=== PATIENT | male | born 1970 | race Caucasian/White ===

== ENCOUNTER 2023-02-21 12:49 | Outpatient (OUT) | payer OTHER, SELFPAY ==
--- NOTE | 2023-02-21 13:15 | PM.CN ---
Consult Note: HPI Data of Consult Patient: known to practice within the last 3 years Consult date: 02/21/23 Requesting Physician: BRET CARY NP Primary Care Provider: Debra Heart Consult Narrative Reason for consult: back pain Narrative: He is here for f/u of right low back pain . Pain is bilat low lumbar. No radicular sx. He has had 2 dx MBB bilat with 80% relief and increased fx. He would like to proceed with the RFA procedure. .No new sensorimotor or bowel or bladder issues. Medication regimen is controlling pain and assisting with ability to perform ADLs. No adverse med SE. He has muscular tightness and spasm. He used to take flexeril and felt this helped his pain. We discussed he can restart this. cc:: CC: BRET CARY NP Review of Systems ROS Status of ROS 10 or more systems reviewed and unremarkable except as noted in history and below Musculoskeletal Reports: back pain Meds Home Medications and Allergies Home Medications Medication Instructions Recorded Confirmed Type acetaminophen 650 mg 650 mg PO Q12H PRN pain 02/21/23 02/21/23 History tablet,extended release (Tylenol Arthritis Pain) amlodipine 10 mg tablet 10 mg PO DAILY 02/21/23 02/21/23 History losartan 100 mg tablet 100 mg PO DAILY 02/21/23 02/21/23 History meloxicam 7.5 mg tablet 7.5 mg PO DAILY 02/21/23 02/21/23 History Allergies Allergy/AdvReac Type Severity Reaction Status Date / Time No Known Drug Allergies Allergy Verified 02/21/23 13:20 Exam Constitutional Documenting provider has reviewed patient's vital signs: yes Common normals: no apparent distress, average body habitus, oriented x3, healthy appearing, alert and well nourished Orientation/consciousness: Yes awake, Yes oriented to person, Yes oriented to place and Yes oriented to time HENMT Common normals: normocephalic, nasal mucous membranes and turbinates normal and moist oral mucous membranes Other: facial droop and slurred speech from previous stroke Respiratory Common normals: normal respiratory effort, no retractions and no use of accessory muscles Effort & inspection: able to speak in complete sentences and symmetric chest movement Back & Pelvis Lumbar spine/lower back: normal to inspection, pain with ROM, paraspinal muscle tenderness, paraspinal muscle spasm and straight leg raise negative bilaterally Other: facet loading positive bilat Extremity Other: muscle strength 4/5 bilat with intact sensation bilat LE Assessment and Plan Assessment and Plan (1) Lumbar spondylosis: (2) Muscle spasm: Plan schedule thermal RFA bilat lumbar L3 L4 L5 under fluoroscopy flexeril rx
== END 2023-02-21 12:50 ==
PROVIDERS: PCP Nurse Practitioner Family; Visit Provider Nurse Practitioner
DX: M47.816 Spondylosis without myelopathy or radiculopathy, lumbar region (principal); M62.838 Other muscle spasm
CPT/HCPCS: G0463

== ENCOUNTER 2023-03-10 07:19 | Day surgery (SDC) | payer OTHER, MEDICAID, SELFPAY ==
[2023-03-10 07:46] VITALS: BP 157/97; PULSE 93; RESP 16; TEMP 36.8; O2SAT 98
[2023-03-10] MEDS: 0.9 % SODIUM CHLORIDE 500 ML IV (07:54)
[2023-03-10] MEDS: LIDOCAINE HCL 2% 400 MG/20 ML MDV 15 ML INJ (08:46)
[2023-03-10] MEDS: BUPIVACAINE HCL 0.25% PF 25 MG/10 ML VIAL INJ (08:46)
[2023-03-10] MEDS: TRIAMCINOLONE ACETONIDE 40 MG/ML VIAL INJ (08:47)
[2023-03-10 09:02] VITALS: BP 151/84; PULSE 87; RESP 16; TEMP 36.6; O2SAT 94
--- NOTE | 2023-03-10 09:04 | W.PM.PROCNOT ---
Date of procedure: 03/10/23 Pre-op diagnosis: lumbosacral spondylosis Post-op diagnosis: same Procedure: Bilateral L3, L4, L5 radiofrequency ablation Medications: Bupivacaine 0.25% 6cc, kenalog 80mg The patient was seen and examined in the preoperative holding area.? The site was marked.? Written informed consent was obtained and placed on the chart.? The patient was brought to the medical procedure unit and placed in the prone position.? A timeout was completed verifying correct patient, procedure, positioning, and special requirements.? The skin overlying the target points, the designated medial branch, were prepped and draped in the usual sterile fashion.? The target point was achieved with a 20-gauge 15 cm with a 10 mm curved active tip radiofrequency cannula under direct fluoroscopic visualization.? The needle was inserted at level L3 on the right side. Needle tip position was confirmed with lateral fluoroscopic position.? Motor stimulation was carried out at 2 Hz up to 5 volts with the absence of extremity activity.? This was repeated at level L4, 5 on right side.?? Sensory stimulation was carried out.? Concordant pain was realized at the above-mentioned sites.? Then radiofrequency lesioning was carried out times 90 seconds at 80 degrees times 2 lesions at each level.? The radiofrequency probe was removed prior to cannula removal.? The above-mentioned injectate was placed in 1 mL increments.? The needle was removed.? Insertion sites were covered.? The patient was taken to the postoperative recovery area and monitored for an appropriate length of time before being found suitable for discharge in the company of a responsible adult. The same procedure was then completed on the left side. Anesthesia: CELESTE Surgeon: Martin Patricio Condition: stable
[2023-03-10 09:06] VITALS: BP 144/93; PULSE 93; RESP 16
== END 2023-03-10 09:25 | disposition home or self-care (01) ==
PROVIDERS: PCP Nurse Practitioner Family; Visit Provider Anesthesiology
PROC: (CPT 1940; principal; 2023-03-10 08:20)
DX: M47.817 Spondylosis without myelopathy or radiculopathy, lumbosacral region (principal)
CPT/HCPCS: 64635; 64636; J2704

== ENCOUNTER 2023-03-27 05:36 | Emergency (ER) | payer MEDICAID, SELFPAY ==
[2023-03-27 05:40] VITALS: BP 185/120; PULSE 105; RESP 18; TEMP 36.4; O2SAT 98; BMI 28.9
--- NOTE | 2023-03-27 05:53 | PC.NURSE ---
patient states approx 1 week ago he began to develop right flank pain, states he has a history of frequent kidney stones so he began increasing daily water intake in an attempt to flush it out. states the pain did not improve and this morning it became so severe he could not get any relief. tried asprin, heating pad, position changes, all without relief. states he has 10/10 right flank pain, denies any other urinary symptoms.
--- NOTE | 2023-03-27 06:03 | ED.ABDPAIN1 ---
HPI - Abdominal Pain General Chief Complaint: Abdominal Pain Stated Complaint: FLANK PAIN, RIGHT SIDE Time Seen by Provider: 03/27/23 05:58 Source: patient Mode of arrival: walk-in Limitations: no limitations History of Present Illness HPI narrative: past history of kidney stones. Developed right flank pain last PM. Now presents due to increased pain. No fever. No UTI symptoms Related Data Home Medications Medication Instructions Recorded Confirmed acetaminophen 650 mg 650 mg PO Q12H PRN pain 02/21/23 03/27/23 tablet,extended release (Tylenol Arthritis Pain) amlodipine 10 mg tablet 10 mg PO DAILY 02/21/23 03/27/23 losartan 100 mg tablet 100 mg PO DAILY 02/21/23 03/27/23 meloxicam 7.5 mg tablet 7.5 mg PO DAILY 02/21/23 03/27/23 cyclobenzaprine 10 mg tablet 10 mg PO .at bedtime 03/27/23 03/27/23 Allergies Allergy/AdvReac Type Severity Reaction Status Date / Time No Known Drug Allergies Allergy Verified 03/27/23 05:45 Review of Systems ROS Status of ROS 10 or more systems reviewed and unremarkable except as noted in history and below [facility] Medical History (Updated 03/27/23 @ 06:53 by Felix Thomas MD) Surgical History (Updated 03/05/23 @ 14:32 by Camilla Augustine) Social History Smoking status: Never smoker Exam Constitutional Vital Signs, click to edit/add: Last Vital Signs Temp 97.6 F 03/27/23 05:40 Pulse 105 H 03/27/23 05:40 Resp 18 03/27/23 05:40 BP 185/120 H 03/27/23 05:40 Pulse Ox 98 03/27/23 05:40 O2 Del Method Room Air 03/27/23 05:40 Common normals: no apparent distress and oriented x3 HENMT Common normals: normocephalic and head/scalp atraumatic Eye Common normals: PERRL, EOMs intact bilaterally and conjunctivae normal Respiratory Common normals: normal respiratory effort, no retractions and no use of accessory muscles Cardio Common normals: regular rate, regular rhythm, S1 normal heart sound and S2 normal heart sound GI Common normals: soft to palpation and non-tender Extremity Common normals: normal to inspection, full ROM and normal capillary refill Neuro Common normals: oriented x3, moves all extremities and no focal motor deficits Psych Appearance: grossly normal Course Vital Signs Vital signs: Vital Signs Temperature 97.6 F 03/27/23 05:40 Pulse Rate 105 H 03/27/23 05:40 Respiratory Rate 18 03/27/23 05:40 Blood Pressure 185/120 H 03/27/23 05:40 Pulse Oximetry 98 03/27/23 05:40 Oxygen Delivery Method Room Air 03/27/23 05:40 Temperature 97.6 F 03/27/23 05:40 Pulse Rate 105 H 03/27/23 05:40 Respiratory Rate 18 03/27/23 05:40 Blood Pressure 185/120 H 03/27/23 05:40 Pulse Oximetry 98 03/27/23 05:40 Oxygen Delivery Method Room Air 03/27/23 05:40 MDM - Abdominal Pain MDM Narrative Medical decision making narrative: patient presents with right renal colic. CT with 5mm stone R UVJ with mild hydronephrosis. pain improved to 4/10. UA pending. BP remains elevated after pain improved. Catapres ordered. Care transferred to oncoming physician at change of shift Discharge Plan Discharge Chief Complaint: Abdominal Pain Clinical Impression: Renal colic on right side, Hypertension Patient Disposition: Still a Patient Prescriptions / Home Meds: No Action amlodipine 10 mg tablet 10 mg PO DAILY losartan 100 mg tablet 100 mg PO DAILY meloxicam 7.5 mg tablet 7.5 mg PO DAILY acetaminophen [Tylenol Arthritis Pain] 650 mg tablet extended release 650 mg PO Q12H PRN (Reason: pain) cyclobenzaprine 10 mg tablet 10 mg PO .at bedtime Referrals: Debra Heart [Nurse Practitioner] - 1 week
--- NOTE | 2023-03-27 06:06 | CT_ITS ---
The [address] [address] Patient Name: MAYRA BLACK MRN: [id number] date: 1970 Sex: M Assigned Patient Location: ER Current Patient Location: ER Accession/Order Number: [id number] Exam Date: 03/27/2023 06:18 Report Date: 03/27/2023 06:39 At the request of: THADDEUS POTTER Procedure: CT abdomen pelvis wo con EXAM: CT abdomen pelvis wo con HISTORY: Right flank pain; technologist notes state history of kidney stones. COMPARISON: None. TECHNIQUE: Routine CT abdomen/pelvis without intravenous contrast. FINDINGS: Right kidney: There is an obstructing 0.5 cm calculus at the right UVJ with mild right pelvocaliectasis and mild right hydroureter proximal to this. There are 0.2 cm, 0.2 cm and 0.6 cm nonobstructive calculi within the right renal pelvis. The right kidney appears edematous. There are moderately severe stranding densities within the right perinephric space. Left kidney: The left kidney and left ureter are unremarkable. Lower chest: Unremarkable. Liver: Unremarkable. Gallbladder/biliary tree: Unremarkable. Pancreas: Unremarkable. Spleen: Unremarkable. Adrenal glands: Unremarkable. Bowel: Nonobstructive bowel gas pattern with a moderate amount of stool within the ascending colon. The colon, appendix, stomach and small bowel are unremarkable. Inflammation: As previously described. There is no free air. Vasculature: Small atheromatous calcification within the abdominal aorta. The IVC is unremarkable. Lymphadenopathy: No pathologically enlarged lymph nodes within the abdomen/pelvis. Pelvis: The prostate gland is mild to moderately enlarged. There is fat extending into the internal ring of the left inguinal canal. Osseous: There is a very small amount of fat extending into the umbilicus. Small endplate spurs at a a few levels along the thoracolumbar spine. There is bridging osteophyte along the anterior aspect of the right sacroiliac joint. There are bone islands within the femoral head bilaterally and the right intertrochanteric region. CT/CT abdomen pelvis wo con IMPRESSION: Obstructive 0.5 cm calculus at the right UVJ with mild right pelvocaliectasis and mild right hydroureter proximal to this. Nonobstructive 0.2 cm, 0.2 cm and 0.6 cm calculi within the right renal pelvis. The prostate gland is mild to moderately enlarged. Electronically authenticated by: PARVIZ TITUS Date: 03/27/2023 06:39
[2023-03-27 06:13] LABS: Basophils Percent Auto 0.2 % (0.2-2.0); Eosinophils Percent Auto 0.2 % (0.9-7.0); Hematocrit 48.7 % (42.0-54.0); Hemoglobin 17.6 g/dL (14.0-18.0); Immature Granulocytes Abs Auto 0.05 10^3/uL (0.00-0.03); Immature Granulocytes Pct Auto 0.4 % (0.0-0.5); Lymphocytes Absolute Auto 0.8 10^3/uL (1.2-3.8); Lymphocytes Percent Auto 6.6 % (20.5-60.0); Mean Corpuscular HGB Conc 36.1 g/dL (29.9-35.2); Mean Corpuscular Volume 85.9 fL (80.0-94.0); Mean Platelet Volume 9.2 fL (9.5-13.5); Monocytes Absolute Auto 0.9 10^3/uL (0.3-0.8); Monocytes Percent Auto 7.6 % (1.7-12.0); Neutrophils Absolute Auto 9.7 10^3/uL (1.4-6.5); Platelet Count 270 10^3/uL (150-450); Red Blood Count 5.67 10^6/uL (4.70-6.10); Red Cell Distribution Width 11.6 % (11.0-15.0); White Blood Count 11.4 10^3/uL (4.0-11.0)
[2023-03-27 06:25] LABS: Alanine Aminotransferase 52 U/L (16-63); Albumin Globulin Ratio 1.4; Albumin Level 4.5 g/dL (3.4-5.0); Alkaline Phosphatase 81 U/L (46-116); Anion Gap 15.1; Aspartate Amino Transferase 21 U/L (15-37); Bilirubin Total 0.8 mg/dL (0.2-1.0); Calcium 9.6 mg/dL (8.5-10.1); Carbon Dioxide 24.8 mmol/L (21.0-32.0); Chloride 102 mmol/L (98-107); Estimated GFR (African America >60 (>=60); Estimated GFR (Non-African Ame >60 (>=60); Globulin 3.3 g/dL; Glucose 116 mg/dL (74-106); Potassium 3.9 mmol/L (3.5-5.1); Sodium 138 mmol/L (136-145); Total Protein 7.8 g/dL (6.4-8.2)
[2023-03-27] MEDS: KETOROLAC TROMETHAMINE 30 MG/ML VIAL IM (06:26)
[2023-03-27] MEDS: ORPHENADRINE 60 MG/ 2 ML VIAL IV (06:26)
[2023-03-27 06:41] VITALS: BP 172/107
[2023-03-27 07:04] VITALS: BP 159/114
[2023-03-27] MEDS: CLONIDINE HCL 0.1 MG TABLET PO (07:04)
[2023-03-27 07:08] VITALS: BP 159/114; PULSE 95; RESP 18; O2SAT 96
[2023-03-27 07:16] LABS: Bilirubin Urine NEGATIVE (NEGATIVE); Blood Urine LARGE (NEGATIVE); Clarity Urine CLEAR (CLEAR); Color Urine LT. YELLOW (YELLOW); Glucose Urine UA NEGATIVE (NEGATIVE); Ketones Urine NEGATIVE (NEGATIVE); Leukocyte Esterase Urine NEGATIVE (NEGATIVE); Nitrite Urine NEGATIVE (NEGATIVE); Protein Urine NEGATIVE (NEG/TRACE); Specific Gravity Urine 1.025 (1.005-1.025); Urobilinogen Urine 0.2 EU/dL (0.2-1.0)
[2023-03-27 07:19] LABS: Urine Microscopic Indicated YES
[2023-03-27 07:22] LABS: Bacteria Urine NONE SEEN #/HPF (NONE SEEN); Cast Seen? NONE SEEN #/LPF (NONE SEEN); Crystals Seen? None Seen #/HPF (None Seen); Mucus Urine NONE SEEN (NONE SEEN); RBC Urine 20-50 #/HPF (0-2); Squamous Epithelial Cell Urine RARE #/LPF (NONE/RARE); Urine Culture Indicated NO; WBC Urine NONE SEEN #/HPF (NONE SEEN)
[2023-03-27 07:29] VITALS: BP 144/98; PULSE 99; RESP 18; O2SAT 95
== END 2023-03-27 07:49 | disposition home or self-care (01) ==
PROVIDERS: Internal Medicine; Emergency Provider Emergency Medicine; PCP Nurse Practitioner
DX: N13.2 Hydronephrosis with renal and ureteral calculous obstruction (principal); I10 Essential (primary) hypertension; Z87.442 Personal history of urinary calculi; Z79.899 Other long term (current) drug therapy
CPT/HCPCS: 36415; 74018; 74176; 80053; 81003; 81015; 85025; 96372; 96374; 99285

== ENCOUNTER 2023-03-27 08:34 | Outpatient (OUT) | payer MEDICAID, SELFPAY ==
--- NOTE | 2023-03-27 09:03 | XR_ITS ---
The [address] [address] Patient Name: MAYRA BLACK MRN: [id number] date: 1970 Sex: M Assigned Patient Location: RAD Current Patient Location: [facility] Accession/Order Number: [id number] Exam Date: 03/27/2023 08:55 Report Date: 03/27/2023 12:10 At the request of: BRENNAN PADILLA Procedure: XR abdomen 1V EXAMINATION: XR abdomen 1V HISTORY: Kidney Stone N20.0 ; acute right flank pain COMPARISON: CT abdomen pelvis 03/27/2023 FINDINGS: KIDNEY/URETER - RIGHT: No visible renal or ureteral calcifications. KIDNEY/URETER - LEFT: No visible renal or ureteral calcifications. PELVIS: No visible ureteral stones. BOWEL: No abnormal dilation or deviation. BONES: No acute abnormality. OTHER: Negative. No abnormal gaseous collections. XR/XR abdomen 1V IMPRESSION: 1. No visible urinary tract calculi. Given the small size of the calcifications seen on the CT study performed earlier today these may not be visible, or may have passed. Electronically authenticated by: LENIN PRESCOTT Date: 03/27/2023 12:10
== END 2023-03-27 08:35 | disposition home or self-care (01) ==
LOC: RAD 08:35
PROVIDERS: PCP Nurse Practitioner; Visit Provider Urology
DX: N20.0 Calculus of kidney (principal)
CPT/HCPCS: 74018

== ENCOUNTER 2023-04-14 12:55 | Outpatient (OUT) | payer OTHER, SELFPAY ==
--- NOTE | 2023-04-14 13:35 | PM.CN ---
Consult Note: HPI Data of Consult Patient: known to practice within the last 3 years Consult date: 04/14/23 Requesting Physician: Martin Patricio MD Primary Care Provider: Zenaida Nix Consult Narrative Reason for consult: Low back pain Narrative: this is a pleasant 52-year-old gentleman who presents for assessment. He recently underwent bilateral L4-L5, L5-S1 radiofrequency ablation notes one hundred percent relief of his axial low back pain. He states that he is able to do more activities that he was previously unable to do without pain. He utilizes Mobic and Flexeril. He otherwise denies adverse medication side effects or loss of bowel or bladder control. cc:: CC: Martin Patricio MD Review of Systems ROS Status of ROS 10 or more systems reviewed and unremarkable except as noted in history and below PFSH PFS Medical History Surgical History Social History Smoking status: Never smoker Meds Home Medications and Allergies Home Medications Medication Instructions Recorded Confirmed Type acetaminophen 650 mg 650 mg PO Q12H PRN pain 02/21/23 03/27/23 History tablet,extended release (Tylenol Arthritis Pain) amlodipine 10 mg tablet 10 mg PO DAILY 02/21/23 03/27/23 History losartan 100 mg tablet 100 mg PO DAILY 02/21/23 03/27/23 History ciprofloxacin HCl 500 mg tablet 500 mg PO BID #14 tabs 03/27/23 Rx cyclobenzaprine 10 mg tablet 10 mg PO .at bedtime 03/27/23 03/27/23 History diclofenac sodium 50 mg 50 mg PO Q12H PRN pain #10 tabs 03/27/23 Rx tablet,delayed release tamsulosin 0.4 mg capsule (Flomax) 0.4 mg PO DAILY #10 caps 03/27/23 Rx Allergies Allergy/AdvReac Type Severity Reaction Status Date / Time No Known Drug Allergies Allergy Verified 03/27/23 05:45 Exam Constitutional Common normals: no apparent distress, oriented x3 and healthy appearing Respiratory Common normals: normal respiratory effort Effort & inspection: able to speak in complete sentences Back & Pelvis Common normals: thoracic and lumbar spine normal to inspection, thoraco-lumbar ROM normal and straight leg raise negative bilaterally Extremity Common normals: normal to inspection Neuro Common normals: oriented x3, CN's II-XII intact bilaterally and no focal motor deficits Psych Common normals: mental status grossly normal and cooperative Assessment and Plan Assessment and Plan (1) Lumbar spondylosis: (2) Muscle spasm: Plan this is a pleasant 52-year-old gentleman who presents for system. I advised that he had significant relief for his recent lumbar radial frequency ablation, as noted above. He continues to have some pain from kidney stones. We discussed that he could see how he does without his Flexeril and Mobic. He agreed with this plan. He'll follow-up in six months or sooner, if needed.
== END 2023-04-14 12:56 | disposition home or self-care (01) ==
LOC: PM 12:55
PROVIDERS: PCP Nurse Practitioner; Visit Provider Anesthesiology
DX: M47.816 Spondylosis without myelopathy or radiculopathy, lumbar region (principal); M62.838 Other muscle spasm
CPT/HCPCS: G0463

== ENCOUNTER 2023-04-28 08:42 | Outpatient (OUT) | payer MEDICAID, SELFPAY ==
--- NOTE | 2023-04-28 08:57 | XR_ITS ---
The [address] [address] Patient Name: MAYRA BLACK MRN: [id number] date: 1970 Sex: M Assigned Patient Location: [facility] Current Patient Location: [facility] Accession/Order Number: [id number] Exam Date: 04/28/2023 09:00 Report Date: 04/28/2023 09:31 At the request of: BRENNAN PADILLA Procedure: XR abdomen 1V EXAM: XR abdomen 1V HISTORY: Kidney stone N20.0 COMPARISON: None. TECHNIQUE: AP view of the abdomen. FINDINGS: Nonobstructive bowel gas pattern is noted. There is no suspicious calcification. The osseous structures are intact. XR/XR abdomen 1V IMPRESSION: Nonobstructive bowel gas pattern. No suspicious renal calcification. Electronically authenticated by: IDALIA CARLIN Date: 04/28/2023 09:31
== END 2023-04-28 08:43 | disposition home or self-care (01) ==
LOC: RAD 08:45
PROVIDERS: PCP Nurse Practitioner; Visit Provider Urology
DX: N13.2 Hydronephrosis with renal and ureteral calculous obstruction (principal)
CPT/HCPCS: 74018

== ENCOUNTER 2023-05-06 08:54 | Outpatient (OUT) | payer MEDICAID, SELFPAY ==
--- NOTE | 2023-05-06 09:00 | XR_ITS ---
[address] [address] Patient Name: MAYRA BLACK MRN: [facility]:[id number] date: 1970 Sex: M Assigned Patient Location: LAB Current Patient Location: LAB Accession/Order Number: [id number] Exam Date: 05/06/2023 09:50 Report Date: 05/06/2023 15:20 At the request of: BRENNAN PADILLA Procedure: XR IVP w KUB EXAMINATION: XR IVP w KUB HISTORY: Hydronephrosis With Ureteral Calculus N13.2, Kidney Stone COMPARISON: CT abdomen pelvis 03/27/2023 TECHNIQUE: After obtaining patient consent a chief of production image was obtained followed by injection of 100cc of Omnipaque 300 IV contrast. Immediate nephrographic images were obtained. Corticomedullary and urographic phase images were obtained at 5, 10, 15 and 20 minutes. 15 minute oblique images were also obtained. FINDINGS: KIDNEY/URETER - RIGHT: No visible calcifications. KIDNEY/URETER - LEFT: No visible calcifications. PELVIS: No visible ureteral calcifications. Any visible calcifications favor phleboliths. NEPHROGRAPHIC PHASE: Normal, symmetric size, contour, and orientation. Normal and symmetric time of contrast uptake. CORTICOMEDULLARY: No mass or abnormal appearing medulla, pyramids, or collecting system. UROGRAPHIC PHASE: Normal caliber, course, and number of ureters. BLADDER: Normal size and contour. BOWEL: No abnormal dilation or deviation. BONES: No acute abnormality. OTHER: Negative. No abnormal gaseous collections. XR/XR IVP w KUB IMPRESSION: 1. No appreciable urinary tract calculi. 2. Normal uptake and excretion of contrast by the kidneys. 3. Normal appearance of the ureters and urinary bladder. Electronically authenticated by: LENIN PRESCOTT Date: 05/06/2023 15:20
[2023-05-06 09:20] LABS: Estimated GFR (African America >60 (>=60); Estimated GFR (Non-African Ame >60 (>=60)
== END 2023-05-06 08:55 | disposition home or self-care (01) ==
LOC: LAB 08:54
PROVIDERS: PCP Nurse Practitioner; Visit Provider Urology
DX: N13.2 Hydronephrosis with renal and ureteral calculous obstruction (principal)
CPT/HCPCS: 36415; 74400; 82565; 84520; Q9967

== ENCOUNTER 2023-11-05 14:28 | Outpatient (RCR) | payer OTHER, SELFPAY | END 2023-12-05 13:03 | disposition home or self-care (01) | LOC: PT 14:28 | PROVIDERS: PCP Nurse Practitioner; Visit Provider Nurse Practitioner Family | DX: M47.816 Spondylosis without myelopathy or radiculopathy, lumbar region (principal); M51.26 Other intervertebral disc displacement, lumbar region | CPT/HCPCS: 97110; 97112; 97140; 97163 ==

== ENCOUNTER 2023-12-11 09:27 | Outpatient (OUT) | payer MEDICAID, SELFPAY ==
[2023-12-11 09:54] LABS: Basophils Percent Auto 0.7 % (0.2-2.0); Eosinophils Absolute Auto 0.1 10^3/uL (0.0-0.7); Eosinophils Percent Auto 2.1 % (0.9-7.0); Hematocrit 47.7 % (42.0-54.0); Hemoglobin 16.6 g/dL (14.0-18.0); Immature Granulocytes Abs Auto 0.01 10^3/uL (0.00-0.03); Immature Granulocytes Pct Auto 0.2 % (0.0-0.5); Lymphocytes Percent Auto 22.5 % (20.5-60.0); Mean Corpuscular HGB Conc 34.8 g/dL (29.9-35.2); Mean Corpuscular Hemoglobin 30.6 pg (25.9-34.0); Mean Platelet Volume 10.3 fL (9.5-13.5); Monocytes Absolute Auto 0.3 10^3/uL (0.3-0.8); Monocytes Percent Auto 7.7 % (1.7-12.0); Neutrophils Absolute Auto 2.9 10^3/uL (1.4-6.5); Neutrophils Percent Auto 66.8 % (43.0-75.0); Platelet Count 228 10^3/uL (150-450); Red Blood Count 5.42 10^6/uL (4.70-6.10); Red Cell Distribution Width 12.3 % (11.0-15.0); White Blood Count 4.3 10^3/uL (4.0-11.0)
[2023-12-11 11:42] LABS: Alanine Aminotransferase 58 U/L (16-63); Albumin Globulin Ratio 1.3; Alkaline Phosphatase 87 U/L (46-116); Anion Gap 12.4; Aspartate Amino Transferase 25 U/L (15-37); BUN Creatinine Ratio 11.6; Calcium 8.9 mg/dL (8.5-10.1); Carbon Dioxide 30.3 mmol/L (21.0-32.0); Chloride 106 mmol/L (98-107); Chol HDL Ratio 5.2; Cholesterol 220 mg/dL (<=200); Estimated GFR (African America >60 (>=60); Estimated GFR (Non-African Ame >60 (>=60); Globulin 3.1 g/dL; Glucose 111 mg/dL (74-106); HDL Cholesterol 42 mg/dL (40-60); Potassium 3.7 mmol/L (3.5-5.1); Sodium 145 mmol/L (136-145); Thyroid Stimulating Hormone 3.784 uIU/mL (0.358-3.740); Total Protein 7.1 g/dL (6.4-8.2); Triglycerides 294 mg/dL (<=150); VLDL CHOLESTEROL 58.8 mg/dL
[2023-12-11 12:20] LABS: Bilirubin Urine NEGATIVE (NEGATIVE); Blood Urine NEGATIVE (NEGATIVE); Clarity Urine CLEAR (CLEAR); Color Urine YELLOW (YELLOW); Glucose Urine UA NEGATIVE (NEGATIVE); Ketones Urine NEGATIVE (NEGATIVE); Leukocyte Esterase Urine NEGATIVE (NEGATIVE); Nitrite Urine NEGATIVE (NEGATIVE); Protein Urine NEGATIVE (NEG/TRACE); Specific Gravity Urine 1.025 (1.005-1.025); Urine Microscopic Indicated NO; Urobilinogen Urine 0.2 EU/dL (0.2-1.0)
[2023-12-11 12:32] LABS: Creatinine Urine Random 247.95 mg/dL (20.00-300.00); Microalbum Creatinine Ratio Ur 7.2 mg/g (0.0-29.9); Microalbumin Urine Random 1.8 mg/dL (<=30.0)
[2023-12-11 12:48] LABS: Prostate Specific Antigen Dx 0.69 ng/mL (<=4.00)
== END 2023-12-11 09:28 | disposition home or self-care (01) ==
LOC: LAB 09:28
PROVIDERS: PCP Nurse Practitioner; Visit Provider Nurse Practitioner
DX: F41.1 Generalized anxiety disorder (principal); I10 Essential (primary) hypertension; N40.0 Benign prostatic hyperplasia without lower urinary tract symptoms
CPT/HCPCS: 36415; 80053; 80061; 81003; 82043; 82570; 84153; 84443; 85025

== ENCOUNTER 2024-03-11 09:49 | Outpatient (OUT) | payer MEDICAID, SELFPAY ==
[2024-03-11 11:08] LABS: Anion Gap 11.9; BUN Creatinine Ratio 19.3; Calcium 8.8 mg/dL (8.5-10.1); Carbon Dioxide 29.6 mmol/L (21.0-32.0); Chloride 102 mmol/L (98-107); Estimated GFR (African America >60 (>=60); Estimated GFR (Non-African Ame >60 (>=60); Glucose 106 mg/dL (74-106); Potassium 3.5 mmol/L (3.5-5.1); Sodium 140 mmol/L (136-145)
== END 2024-03-11 09:50 | disposition home or self-care (01) ==
LOC: LAB 09:52
PROVIDERS: PCP Nurse Practitioner; Visit Provider Nurse Practitioner
DX: I10 Essential (primary) hypertension (principal)
CPT/HCPCS: 36415; 80048

== ENCOUNTER 2024-05-07 06:38 | Outpatient (OUT) | payer MEDICAID, SELFPAY ==
--- NOTE | 2024-05-07 06:41 | MR_ITS ---
The [address] [address] Patient Name: MAYRA BLACK MRN: [id number] date: 1970 Sex: M Assigned Patient Location: MRI Current Patient Location: MRI Accession/Order Number: [id number] Exam Date: 05/07/2024 06:50 Report Date: 05/07/2024 22:38 At the request of: MARY TORRES Procedure: MR head/brain wo/w con EXAM: MR head/brain wo/w con HISTORY: Sensorineural Hearing Loss, Tinnitus Right Side COMPARISON: CT brain 07/21/2019 TECHNIQUE: Multisequence MRI brain was performed with and without intravenous contrast. FINDINGS: There is no restricted diffusion to suggest acute infarct. There is no midline shift, mass effect, or abnormal extraaxial fluid collections. There is a 2.5 x 2.5 x 1.8 cm well-defined enhancing extra-axial mass with cystic components in the right cerebellopontine angle, extends through the internal auditory canal. There is mild mass effect upon the right anterior cerebellum. The cortical sulci and ventricular system are within normal limits for the age. The major intracranial flow voids are visualized. The cerebellar tonsils are normal in position. The orbits demonstrate no suspicious enhancement or any focal lesions. The paranasal sinuses show no air-fluid level. The mastoid air cells are clear. The calvarium and extracranial soft tissues are unremarkable. MR/MR head/brain wo/w con IMPRESSION: No acute intracranial abnormality . 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 Electronically authenticated by: ROB MAHARAJ Date: 05/07/2024 22:38
== END 2024-05-07 06:39 | disposition home or self-care (01) ==
LOC: MRI 06:38
PROVIDERS: PCP Nurse Practitioner; Visit Provider Otolaryngology
DX: H90.41 Sensorineural hearing loss, unilateral, right ear, with unrestricted hearing on the contralateral side (principal); H93.11 Tinnitus, right ear; D33.3 Benign neoplasm of cranial nerves
CPT/HCPCS: 70553; A9575

== ENCOUNTER 2024-11-30 13:42 | Observation (INO) | payer MEDICAID, SELFPAY ==
[2024-11-30] VITALS (25 sets, daily range): BP systolic 151–184; BP diastolic 91–112; PULSE 70–101; TEMP 36.4–36.7; O2SAT 91–97; BMI 20.3; BMI 26.6
--- NOTE | 2024-11-30 13:59 | ECG_ITS ---
The [facility] Test Date: 2024-11-30 Pat Name: MAYRA BLACK Department: Room: - Gender: Male Histopath Tech: : 1970 Requested By: [id number] Order Number: [id number] Reading MD: LEVI STEWART Measurements Intervals [place] Rate: 96 P: 51 [place]: 174 QRS: 49 QRSD: 102 T: 48 QT: 334 QTc: 387 Interpretive Statements 1100 Sinus rhythm 9110 normal ECG Compared to ECG 11/18/2022 13:53:28 Sinus tachycardia no longer present Intraventricular conduction delay no longer present T-wave abnormality no longer present Electronically Signed On 11-30-2024 14:56:25 EDT by LEVI STEWART
--- NOTE | 2024-11-30 14:01 | ED_ITS ---
HPI HPI - General Adult General Chief complaint: Neuro Symptoms/Deficit Stated complaint: POSSIBLE STROKE Time Seen by Provider: 11/30/24 13:43 Source: patient and family Mode of arrival: Wheelchair Limitations: no limitations History of Present Illness HPI narrative: Patient is a 54-year-old male brought to the emergency department by his mother for complaint of a possible stroke. History was initially provided by mother as the patient was taken immediately to the CT suite. Mother states that she last saw the patient normally yesterday morning. The patient called her this afternoon stating that he was not feeling well and felt he needed to be seen in the emergency department. She states that he has a history of dysarthria, she feels he is at his mental baseline and his speech is at his baseline at this time. She did not note any confusion or change in speech in the car ride from his home in [place] to the hospital. Upon returning from CT, the patient states that at 7:00 this morning, he developed a headache and blurry vision and shortly after felt as though his left arm was numb and weak. He states this resolved and then he noted numbness and weakness in his right arm. This has now also resolved. He had no lower extremity weakness. He does not feel his speech is changed and he has had no trouble with his words. Patient states he has had previous strokes, mother states she did not believe that he has had strokes in the past. He recently had an noncancerous cyst removed from behind his right ear at [facility] and had a CT scan at their facility last week for continued pain posterior to the right ear. He does not know the results. He does not take blood thinners. Other than a frontal headache, the patient has no focal medical complaints at this time. He is noted to be hypertensive, he states he took himself off of his blood pressure medication 1 month ago. Related Data Home Medications ?Medication ?Instructions ?Recorded ?Confirmed acetaminophen 650 mg 650 mg PO Q12H PRN pain 02/21/23 03/27/23 tablet,extended release (Tylenol Arthritis Pain) amlodipine 10 mg tablet 10 mg PO DAILY 02/21/23 03/27/23 losartan 100 mg tablet 100 mg PO DAILY 02/21/23 03/27/23 cyclobenzaprine 10 mg tablet 10 mg PO .at bedtime 07/13/23 07/13/23 Previous Rx's ?Medication ?Instructions ?Recorded ciprofloxacin HCl 500 mg tablet 500 mg PO BID #14 tabs 03/27/23 diclofenac sodium 50 mg 50 mg PO Q12H PRN pain #10 tabs 03/27/23 tablet,delayed release tamsulosin 0.4 mg capsule (Flomax) 0.4 mg PO DAILY #10 caps 03/27/23 Allergies Allergy/AdvReac Type Severity Reaction Status Date / Time No Known Drug Allergies Allergy Verified 03/27/23 05:45 Opioid HPI Opioid Management Most Recent Opioid Data: Last Pain Scale 10 03/27/23 05:52 03/27/23 Review of Systems ROS Constitutional Denies: fever or chills Eyes Reports: change in vision and blurry vision Ears, nose, mouth, and throat Denies: throat pain or nasal congestion Cardiovascular Denies: chest pain Respiratory Denies: shortness of breath or cough Gastrointestinal Denies: nausea or vomiting Musculoskeletal Denies: back pain or neck pain Integumentary/Breast Denies: rash Neurological Reports: headache, numbness in extremities and weakness in extremities Hematologic/Lymphatic Denies: easy bruising or easy bleeding PFSH PFSH Medical History Surgical History Social History Smoking status: Never smoker Exam Narrative Exam Narrative: Gen.: Awake, alert, in no distress Head: Normocephalic, atraumatic ENT: Moist mucous membranes, minimal drooping of the right corner of the mouth, dysarthric speech Respiratory: No respiratory distress, lungs clear bilaterally Cardio: Regular rate and rhythm Gastrointestinal: Abdomen is soft, nondistended and nontender to palpation Extremities: Moves extremities equally, 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 with normal dorsiflexion and plantarflexion, no pronator drift Psych: Normal mood and affect Neuro: No focal neuro deficit Skin: Warm, dry, intact Constitutional Vital Signs, click to edit/add: Last Vital Signs Temp 97.6 F 11/30/24 14:20 Pulse 78 11/30/24 15:50 Resp 15 11/30/24 15:50 BP 159/103 H 11/30/24 15:45 Pulse Ox 94 L 11/30/24 15:50 O2 Del Method Room Air 11/30/24 13:58 Course Vital Signs Vital signs: Vital Signs Pulse Rate 101 H 11/30/24 13:53 Respiratory Rate 20 11/30/24 13:53 Blood Pressure 182/112 H 11/30/24 13:53 Pulse Oximetry 97 11/30/24 13:53 Oxygen Delivery Method Room Air 11/30/24 13:53 Temperature 97.6 F 11/30/24 14:20 Pulse Rate 78 11/30/24 15:50 Respiratory Rate 15 11/30/24 15:50 Blood Pressure 159/103 H 11/30/24 15:45 Pulse Oximetry 94 L 11/30/24 15:50 Oxygen Delivery Method Room Air 11/30/24 13:58 Medical Decision Making MDM Narrative Medical decision making narrative: Patient was sent immediately to CT, noncontrast CT of the brain is unremarkable. Laboratory studies reviewed and noted, patient is noted to be hypertensive initially and treated with labetalol and Vasotec, additional labetalol given. CT angio of the head and neck were performed which are unremarkable as well. I discussed the case with Dr. Watkins for stroke interventional at [facility] who is in agreement that this is likely hypertensive urgency and not an acute CVA, patient has no focal medical complaints other than headache which is improved as his blood pressure improved. He is resting comfortably at his mental baseline at time of admission to the hospitalist at this facility. SUPERVISED APC VISIT, PHYSICIAN ATTESTATION: Based on the medical record the care appears appropriate. ? Medical Records Medical records reviewed: Yes I reviewed the patient's medical records Lab Data Lab results reviewed: Yes I reviewed the patient's lab results Labs: Lab Results 11/30/24 11/30/24 Range/Units 13:55 14:50 WBC 4.1 (4.0-11.0) 10^3/uL RBC 5.47 (4.70-6.10) 10^6/uL Hgb 17.0 (14.0-18.0) g/dL Hct 48.0 (42.0-54.0) % MCV 87.8 (80.0-94.0) fL MCH 31.1 (25.9-34.0) pg MCHC 35.4 H (29.9-35.2) g/dL RDW 11.8 (11.0-15.0) % Plt Count 230 (150-450) 10^3/uL MPV 10.3 (9.5-13.5) fL Neut % (Auto) 67.8 (43.0-75.0) % Lymph % (Auto) 23.4 (20.5-60.0) % Grand % (Auto) 6.9 (1.7-12.0) % Eos % (Auto) 1.2 (0.9-7.0) % Baso % (Auto) 0.5 (0.2-2.0) % Neut # (Auto) 2.8 (1.4-6.5) 10^3/uL Lymph # (Auto) 1.0 L (1.2-3.8) 10^3/uL Grand # (Auto) 0.3 (0.3-0.8) 10^3/uL Eos # (Auto) 0.1 (0.0-0.7) 10^3/uL Baso # (Auto) 0.0 (0.0-0.1) 10^3/uL Abs Immat Gran (auto) 0.01 (0.00-0.03) 10^3/uL Imm/Tot Granulo (auto) 0.2 (0.0-0.5) % ESR 1 (<=20) mm/hr PT 10.9 (9.0-11.6) sec INR 1.03 Sodium 143 (136-145) mmol/L Potassium 3.7 (3.5-5.1) mmol/L Chloride 106 (98-107) mmol/L Carbon Dioxide 28.5 (21.0-32.0) mmol/L Anion Gap 12.2 BUN 11.0 (7.0-18.0) mg/dL Creatinine 1.00 (0.70-1.30) mg/dL Est GFR ( Amer) >60 (>=60 mL/min/1.73m^2) Est GFR (Non-Af Amer) >60 (>=60 mL/min/1.73m^2) BUN/Creatinine Ratio 11.0 Glucose 124 H (74-106) mg/dL Lactate 1.2 (0.4-2.0) mmol/L Calcium 9.1 (8.5-10.1) mg/dL Magnesium 1.9 (1.8-2.4) mg/dL Total Bilirubin 0.7 (0.2-1.0) mg/dL AST 24 (15-37) U/L ALT 44 (16-63) U/L Alkaline Phosphatase 80 (46-116) U/L Troponin I High Sens 4.6 (4.0-76.1) pg/mL C-Reactive Protein <0.50 (<=0.50) mg/dL Total Protein 7.0 (6.4-8.2) g/dL Albumin 4.1 (3.4-5.0) g/dL Globulin 2.9 g/dL Albumin/Globulin Ratio 1.4 TSH 1.708 (0.358-3.740) uIU/mL Urine Color Lt. yellow (YELLOW) Urine Clarity Clear (CLEAR) Urine pH 6.0 (5.0-9.0) Ur Specific [place] 1.010 (1.005-1.025) Urine Protein Negative (NEG/TRACE) mg/dL Urine Glucose (UA) Negative (NEGATIVE) mg/dL Urine Ketones Negative (NEGATIVE) mg/dL Urine Occult Blood Negative (NEGATIVE) Urine Nitrite Negative (NEGATIVE) Urine Bilirubin Negative (NEGATIVE) Urine Urobilinogen 0.2 (0.2-1.0) EU/dL Ur Leukocyte Esterase Negative (NEGATIVE) Urine RBC None seen (0-2) #/HPF Urine WBC None seen (NONE SEEN) #/HPF Ur Squamous Epith Cells Rare (NONE/RARE) #/LPF Urine Crystals None seen (None Seen) #/HPF Urine Bacteria None seen (NONE SEEN) #/HPF Urine Casts None seen (NONE SEEN) #/LPF Urine Mucus None seen (NONE SEEN) Ur Culture Indicated? No Imaging Data CT scan - head: Attestation: I have reviewed the pertinent imaging results. ECG Data Attestation: I personally reviewed and interpreted this ECG as follows: (Normal sinus rhythm at a rate of 96, no acute ST elevation or ectopy. EKG reviewed by attending physician) Discharge Plan Discharge Chief Complaint: Neuro Symptoms/Deficit Patient Disposition: Admitted as Observation Time of Disposition Decision: 16:13 Prescriptions / Home Meds: No Action amlodipine 10 mg tablet 10 mg PO DAILY losartan 100 mg tablet 100 mg PO DAILY acetaminophen [Tylenol Arthritis Pain] 650 mg tablet extended release 650 mg PO Q12H PRN (Reason: pain) cyclobenzaprine 10 mg tablet 10 mg PO .at bedtime diclofenac sodium 50 mg tablet,delayed release (DR/EC) 50 mg PO Q12H PRN (Reason: pain) Qty: 10 0RF tamsulosin [Flomax] 0.4 mg capsule 0.4 mg PO DAILY Qty: 10 0RF ciprofloxacin HCl 500 mg tablet 500 mg PO BID Qty: 14 0RF Print Language: Urdu Referrals: Zenaida Nix [facility] [Primary Care Provider] - 1 week
[2024-11-30 14:12] LABS: Basophils Percent Auto 0.5 % (0.2-2.0); Eosinophils Absolute Auto 0.1 10^3/uL (0.0-0.7); Eosinophils Percent Auto 1.2 % (0.9-7.0); Immature Granulocytes Abs Auto 0.01 10^3/uL (0.00-0.03); Immature Granulocytes Pct Auto 0.2 % (0.0-0.5); Lymphocytes Percent Auto 23.4 % (20.5-60.0); Mean Corpuscular HGB Conc 35.4 g/dL (29.9-35.2); Mean Corpuscular Hemoglobin 31.1 pg (25.9-34.0); Mean Corpuscular Volume 87.8 fL (80.0-94.0); Mean Platelet Volume 10.3 fL (9.5-13.5); Monocytes Absolute Auto 0.3 10^3/uL (0.3-0.8); Monocytes Percent Auto 6.9 % (1.7-12.0); Neutrophils Absolute Auto 2.8 10^3/uL (1.4-6.5); Neutrophils Percent Auto 67.8 % (43.0-75.0); Platelet Count 230 10^3/uL (150-450); Red Blood Count 5.47 10^6/uL (4.70-6.10); Red Cell Distribution Width 11.8 % (11.0-15.0); White Blood Count 4.1 10^3/uL (4.0-11.0)
[2024-11-30] MEDS: ENALAPRILAT DIHYDRATE 1.25 MG/ML VIAL IV (14:14)
[2024-11-30] MEDS: LABETALOL HCL 20 MG/4 ML SYRINGE IVP (14:14)
[2024-11-30 14:15] LABS: INR 1.03; Prothrombin Time 10.9 sec (9.0-11.6)
[2024-11-30 14:21] LABS: Erythrocyte Sedimentation Rate 1 mm/hr (<=20)
[2024-11-30 14:22] LABS: Alanine Aminotransferase 44 U/L (16-63); Albumin Globulin Ratio 1.4; Albumin Level 4.1 g/dL (3.4-5.0); Alkaline Phosphatase 80 U/L (46-116); Anion Gap 12.2; Aspartate Amino Transferase 24 U/L (15-37); Bilirubin Total 0.7 mg/dL (0.2-1.0); Calcium 9.1 mg/dL (8.5-10.1); Carbon Dioxide 28.5 mmol/L (21.0-32.0); Chloride 106 mmol/L (98-107); Estimated GFR (African America >60 (>=60 mL/min/1.73m^2); Estimated GFR (Non-African Ame >60 (>=60 mL/min/1.73m^2); Globulin 2.9 g/dL; Glucose 124 mg/dL (74-106); Potassium 3.7 mmol/L (3.5-5.1); Sodium 143 mmol/L (136-145)
[2024-11-30 14:24] LABS: Lactate/Lactic Acid 1.2 mmol/L (0.4-2.0)
[2024-11-30 14:27] LABS: C Reactive Protein <0.50 mg/dL (<=0.50); Magnesium 1.9 mg/dL (1.8-2.4); Thyroid Stimulating Hormone 1.708 uIU/mL (0.358-3.740); Troponin I High Sensitivity 4.6 pg/mL (4.0-76.1)
[2024-11-30 15:08] LABS: Bilirubin Urine NEGATIVE (NEGATIVE); Blood Urine NEGATIVE (NEGATIVE); Clarity Urine CLEAR (CLEAR); Color Urine LT. YELLOW (YELLOW); Glucose Urine UA NEGATIVE (NEGATIVE); Ketones Urine NEGATIVE (NEGATIVE); Leukocyte Esterase Urine NEGATIVE (NEGATIVE); Nitrite Urine NEGATIVE (NEGATIVE); Protein Urine NEGATIVE (NEG/TRACE); Urobilinogen Urine 0.2 EU/dL (0.2-1.0)
[2024-11-30 15:22] LABS: Bacteria Urine NONE SEEN #/HPF (NONE SEEN); Cast Seen? NONE SEEN #/LPF (NONE SEEN); Crystals Seen? None Seen #/HPF (None Seen); Mucus Urine NONE SEEN (NONE SEEN); RBC Urine NONE SEEN #/HPF (0-2); Squamous Epithelial Cell Urine RARE #/LPF (NONE/RARE); Urine Culture Indicated NO; WBC Urine NONE SEEN #/HPF (NONE SEEN)
[2024-11-30] MEDS: LABETALOL HCL 20 MG/4 ML SYRINGE 10 MG IVP (16:09)
--- NOTE | 2024-11-30 16:53 | PC.NURSE ---
pt sx have since resolved but states this morning at 0700 he was turning on the news ahnd his vision got blurry for approx 5 mins and his L hand had numbness/tingling. moments later, that resolved and the R hand got numb/tingly. per pt's mother, the last night she saw him normal was last night. they do not llive together. sx resolved by the time pt got to ER. 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 Pt is alert and oriented. Pt within the last month took himself of his BP medications. 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 Follows up with [facility] for his neurology.
[2024-11-30 17:30] LABS: Amphetamine Screen Urine NEGATIVE (NEGATIVE); Barbiturates Screen Urine NEGATIVE (NEGATIVE); Benzodiazepines Screen Urine NEGATIVE (NEGATIVE); Buprenorphine Screen Urine NEGATIVE (NEGATIVE); Cannabinoid Screen Urine NEGATIVE (NEGATIVE); Cocaine Screen Urine NEGATIVE (NEGATIVE); Methadone Screen Urine NEGATIVE (NEGATIVE); Methamphetamines Screen Urine NEGATIVE (NEGATIVE); Opiate Screen Urine NEGATIVE (NEGATIVE); Oxycodone Screen Urine NEGATIVE (NEGATIVE); Phencyclidine Screen Urine NEGATIVE (NEGATIVE); Tricyclic Antidepressant Urine NEGATIVE (NEGATIVE)
--- OUTSIDE RECORDS SUMMARY | 2024-11-30 17:37 | XMS_ITS | CCD ---
Author Organization [facility] Care Team Providers Care Dog Handler Name Role Phone MANLEY ., DR SHAUNA Pan Attending Unavailable MANLEY ., DR SHAUNA Pan Admitting Unavailable AICHHOLZ, COMMERCIAL INTERIOR DESIGNER ZENAIDA Primary Care Unavailable SUPERIOR, DR KRYSTINA Alfaro Consulting Unavailable MANLEY ., DR SHAUNA Pan Consulting Unavailable MANLEY ., DR SHAUNA Pan Attending Unavailable MANLEY ., DR SHAUNA Pan Admitting Unavailable TAVERA ., VISHNU Consulting Unavailable AICHHOLZ, COMMERCIAL INTERIOR DESIGNER ZENAIDA Primary Care Unavailable MANLEY ., DR SHAUNA Pan Attending Unavailable MANLEY ., DR SHAUNA Pan Admitting Unavailable MANLEY ., DR SHAUNA Pan Consulting Unavailable AICHHOLZ, COMMERCIAL INTERIOR DESIGNER ZENAIDA Primary Care Unavailable MANLEY ., DR SHAUNA Pan Attending Unavailable MANLEY ., DR SHAUNA Pan Admitting Unavailable TAVERA ., VISHNU Consulting Unavailable AICHHOLZ, COMMERCIAL INTERIOR DESIGNER ZENAIDA Primary Care Unavailable MANLEY ., DR SHAUNA Pan Consulting Unavailable MANLEY ., DR SHAUNA Pan Attending Unavailable MANLEY ., DR SHAUNA Pan Admitting Unavailable AICHHOLZ, COMMERCIAL INTERIOR DESIGNER ZENAIDA Primary Care Unavailable MANLEY ., DR SHAUNA Pan Consulting Unavailable MANLEY ., DR SHAUNA Pan Attending Unavailable MANLEY ., DR SHAUNA Pan Admitting Unavailable AICHHOLZ, COMMERCIAL INTERIOR DESIGNER ZENAIDA Primary Care Unavailable MANLEY ., DR SHAUNA Pan Consulting Unavailable MANLEY ., DR SHAUNA Pan Attending Unavailable MANLEY ., DR SHAUNA Pan Admitting Unavailable AICHHOLZ, COMMERCIAL INTERIOR DESIGNER ZENAIDA Primary Care Unavailable [facility] Consulting Unavailable LAKSHMIPATHY ., NARENDRANATH Consulting Samantha vailable LAKSHMIPATHY ., NARENDRANATH Attending Samantha vailable LAKSHMIPATHY ., NARENDRANATH Admitting Samantha vailable AICHHOLZ, COMMERCIAL INTERIOR DESIGNER ZENAIDA Primary Care Unavailable AICHHOLZ, COMMERCIAL INTERIOR DESIGNER ZENAIDA Primary Care Unavailable AICHHOLZ, COMMERCIAL INTERIOR DESIGNER ZENAIDA Consulting Unavailable AICHHOLZ, COMMERCIAL INTERIOR DESIGNER ZENAIDA Attending Unavailable AICHHOLZ, COMMERCIAL INTERIOR DESIGNER ZENAIDA Admitting Unavailable HAY ., DR FERNANDEZ Consulting Unavailable HAY ., DR FERNANDEZ Attending Unavailable AICHHOLZ, COMMERCIAL INTERIOR DESIGNER ZENAIDA Primary Care Unavailable ARCELIA ., DR FERNANDEZ Admitting Unavailable MARIUSZ, DR IDALIA Leon Consulting Unavailable MARIUSZ, DR IDALIA Leon Attending Unavailable BROOK, DR CARROLL Primary Care Unavailable VEE, DR IDALIA Leon Admitting Unavailable AICHZENAIDA DE LA VEGA Primary Care Physician [phone] Sintia BOLTON, Martin Rinaldi Attending Unavailable Sintia BOLTON, Martin Rinaldi Attending Unavailable VALERIE, Agustin Carolyn Attending Unavailable PADILLA, Agustin Carolyn Attending Unavailable PADILLA, Agustin R Attending Unavailable PADILLA, Agustin R Attending Unavailable Spenser BOLTON, Mary Richardson Unavailable [phone] [facility] SUPERVISOR GLYCERIN, Zenaida Unavailable Jean Pierre Ochoa MD Primary Care Provider [facility] SUPERVISOR GLYCERIN, Zenaida Unavailable Martha Robles MD Unavailable [phone] Darnell BOLTON, Idalia Unavailable Aicholz COMMERCIAL INTERIOR DESIGNER, Zenaida Alison Primary Care Provider Lexis MONGE, Crystal Unavailable JESSEE GUILLEN Attending Unavailable BASSIM, IDALIA Referring Unavailable JESSEE GUILLEN Attending Unavailable BASSIM, IDALIA Referring Unavailable CELINA MASTERS Attending Unavailable BASSIM, IDALIA Referring Unavailable JESSEE GUILLEN Attending Unavailable BASSIM, IDALIA Referring Unavailable JESSEE GUILLEN Attending Unavailable BASSIM, IDALIA Referring Unavailable DENTON CELINA Attending Unavailable BASSIM, IDALIA Referring Unavailable JESSEE GUILLEN Attending Unavailable BASSIM, IDALIA Referring Unavailable JESSEE GUILLEN Attending Unavailable BASSIM, IDALIA Referring Unavailable DENTON CELINA Attending Unavailable BASSIM, IDALIA Referring Unavailable AICHHOLZ, ZENAIDA Attending Unavailable AICHHOLZ, ZENAIDA Attending Unavailable AICHHOLZ, ZENAIDA Attending Unavailable PERRY, MAGGIE A Attending Unavailable AICHHOLZ, ZENAIDA Referring Unavailable TIMMIS, MARY H Attending Unavailable AICHHOLZ, ZENAIDA Referring Unavailable PERRY, MAGGIE A Attending Unavailable TIMMIS, MARY H Referring Unavailable TIMMIS, MARY H Attending Unavailable TIMMIS, MARY H Attending Unavailable TIMMIS, MARY H Attending Unavailable MASTERS, CELINA Attending Unavailable TIMMIS, MARY H Referring Unavailable WILMER, JESSEE Attending Unavailable TIMMIS, MARY H Referring Unavailable MASTERS, CELINA Attending Unavailable BASSIM, IDALIA Referring Unavailable WILMER, JESSEE Attending Unavailable BASSIM, IDALIA Referring Unavailable WILMER, JESSEE Attending Unavailable BASSIM, IDALIA Referring Unavailable WILMER, JESSEE Attending Unavailable BASSIM, IDALIA Referring Unavailable WILMER, JESSEE Attending Unavailable BASSIM, IDALIA Referring Unavailable WILMER, JESSEE Attending Unavailable BASSIM, IDALIA Referring Unavailable AICHHOLZ, ZENAIDA Attending Unavailable WILMER, JESSEE Attending Unavailable BASSIM, IDALIA Referring Unavailable WILMER, JESSEE Attending Unavailable BASSIM, IDALIA Referring Unavailable MASTERS, CELINA Attending Unavailable BASSIM, IDALIA Referring Unavailable BASSIM, IDALIA Attending Unavailable BASSIM, IDALIA Referring Unavailable MELINDA ECHEVARRIA Attending Unavailable BASSIM, IDALIA Referring Unavailable BASSIM, IDALIA Attending Unavailable AICHHOLZ, ZENAIDA ALISON Primary Care Unavailable ROXANN CARMONA Attending Unavailable AICHHOLZ, ZENAIDA ALISON Primary Care Unavailable YANG, YOVANNY Attending Unavailable BASSIM, IDALIA Referring Unavailable AICHHOLZ, ZENAIDA ALISON Primary Care Unavailable BASSIM, IDALIA Attending Unavailable BASSIM, IDALIA Referring Unavailable AICHHOLZ, ZENAIDA ALISON Primary Care Unavailable BASSIM, IDALIA Referring Unavailable AICHHOLZ, ZENAIDA ALISON Primary Care Unavailable YANG, YOVANNY Referring Unavailable AICHHOLZ, ZENAIDA ALISON Primary Care Unavailable YANG, YOVANNY Admitting Unavailable YANG, YOVANNY Attending Unavailable YANG, YOVANNY Referring Unavailable AICHHOLZ, ZENAIDA ALISON Primary Care Unavailable BASSIM, IDALIA Referring Unavailable AICHHOLZ, ZENAIDA ALISON Primary Care Unavailable YANG, YOVANNY Attending Unavailable YANG, YOVANNY Referring Unavailable AICHHOLZ, ZENAIDA ALISON Primary Care Unavailable Medications Current Medications Medication Drug Class(es) Dates Sig (Normalized) Sig (Original) acetaminophen 325 mg oral tablet (20 sources) Start: 08-13-2024 take 2 tablets enteral route every four hours as needed acetaminophen (TYLENOL) 325 mg tablet 2 tablets by ORAL/FEEDING TUBE route every 4 hours as needed for pain. 08/13/2024 Active amLODIPine 10 mg oral tablet (20 sources) Dihydropyridine Calcium Channel Maryjane Start: 03-28-2023 take 1 tablet by mouth once daily amLODIPine (Norvasc) 10 MG tablet Indications: Hypertension Take 1 tablet (10 mg) by mouth Daily 90 tablet 1 12/11/2023 Active baclofen 10 mg oral tablet (1 source) gamma-Aminobutyric Acid-ergic Agonist Start: 10-08-2024 End: 10-22-2024 take 1 tablet by mouth twice daily baclofen 10 mg tablet Indications: Cervicalgia Take 1 tablet by mouth two times a day for 14 days. 28 tablet 10/08/2024 10/22/2024 Active bisoprolol fumarate 5 mg oral tablet (9 sources) beta-Adrenergic Maryjane Start: 05-15-2018 bisoprolol (ZEBETA) 5 mg tablet Take by mouth. 05/15/2018 Active cetirizine hydrochloride 10 mg oral tablet (8 sources) Histamine-1 Receptor Antagonist Start: 01-19-2024 End: 07-13-2024 take 1 tablet by mouth once daily cetirizine (ZyrTEC) 10 MG tablet Indications: Tinnitus of right ear Take 1 tablet (10 mg) by mouth Daily 30 tablet 2 01/19/2024 07/13/2024 Discontinued (Therapy completed) cyclobenzaprine hydrochloride 10 mg oral tablet (3 sources) Muscle Relaxant Start: 03-28-2023 cyclobenzaprine 10 mg Tab Refills(s) 0 Start Date: 03/28/23 Status: Ordered dexamethasone 2 mg oral tablet (17 sources) Corticosteroid Start: 08-14-2024 End: 08-17-2024 take 1 tablet by mouth twice daily at mealtime dexAMETHasone (DECADRON) 2 mg tablet Take 1 tablet by mouth two times a day with meals for 2 days, THEN 1 tablet daily with breakfast for 1 day. Patient should start on August 14, 2024. 5 tablet 08/14/2024 08/17/2024 Active Start: 08-13-2024 End: 09-22-2024 dexAMETHasone (Decadron) 2 M G tablet 08/13/2024 09/22/2024 Discontinued (Therapy completed) docusate sodium 50 mg / sennosides, senior living 8.6 mg oral tablet (2 sources) Start: 08-13-2024 End: 08-18-2024 take 1 tablet by mouth twice daily senna-docusate (SENNA-S) 8.6-50 mg per tablet Take 1 tablet by mouth two times a day for 5 days. 10 tablet 08/13/2024 08/18/2024 Active iv contrast (will be provided with radiology test) (3 sources) Start: 09-21-2024 inject 1 dose intravenously once, then inject 1 dose intravenously once iv contrast (will be provided with radiology test) Indications: Schwannoma MRI Skull Base Inject, intravenously, once for 1 dose. No IV access, insert saline lock prior to the beginning of sedation, infusion, injection of imaging exam. Discontinue saline lock post exam. If Pt. has a central line or IVAD, may access for administration according to line specific nursing protocol. Once exam is complete flush line and de-access according to line specific nursing protocol in the MR contrast administration guidelines link. 1 Each 09/21/2024 Active losartan potassium 100 mg oral tablet (20 sources) Angiotensin 2 Receptor Maryjane Start: 03-28-2023 losartan 100 mg Tab Refills(s) 0 Start Date: 03/28/23 Status: Ordered meloxicam 7.5 mg oral tablet (3 sources) Nonsteroidal Anti-inflammatory Drug Start: 03-28-2023 meloxicam 7.5 mg Tab Refills(s) 0 Start Date: 03/28/23 Status: Ordered pantoprazole 20 mg delayed release oral tablet (20 sources) Proton Pump Inhibitor Start: 08-13-2024 End: 09-22-2024 take 1 tablet by mouth once daily in the morning pantoprazole DR (PROTONIX) 20 mg tablet Take 1 tablet by mouth daily at 6 am for 3 days. 3 tablet 08/14/2024 Active tamsulosin hydrochloride 0.4 mg oral capsule (3 sources) alpha-Adrenergic Maryjane Start: 03-28-2023 take 1 capsule by mouth twice daily tamsulosin 0.4 mg Cap 0.4 mg = 1 cap(s), Oral, BID, # 30 cap(s), Refills(s) 0, Pharmacy: [id number], 174, cm, 03/28/23 8:34:00 EDT, Height/Length Dosing, 86.5, kg, 03/28/23 8:34:00 EDT, Weight Dosing Start Date: 03/28/23 Status: Ordered Completed/Discontinued Medications Medication Drug Class(es) Dates Sig (Normalized) Sig (Original) hydroCHLOROthiazide 25 mg / triamterene 37.5 mg oral capsule (20 sources) Potassium-spari ng Diuretic, Thiazide Diuretic Start: 04-28-2024 End: 09-22-2024 take 1 capsule by mouth in the morning triamterene-hydroC HLOROthiazide (Dyazide) 37.5-25 MG capsule Indications: Right-sided tinnitus Take 1 capsule by mouth in the morning. 30 capsule 1 04/28/2024 09/22/2024 Discontinued (Therapy completed) methocarbamol 500 mg oral tablet (20 sources) Muscle Relaxant Start: 08-13-2024 End: 10-08-2024 take 1 tablet by mouth three times daily as needed methocarbamol (ROBAXIN) 500 mg tablet Indications: Vestibular schwannoma (HCC) Take 1 tablet by mouth three times a day as needed. 21 tablet 08/23/2024 10/08/2024 Discontinued Start: 08-13-2024 End: 09-22-2024 take 1 tablet enteral route every eight hours as needed methocarbamol (Robaxin) 500 MG tablet 500 mg by Enteral route every 8 (eight) hours if needed 08/13/2024 09/22/2024 Discontinued (Therapy completed) mupirocin 0.02 mg/mg topical ointment (17 sources) RNA Synthetase Inhibitor Antibacterial Start: 07-27-2024 End: 09-22-2024 mupirocin (Bactroban) 2 % ointment Apply 0.5 inch with cotton swab (Q-tip) to each nostril in the morning and evening for 5 (FIVE) days prior to and including day OF surgery 07/27/2024 09/22/2024 Discontinued (Therapy completed) Start: 07-27-2024 End: 08-01-2024 mupirocin (BACTROBAN) 2 % oi ntment Indications: Pre-op examination two times a day for 5 days. Apply 0.5 inch with cotton swab (Q-tip) to each nostril in the morning and evening for 5 days prior to and including day of surgery. 22 g 07/27/2024 08/01/2024 Active oxyCODONE hydrochloride 5 mg oral tablet (17 sources) Opioid Agonist Start: 08-13-2024 End: 09-22-2024 oxyCODONE (Roxicodone) 5 MG immediate release tablet 08/13/2024 09/22/2024 Discontinued (Therapy completed) Start: 08-13-2024 End: 08-16-2024 take 1 tablet by mouth every six hours as needed for pain oxyCODONE IR (ROXICODONE) 5 mg immediate release tablet Indications: Acute post-operative pain Take 1 tablet by mouth every 6 hours as needed for pain for up to 3 days. 10 tablet 08/13/2024 08/16/2024 Active Problems Active Problems Problem Classification Problem Date Documented Date Episodic/Chronic Abdominal pain (3 sources) Right flank pain 11-11-2019 Episodic Anxiety disorders (20 sources) Generalized anxiety disorder; Translations: [Generalized anxiety disorder] Onset: 12-11-2023 12-11-2023 Chronic Conditions associated with dizziness or vertigo (18 sources) Dizziness and giddiness; Translations: [Dizziness and giddiness] 08-31-2024 Episodic Disorders of lipid metabolism (1 source) Hyperlipidemia, unspecified; Translations: [HYPERLIPIDEMIA UNSPECIFIED] Onset: 06-25-2022 Chronic Essential hypertension (20 sources) Essential (primary) hypertension; Translations: [Benign hypertension] Onset: 06-21-2022 Chronic Hyperplasia of prostate (20 sources) Large prostate ; Translations: [Benign prostatic hyperplasia without lower urinary tract symptoms] Onset: 12-11-2023 12-11-2023 Chronic Other and unspecified benign neoplasm (20 sources) Acoustic neuroma; Translations: [Benign neoplasm of cranial nerves] Onset: 05-10-2024 07-12-2024 Chronic Other and unspecified benign neoplasm (18 sources) Benign neoplasm of cranial nerve; Translations: [Benign neoplasm of cranial nerves] 08-31-2024 Chronic Other and unspecified benign neoplasm (1 source) Benign neoplasm of cranial nerves; Translations: [Vestibular schwannoma (HCC)] Onset: 08-10-2024 Chronic Other and unspecified benign neoplasm (4 sources) Schwannoma; Translations: [Benign neoplasm of peripheral nerves and autonomic nervous system, unspecified] 07-27-2024 Episodic Other and unspecified benign neoplasm (2 sources) Benign neoplasm of peripheral nerves and autonomic nervous system, unspecified; Translations: [Schwannoma] Onset: 08-03-2024 Episodic Other diseases of kidney and ureters (3 sources) Urinary tract obstruction; Translations: [Hydronephrosis with renal and ureteral calculous obstruction] Onset: 03-28-2023 Episodic Other diseases of kidney and ureters (3 sources) Hydronephrosis due to ureteral obstruction 11-11-2019 Episodic Other ear and sense organ disorders (20 sources) Sensorineural hearing loss, unilateral, right ear, with unrestricted hearing on the contralateral side; Translations: [Sensorineural hearing loss, unilateral] Onset: 03-31-2024 07-12-2024 Chronic Other ear and sense organ disorders (1 source) Sensorineural hearing loss, unilateral, left ear, with unrestricted hearing on the contralateral side; Translations: [Sensorineural hearing loss, unilateral] 07-12-2024 Chronic Other ear and sense organ disorders (1 source) Other specified hearing loss, unspecified ear; Translations: [Other specified hearing loss, unspecified ear] Onset: 07-12-2024 Chronic Other ear and sense organ disorders (1 source) Ear pressure sensation; Translations: [Other specified disorders of right ear] 10-08-2024 Episodic Other nervous system disorders (1 source) Impairment of balance; Translations: [Other abnormalities of gait and mobility] 07-12-2024 Episodic Other nervous system disorders (1 source) Unsteady when standing; Translations: [Unsteadiness on feet] 07-12-2024 Episodic Other nervous system disorders (14 sources) Abnormal gait; Translations: [Unspecified abnormalities of gait and mobility] 07-13-2024 Episodic Other nervous system disorders (18 sources) Ataxic gait; Translations: [Ataxic gait] 08-31-2024 Episodic Other nervous system disorders (1 source) Other acute postprocedural pain; Translations: [Acute post-operative pain] Onset: 08-13-2024 Episodic Other nutritional; endocrine; and metabolic disorders (16 sources) Body mass index 30+ - obesity; Translations: [Body mass index (BMI) 30.0-30.9, adult] Onset: 12-11-2023 07-27-2024 Chronic Residual codes; unclassified (1 source) Surgical wound finding; Translations: [Other specified health status] 08-23-2024 Episodic Spondylosis; intervertebral disc disorders; other back problems (20 sources) Other intervertebral disc displacement, lumbar region; Translations: [Spondylosis without myelopathy or radiculopathy, lumbar region] Onset: 06-06-2022 Chronic Spondylosis; intervertebral disc disorders; other back problems (1 source) Neck pain; Translations: [Cervicalgia] 10-08-2024 Episodic Transient cerebral ischemia (20 sources) Transient cerebral ischemia; Translations: [Transient cerebral ischemic attack, unspecified] Onset: 07-27-2024 07-27-2024 Chronic Past or Other Problems Problem Classification Problem Date Documented Da te Episodic/Chronic Calculus of urinary tract (20 sources) Kidney stone; Translations: [Calculus of kidney] Onset: 03-27-2023 Episodic Gastrointestinal hemorrhage (3 sources) Melena; Translations: [MELENA] Onset: 05-21-2022 Episodic Hemorrhoids (1 source) Residual hemorrhoidal skin tags; Translations: [RESIDUAL HEMORRHOIDAL SKIN TAGS] Onset: 05-24-2022 Episodic Malaise and fatigue (4 sources) Other fatigue; Translations: [OTHER FATIGUE] Onset: 11-18-2022 Episodic Nonspecific chest pain (1 source) Other chest pain; Translations: [OTHER CHEST PAIN] Onset: 11-19-2022 Episodic Other acquired deformities (20 sources) Spondylolysis; Translations: [Spondylolysis, lumbar region] Onset: 12-11-2023 12-11-2023 Episodic Other aftercare (1 source) Other intermodal owner operator truck driver (current) drug therapy; Translations: [[facility]IOR LIVING CURRENT DRUG THERAPY] Onset: 06-25-2022 Episodic Other circulatory disease (1 source) Personal history of transient ischemic attack (TIA), 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 deficits; Translations: [PERS HX TIA AND CI NO RESID DEFICIT] Onset: 06-25-2022 Episodic Other ear and sense organ disorders (20 sources) Tinnitus of right ear; Translations: [Tinnitus, right ear] Onset: 01-19-2024 07-12-2024 Episodic Other hereditary and degenerative nervous system conditions (20 sources) Impaired cognition; Translations: [Mild cognitive impairment, so stated] Onset: 12-11-2023 Resolved: 07-27-2024 12-11-2023 Chronic Other nervous system disorders (1 source) Unspecified speech disturbances; Translations: [UNSPECIFIED SPEECH DISTURBANCES] Onset: 05-24-2022 Episodic Other nervous system disorders (20 sources) Disturbance in speech; Translations: [Unspecified speech disturbances] Onset: 07-27-2024 07-27-2024 Episodic Other nervous system disorders (20 sources) Dysarthria; Translations: [Dysarthria and anarthria] Onset: 08-11-2024 08-11-2024 Episodic Other nervous system disorders (10 sources) Acute postoperative pain; Translations: [Other acute postprocedural pain] Onset: 08-13-2024 08-13-2024 Episodic Other nutritional; endocrine; and metabolic disorders (20 sources) Body mass index 25-29 - overweight; Translations: [Overweight] Onset: 12-11-2023 12-11-2023 Episodic Other screening for suspected conditions (not mental disorders or infectious disease) (20 sources) Thyroid hormone tests abnormal; Translations: [Other specified abnormal findings of blood chemistry] Onset: 12-11-2023 12-11-2023 Episodic Paralysis (20 sources) Hemiparesis; Translations: [Hemiplegia, unspecified affecting unspecified side] Onset: 12-11-2023 Resolved: 07-27-2024 12-11-2023 Chronic Sprains and strains (4 sources) Sprain of unspecified parts of lumbar spine and pelvis, initial encounter; Translations: [SPRAIN UNS PARTS LUMB SPN PELV INIT] Onset: 06-04-2022 Episodic Results Test Name Value Interpretation Reference Range Facility [facility] 11-26-2024 [facility] HNO ID: [id number] Author: SALLY WINKLER claim attorney Service: Radiology Author Type: Vacuum Tester Cans Type: [facility] Filed: 11/26/2024 10:44 Note Text: Radiology Service Progress Note DATE OF SERVICE: November 26, 2024 TIME: 10:38 AM PATIENT IDENTITY VERIFICATION COMPLETED USING TWO (2) STANDARD IDENTIFIERS: Name and Date of confirmed by patient verbally and Name and Date of confirmed by identification band. FALL SCREENING: Has the patient had 2 falls in the last year or 1 fall with injury or currently using an Ambulatory Assistive Device (Walker, Cane, Wheelchair, Crutches, etc.)? No PATIENT GENDER DATA: Assigned male at PATIENT RELEVANT IMPLANT DATA REVIEWED: Yes PATIENT PRESENTS WITH AN IMPLANTABLE OR ATTACHED MUSEUM EDUCATOR: No ALLERGIES: Reviewed and unchanged CONTRAST ALLERGY: NO. EXAM: MRI - CONTRAST TYPE: GROUP II PERIPHERAL IV DATA: Ambulatory: A peripheral IV was started in the Left with a Angio cath: 24 gauge. RADIOLOGY DEPARTMENT: MR; Exam(s) Completed: Head: Cranial Nerve, Lower SIGNATURE: VIRI Benitez PATIENT NAME: Mayra Black DATE: November 26, 2024 TIME: 10:38 AM [facility] MR Skull base WO and W contr ast Marek 11-26-2024 IMPRESSION: Stable postoperative changes of right CP angle and IAC vestibular schwannoma resection. No evidence of recurrent mass. Distortion of the right 7th and 8th cranial nerves with mild enhancement is similar to the prior study. Supervisor Cell Operation: PSCB Transcribe Date/Time: Nov 26 2024 11:06A Dictated by : SUSAN SALOMON DO This examination was interpreted and the report reviewed and electronically signed by: SUSAN SALOMON DO on Nov 26 2024 11:14AM [facility] RADIOLOGY * * *Final Report* * * DATE OF EXAM: Nov 26 2024 10:57AM [facility] [id number] - MRI SKULL BASE WO/W IVCON / PROCEDURE REASON: Schwannoma * * * * Physician Interpretation * * * * EXAMINATION: MRI SKULL BASE WO/W IVCON CLINICAL HISTORY: Schwannoma, status post resection. TECHNIQUE: Sagittal T1, high-resolution coronal and axial T1, fat-suppressed axial fast T2, and high-resolution, fat-suppressed, gadolinium enhanced axial VIBE with coronal planar reformats of the skull base. Contrast: 9 mL Elucirem IV COMPARISON: Skull base MRI 08/11/2024, 05/07/2024 RESULT: Postop Changes: There are again changes of right rectosigmoid suboccipital craniotomy for resection of right CP angle and IAC schwannoma. Stable prominence of the CSF extra-axial space over the right cerebellum. Patchy fluid in the right inferior mastoid air cells. No evidence of residual enhancing mass at the right cerebellopontine angle cistern or internal auditory canal. There is very minimal enhancement along the proximal posterior aspect of the right IAC. The right seventh and eighth cisternal failure complex is distorted anteriorly with minimal enhancement, similar to prior examination. Acute Change: There is no evidence of restricted diffusion to suggest an acute infarct. Brain Parenchyma: The visualized parenchyma is within normal limits of signal intensity and morphology. No abnormal parenchymal or leptomeningeal enhancement is noted following gadolinium administration. Orbits: There is no evidence of an orbital mass. The globes, optic nerves and optic nerve sheathes are within normal limits. The extraocular muscles are within normal limits in size and not significantly asymmetric. Paranasal Sinuses: The paranasal sinuses, mastoid air cells and middle ear cavities are clear. Sella: The pituitary gland is within normal limits of size and signal intensity characteristics. No evidence of a suprasellar mass. The overlying hypothalamus and optic apparatus are normal in appearance. Cavernous Sinuses: The cavernous sinuses are normal in appearance. A normal flow void is noted in the carotid siphons suggesting patency by spin echo criteria. Vasculature: The major arterial and venous structures demonstrate a normal flow void, suggesting patency by spin echo criteria. No clear evidence of vascular compression of the cisternal segments of the cranial nerves. Skull Base: No evidence of a marrow replacement process. No abnormal leptomeningeal enhancement is noted in the basilar cisterns. Inferotemporal Fossa: The soft tissue planes of the machine tool builder, parapharyngeal, carotid, retropharyngeal, and prevertebral spaces are maintained throughout. The visualized parotid glands are normal in appearance. Nasopharynx/Oropharynx: The nasopharynx and oropharynx are normal in appearance. [facility] Provider, [facility] - 11/26/2024 * * *Final Report* * * DATE OF EXAM: Nov 26 2024 10:57AM [facility] 0319 - MRI SKULL BASE WO/W IVCON / PROCEDURE REASON: Schwannoma * * * * Physician Interpretation * * * * EXAMINATION: MRI SKULL BASE WO/W IVCON CLINICAL HISTORY: Schwannoma, status post resection. TECHNIQUE: Sagittal T1, high-resolution coronal and axial T1, fat-suppressed axial fast T2, and high-resolution, fat-suppressed, gadolinium enhanced axial VIBE with coronal planar reformats of the skull base. Contrast: 9 mL Elucirem IV COMPARISON: Skull base MRI 08/11/2024, 05/07/2024 RESULT: Postop Changes: There are again changes of right rectosigmoid suboccipital craniotomy for resection of right CP angle and IAC schwannoma. Stable prominence of the CSF extra-axial space over the right cerebellum. Patchy fluid in the right inferior mastoid air cells. No evidence of residual enhancing mass at the right cerebellopontine angle cistern or internal auditory canal. There is very minimal enhancement along the proximal posterior aspect of the right IAC. The right seventh and eighth cisternal failure complex is distorted anteriorly with minimal enhancement, similar to prior examination. Acute Change: There is no evidence of restricted diffusion to suggest an acute infarct. Brain Parenchyma: The visualized parenchyma is within normal limits of signal intensity and morphology. No abnormal parenchymal or leptomeningeal enhancement is noted following gadolinium administration. Orbits: There is no evidence of an orbital mass. The globes, optic nerves and optic nerve sheathes are within normal limits. The extraocular muscles are within normal limits in size and not significantly asymmetric. Paranasal Sinuses: The paranasal sinuses, mastoid air cells and middle ear cavities are clear. Sella: The pituitary gland is within normal limits of size and signal intensity characteristics. No evidence of a suprasellar mass. The overlying hypothalamus and optic apparatus are normal in appearance. Cavernous Sinuses: The cavernous sinuses are normal in appearance. A normal flow void is noted in the carotid siphons suggesting patency by spin echo criteria. Vasculature: The major arterial and venous structures demonstrate a normal flow void, suggesting patency by spin echo criteria. No clear evidence of vascular compression of the cisternal segments of the cranial nerves. Skull Base: No evidence of a marrow replacement process. No abnormal leptomeningeal enhancement is noted in the basilar cisterns. Inferotemporal Fossa: The soft tissue planes of the machine tool builder, parapharyngeal, carotid, retropharyngeal, and prevertebral spaces are maintained throughout. The visualized parotid glands are normal in appearance. Nasopharynx/Oropharynx: The nasopharynx and oropharynx are normal in appearance. IMPRESSION IMPRESSION: Stable postoperative changes of right CP angle and IAC vestibular schwannoma resection. No evidence of recurrent mass. Distortion of the right 7th and 8th cranial nerves with mild enhancement is similar to the prior study. Supervisor Cell Operation: PSCB Transcribe Date/Time: Nov 26 2024 11:06A Dictated by : SUSAN SALOMON DO This examination was interpreted and the report reviewed and electronically signed by: SUSAN SALOMON DO on Nov 26 2024 11:14AM EST [facility] Radiology Study observation (narrative) [facility] MR Skull base WO and W contr ast IVOrdered By: [facility] Provider on 11-26-2024 [facility] MRI SKULL BASE WO/W IVCONon 11-26-2024 MRI SKULL BASE WO/W IVCON * * *Final Report* * * DATE OF EXAM: Nov 26 2024 10:57AM [facility] 0319 - MRI SKULL BASE WO/W IVCON / PROCEDURE REASON: Schwannoma * * * * Physician Interpretation * * * * EXAMINATION: MRI SKULL BASE WO/W IVCON CLINICAL HISTORY: Schwannoma, status post resection. TECHNIQUE: Sagittal T1, high-resolution coronal and axial T1, fat-suppressed axial fast T2, and high-resolution, fat-suppressed, gadolinium enhanced axial VIBE with coronal planar reformats of the skull base. Contrast: 9 mL Elucirem IV COMPARISON: Skull base MRI 08/11/2024, 05/07/2024 RESULT: Postop Changes: There are again changes of right rectosigmoid suboccipital craniotomy for resection of right CP angle and IAC schwannoma. Stable prominence of the CSF extra-axial space over the right cerebellum. Patchy fluid in the right inferior mastoid air cells. No evidence of residual enhancing mass at the right cerebellopontine angle cistern or internal auditory canal. There is very minimal enhancement along the proximal posterior aspect of the right IAC. The right seventh and eighth cisternal failure complex is distorted anteriorly with minimal enhancement, similar to prior examination. Acute Change: There is no evidence of restricted diffusion to suggest an acute infarct. Brain Parenchyma: The visualized parenchyma is within normal limits of signal intensity and morphology. No abnormal parenchymal or leptomeningeal enhancement is noted following gadolinium administration. Orbits: There is no evidence of an orbital mass. The globes, optic nerves and optic nerve sheathes are within normal limits. The extraocular muscles are within normal limits in size and not significantly asymmetric. Paranasal Sinuses: The paranasal sinuses, mastoid air cells and middle ear cavities are clear. Sella: The pituitary gland is within normal limits of size and signal intensity characteristics. No evidence of a suprasellar mass. The overlying hypothalamus and optic apparatus are normal in appearance. Cavernous Sinuses: The cavernous sinuses are normal in appearance. A normal flow void is noted in the carotid siphons suggesting patency by spin echo criteria. Vasculature: The major arterial and venous structures demonstrate a normal flow void, suggesting patency by spin echo criteria. No clear evidence of vascular compression of the cisternal segments of the cranial nerves. Skull Base: No evidence of a marrow replacement process. No abnormal leptomeningeal enhancement is noted in the basilar cisterns. Inferotemporal Fossa: The soft tissue planes of the machine tool builder, parapharyngeal, carotid, retropharyngeal, and prevertebral spaces are maintained throughout. The visualized parotid glands are normal in appearance. Nasopharynx/Oropharynx: The nasopharynx and oropharynx are normal in appearance. IMPRESSION: Stable postoperative changes of right CP angle and IAC vestibular schwannoma resection. No evidence of recurrent mass. Distortion of the right 7th and 8th cranial nerves with mild enhancement is similar to the prior study. Supervisor Cell Operation: PSCB Transcribe Date/Time: Nov 26 2024 11:06A Dictated by : SUSAN SALOMON DO This examination was interpreted and the report reviewed and electronically signed by: SUSAN SALOMON DO on Nov 26 2024 11:14AM EST [id number] [facility] 11-08-2024 [facility] Telephone ([facility]) MAYRA BLACK ([id number]) 1970 M Date Time Provider Department 11/08/24 YOVANNY SORIA [facility] During your visit today, we recorded the following information about you: Zenaida Baer 11/08/2024 9:33 AM Signed Pain Call Caller : Mayra Contact Pain Level : 10 Location : Incision area Describe Your Pain : Pulsating and Sharp Date pain Started : over the weekend Medication being taken for pain N/A Mikey Lentz, RN 11/09/2024 10:56 AM Signed NEUROSURGERY CARE COORDINATION CELESTE QUICK NOTE ? Spoke to patient, Mayra ? Reason for call: new/ worsening pain. Per patient, new sharp, pulsating, pressure pain to Rt incisional area, Xs 3 days. Pt using tylenol with minimal relief. Pt states pain is worse with any pressure applied, laying down on area while in bed. Pt encouraged to start taking NSAID (motrin, ibuprofen) and alternate with tylenol for better pain relief. Also encouraged sleeping with head elevated and try to sleep on opposite side of incision while healing. Pt denies redness, edema, drainage to incisional area. Pt denies any drainage from ear on surgical side. Pt verbalizes he will try medication as recommended, this nurse will reach out to Dr Soria for any additional recs. Pt verbalizes understanding and agreement. JANAK Lund, RN 11/09/2024 10:56 AM Allergies As of Date: 11/08/2024 (No Known Allergies) Date Reviewed: 10/08/2024 Reviewed by: Chang Alvarez CT - Fully Assessed Reason for Visit: Pain [78] Prescriptions as of 11/10/2024 - iv contrast (will be provided with radiology test) MRI Skull Base Inject, intravenously, once for 1 dose. No IV access, insert saline lock prior to the beginning of sedation, infusion, injection of imaging exam. Discontinue saline lock post exam. If Pt. has a central line or IVAD, may access for administration according to line specific nursing protocol. Once exam is complete flush line and de-access according to line specific nursing protocol in the MR contrast administration guidelines link. - acetaminophen (TYLENOL) 325 mg tablet 2 tablets by ORAL/FEEDING TUBE route every 4 hours as needed for pain. - pantoprazole DR (PROTONIX) 20 mg tablet Take 1 tablet by mouth daily at 6 am for 3 days. - amLODIPine (NORVASC) 10 mg tablet Take 10 mg by mouth once daily. - losartan (COZAAR) 100 mg tablet Take 100 mg by mouth once daily. 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] 12/11/2023 Generalized anxiety disorder [F41.1] 12/11/2023 Hemiparesis (HCC) [G81.90] 12/11/2023 07/27/2024 HTN (hypertension), benign [I10] 12/11/2023 Kidney stone [N20.0] 01/19/2024 BMI 30.0-30.9,adult [Z68.30] 12/11/2023 Mild cognitive impairment [G31.84] 12/11/2023 07/27/2024 Speech difficult to understand [R47.9] 07/27/2024 TIA (transient ischemic attack) [G45.9] 07/27/2024 Dysarthria [R47.1] 08/11/2024 Acute post-operative pain [G89.18] 08/13/2024 Encounter Status:Closed by MIKEY LENTZ on 11/09/24 Normal [facility] CNOVon 10-08-2024 CNOV Office Visit (OTOLMN ) ROCHELLE RANDOLPHChristy Jaimes ([id number]) 1970 M Date Time Provider Department 10/08/24 11:00 AM IDALIA PATRICK OTOLMN During your visit today, we recorded the following information about you: Chang Alvarez, MELL 10/08/2024 11:39 AM Signed Tobacco Use: Never Was smoking cessation packet given? N/A - Patient is a non-smoker or quit >1 year ago. Was a referral initiated?N/A Patient is a non-smoker Idalia Patrick MD 10/08/2024 11:39 AM Signed SECTION OF OTOLOGY, NEUROTOLOGY AND LATERAL SKULL BASE SURGERY Department of Otolaryngology - Head and Neck Surgery [facility] [place] History Mr. MARYA BLACK is a 54 year old male returning for follow-up of his right vestibular schwannoma Balance is improving Having pains at the site of surgery Physical Exam Patient is alert, oriented Head examination: normocephalic Right ear: Pinna: normal External canal : patent Tympanic membrane :normal Left ear: Pinna: normal External canal : patent Tympanic membrane :normal Post auricular incision well healed. Minimal edema, no fluctuance CN VII: Face is symmetric with normal eye closure and smile. Test Results Audiogram AND Tympanogram (personally reviewed) WRS AD: 0 % : 90 % Tympanometry Vestibular testing Imaging (personally reviewed) Interval postoperative findings of right retrosigmoid approach resection of the right internal auditory canal and cerebellopontine angle mass likely representing a schwannoma compared to the prior MRI. No acute intracranial findings. No findings of residual enhancing soft tissue mass. Mild enhancement of the right 7th and 8th cranial nerves which courses along the anterior margins of the resection cavity, likely reflecting postoperative change. Assessment and Plan Mayra Black's history, physical examination, and diagnostic studies are consistent with the following diagnoses and associated treatment plan of care. Vestibular schwannoma (HCC) Sensorineural hearing loss (SNHL) of right ear with unrestricted hearing of left ear Cervicalgia - baclofen 10 mg tablet; Take 1 tablet by mouth two times a day for 14 days. Discussed hearing aids. Wants to hold off Baclofen for muscle pain/cervicalgia I have answered all of his questions. Follow up: with NSG Signed by: Jean Pierre Patrick MD, FACS Section Head, Otology-Neurotology Sterilization Technician, Hearing Implant Program Head and Neck [place] [facility] Allergies As of Date: 10/08/2024 (No Known Allergies) Date Reviewed: 10/08/2024 Reviewed by: Chang Alvarez, MELL - Fully Assessed Reason for Visit: Established Patient [175] Cmt: Follow up with audio Primary Visit Diagnosis:Vestibular schwannoma (HCC) [D33.3] Other Visit Diagnoses:Sensorineural hearing loss (SNHL) of right ear with unrestricted hearing of left ear [H90.41] Cervicalgia [M54.2] Order(s):baclofen 10 mg tabletTake 1 tablet by mouth two times a day for 14 days.Disp: 28 tabletRfl: 0 Prescriptions as of 10/08/2024 - baclofen 10 mg tablet Take 1 tablet by mouth two times a day for 14 days. - iv contrast (will be provided with radiology test) MRI Skull Base Inject, intravenously, once for 1 dose. No IV access, insert saline lock prior to the beginning of sedation, infusion, injection of imaging exam. Discontinue saline lock post exam. If Pt. has a central line or IVAD, may access for administration according to line specific nursing protocol. Once exam is complete flush line and de-access according to line specific nursing protocol in the MR contrast administration guidelines link. - acetaminophen (TYLENOL) 325 mg tablet 2 tablets by ORAL/FEEDING TUBE route every 4 hours as needed for pain. - pantoprazole DR (PROTONIX) 20 mg tablet Take 1 tablet by mouth daily at 6 am for 3 days. - amLODIPine (NORVASC) 10 mg tablet Take 10 mg by mouth once daily. - losartan (COZAAR) 100 mg tablet Take 100 mg by mouth once daily. 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] 12/11/2023 Generalized anxiety disorder [F41.1] 12/11/2023 Hemiparesis (HCC) [G81.90] 12/11/2023 07/27/2024 HTN (hypertension), benign [I10] 12/11/2023 Kidney stone [N20.0] 01/19/2024 BMI 30.0-30.9,adult [Z68.30] 12/11/2023 Mild cognitive impairment [G31.84] 12/11/2023 07/27/2024 Speech difficult to understand [R47.9] 07/27/2024 TIA (transient ischemic attack) [G45.9] 07/27/2024 Dysarthria [R47.1] 08/11/2024 Acute post-operative pain [G89.18] 08/13/2024 Prescriptions ordered this encounter Disp Refills Start End BACLOFEN 10 MG TABLET 28 t* 0 10/08/2024 10/22/2024 Route: ORAL Sig: Take 1 tablet by mouth two times a day for 14 days. Medications Discontinued During This Encounter Prescriptions - methocarbamol (ROBAXIN) 500 (more content not included)... Normal [facility] Office Visit (CDISMN ) MAYRA BLACK ([id number]) 1970 M Date Time Provider Department 10/08/24 10:30 AM ROXANN CARMONA CDISMN During your visit today, we recorded the following information about you: Roxann Carmona, RAS 10/08/2024 11:08 AM Signed [facility] Head and Neck Department Section of Audiology AUDIOLOGIC EVALUATION REPORT Name: Mayra Black [facility]#: [id number] Date of Service: 10/08/2024 Date of : 1970 Age: [age] year old Referred by:Idalia Patrick MD Referred for: Evaluation of suspected change in hearing, tinnitus, or balance. Referral documented: In an order in [facility] Patient's major complaints: Reduced hearing in the right ear, Tinnitus in the right ear, Pressure/fullness in the right ear Mayra Black was seen for recheck post-operative audiologic evaluation prior to otologic follow up with Idalia Patrick M.D. Recall, medical history is significant for right vestibular schwannoma, S/p right Retrosigmoid craniotomy for removal of a vestibular schwannoma on 08/10/2024. 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 Family History of Hearing Loss: Denied History of ear infections: Denied Otologic Surgical History: Denied History of chemotherapy/ radiation: Denied Head trauma: Several concussions in the past Significant medical history: Right vestibular schwannoma; S/p right Retrosigmoid craniotomy for removal of a vestibular schwannoma on 08/10/2024 Hearing Aid Use: Denied Refer to audiogram under Procedures tab for results. Risk of Falls Documentation for over 65 years old: No history of falls reported so minimal to no risk IMPRESSIONS RIGHT EAR: Sensorineural hearing loss LEFT EAR: Hearing within normal limits Comparison of today's results with previous test results (07/12/2024): Today's results suggest a decrease in the right ear at the following frequencies: 125 Hz, 250 Hz, 500 Hz, 1000 Hz, 2000 Hz, 3000 Hz , 4000 Hz , 6000 Hz, and 8000 Hz NOTE: A decrease of 20 dB HL at any one test frequency, a decrease of 10 dB HL at any two adjacent test frequencies, or a loss of response at three consecutive frequencies where responses were previously obtained is considered a significant change per REE 1994 guidelines. AUDIOLOGIC EVALUATION Following is a brief interpretation of the obtained findings from the audiologic evaluation. Refer to the Auditory Test Record for complete audiometric results. The patient was counseled about the test findings and appropriate audiologic recommendations were made. SUMMARY: Audiogram can be viewed under Procedures tab. OTOSCOPY RIGHT EAR: Otoscopic inspection revealed ear canal was clear with minimal amount of non-occluding cerumen present and identifiable cone of light suggesting WNL middle ear system. LEFT EAR: Otoscopic inspection revealed ear canal was clear with an identifiable cone of light. TYMPANOMETRY Description of procedure: This test is an objective evaluation of middle ear function. CPT code: 41209 RIGHT EAR: Normal ME function. LEFT EAR: Normal ME function. ACOUSTIC REFLEXES Description of procedure: This test is an objective measure of auditory and facial nerve pathways. CPT code: 86037, 28567 RIGHT EAR PROBE EAR: (ipsi right stimulus ear; contralateral left stimulus ear): Acoustic Reflex Pattern Did not test Acoustic Reflex Decay (left stimulus ear): Did not test. LEFT EAR PROBE EAR: (ipsi left stimulus ear; contralateral right stimulus ear): Acoustic Reflex Pattern Did not test Acoustic Reflex Decay (right stimulus ear):Did not test. PURE TONE AUDIOMETRY AND SPEECH TESTING Description of procedure: This test is an objective evaluation hearing sensitivity via air and bone conduction and speech recognition testing. CPT code:45928 RIGHT EAR: Hearing Sensitivity: Profound SNHL. No response at the levels of the equipment 125-8000 Hz. Word Recognition Score: Could not test due to degree of hearing loss. LEFT EAR: Hearing Sensitivity: WNL 125-8000 Hz Word Recognition Score: Excellent (90%). WRS is consistent with hearing sensitivity. Words were presented at 55 dB HL which approximates (45-55 dB HL) intensity level for average conversational speech. The NU-6 Ordered by Difficulty Word List (10 words) was used for testing. RECOMMENDATIONS * Continue medical follow-up with Idalia Patrick M.D. * The patient was counseled regarding the need to continue to monitor hearing and have (more content not included)... Normal [facility] (NSCAMN ) MAYRA BLACK ([id number]) 1970 M Date Time Provider Department 09/20/24 2:30 PM YOVANNY SORIA NSCAMN During your visit today, we recorded the following information about you: Temperature Pulse Respiration Blood pressure 98.2 degrees 121/minute 18/minute 162/81 Weight 88.5 kg Ann Mandujano MA 09/20/2024 3:00 PM Signed Additional intake questions: Has the patient had fever, nausea, vomiting, diarrhea, constipation, fatigue for > 1 week? No Does the patient have a decreased appetite? No Does patient want to see a Cellophaner? No (yes to any of above refer patient to schedulers for dietitian appointment) ) Does patient have any new or increased numbness or tingling of extremities? No Is patient interested in fertility information? No Does patient need any prescription refills? No Does patient have an advanced directive in place? No, Patient referred to Resource Center Electronically Signed By: BREE Parish Pranay, MD 09/20/2024 3:00 PM Signed SECTION OF SKULL BASE SURGERY MINIMALLY INVASIVE CRANIAL BASE AND PITUITARY SURGERY PROGRAM [facility] AND [facility] [place] CC: Patient Care Team: Zenaida Nix CNP as PCP - General (Family Medicine) Mary Torres MD as Referring (Ent - Otolaryngology) Idalia Patrick MD (Ent - Otolaryngology) Assessment: In summary, Mayra Black is a very pleasant 54 year old male with right sided hearing loss, with MRI showing a large right sided vestibular schwannoma. S/p Right sided retrosigmoid craniectomy, GTR of all visible tumor combo with ENT on 08/10/24. (Path- Schwannoma, WHO grade 1.). Overall, he is recovering well. We will plan for MRI in January and f/u with BT [facility] at that time. Hopefully, he will have a durable benefit from resection of right sided VS. Plan: R sided vestibular schwannoma, WHO grade 1, s/p radiographic GTR 08/10/24 Okay to resume normal activities without restriction. Recommend slow up-titration of activity as tolerated. Increase weight lifted by ~5-10 lbs per week until back to preoperative level of activity. MRI skull base w/wo in January and f/u with [facility] at that time Right sided hearing loss: F/u with Dr. Patrick scheduled in end of the month Yovanny Soria MD I spent a total of 20 minutes on the date of the service which included preparing to see the patient, [id number] patient care, completing clinical documentation, obtaining and/or reviewing separately obtained history, performing a medically appropriate examination, counseling and educating the patient/family/caregive r, ordering medications, tests, or procedures, communicating with other HCPs (not separately reported), and independently interpreting results (not separately reported). Subjective: Patient is unaccompanied.Pt reports continued Tinnitus to Lt ear, muffled. Pt denies any new neurological symptoms. Pt reports 2 occurrences of SOB since surgery, last 2 weeks ago. This happens while patiens is asleep, this SOB wakes him out of sleep. He then wakes up and is able to catch his breath. No pulmonary history. Pt unable to verbalize if attacks were from anxiety. Current Outpatient Medications Medication Sig acetaminophen (TYLENOL) 325 mg tablet 2 tablets by ORAL/FEEDING TUBE route every 4 hours as needed for pain. amLODIPine (NORVASC) 10 mg tablet Take 10 mg by mouth once daily. losartan (COZAAR) 100 mg tablet Take 100 mg by mouth once daily. methocarbamol (ROBAXIN) 500 mg tablet Take 1 tablet by mouth three times a day as needed. (Patient not taking: Reported on 08/23/2024) pantoprazole DR (PROTONIX) 20 mg tablet Take 1 tablet by mouth daily at 6 am for 3 days. No current facility-administered medications for this visit. Physical Examination: BP 162/81[md notified[ Pulse 121[md notified[ Temp (Src) 98.2 (Oral) Resp 18 Wt 195 lb 1.7 oz (88.5kg) SpO2 96% AOx3, NAD PERRL, EOMI FS, TM FSILT No drift BUE 5/5 BLE 5/5 SILT No hearing right ear Incision c/d/i Data Review: Imaging: , Pathology Yovanny Soria MD 09/20/2024 2:58 PM Signed You are recovering well from surgery. Okay to resume normal activities without restriction. Recommend slow up-titration of activity as tolerated. Increase weight lifted by ~5-10 lbs per week until back to preoperative level of activity. We will plan for an MRI in 6 months and follow up with one our nurse practitioners at that time. Thank you for allowing me to participate in your care. Please do not hesitate to call with questions. Yovanny Soria MD Referring Provider: IDALIA PATRICK [[id number]] Allergies As of Date: 09/20/2024 (No Known Allergies) Date Reviewed: 09/20/2024 Reviewed by: Ann Mandujano MA - Fully Assessed Reason for Visit: Post Op [174] Tala (more content not included)... Normal [facility]on [facility]23-2024 [facility] MAYRA BLACK ([id number]) 1970 M Date Time Provider Department 08/23/24 9:30 AM MIKEY LENTZ During your visit today, we recorded the following information about you: Temperature Pulse Blood pressure Weight 98.2 degrees 108/minute 163/102 89.2 kg Height 1.727 m Mikey Vines RN 08/23/2024 10:09 AM Signed Patient is here today unaccompanied for suture removal. 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 Pt reports some ongoing incisional soreness, relieved with robaxin. Pt states imbalance same as baseline, pt feels some dizziness/ imbalance when first standing up to walk. Pt walking unassisted at home, pt denies falls. Pt also reports Pt reports since surgery, pitch distortion to hearing on Rt hear, people sound like they inhaled helium when they speak. Pt states this is constant. Pt has appt with Dr Patrick today, will discuss further. Pt denies any other neurological symptoms. Re-discussed postoperative activity and associated restrictions. Rt retrosig Craniotomy incision is well-approximated and healed with some mild scabbing. There are no signs or symptoms of infection. The area was cleansed with alcohol swab and the sutures were removed without difficulty. (see image). Pt tolerated the procedure well. Reviewed wound care with patient with good understanding and confirmed postoperative follow up appointment with Dr Soria on 09/20/24. Aware to phone office with any questions or concerns. JANAK Lund, RN Referring Provider: IDALIA PATRICK [[id number]] Allergies As of Date: 08/23/2024 (No Known Allergies) Date Reviewed: 08/11/2024 Reviewed by: Letha Pisano, RN - Fully Assessed Primary Visit Diagnosis:Presence of surgical incision [Z78.9] Prescriptions as of 08/23/2024 - acetaminophen (TYLENOL) 325 mg tablet 2 tablets by ORAL/FEEDING TUBE route every 4 hours as needed for pain. - methocarbamol (ROBAXIN) 500 mg tablet Take 1 tablet by mouth three times a day as needed. - pantoprazole DR (PROTONIX) 20 mg tablet Take 1 tablet by mouth daily at 6 am for 3 days. - amLODIPine (NORVASC) 10 mg tablet Take 10 mg by mouth once daily. - losartan (COZAAR) 100 mg tablet Take 100 mg by mouth once daily. 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] 12/11/2023 Generalized anxiety disorder [F41.1] 12/11/2023 Hemiparesis (HCC) [G81.90] 12/11/2023 07/27/2024 HTN (hypertension), benign [I10] 12/11/2023 Kidney stone [N20.0] 01/19/2024 BMI 30.0-30.9,adult [Z68.30] 12/11/2023 Mild cognitive impairment [G31.84] 12/11/2023 07/27/2024 Speech difficult to understand [R47.9] 07/27/2024 TIA (transient ischemic attack) [G45.9] 07/27/2024 Dysarthria [R47.1] 08/11/2024 Acute post-operative pain [G89.18] 08/13/2024 Encounter Status:Closed by MIKEY LENTZ on 08/23/24 Normal [facility] CNOVon 08-23-2024 CNOV Office Visit (OTOLMN ) MAYRA BLACK ([id number]) 1970 M Date Time Provider Department 08/23/24 2:00 PM IDALIA PATRICK OTOLME During your visit today, we recorded the following information about you: Adore Marks MA 08/23/2024 5:25 PM Signed Tobacco Use: Never Was smoking cessation packet given? N/A - Patient is a non-smoker or quit >1 year ago. Was a referral initiated?N/A Patient is a non-smoker Idalai Patrick MD 08/23/2024 5:25 PM Signed SECTION OF OTOLOGY, NEUROTOLOGY AND LATERAL SKULL BASE SURGERY Head [facility] [place]ck [place], [facility] History Patient presents with: Post-Op Visit History of Present Illness: Mayra Black is a 54 year old male who presents for a firstpost-operative visit for Right Retrosigmoid craniotomy for removal of a vestibular schwannoma Otalgia: No Otorrhea: No Dizziness: Yes Tinnitus: No Other: feels hearing is quite reduced post-operatively ALLERGIES No Known Allergies Physical Exam ENT EXAMINATION: Patient is alert, oriented Head examination: normocephalic Binocular microscopic examination of ears: Right ear: Incision: well healed but beer still runner compounder External canal : patent Tympanic membrane :normal Assessment and Plan Vestibular schwannoma (HCC) - CONSULT TO PHYSICAL THERAPY; Future - HEARING TEST/AUDIOGRAM; Future IMPRESSION Encouraged VRT Follow up in one month with repeat audio I have answered all of his questions. 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 - acetaminophen (TYLENOL) 325 mg tablet 2 tablets by ORAL/FEEDING TUBE route every 4 hours as needed for pain. - pantoprazole DR (PROTONIX) 20 mg tablet Take 1 tablet by mouth daily at 6 am for 3 days. - amLODIPine (NORVASC) 10 mg tablet Take 10 mg by mouth once daily. - losartan (COZAAR) 100 mg tablet Take 100 mg by mouth once daily. 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 Follow-up and Disposition History for Encounter Date Provider Department Center 08/23/2024 [id number], MARK OTOLMN [facility] Encounter Status:Closed by IDALIA PATRICK on 08/23/24 [facility] 08-23-2024 CNPN Telephone (PHYLLIS) MAYRA BLACK ([id number]) 1970 M Date Time Provider Department 08/23/24 MIKEY LENTZ During your visit today, we recorded the following information about you: Mikey Vines, S[place] 08/23/2024 2:44 PM Signed NEUROSURGERY CARE COORDINATION [place] QUICK NOTE ? Spoke to patient, Mayra and uncle ? Reason for call: confirm postop appts and driving restrictions postop. Reviewed all postop restrictions, including driving. Confirmed all postop appts. Pt,uncle verbalized understanding. JANAK Lund, RN 08/23/2024 2:44 PM Allergies As of Date: 08/23/2024 (No Known Allergies) Date Reviewed: 08/23/2024 Reviewed by: Adore Marks MA - Fully Assessed Prescriptions as of 08/23/2024 - methocarbamol (ROBAXIN) 500 mg tablet Take 1 tablet by mouth three times a day as needed. - acetaminophen (TYLENOL) 325 mg tablet 2 tablets by ORAL/FEEDING TUBE route every 4 hours as needed for pain. - pantoprazole DR (PROTONIX) 20 mg tablet Take 1 tablet by mouth daily at 6 am for 3 days. - amLODIPine (NORVASC) 10 mg tablet Take 10 mg by mouth once daily. - losartan (COZAAR) 100 mg tablet Take 100 mg by mouth once daily. 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] 12/11/2023 Generalized anxiety disorder [F41.1] 12/11/2023 Hemiparesis (HCC) [G81.90] 12/11/2023 07/27/2024 HTN (hypertension), benign [I10] 12/11/2023 Kidney stone [N20.0] 01/19/2024 BMI 30.0-30.9,adult [Z68.30] 12/11/2023 Mild cognitive impairment [G31.84] 12/11/2023 07/27/2024 Speech difficult to understand [R47.9] 07/27/2024 TIA (transient ischemic attack) [G45.9] 07/27/2024 Dysarthria [R47.1] 08/11/2024 Acute post-operative pain [G89.18] 08/13/2024 Encounter Status:Closed by MIKEY LENTZ on 08/23/24 [facility] MAYRA BLACK ([id number]) 1970 M Date Time Provider Department 08/18/24 MIKEY LENTZ During your visit today, we recorded the following information about you: Mikey Vines RN 08/18/2024 2:15 PM Signed NEUROSURGERY CARE COORDINATION [place] QUICK NOTE ? Spoke to patient, Mayra ? Reason for call: Pt calling to report feeling of increased pressure to right ear when laying down. Pt currently taking robaxin PRN for pain. Pt states he will start to use OTC tylenol as well if needed Pt denies any drainage, s/sx infection or incisional issues or any other neurological symptoms; pt advised to call office to report any of these symptoms. Pt encouraged to elevate head when laying down on 2 pillows. Discussed expected postop symptoms/ recovery. Pt currently 8 days postop. Pt verbalizes understanding. JANAK Lund, RN 08/18/2024 2:15 PM Allergies As of Date: 08/18/2024 (No Known Allergies) Date Reviewed: 08/11/2024 Reviewed by: Letha Pisano, RN - Fully Assessed Prescriptions as of 08/18/2024 - acetaminophen (TYLENOL) 325 mg tablet 2 tablets by ORAL/FEEDING TUBE route every 4 hours as needed for pain. - methocarbamol (ROBAXIN) 500 mg tablet Take 1 tablet by mouth three times a day as needed. - pantoprazole DR (PROTONIX) 20 mg tablet Take 1 tablet by mouth daily at 6 am for 3 days. - senna-docusate (SENNA-S) 8.6-50 mg per tablet Take 1 tablet by mouth two times a day for 5 days. - amLODIPine (NORVASC) 10 mg tablet Take 10 mg by mouth once daily. - losartan (COZAAR) 100 mg tablet Take 100 mg by mouth once daily. 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] 12/11/2023 Generalized anxiety disorder [F41.1] 12/11/2023 Hemiparesis (HCC) [G81.90] 12/11/2023 07/27/2024 HTN (hypertension), benign [I10] 12/11/2023 Kidney stone [N20.0] 01/19/2024 BMI 30.0-30.9,adult [Z68.30] 12/11/2023 Mild cognitive impairment [G31.84] 12/11/2023 07/27/2024 Speech difficult to understand [R47.9] 07/27/2024 TIA (transient ischemic attack) [G45.9] 07/27/2024 Dysarthria [R47.1] 08/11/2024 Acute post-operative pain [G89.18] 08/13/2024 Encounter Status:Closed by MIKEY LENTZ on 08/18/24 Normal [facility] CNCOon 08-16-2024 CNCO Letter Text Normal [facility] Basic metabolic 2000 panelon 08-13-2024 Anion gap [Moles/Vol] 16 mmol/L High 8-15 [facility] Comment on above: Order Comment: Speci men Type: BLOOD SPECIMENOrdering Facility: [facility] Address: [address] [place] [address] Performed By: #### 2 4321-2 ####[facility] LABCLIA [id number] [place] [address] [place] Calcium [Mass/Vol] 9.4 mg/dL Normal 8.5-10.2 [facility] Comment on above: Order Comment: Speci men Type: BLOOD SPECIMENOrdering Facility: [facility] Address: [address] [place] [address] Performed By: #### 2 4321-2 ####[facility] LABCLIA [id number] [place] [address] [place] Chloride [Moles/Vol] 104 mmol/L Normal 98-107 [facility] Comment on above: Order Comment: Speci men Type: BLOOD SPECIMENOrdering Facility: [facility] Address: [address] [place] [address] Performed By: #### 2 4321-2 ####[facility] LABCLIA [id number] [place] [id number] [place] CO2 [Moles/Vol] 20 mmol/L Low 22-30 [facility] Comment on above: Order Comment: Speci men Type: BLOOD SPECIMENOrdering Facility: [facility] Address: [address] [place] [address] Performed By: #### 2 4321-2 ####[facility] LABCLIA [id number] [place] [address] [place] Creatinine [Mass/Vol] 0.81 mg/dL Normal 0.73-1.22 [facility] Comment on above: Order Comment: Praneeth aguirre Type: BLOOD SPECIMENOrdering Facility: [facility] Address: [address] [place] [address] Performed By: #### 2 4321-2 ####[facility] LABIA [id number] [place] [address] [place] Creatinine and Glomerular filtration rate.predicted panel (S/P/Bld) 103 mL/min/1.73m??? Normal >=60 [facility] Comment on above: Order Comment: Praneeth aguirre Type: BLOOD SPECIMENOrdering Facility: [facility] Address: [address] [place] [address] Result Comment: Lexus mated Glomerular Filtration Rate (eGFR) is calculated using the 2020 CKD-EPI creatinine equation. This equation utilizes serum creatinine, sex, and age as parameters. The creatinine assay has traceable calibration to isotope dilution-mass spectrometry. Refer to KDIGO guidelines for clinical interpretation. In patients with unstable renal function, e.g. those with acute kidney injury, the eGFR may not accurately reflect actual GFR. Performed By: #### 2 4321-2 ####[facility] LABIA [id number] [place] [address] [place] Glucose [Mass/Vol] 114 mg/dL High 74-99 [facility] Comment on above: Order Comment: Praneeth aguirre Type: BLOOD SPECIMENOrdering Facility: [facility] Address: [address] [place] [address] Result Comment: The [place] Diabetes Association (ADA) provides guidance for cutoff values for fasting glucose and random glucose. The ADA defines fasting as no caloric intake for at least 8 hours. Fasting plasma glucose results between 100 to 125 mg/dL indicate increased risk for diabetes (prediabetes). Fasting plasma glucose results greater than or equal to 126 mg/dL meet the criteria for diagnosis of diabetes. In the absence of unequivocal hyperglycemia, results should be confirmed by repeat testing. In a patient with classic symptoms of hyperglycemia or hyperglycemic crisis, random plasma glucose results greater than or equal to 200 mg/dL meet the criteria for diagnosis of diabetes. Reference: Standards of Medical Care in Diabetes 2016, [place] Diabetes Association. Diabetes Care. 2016.39(Suppl 1). Performed By: #### 2 4321-2 ####[facility] LABCLIA [id number] [place] [address] [place] Potassium [Moles/Vol] 4.3 mmol/L Normal 3.7-5.1 [facility] Comment on above: Order Comment: Speci men Type: BLOOD SPECIMENOrdering Facility: [facility] Address: [address] [place] [address] Performed By: #### 2 4321-2 ####[facility] LABIA [id number] [place] [address] [place] Sodium [Moles/Vol] 140 mmol/L Normal 136-144 [facility] Comment on above: Order Comment: Speci men Type: BLOOD SPECIMENOrdering Facility: [facility] Address: [address] [place] [address] Performed By: #### 2 4321-2 ####[facility] LABIA [id number] [place] [address] [place] Urea nitrogen [Mass/Vol] 26 mg/dL High 9-24 [facility] Comment on above: Order Comment: Speci men Type: BLOOD SPECIMENOrdering Facility: [facility] Address: [address] [place] [address] Performed By: #### 2 4321-2 ####[facility] LABIA [id number] [place] [address] [place] CBC panel Auto (Bld)on 08-13 Erythrocyte distribution width (RBC) [Ratio] 11.4 % Low 11.5-15.0 [facility] Comment on above: Order Comment: Speci men Type: BLOOD SPECIMENOrdering Facility: [facility] Address: [address] [place] [address] Performed By: #### 5 8410-2 ####[facility] LABCLIA [id number] [place] [address] [place] Hematocrit (Bld) [Volume fraction] 50.4 % Normal 39.0-51.0 [facility] Comment on above: Order Comment: Speci men Type: BLOOD SPECIMENOrdering Facility: [facility] Address: [address] [place] [address] Performed By: #### 5 8410-2 ####[facility] LABCLIA [id number] [place] [address] [place] Hemoglobin (Bld) [Mass/Vol] 17.6 g/dL High 13.0-17.0 [facility] Comment on above: Order Comment: Speci men Type: BLOOD SPECIMENOrdering Facility: [facility] Address: [address] [place] [address] Performed By: #### 5 8410-2 ####[facility] LABCLIA [id number] [place] [address] [place] MCH (RBC) [Entitic mass] 31.4 pg Normal 26.0-34.0 [facility] Comment on above: Order Comment: Speci men Type: BLOOD SPECIMENOrdering Facility: [facility] Address: [address] [place] [address] Performed By: #### 5 8410-2 ####[facility] LABCLIA [id number] [place] [address] [place] MCHC (RBC) [Mass/Vol] 34.9 g/dL Normal 30.5-36.0 [facility] Comment on above: Order Comment: Speci men Type: BLOOD SPECIMENOrdering Facility: [facility] Address: [address] [place] [address] Performed By: #### 5 8410-2 ####[facility] LABCLIA [id number] [place] [address] [place] MCV (RBC) [Entitic vol] 89.8 fL Normal 80.0-100.0 [facility] Comment on above: Order Comment: Speci men Type: BLOOD SPECIMENOrdering Facility: [facility] Address: [address] [place] [address] Performed By: #### 5 8410-2 ####[facility] LABCLIA [id number] [place] [address] [place] Nucleated RBC (Bld) [#/Vol] 10*3/uL Normal <0.01 [facility] Comment on above: Order Comment: Speci men Type: BLOOD SPECIMENOrdering Facility: [facility] Address: [address] [place] [address] Performed By: #### 5 8410-2 ####[facility] LABCLIA [id number] [place] [address] [place] Platelet mean volume (Bld) [Entitic vol] 10.2 fL Normal 9.0-12.7 [facility] Comment on above: Order Comment: Speci men Type: BLOOD SPECIMENOrdering Facility: [facility] Address: [address] [place] [address] Performed By: #### 5 8410-2 ####[facility] LABCLIA [id number] [place] [address] [place] Platelets (Bld) [#/Vol] 244 10*3/uL Normal 150-400 [facility] Comment on above: Order Comment: Speci men Type: BLOOD SPECIMENOrdering Facility: [facility] Address: [address] [place] [address] Performed By: #### 5 8410-2 ####[facility] LABCLIA [id number] [place] [address] [place] RBC (Bld) [#/Vol] 5.61 10*6/uL Normal 4.20-6.00 [facility] Comment on above: Order Comment: Speci men Type: BLOOD SPECIMENOrdering Facility: [facility] Address: [address] [place] [address] Performed By: #### 5 8410-2 ####[facility] LABCLIA [id number] [place] [address] [place] WBC (Bld) [#/Vol] 12.02 10*3/uL High 3.70-11.00 [facility] Comment on above: Order Comment: Speci men Type: BLOOD SPECIMENOrdering Facility: [facility] Address: [address] [place] [address] Performed By: #### 5 8410-2 ####[facility] LABCLIA [id number] [address] [place] CNDSon 08-13-2024 CNDS HNO ID: [id number] Author: ODETTE VASQUEZ APRN.[employer]CIAL INTERIOR DESIGNER Service: Neurosurgery Author Type: Nurse Practitioner Type: Discharge Summary Filed: 08/13/2024 11:17 Note Text: Attestation signed by Yovanny Soria MD at 08/13/2024 11:51 PM Yovanny Soria MD NEURO SURGERY SKULL BASE DISCHARGE SUMMARY PATIENT NAME: Mayra Black ADMISSION DATE: 08/10/2024 DISCHARGE DATE: 08/13/2024 ATTENDING PHYSICIAN: Yovanny Soria MD Code Status: Not on file Highest Readmission Risk Score: 9 The 30 day readmissions risk score is derived from an internally validated risk model which evaluates patient level characteristics, utilization history, medication orders and lab results up until the day of discharge. Patients with a score of 40 or above are considered highest risk for readmission. Specific patient level drivers will be listed at the bottom of the summary. Discharged Against Medical Advice? No Attending Physician: Dr. 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 After being optimized for surgery by the PAT teams, Mayra Theodore Materesa was identified and brought into the Operating Room by the anesthesia and nursing teams. The patient was treated with perioperative antibiotics for 24 hours postoperatively. 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 The patient tolerated the procedure and was taken to PACU, and then to the hospital surgical floor when PACU criteria was made. The patient was then transferred up to H063 005/H063-05 hospital room for postoperative management. Patient's hearing was not intact on the right, which was same as preoperatively. Patient had no facial weakness (House-Brackmann Grade 1), which was same as preoperatively. Patient was fitted with fitted with sequential compression devices for DVT prophylaxis. The patient was discharged on POD # 3 in stable condition. Complete and comprehensive discharge instructions were provided to the patient as well as necessary prescriptions. The patient had no further questions and was advised to call with any questions, concerns, or problems. Patient's pain was well controlled with Oral Pain Medications. Based upon the appropriate milestones the patient met during the hospital course, we recommended patient be discharged to Rapid Recovery- discharged home. Patient was hemodynamically stable postoperatively. 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 Decadron 8mg BID with taper to off in 5 days MRI skull base complete and reviewed Pain control Path pending - APAP, robaxin, PRN oxycodone Plan for DC 08/13/2024 Dysarthria 08/11/2024 Assessment AND Plan Note: Baseline dysarthria Generalized anxiety disorder 12/11/2023 HTN (hypertension), benign 12/11/2023 Assessment AND Plan Note: Continue home amlodipine, losartan PRN labetalol Maintain SBP <160 BMI 30.0-30.9,adult 12/11/2023 Assessment AND Plan Note: [facility] healthy diet for DC Relevant labs included: Pituitary Labs: No results found for: ACTH No results found for: COR No results found for: ILGF1 No results found for: GH Sodium (mmol/L) Date Value 08/11/2024 140 07/27/2024 143 Pending results: Biopsy Results (tumor pathology) Patient had no signs/symptoms of DVT, so no ultrasound was done during hospital course. MRI of skull base was performed during postoperative hospital course on POD # 1 for post operative assessment. Case management was consulted during hospital course for appropriate discharge planning for patient. Emergency Contact While in the Hospital: Extended Emergency Contact Information Primary Emergency Contact: Dali Black Mobile Relation: Mother ALLERGIES: ALLERGIES No Known Allergies Living Situation: Lives with Alone, at own home HOME MEDICATIONS: Medication List START taking these medications acetaminophen 325 mg tablet Commonly known as: TYLENOL 2 tablets by ORAL (more content not included)... Normal [facility] Shanel 08-13-2024 [facility] MAYRA BLACK ([id number]) 1970 M Date Time Provider Department 08/13/24 MIKEY LENTZ During your visit today, we recorded the following information about you: Mikey Vines RN 08/13/2024 11:47 AM Signed Post-Op Scheduling Request Time Frame: 2 weeks Orders: suture removal Provider: mikey lentz Visit type: In person Surgery/GK Date: 08/10/24 Diagnosis: VS *please also schedule 6 week postop with Kathy Montez 08/13/2024 1:12 PM Signed Spoke with patient scheduled and confirmed Kathy Richmond August 13, 2024 1:12 PM Allergies As of Date: 08/13/2024 (No Known Allergies) Date Reviewed: 08/11/2024 Reviewed by: Letha Pisano RN - Fully Assessed Reason for Visit: urgent postop [Other] Prescriptions as of 08/13/2024 - acetaminophen (TYLENOL) 325 mg tablet 2 tablets by ORAL/FEEDING TUBE route every 4 hours as needed for pain. - dexAMETHasone (DECADRON) 2 mg tablet Take 1 tablet by mouth two times a day with meals for 2 days, THEN 1 tablet daily with breakfast for 1 day. Patient should start on August 14, 2024. - oxyCODONE IR (ROXICODONE) 5 mg immediate release tablet Take 1 tablet by mouth every 6 hours as needed for pain for up to 3 days. - methocarbamol (ROBAXIN) 500 mg tablet Take 1 tablet by mouth three times a day as needed. - pantoprazole DR (PROTONIX) 20 mg tablet Take 1 tablet by mouth daily at 6 am for 3 days. - senna-docusate (SENNA-S) 8.6-50 mg per tablet Take 1 tablet by mouth two times a day for 5 days. - amLODIPine (NORVASC) 10 mg tablet Take 10 mg by mouth once daily. - losartan (COZAAR) 100 mg tablet Take 100 mg by mouth once daily. Facility-Administered Medications as of 08/13/2024 - dexAMETHasone (DECADRON) tab(s) 6 mg - pantoprazole DR 20 mg tab(s) (PROTONIX) - heparin 5,000 Units injection - amLODIPine 10 mg tab(s) (NORVASC) - losartan 100 mg tab(s) (COZAAR) - ondansetron (PF) 4 mg injection (ZOFRAN) - prochlorperazine 10 mg injection (COMPAZINE) - trimethobenzamide 200 mg injection (TIGAN) - senna-docusate 8.6-50 mg 1 tablet (SENNA-S) - NaCl 0.9% iv flush bag - acetaminophen 1,000 mg tab(s) (TYLENOL) - oxyCODONE IR 5-10 mg tab(s) (ROXICODONE) - methocarbamol 750 mg tab(s) (ROBAXIN) - labetalol 5-20 mg injection (NORMODYNE) Problem List As Of Date 08/13/2024 Noted Resolved Vestibular schwannoma (HCC) [D33.3] 07/21/2024 Disc displacement, 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] 12/11/2023 Generalized anxiety disorder [F41.1] 12/11/2023 Hemiparesis (HCC) [G81.90] 12/11/2023 07/27/2024 HTN (hypertension), benign [I10] 12/11/2023 Kidney stone [N20.0] 01/19/2024 BMI 30.0-30.9,adult [Z68.30] 12/11/2023 Mild cognitive impairment [G31.84] 12/11/2023 07/27/2024 Speech difficult to understand [R47.9] 07/27/2024 TIA (transient ischemic attack) [G45.9] 07/27/2024 Dysarthria [R47.1] 08/11/2024 Acute post-operative pain [G89.18] 08/13/2024 Encounter Status:Closed by KATHY RICHMOND on 08/13/24 [facility] CONSULT PROGon 08-13-2024 CONSULT PROG HNO ID: [id number] Author: JEFRY OCASIO MD Service: Otolaryngology Author Type: Resident Type: Consult Progress Note Filed: 08/13/2024 08:00 Note Text: OTOLARYNGOLOGY - HEAD AND NECK SURGERY INPATIENT PROGRESS NOTE PATIENT NAME: Mayra Black INTERVAL HPI: No acute events. Does report some salty post-nasal drip. Denies any otorrhea or clear rhinorrhea. Pain well controlled. EXAM BP 134/81 Pulse 88 Temp 36.2 ?C (97.2 ?F) (Oral) Resp 18 Ht 172.7 cm (5' 8 ) Wt 92.2 kg (203 lb 4.2 oz) SpO2 92% BMI 30.91 kg/m? General: No acute distress. 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 Jefry Ocasio MD PGY-2 Otolaryngology- Head and Neck Surgery Pager: [phone] Service Pager [phone] - please page after 5 PM and on weekends Principal Problem: Vestibular schwannoma (HCC) Active Problems: Generalized anxiety disorder HTN (hypertension), benign BMI 30.0-30.9,adult Dysarthria Obese (BMI 30-39) BMI 30.91 kg/(m2) - POA: Yes: Plan: Monitor Vestibular schwannoma POA: Yes: Plan: S/p surgery Normal [facility] Basic metabolic 2000 panelon 08-12-2024 Anion gap [Moles/Vol] 14 mmol/L Normal 8-15 [facility] Comment on above: Order Comment: Speci men Type: BLOOD SPECIMENOrdering Facility: [facility] Address: [address] [place] [address] Performed By: #### 2 4321-2 ####[facility] LABCLIA [id number] [place] [address] [place] Calcium [Mass/Vol] 9.7 mg/dL Normal 8.5-10.2 [facility] Comment on above: Order Comment: Speci men Type: BLOOD SPECIMENOrdering Facility: [facility] Address: [address] [place] [address] Performed By: #### 2 4321-2 ####[facility] LABCLIA [id number] [place] [address] [place] Chloride [Moles/Vol] 104 mmol/L Normal 98-107 [facility] Comment on above: Order Comment: Speci men Type: BLOOD SPECIMENOrdering Facility: [facility] Address: [address] [place] [address] Performed By: #### 2 4321-2 ####[facility] LABCLIA [id number] [place] [address] [place] CO2 [Moles/Vol] 21 mmol/L Low 22-30 [facility] Comment on above: Order Comment: Speci men Type: BLOOD SPECIMENOrdering Facility: [facility] Address: [address] [place] [address] Performed By: #### 2 4321-2 ####[facility] LABCLIA [id number] [place] [address] [place] Creatinine [Mass/Vol] 0.76 mg/dL Normal 0.73-1.22 [facility] Comment on above: Order Comment: Speci men Type: BLOOD SPECIMENOrdering Facility: [facility] Address: [address] [place] [address] Performed By: #### 2 4321-2 ####[facility] LABCLIA [id number] [place] [address] [place] Creatinine and Glomerular filtration rate.predicted panel (S/P/Bld) 105 mL/min/1.73m??? Normal >=60 [facility] Comment on above: Order Comment: Praneeth aguirre Type: BLOOD SPECIMENOrdering Facility: [facility] Address: [address] [place] [address] Result Comment: Lexus mated Glomerular Filtration Rate (eGFR) is calculated using the 2020 CKD-EPI creatinine equation. This equation utilizes serum creatinine, sex, and age as parameters. The creatinine assay has traceable calibration to isotope dilution-mass spectrometry. Refer to KDIGO guidelines for clinical interpretation. In patients with unstable renal function, e.g. those with acute kidney injury, the eGFR may not accurately reflect actual GFR. Performed By: #### 2 4321-2 ####[facility] LABIA [id number] [place] [address] [place] Glucose [Mass/Vol] 140 mg/dL High 74-99 [facility] Comment on above: Order Comment: Praneeth aguirre Type: BLOOD SPECIMENOrdering Facility: [facility] Address: [address] [place] [address] Result Comment: The [place] Diabetes [employer] (ADA) provides guidance for cutoff values for fasting glucose and random glucose. The ADA defines fasting as no caloric intake for at least 8 hours. Fasting plasma glucose results between 100 to 125 mg/dL indicate increased risk for diabetes (prediabetes). Fasting plasma glucose results greater than or equal to 126 mg/dL meet the criteria for diagnosis of diabetes. In the absence of unequivocal hyperglycemia, results should be confirmed by repeat testing. In a patient with classic symptoms of hyperglycemia or hyperglycemic crisis, random plasma glucose results greater than or equal to 200 mg/dL meet the criteria for diagnosis of diabetes. Reference: Standards of Medical Care in Diabetes 2016, [place] [employer] Association. Diabetes Care. 2016.39(Suppl 1). Performed By: #### 2 4321-2 ####[facility] [id number] [place] [address] [place] Potassium [Moles/Vol] 4.2 mmol/L Normal 3.7-5.1 [facility] Comment on above: Order Comment: Praneeth aguirre Type: BLOOD SPECIMENOrdering Facility: [facility] Address: [address] [place] [address] Performed By: #### 2 4321-2 ####[facility] LABCLIA [id number] [place] [address] [place] Sodium [Moles/Vol] 139 mmol/L Normal 136-144 [facility] Comment on above: Order Comment: Speci men Type: BLOOD SPECIMENOrdering Facility: [facility] Address: [address] [place] [address] Performed By: #### 2 4321-2 ####[facility] LABCLIA [id number] [place] [address] [place] Urea nitrogen [Mass/Vol] 19 mg/dL Normal 9-24 [facility] Comment on above: Order Comment: Speci men Type: BLOOD SPECIMENOrdering Facility: [facility] Address: [address] [place] [address] Performed By: #### 2 4321-2 ####[facility] LABCLIA [id number] [place] [address] [place] CBC panel Auto (Bld)on 08-12 Erythrocyte distribution width (RBC) [Ratio] 11.5 % Normal 11.5-15.0 [facility] Comment on above: Order Comment: Speci men Type: BLOOD SPECIMENOrdering Facility: [facility] Address: [address] [place] [address] Performed By: #### 5 8410-2 ####[facility] LABCLIA [id number] [place] [id number] [place] Hematocrit (Bld) [Volume fraction] 50.8 % Normal 39.0-51.0 [facility] Comment on above: Order Comment: Speci men Type: BLOOD SPECIMENOrdering Facility: [facility] Address: [address] [place] [address] Performed By: #### 5 8410-2 ####[facility] LABCLIA [id number] [place] [address] [place] Hemoglobin (Bld) [Mass/Vol] 17.5 g/dL High 13.0-17.0 [facility] Comment on above: Order Comment: Speci men Type: BLOOD SPECIMENOrdering Facility: [facility] Address: [address] [place] [address] Performed By: #### 5 8410-2 ####[facility] LABIA [id number] [place] [address] [place] MCH (RBC) [Entitic mass] 30.8 pg Normal 26.0-34.0 [facility] Comment on above: Order Comment: Speci men Type: BLOOD SPECIMENOrdering Facility: [facility] Address: [address] [place] [address] Performed By: #### 5 8410-2 ####[facility] LABCLIA [id number] [place] [address] [place] MCHC (RBC) [Mass/Vol] 34.4 g/dL Normal 30.5-36.0 [facility] Comment on above: Order Comment: Speci men Type: BLOOD SPECIMENOrdering Facility: [facility] Address: [address] [place] [address] Performed By: #### 5 8410-2 ####[facility] LABIA [id number] [place] [address] [place] MCV (RBC) [Entitic vol] 89.4 fL Normal 80.0-100.0 [facility] Comment on above: Order Comment: Speci men Type: BLOOD SPECIMENOrdering Facility: [facility] Address: [address] [place] [address] Performed By: #### 5 8410-2 ####[facility] LABCLIA [id number] [place] [address] [place] Nucleated RBC (Bld) [#/Vol] 10*3/uL Normal <0.01 [facility] Comment on above: Order Comment: Speci men Type: BLOOD SPECIMENOrdering Facility: [facility] Address: [address] [place] [address] Performed By: #### 5 8410-2 ####[facility] LABCLIA [id number] [place] [address] [place] Platelet mean volume (Bld) [Entitic vol] 10.2 fL Normal 9.0-12.7 [facility] Comment on above: Order Comment: Speci men Type: BLOOD SPECIMENOrdering Facility: [facility] Address: [address] [place] [address] Performed By: #### 5 8410-2 ####[facility] LABIA [id number] [place] [address] [place] Platelets (Bld) [#/Vol] 232 10*3/uL Normal 150-400 [facility] Comment on above: Order Comment: Speci men Type: BLOOD SPECIMENOrdering Facility: [facility] Address: [address] [place] [address] Performed By: #### 5 8410-2 ####[facility] LABIA [id number] [place] [address] [place] RBC (Bld) [#/Vol] 5.68 10*6/uL Normal 4.20-6.00 [facility] Comment on above: Order Comment: Speci men Type: BLOOD SPECIMENOrdering Facility: [facility] Address: [address] [place] [address] Performed By: #### 5 8410-2 ####[facility] LABIA [id number] [place] [address] [place] WBC (Bld) [#/Vol] 11.87 10*3/uL High 3.70-11.00 [facility] Comment on above: Order Comment: Speci men Type: BLOOD SPECIMENOrdering Facility: [facility] Address: [address] [place] [address] Performed By: #### 5 8410-2 ####[facility] LABCLIA [id number] [id number] [id number] [place] CONSULT PROGon 08-12-2024 CONSULT PROG HNO ID: [id number] Author: BANDAR DE JESUS MD Service: Otolaryngology Author Type: Resident Type: Consult Progress Note Filed: 08/12/2024 08:48 Note Text: OTOLARYNGOLOGY - HEAD AND NECK SURGERY INPATIENT PROGRESS NOTE PATIENT NAME: Mayra Black INTERVAL HPI: No acute events. Denies salty or metallic taste, persistent clear rhinorrhea, or postnasal drip. EXAM BP 137/91 Pulse 110 Temp 36.7 ?C (98 ?F) (Oral) Resp 16 Ht 172.7 cm (5' 8 ) Wt 92.2 kg (203 lb 4.2 oz) SpO2 94% BMI 30.91 kg/m? General: No acute distress. 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 Bandar De Jesus MD Resident Surgeon Otolaryngology - Head and Neck Surgery Service Pager: [phone] Pager: [phone] For questions after 5 PM and on weekends, please page [phone]. Principal Problem: Vestibular schwannoma (HCC) Active Problems: Generalized anxiety disorder HTN (hypertension), benign BMI 30.0-30.9,adult Dysarthria Obese (BMI 30-39) BMI 30.91 kg/(m2) - POA: Yes: Plan: Monitor Vestibular schwannoma POA: Yes: Plan: S/p surgery Normal [facility] ALLIED HEALTHon 08-11-2024 ALLIED HEALTH HNO ID: [id number] Author: AIRAM YORK RT(R) Service: Radiology Author Type: Technologist Type: Allied Health Filed: 08/11/2024 21:33 Note Text: Radiology Service Progress Note PATIENT NAME: Mayra Black DATE OF SERVICE: August 11, 2024 TIME: 9:33 PM PATIENT IDENTITY VERIFICATION COMPLETED USING TWO (2) IDENTIFIERS: Name and Date of confirmed by identification band. FALL SCREENING: Has the patient had 2 falls in the last year or 1 fall with injury or currently using an Ambulatory Assistive Device (Walker, Cane, Wheelchair, Crutches, etc.)? Inpatient: Screened on floor PATIENT GENDER DATA: Male PATIENT RELEVANT IMPLANT DATA REVIEWED: Yes PATIENT PRESENTS WITH AN IMPLANTABLE OR ATTACHED MUSEUM EDUCATOR: No RADIOLOGY DEPARTMENT: MR; Exam(s) Completed: Head: IAC/CPA PERIPHERAL IV DATA: Inpatient: see LDA documentation SIGNED BY: RT Latricia(R) August 11, 2024 9:33 PM [facility] ANES POSTPROC EVALon 024 ANES POSTPROC EVAL HNO ID: [id number] Author: NATALEE OLSEN MD Service: ? Author Type: Anesthesiologist Type: Anesthesia Postprocedure Evaluation Filed: 08/11/2024 13:47 Note Text: POST ANESTHESIA EVALUATION NOTE : 1970 Procedure Summary Date: 08/10/24 Room / [facility] [address] [facility] Anesthesia Start: 729 Anesthesia Stop: 1714 Procedures: CRANIECTOMY EXCISION TUMOR, INFARENTORIAL OR POST FOSSA, CEREBELLOPONTINE ANGLE TUMOR (Right: Head) MICROSURGICAL TECHNIQUE FOR CRANIOTOMY PROCEDURES (Right: Brain) CRANIECTOMY EXCISION TUMOR, INFARENTORIAL OR POST FOSSA, CEREBELLOPONTINE ANGLE TUMOR (Right: Head) MICROSURGICAL TECHNIQUE FOR CRANIOTOMY PROCEDURES (Right: Brain) Diagnosis: Schwannoma Vestibular schwannoma (HCC) (Schwannoma [D36.10]) (Vestibular schwannoma (HCC) [D33.3]) Surgeons: Yovanny Soria MD; Idalia Patrick MD Responsible Provider: Natalee Olsen MD Anesthesia Type: general ASA Status: 3 Anesthesia Type: general Airway Type: ETT Last Vitals Vitals Value Taken Time BP 135/63 08/11/24 1300 Temp 36.8 ?C (98.2 ?F) 08/11/24 1200 Pulse 101 08/11/24 1345 Resp 20 08/11/24 1345 SpO2 92 % 08/11/24 1345 Vitals shown include unfiled device data. Post Anesthesia Patient Status Patient Evaluation: bedside. Anticipated Disposition: inpatient floor planned admission. Neurological Status: aware and responsive. Pulmonary Status: breathing comfortably on supplemental oxygen Airway Control: returned to baseline unsupported. Cardiovascular Status: stable. Pain Management: clinically adequate Postoperative Hydration: acceptable. Intraoperative Events: no significant anesthesia events Post Operative Nausea/Vomiting Status: no significant post operative nausea or vomiting Recommendation: further care per PACU/ICU/floor team. Anesthesia Observations No Documentation SIGNATURE: Natalee Olsen MD PATIENT NAME: Mayra Black DATE: August 11, 2024 TIME: 1:47 PM CSN: [id number] Normal [facility] CASE MGT INIT [facility] 2023 CASE MGT INIT [facility] HNO ID: [id number] Author: SUNIL LESTER RN Service: Nursing Author Type: Registered Nurse Type: Care Mgt Initial Assessment Filed: 08/11/2024 10:44 Note Text: CARE MANAGEMENT: ASSESSMENT AND DISCHARGE PLAN SERVICE DATE: August 11, 2024 SERVICE TIME: 10:43 AM PCP: Zenaida Nix CNP, DERIK Primary Contact: Extended Emergency Contact Information Primary Emergency Contact: Dali Black Mobile Relation: Mother Admission Status: Inpatient Insurance Provider: [employer] [employer] [place] Needs Prior to Discharge: Needs Prior to Discharge: None Post-Acute Discharge Plan: Patient admitted on 08/10/24 for right 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 Patient has no skilled needs at this time. This patient has been screened for Care Management Transitional Planning Services. At this time, it does not appear this patient will require transition planning services. Should this change, and the patient require transition planning services during this admission, please contact Case Management. SIGNATURE: Sunil Lester RN PATIENT NAME: Mayra Black DATE: August 11, 2024 TIME: 10:42 AM CONTACT #: [phone] Normal [facility] CBC W Auto Differential pane l (Bld)on 08-11-2024 Basophils (Bld) [#/Vol] 10*3/uL Normal <0.11 [facility] Comment on above: Order Comment: Speci men Type: BLOOD SPECIMENOrdering Facility: [facility] Address: [address] [place] [address] Performed By: #### 5 7021-8 ####[facility] LABCLIA [id number] [place] [address] [place] Basophils/100 WBC (Bld) 0.2 % Normal [facility] Comment on above: Order Comment: Speci men Type: BLOOD SPECIMENOrdering Facility: [facility] Address: [address] [place] [address] Performed By: #### 5 7021-8 ####[facility] LABCLIA [id number] [place] [address] [place] Differential cell count method Nom (Bld) Auto Normal [facility] Comment on above: Order Comment: Speci men Type: BLOOD SPECIMENOrdering Facility: [facility] Address: [address] [place] [address] Performed By: #### 5 7021-8 ####[facility] LABCLIA [id number] [place] [address] [place] Eosinophils (Bld) [#/Vol] 10*3/uL Normal <0.46 [facility] Comment on above: Order Comment: Speci men Type: BLOOD SPECIMENOrdering Facility: [facility] Address: [address] [place] [address] Performed By: #### 5 7021-8 ####[facility] LABCLIA [id number] [place] [address] [place] Eosinophils/100 WBC (Bld) 0.1 % Normal [facility] Comment on above: Order Comment: Speci men Type: BLOOD SPECIMENOrdering Facility: [facility] Address: [address] [place] [address] Performed By: #### 5 7021-8 ####[facility] LABCLIA [id number] [place] [address] [place] Erythrocyte distribution width (RBC) [Ratio] 11.9 % Normal 11.5-15.0 [facility] Comment on above: Order Comment: Speci men Type: BLOOD SPECIMENOrdering Facility: [facility] Address: [address] [place] [address] Performed By: #### 5 7021-8 ####[facility] LABIA [id number] [place] [address] [place] Hematocrit (Bld) [Volume fraction] 45.5 % Normal 39.0-51.0 [facility] Comment on above: Order Comment: Speci men Type: BLOOD SPECIMENOrdering Facility: [facility] Address: [address] [place] [address] Performed By: #### 5 7021-8 ####[facility] LABIA [id number] [place] [address] [place] Hemoglobin (Bld) [Mass/Vol] 15.8 g/dL Normal 13.0-17.0 [facility] Comment on above: Order Comment: Speci men Type: BLOOD SPECIMENOrdering Facility: [facility] Address: [address] [place] [address] Performed By: #### 5 7021-8 ####[facility] LABIA [id number] [place] [address] [place] [place] Immature granulocytes (Bld) [#/Vol] 0.05 10*3/uL Normal <0.10 [facility] Comment on above: Order Comment: Speci men Type: BLOOD SPECIMENOrdering Facility: [facility] Address: [address] [place] [address] Performed By: #### 5 7021-8 ####[facility] LABCLIA [id number] [place] [address] [place] Immature granulocytes/100 WBC (Bld) 0.4 % Normal [facility] Comment on above: Order Comment: Speci men Type: BLOOD SPECIMENOrdering Facility: [facility] Address: [address] [place] [address] Performed By: #### 5 7021-8 ####[facility] LABCLIA [id number] [place] [address] [place] Lymphocytes (Bld) [#/Vol] 0.67 10*3/uL Low 1.00-4.00 [facility] Comment on above: Order Comment: Speci men Type: BLOOD SPECIMENOrdering Facility: [facility] Address: [address] [place] [address] Performed By: #### 5 7021-8 ####[facility] LABCLIA [id number] [place] [address] [place] Lymphocytes/100 WBC (Bld) 5.4 % Normal [facility] Comment on above: Order Comment: Speci men Type: BLOOD SPECIMENOrdering Facility: [facility] Address: [address] [place] [address] Performed By: #### 5 7021-8 ####[facility] LABCLIA [id number] [place] [address] [place] MCH (RBC) [Entitic mass] 30.0 pg Normal 26.0-34.0 [facility] Comment on above: Order Comment: Speci men Type: BLOOD SPECIMENOrdering Facility: [facility] Address: [address] [place] [address] Performed By: #### 5 7021-8 ####[facility] LABCLIA [id number] [place] [address] [place] MCHC (RBC) [Mass/Vol] 34.7 g/dL Normal 30.5-36.0 [facility] Comment on above: Order Comment: Speci men Type: BLOOD SPECIMENOrdering Facility: [facility] Address: [address] [place] [address] Performed By: #### 5 7021-8 ####[facility] LABCLIA [id number] [place] [address] [place] MCV (RBC) [Entitic vol] 86.5 fL Normal 80.0-100.0 [facility] Comment on above: Order Comment: Speci men Type: BLOOD SPECIMENOrdering Facility: [facility] Address: [address] [place] [address] Performed By: #### 5 7021-8 ####[facility] LABCLIA [id number] [place] [address] [place] Monocytes (Bld) [#/Vol] 0.83 10*3/uL Normal <0.87 [facility] Comment on above: Order Comment: Speci men Type: BLOOD SPECIMENOrdering Facility: [facility] Address: [address] [place] [address] Performed By: #### 5 7021-8 ####[facility] LABCLIA [id number] [place] [address] [place] Monocytes/100 WBC (Bld) 6.7 % Normal [facility] Comment on above: Order Comment: Speci men Type: BLOOD SPECIMENOrdering Facility: [facility] Address: [address] [place] [address] Performed By: #### 5 7021-8 ####[facility] LABCLIA [id number] [place] [address] [place] Neutrophils (Bld) [#/Vol] 10.78 10*3/uL High 1.45-7.50 [facility] Comment on above: Order Comment: Speci men Type: BLOOD SPECIMENOrdering Facility: [facility] Address: [address] [place] [address] Performed By: #### 5 7021-8 ####[facility] LABCLIA [id number] [place] [address] [place] Neutrophils/100 WBC (Bld) 87.2 % Normal [facility] Comment on above: Order Comment: Speci men Type: BLOOD SPECIMENOrdering Facility: [facility] Address: [address] [place] [address] Performed By: #### 5 7021-8 ####[facility] LABIA [id number] [place] [address] [place] Nucleated RBC (Bld) [#/Vol] 10*3/uL Normal <0.01 [facility] Comment on above: Order Comment: Speci men Type: BLOOD SPECIMENOrdering Facility: [facility] Address: [address] [place] [address] Performed By: #### 5 7021-8 ####[facility] LABIA [id number] [place] [address] [place] Nucleated RBC/100 WBC (Bld) [Ratio] 0.0 /100 WBC Normal [facility] Comment on above: Order Comment: Speci men Type: BLOOD SPECIMENOrdering Facility: [facility] Address: [address] [place] [address] Performed By: #### 5 7021-8 ####[facility] LABCLIA [id number] [place] [address] [place] Platelet mean volume (Bld) [Entitic vol] 9.8 fL Normal 9.0-12.7 [facility] Comment on above: Order Comment: Speci men Type: BLOOD SPECIMENOrdering Facility: [facility] Address: [address] [place] [address] Performed By: #### 5 7021-8 ####[facility] LABCLIA [id number] [place] [address] [place] Platelets (Bld) [#/Vol] 211 10*3/uL Normal 150-400 [facility] Comment on above: Order Comment: Speci men Type: BLOOD SPECIMENOrdering Facility: [facility] Address: [address] [place] [address] Performed By: #### 5 7021-8 ####[facility] LABIA [id number] [place] [address] [place] RBC (Bld) [#/Vol] 5.26 10*6/uL Normal 4.20-6.00 [facility] Comment on above: Order Comment: Speci men Type: BLOOD SPECIMENOrdering Facility: [facility] Address: [address] [place] [address] Performed By: #### 5 7021-8 ####[facility] LABIA [id number] [place] [address] [place] WBC (Bld) [#/Vol] 12.36 10*3/uL High 3.70-11.00 [facility] Comment on above: Order Comment: Speci men Type: BLOOD SPECIMENOrdering Facility: [facility] Address: [address] [place] [address] Performed By: #### 5 7021-8 ####[facility] [id number] [place] [address] [place] CONSULT PROGon 08-11-2024 CONSULT PROG HNO ID: [id number] Author: JAMES PENA MD Service: Otolaryngology Author Type: Resident Type: Consult Progress Note Filed: 08/11/2024 06:58 Note Text: OTOLARYNGOLOGY - HEAD AND NECK SURGERY INPATIENT PROGRESS NOTE PATIENT NAME: Mayra Black INTERVAL HPI: No acute events. Denies salty or metallic taste, persistent clear rhinorrhea, or postnasal drip. States sore throat, sore at incision site, and sore left elbow and right heel EXAM BP 156/86 Pulse 109 Temp 37.2 ?C (99 ?F) (Oral) Resp 24 Ht 172.7 cm (5' 8 ) Wt 92.2 kg (203 lb 4.2 oz) SpO2 96% BMI 30.91 kg/m? General: No acute distress. 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 James ePna MD Otolaryngology-Head and Neck Surgery PGY-4 Pager [phone] Service Pager [phone] - please page after 5pm and on weekends Principal Problem: Vestibular schwannoma (HCC) Active Problems: Generalized anxiety disorder HTN (hypertension), benign Obese (BMI 30-39) BMI 30.91 kg/(m2) - POA: Yes: Plan: Monitor Vestibular schwannoma POA: Yes: Plan: S/p surgery Normal [facility] Comprehensive metabolic 2000 panelon 08-11-2024 Albumin [Mass/Vol] 4.3 g/dL Normal 3.9-4.9 [facility] Comment on above: Order Comment: Speci men Type: BLOOD SPECIMENOrdering Facility: [facility] Address: [address] [place] [address] Performed By: #### 2 777-1, 34787-2, 41379-6 ####[facility] LABCLIA [id number] [place] [address] [place] ALP [Catalytic activity/Vol] 75 U/L Normal 38-113 [facility] Comment on above: Order Comment: Speci men Type: BLOOD SPECIMENOrdering Facility: [facility] Address: [address] [place], [place] [address] Performed By: #### 2 777-1, , ####[facility] LABCLIA [id number] [place] [id number] [place] ALT [Catalytic activity/Vol] 29 U/L Normal 10-54 [facility] Comment on above: Order Comment: Speci men Type: BLOOD SPECIMENOrdering Facility: [facility] Address: [address] [place] [address] Performed By: #### 2 777-1, , ####[facility] LABCLIA [id number] [place] [address] [place] Anion gap [Moles/Vol] 17 mmol/L High 8-15 [facility] Comment on above: Order Comment: Speci men Type: BLOOD SPECIMENOrdering Facility: [facility] Address: [address] [place] [address] Performed By: #### 2 777-1, , ####[facility] LABIA [id number] [place] [address] [place] AST [Catalytic activity/Vol] 43 U/L High 14-40 [facility] Comment on above: Order Comment: Speci men Type: BLOOD SPECIMENOrdering Facility: [facility] Address: [address] [place], [place] [address] Performed By: #### 2 777-1, , ####[facility] LABIA [id number] [place] [id number] [place] Bilirubin [Mass/Vol] 0.7 mg/dL Normal 0.2-1.3 [facility] Comment on above: Order Comment: Speci men Type: BLOOD SPECIMENOrdering Facility: [facility] Address: [address] [place] [address] Performed By: #### 2 777-1, 58076-3, ####[facility] LABCLIA [id number] [address] [address] [place] Calcium [Mass/Vol] 9.0 mg/dL Normal 8.5-10.2 [facility] Comment on above: Order Comment: Speci men Type: BLOOD SPECIMENOrdering Facility: [facility] Address: [address] [place] [address] Performed By: #### 2 777-1, 81025-4, ####[facility] LABCLIA [id number] [place] [address] [place] Chloride [Moles/Vol] 105 mmol/L Normal 98-107 [facility] Comment on above: Order Comment: Speci men Type: BLOOD SPECIMENOrdering Facility: [facility] Address: [address] [place] [address] Performed By: #### 2 777-1, 93454-5, ####[facility] LABIA [id number] [place] [address] [place] CO2 [Moles/Vol] 18 mmol/L Low 22-30 [facility] Comment on above: Order Comment: Speci men Type: BLOOD SPECIMENOrdering Facility: [facility] Address: [address] [place] [address] Performed By: #### 2 777-1, 25365-2, ####[facility] LABIA [id number] [place] [id number] [place] Creatinine [Mass/Vol] 1.00 mg/dL Normal 0.73-1.22 [facility] Comment on above: Order Comment: Speci men Type: BLOOD SPECIMENOrdering Facility: [facility] Address: [address] [place], [place] [address] Performed By: #### 2 777-1, 13364-4, 12170-0 ####[facility] LABIA [id number] [place] [address] [place] Creatinine and Glomerular filtration rate.predicted panel (S/P/Bld) 88 mL/min/1.73m??? Normal >=60 [facility] Comment on above: Order Comment: Praneeth aguirre Type: BLOOD SPECIMENOrdering Facility: [facility] Address: [address] [place] [address] Result Comment: Lexus mated Glomerular Filtration Rate (eGFR) is calculated using the 2020 CKD-EPI creatinine equation. This equation utilizes serum creatinine, sex, and age as parameters. The creatinine assay has traceable calibration to isotope dilution-mass spectrometry. Refer to KDIGO guidelines for clinical interpretation. In patients with unstable renal function, e.g. those with acute kidney injury, the eGFR may not accurately reflect actual GFR. Performed By: #### 2 777-1, 02945-6, 13915-4 ####[facility] LABIA [id number] [place] [address] [place] Glucose [Mass/Vol] 129 mg/dL High 74-99 [facility] Comment on above: Order Comment: Praneeth aguirre Type: BLOOD SPECIMENOrdering Facility: [facility] Address: [address] [place] [address] Result Comment: The [place] Diabetes Association (ADA) provides guidance for cutoff values for fasting glucose and random glucose. The ADA defines fasting as no caloric intake for at least 8 hours. Fasting plasma glucose results between 100 to 125 mg/dL indicate increased risk for diabetes (prediabetes). Fasting plasma glucose results greater than or equal to 126 mg/dL meet the criteria for diagnosis of diabetes. In the absence of unequivocal hyperglycemia, results should be confirmed by repeat testing. In a patient with classic symptoms of hyperglycemia or hyperglycemic crisis, random plasma glucose results greater than or equal to 200 mg/dL meet the criteria for diagnosis of diabetes. Reference: Standards of Medical Care in Diabetes 2016, [place] [employer]. Diabetes Care. 2016.39(Suppl 1). Performed By: #### 2 777-1, 91739-2, ####[facility] LABCLIA [id number] [address] [address] [place] Potassium [Moles/Vol] 4.2 mmol/L Normal 3.7-5.1 [facility] Comment on above: Order Comment: Speci men Type: BLOOD SPECIMENOrdering Facility: [facility] Address: [address] [place] [address] Performed By: #### 2 777-1, , ####[facility] LABCLIA [id number] [address] [address] [place] Protein [Mass/Vol] 6.7 g/dL Normal 6.3-8.0 [facility] Comment on above: Order Comment: Speci men Type: BLOOD SPECIMENOrdering Facility: [facility] Address: [address] [place] [address] Performed By: #### 2 777-1, , ####[facility] LABCLIA [id number] [address] [address] [place] Sodium [Moles/Vol] 140 mmol/L Normal 136-144 [facility] Comment on above: Order Comment: Speci men Type: BLOOD SPECIMENOrdering Facility: [facility] Address: [address] [place] [address] Performed By: #### 2 777-1, , ####[facility] LABCLIA [id number] [address] [address] [place] Urea nitrogen [Mass/Vol] 20 mg/dL Normal 9-24 [facility] Comment on above: Order Comment: Speci men Type: BLOOD SPECIMENOrdering Facility: [facility] Address: [address] [place] [address] Performed By: #### 2 777-1, , ####[facility] LABCLIA [id number] [address] [address] [place] ECG COMPLETEon 08-11-2024 ECG COMPLETE Ventricular Rate : 1 17 BPM Atrial Rate : 117 BPM P-R Interval : 170 ms QRS Duration : 102 ms Q-T Interval : 318 ms QTC Calculation(Bazett) : 443 ms Calculated P [place] : 48 degrees Calculated R [place] : 46 degrees Calculated T [place] : 5 degrees SINUS TACHYCARDIA INFERIOR T WAVE ABNORMALITY ABNORMAL ECG Confirmed by SAUL COUGHLIN MD ([id number]) on 09/21/2024 11:21:41 AM NAME : MAYRA BLACK PID : [id number] : 1970 Gender : Male Race : Unknown ORD : [id number] Procedure Date : Aug 11 2024 03:00:18 Edit Date : Sep 21 2024 11:21:44 Diagnosis: SINUS TACHYCARDIA INFERIOR T WAVE ABNORMALITY ABNORMAL ECG Confirmed by SALU COUGHLIN MD ([id number]) on 09/21/2024 11:21:41 AM Test Reason : Arrhythmia Location : 123 : H63 H063-5 Overread By : SAUL COUGHLIN MD Edited By : SAUL COUGHLIN MD Referred By : , Acquired by : SHRUTHI HSU [facility] MRI SKULL BASE WO/W IVCONon 08-11-2024 MRI SKULL BASE WO/W IVCON * * *Final Report* * * DATE OF EXAM: Aug 11 2024 10:03PM QBM 0319 - MRI SKULL BASE WO/W IVCON / PROCEDURE REASON: Benign neoplasm of brain and other parts ELECTRICAL MECHANICAL TECHNICIAN * * * * Physician Interpretation * * * * EXAMINATION: MRI SKULL BASE WO/W IVCON HISTORY: Benign neoplasm of brain and other parts ELECTRICAL MECHANICAL TECHNICIAN postoperative assessment status post cerebellopontine angle tumor resection TECHNIQUE: Skull base brain MRI protocol without and with contrast including diffusion and postcontrast fat-saturated T1 images. MQ: [id number]_2 Contrast: 18 mL Dotarem IV COMPARISON: CT temporal bones 08/03/2024, MRI outside hospital 05/07/2024 RESULT: Acute Change: There is no evidence of restricted diffusion to suggest an acute infarct. Hemorrhage/mass: There are interval postoperative findings from right retrosigmoid approach craniotomy and resection of the previously seen extra-axial mass with expanding the right internal auditory canal and extending into the right cerebellopontine angle cistern compared to prior MRI. Postoperative T2 hyperintense extra-axial collection along the right cerebellar convexity and cerebellopontine angle cistern contiguous with the resection cavity measures up to 1.3 cm in thickness. No significant mass effect on the right cerebellar hemisphere. Mild FLAIR hyperintense signal along the right lateral cerebellar hemisphere, could reflect postoperative changes from surgical manipulation. There has been interval gross total resection of the right cerebellopontine angle cistern mass without evidence of residual enhancing soft tissue in the right internal auditory canal or cerebellopontine angle cistern. There is mild enhancement of the anterior margins of the resection cavity, along which the right cisternal seventh and 8th cranial nerves course, extending into the right internal auditory canal, likely postoperative change. Small amount of intrinsic T1 hyperintense blood products in the medial margin of the resection cavity abutting the right middle cerebellar peduncle. No evidence of other intracranial mass or pathologic parenchymal or leptomeningeal enhancement elsewhere in the brain. Chronic Change: The white matter is within normal limits of signal intensity for age. Parenchyma: No significant volume loss for age. The brain parenchyma is otherwise within normal limits of signal intensity and morphology. Ventricles: Normal caliber and morphology. Skull Base: Hypothalamic and pituitary region are grossly normal. Craniocervical junction is normal. No significant marrow replacement process. Vasculature: Major intracranial arterial structures, and dural venous sinuses show typical flow void, suggesting patency by spin echo criteria. Patent right sigmoid and transverse sinuses and jugular bulb. Other: Right mastoid effusion. Postoperative changes in the right suboccipital and occipital scalp with soft tissue edema and swelling. Remainder of the extracranial soft tissues are unremarkable. IMPRESSION: Interval postoperative findings of right retrosigmoid approach resection of the right internal auditory canal and cerebellopontine angle mass likely representing a schwannoma compared to the prior MRI. No acute intracranial findings. No findings of residual enhancing soft tissue mass. Mild enhancement of the right 7th and 8th cranial nerves which courses along the anterior margins of the resection cavity, likely reflecting postoperative change. Supervisor Cell Operation: SHIVAM Transcribe Date/Time: Aug 11 2024 10:13P Dictated by : EDWINA OCASIO MD This examination was interpreted and the report reviewed and electronically signed by: EDWINA OCASIO MD on Aug 11 2024 10:24PM EST [id number] Normal [facility] Magnesium [facility]-ncon 08-11 Magnesium [Mass/Vol] 1.9 mg/dL Normal 1.7-2.3 [facility] Comment on above: Order Comment: Speci men Type: BLOOD SPECIMENOrdering Facility: [facility] Address: [address] [place] [address] Performed By: #### 2 777-1, 26994-2, 84890-2 ####[facility] LABCLIA [id number] [place] [address] [id number] [facility] NURSING PROGon 08-11-2024 NURSING PROG HNO ID: [id number] Author: SHAYNA ANDRADE RN Service: Nursing Author Type: Registered Nurse Type: Nursing Progress Note Filed: 08/11/2024 21:06 Note Text: Radiology Service Progress Note DATE OF SERVICE: August 11, 2024 TIME: 9:05 PM PATIENT WEIGHT: 203 LBS PATIENT IDENTITY VERIFICATION COMPLETED USING TWO (2) STANDARD IDENTIFIERS: Name and Date of confirmed by patient verbally and Name and Date of confirmed by identification band. FALL SCREENING: Has the patient had 2 falls in the last year or 1 fall with injury or currently using an Ambulatory Assistive Device (Walker, Cane, Wheelchair, Crutches, etc.)? Inpatient: Screened on floor PATIENT GENDER DATA: Male ALLERGIES: Reviewed and unchanged CONTRAST ALLERGY: No EXAM: MRI - CONTRAST TYPE: GROUP II IV SITE: Inpatient - refer to LDA documentation IV SITE APPEARANCE: Clean,Dry and Intact SIGNATURE: Shayna Andrade RN PATIENT NAME: Mayra Black DATE: August 11, 2024 TIME: 9:05 PM Normal [facility] Phosphate SerPl-mCncon 08-11 Phosphate [Mass/Vol] 3.1 mg/dL Normal 2.7-4.8 [facility] Comment on above: Order Comment: Speci men Type: BLOOD SPECIMENOrdering Facility: [facility] Address: [address] [place] [address] Performed By: #### 2 777-1, 05964-3, 34423-2 ####[facility] LABCLIA [id number] [address] [address] [place] ANES PRE-OPon 08-10-2024 ANES PRE-OP HNO ID: [id number] Author: NATALEE OLSEN MD Service: ? Author Type: Anesthesiologist Type: Anesthesia Preprocedure Evaluation Filed: 08/10/2024 07:17 Note Text: ANESTHESIOLOGY DAY OF SURGERY NOTE : 1970 Procedure Information Date/Time: 08/10/24 0730 Procedures: CRANIECTOMY EXCISION TUMOR, INFARENTORIAL OR POST FOSSA, CEREBELLOPONTINE ANGLE TUMOR (Right: Head) MICROSURGICAL TECHNIQUE FOR CRANIOTOMY PROCEDURES (Right: Brain) CRANIECTOMY EXCISION TUMOR, INFARENTORIAL OR POST FOSSA, CEREBELLOPONTINE ANGLE TUMOR (Right: Head) MICROSURGICAL TECHNIQUE FOR CRANIOTOMY PROCEDURES (Right: Brain) Location: [facility] Surgeons: Yovanny Soria MD; Idalia Patrick MD Estimated body mass index is 30.56 kg/m? as calculated from the following: Height as of this encounter: 172.7 cm (5' 8 ). Weight as of this encounter: 91.2 kg (201 lb). Most recent hematocrit and potassium results: Hematocrit 52.3 07/27/2024 Potassium 4.2 07/27/2024 Relevant Problems CARDIO (+) HTN (hypertension), benign -RENAL (+) Kidney stone NEURO-PSYCH (+) TIA (transient ischemic attack) I - PHYSICAL EVALUATION AIRWAY Patient intubated: No. Tracheostomy tube not present Mallampati: I. TM distance: >3 FB. Neck ROM: full ROM without neurological symptoms. Mouth opening: adequate. Short neck: no. Thick neck: no II - ANESTHESIA PLAN ASA Score: 3 Anesthetic Plan: general Airway type: ETT NPO Status: adequate Beta Maryjane Monitoring Plan Monitoring plan: invasive hemodynamic monitoring. Monitoring method: arterial Line Post Procedure Analgesic Plan Informed Consent Anesthetic risks, benefits, alternatives, personnel and consent discussed: yes. Patient / Responsible Republican agrees to proceed: yes Patient / Surrogate agrees to blood products: Yes DNR status not reviewed with patient and/or family prior to surgery. Significant changes in the patient condition since the History and Physical, not otherwise documented in primary service progress note: no. Vitals Value Taken Time BP 155/96 08/10/24 0545 Pulse 98 08/10/24 0545 Resp 18 08/10/24 0545 Temp 36.7 ?C (98.1 ?F) 08/10/24 0545 SpO2 96 % 08/10/24 0545 No current facility-administered medications on file as of 08/10/2024. Outpatient Medications as of 08/10/2024 Medication Sig - bisoprolol (ZEBETA) 5 mg tablet Take by mouth. - losartan (COZAAR) 100 mg tablet Take 100 mg by mouth once daily. I have interviewed and examined the patient. I have reviewed the medical record and/or the pre-anesthesia evaluation, pertinent labs, and test results. This contains updated information obtained within 48 hours of Surgery/Procedure. SIGNATURE: Natalee Olsen MD PATIENT NAME: Mayra Black DATE: August 10, 2024 TIME: 7:16 AM CSN: [id number] Normal [facility] ARTERIAL BLOOD GASESon 08-10 Base deficit (BldA) [Moles/Vol] -3 mmol/L Low -2-0 [facility] Comment on above: Order Comment: Speci men Type: ARTERIAL BLOOD SPECIMENOrdering Facility: [facility] Address: [address] [place] [address] Performed By: #### A LLBG ####[facility] [id number] [place] [address] [place] Calcium.ionized (Bld) [Mass/Vol] 1.20 mmol/L Normal 1.08-1.30 [facility] Comment on above: Order Comment: Speci men Type: ARTERIAL BLOOD SPECIMENOrdering Facility: [facility] Address: [address] [place] [address] Performed By: #### A LLBG ####[facility] [id number] [place] [address] [place] Calcium.ionized adjusted to pH 7.4 (BldA) [Moles/Vol] 1.19 mmol/L Normal 1.08-1.30 [facility] Comment on above: Order Comment: Speci men Type: ARTERIAL BLOOD SPECIMENOrdering Facility: [facility] Address: [address] [place] [address] Performed By: #### A LLBG ####[facility] LABCLIA [id number] [address] [address] [place] Carboxyhemoglobin (BldA) [Mass fraction] 0.8 % Normal 0.0-2.0 [facility] Comment on above: Order Comment: Speci men Type: ARTERIAL BLOOD SPECIMENOrdering Facility: [facility] Address: [address] [place] [address] Result Comment: Carb oxyhemoglobin Reference Range for Smokers: 2.0-8.0% Performed By: #### A LLBG ####[facility] LABCLIA [id number] [place] [address] [place] CO2 (Bld) [Partial pressure] 35 mm Hg Low 36-46 [facility] Comment on above: Order Comment: Speci men Type: ARTERIAL BLOOD SPECIMENOrdering Facility: [facility] Address: [address] [place] [address] Performed By: #### A LLBG ####[facility] LABCLIA [id number] [place] [address] [place] CO2 adjusted to patient's actual temperature (Bld) [Partial pressure] 35 mmHg Low 36-46 [facility] Comment on above: Order Comment: Speci men Type: ARTERIAL BLOOD SPECIMENOrdering Facility: [facility] Address: [address] [place] [address] Performed By: #### A LLBG ####[facility] LABCLIA [id number] [place] [address] [place] Glucose [Mass/Vol] 108 mg/dL High 60-105 [facility] Comment on above: Order Comment: Speci men Type: ARTERIAL BLOOD SPECIMENOrdering Facility: [facility] Address: [address] [place] [address] Performed By: #### A LLBG ####[facility] LABCLIA [id number] [place] [address] [place] HCO3 (Bld) [Moles/Vol] 21 mmol/L Low 22-26 [facility] Comment on above: Order Comment: Speci men Type: ARTERIAL BLOOD SPECIMENOrdering Facility: [facility] Address: [address] [place] [address] Performed By: #### A LLBG ####[facility] LABCLIA [id number] [place] [address] [place] Hematocrit (Bld) [Volume fraction] 50.0 % Normal 39.0-51.0 [facility] Comment on above: Order Comment: Speci men Type: ARTERIAL BLOOD SPECIMENOrdering Facility: [facility] Address: [address] [place] [address] Performed By: #### A LLBG ####[facility] LABIA [id number] [place] [address] [place] Hemoglobin (Bld) [Mass/Vol] 16.3 g/dL Normal 13.0-17.0 [facility] Comment on above: Order Comment: Speci men Type: ARTERIAL BLOOD SPECIMENOrdering Facility: [facility] Address: [address] [place] [address] Performed By: #### A LLBG ####[facility] LABCLIA [id number] [place] [address] [place] Lactate [Moles/Vol] 1.9 mmol/L Normal 0.5-2.2 [facility] Comment on above: Order Comment: Speci men Type: ARTERIAL BLOOD SPECIMENOrdering Facility: [facility] Address: [address] [place] [address] Performed By: #### A LLBG ####[facility] LABCLIA [id number] [place] [address] [place] Methemoglobin (Bld) [Mass fraction] 0.8 % Normal 0.0-1.5 [facility] Comment on above: Order Comment: Speci men Type: ARTERIAL BLOOD SPECIMENOrdering Facility: [facility] Address: [address] [place] [address] Performed By: #### A LLBG ####[facility] LABCLIA [id number] [place] [address] [place] Oxygen (Bld) [Partial pressure] 192 mm Hg High 85-95 [facility] Comment on above: Order Comment: Speci men Type: ARTERIAL BLOOD SPECIMENOrdering Facility: [facility] Address: [address] [place] [address] Performed By: #### A LLBG ####[facility] LABCLIA [id number] [place] [address] [place] Oxygen adjusted to patient's actual temperature (Bld) [Partial pressure] 192 mmHg High 85-95 [facility] Comment on above: Order Comment: Speci men Type: ARTERIAL BLOOD SPECIMENOrdering Facility: [facility] Address: [address] [place] [address] Performed By: #### A LLBG ####[facility] LABCLIA [id number] [place] [address] [place] Oxyhemoglobin (BldA) [Mass fraction] 98 % Normal 95-98 [facility] Comment on above: Order Comment: Speci men Type: ARTERIAL BLOOD SPECIMENOrdering Facility: [facility] Address: [address] [place] [address] Performed By: #### A LLBG ####[facility] LABCLIA [id number] [place] [address] [place] pH (Bld) 7.40 [pH] Normal 7.35-7.45 [facility] Comment on above: Order Comment: Speci men Type: ARTERIAL BLOOD SPECIMENOrdering Facility: [facility] Address: [address] [place] [address] Performed By: #### A LLBG ####[facility] LABCLIA [id number] [place] [address] [place] pH adjusted to patient's actual temperature (Bld) 7.40 Normal 7.35-7.45 [facility] Comment on above: Order Comment: Speci men Type: ARTERIAL BLOOD SPECIMENOrdering Facility: [facility] Address: [address] [place] [address] Performed By: #### A LLBG ####[facility] LABIA [id number] [place] [address] [place] Potassium [Moles/Vol] 4.3 mmol/L Normal 3.5-5.0 [facility] Comment on above: Order Comment: Speci men Type: ARTERIAL BLOOD SPECIMENOrdering Facility: [facility] Address: [address] [place] [address] Performed By: #### A LLBG ####[facility] LABIA [id number] [place] [address] [place] Sodium [Moles/Vol] 138 mmol/L Normal 136-144 [facility] Comment on above: Order Comment: Speci men Type: ARTERIAL BLOOD SPECIMENOrdering Facility: [facility] Address: [address] [place] [address] Performed By: #### A LLBG ####[facility] LABIA [id number] [place] [id number] [place] BRIEF OP NOTon 08-10-2024 BRIEF OP NOT HNO ID: [id number] Author: YOVANNY SORIA MD Service: Neurosurgery Author Type: Physician Type: Brief Op Note Filed: 08/10/2024 16:29 Note Text: BRIEF OPERATIVE / PROCEDURE NOTE LOG ID: [id number] SURGERY/PROCEDURE DATE: 08/10/2024 INCISION/PROCEDURE START TIME: 8:34 AM INCISION CLOSE/PROCEDURE END TIME: 4:29 PM SURGEON(S)/PROCEDURALIS T(S) AND MRI MANAGER(S): Surgeons and Role: Panel 1: * Yovanny Soria MD - Primary * Faith Britt MD Panel 2: * Idalia Patrick MD - Primary No Additional Staff SURGERY/PROCEDURE(S): 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 Use of operating exoscope for microdissection Procedure requiring ENT and neurosurgery co-surgeons ANESTHESIA: General FINDINGS: GTR of all visible tumor Preservation of cochlear nerve anatomically CN 7 preserved and stimulating at 0.05 mA distally, shielded behind CN 8 splayed fibers at brainstem Frozen schwannoma Mastoid air cells anteriorly, sealed with ceemnt No petrous air cells seen, area waxed ESTIMATED BLOOD LOSS: 150 mls SPECIMENS: ID Type Source Tests Collected by Time Destination A : Right CPA tumor Tissue Brain, Resection SURGICAL PATHOLOGY Yovanny Soria MD 08/10/2024 8:42 AM B : Right CPA tumor #2 Tissue Brain, Resection SURGICAL PATHOLOGY Yovanny Soria MD 08/10/2024 3:16 PM COMPLICATIONS: None IMPLANTS: * No implants in log * CLOSURE TECHNIQUE: Primary PRE-OP/PRE-PROCEDURE DIAGNOSIS: Vestibular schwannoma POST-OP/POST-PROCEDURE DIAGNOSIS: Same as Preop Patient was accompanied to the next level of care by a licensed practitioner from the surgical team pending completion of this brief op note (or operative note) SIGNATURE: Yovanny Soria MD PATIENT NAME: Mayra Black DATE: August 10, 2024 TIME: 4:09 PM [facility] OPERATIVE NOon 08-10-2024 OPERATIVE NO HNO ID: [id number] Author: YOVANNY SORIA MD Service: Neurosurgery Author Type: Physician Type: Operative Report Filed: 08/11/2024 18:46 Note Text: OPERATIVE/PROCEDURE REPORT NEUROSURGERY LOG ID: [id number] Surgery/Procedure Date: 08/10/2024 Incision/Procedure Start Time: 8:34 AM Incision Close/Procedure End Time: 4:29 PM Surgeon(s)/Proceduralis t(s) and Neurourologist(s): Surgeons and Role: Panel 1: * Yovanny Soria MD - Primary * Faith Britt MD Panel 2: * Idalia Patrick MD - Primary Embossing Toolsetter: Janelle Norman RN Embossing Toolsetter (Relief): Yoselin Roth RN Embossing Toolsetter Orientee: Elly Riddle RN Scrub Person: Berhane Kim ST Scrub Person (Relief): Sona Felix ST Procedure(s): 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 Use of operating exoscope for microdissection Procedure requiring ENT and neurosurgery co-surgeons Preoperative Diagnosis: vestibular schwannoma Postoperative Diagnosis: same Operative Indications: Mr. Black presented with a right sided hearing loss, with MRI showing a large right sided vestibular schwannoma. Given the size and symptoms, surgery was offered. After weighing out the potential risks/benefits associated with the proposed surgery, the patient wished to proceed therefore informed consent was obtained. All questions were answered in detail. Anesthesia: General Findings: GTR of all visible tumor Preservation of cochlear nerve anatomically CN 7 preserved and stimulating at 0.05 mA distally, shielded behind CN 8 splayed fibers at brainstem Frozen schwannoma Mastoid air cells anteriorly, sealed with ceemnt No petrous air cells seen, area waxed Procedure Details: The patient was brought to the operating area, and an operative huddle (including the patient and team members from neurosurgery, anesthesiology, and nursing) was performed to confirm the patient's identity and procedure to be performed. The patient was then induced with general anesthesia and intubated. The appropriate lines were placed by the anesthesiology team. The patient was positioned supine with a bump with the head in 3-point delcid fixation. The area was clipped, prepped, and draped in the usual fashion, an audible timout was performed, and the patient received IV antibiotics prior to incision. A right-sided retrosigmoid approach for resection of right-sided vestibular schwannoma was then performed. A curvilinear retroauricular incision was made using a #10 blade scalpel. The monopolar cautery was used to dissect the subcutaneous tissue to the level of the cervical fascia. The fascia was reflected anteriorly, and the sternocleidomastoid was freed from the anterior/superior mastoid attachment and reflected inferiorly. Asterion was marked, and the sigmoid transverse sinus junction noted likely to be 3-4 mm anterior and superior to this. A retrosigmoid craniectomy was marcos using the 6 mm cutting carrington. The craniectomy was expanded using kerrison rongeurs until the the sigmoid transverse sinus junction was identified (3 x 2.5 cm). The dura was then opened in a c-shaped fashion. The cerebellomedullary arachnoid was opened to allow for cerebellar relaxation. The operating exoscope was then brought into the field. First we turned our attention to the lower cranial nerves. The lower cranial nerves were freed from the capsule and decompressed without abnormal firing. We debulked agressively after stimulating the posterior capsule to allow better manipulation of the capsule. After some debulking we were able to free the tumor capsule from the lateral cerebellum and middle cerebellar peduncle. The trigeminal nerve was identified compressed by tumor superiorly and tumor was dissected off of this nerve. Using EMG stimulation, we confirmed identification of the facial nerve at the brainstem along the medial aspect of the tumor. The tumor was dissected free of the facial nerve as it coursed superiorly and turned laterally to enter the IAC. At this point, the ENT team was then asked to assist with exposure of the the internal auditory canal, which will be dictated in separate operative report. The dura over the IAC was opened. Tumor within the IAC was removed. Facial nerve was stimulated in the IAC and directly visualized. After they drilled and cleared out tumor from the IAC, neruosurgery returned, and together we then turned our attention to the remaining CPA portion. This was further dissected and resected. Care was taken to dissect the cisternal segment of the facial nerve from the tumor, and the entirety of the tumor was removed. The nerve was completely visualized and stimulation responses were adequate. At the end of the dissection, gross-total tumor resection was achieved, and the facial nerve was preserved and stimulating at 0.05 mA distally with good responses. Proximally, the nerve was behind CN 8 fibers, which were pr (more content not included)... Normal [facility] OPERATIVE NO HNO ID: [id number] Author: IDALIA PATRICK MD Service: Otolaryngology Author Type: Physician Type: Operative Report Filed: 08/11/2024 11:16 Note Text: HNI OPERATIVE/PROCEDURE REPORT LOG ID: [id number] SURGERY/PROCEDURE DATE: 08/10/2024 INCISION/PROCEDURE START TIME: 8:34 AM INCISION CLOSE/PROCEDURE END TIME: 4:29 PM SURGEON(S)/PROCEDURALIS T(S) AND MRI MANAGER(S): Surgeons and Role: Panel 1: * Yovanny Soria MD - Primary * Faith Britt MD Panel 2: * Idalia Patrick MD - Primary No Additional Staff ANESTHESIA: General Procedures Procedure(s) Performed: Procedure(s) and Anesthesia Type: Panel 1: * CRANIECTOMY EXCISION TUMOR, INFARENTORIAL OR POST FOSSA, CEREBELLOPONTINE ANGLE TUMOR - General * MICROSURGICAL TECHNIQUE FOR CRANIOTOMY PROCEDURES - General Panel 2: * CRANIECTOMY EXCISION TUMOR, INFARENTORIAL OR POST FOSSA, CEREBELLOPONTINE ANGLE TUMOR - General * MICROSURGICAL TECHNIQUE FOR CRANIOTOMY PROCEDURES - General Preoperative Diagnosis: Schwannoma [D36.10] Vestibular schwannoma (HCC) [D33.3] Postoperative Diagnosis: Same as above Anesthesia: General Incision/Procedure Start Time: 8:34 AM Incision Close/Procedure End Time: 4:29 PM Estimated Blood Loss: 50 mL(s). Complications: None Implants: Implant Name Type Inv. Item Serial No. Linen Supply Load Builder Lot No. LRB No. Used Action CEMENT HYDROSET CALCIUM PHOSPHATE BONE INJECTABLE OSTEOCONDUCTIVE 10CC VOID - [id number] Cement / Putty CEMENT HYDROSET CALCIUM PHOSPHATE BONE INJECTABLE OSTEOCONDUCTIVE 10CC VOID STRY-HOW CRANIOMAXILLOFACIAL [id number] Right 1 Implanted Drains: none Specimens: ID Type Source Tests Collected by Time Destination A : Right CPA tumor Tissue Brain, Resection SURGICAL PATHOLOGY Yovanny Soria MD 08/10/2024 8:42 AM B : Right CPA tumor #2 Tissue Brain, Resection SURGICAL PATHOLOGY Yovanny Soria MD 08/10/2024 3:16 PM Operative Findings: Gross total removal Cochlear nerve anatomically intact Facial nerve intact and stimulating at 0.05mA at the brainstem Indications for Surgery: Mayra Black is a 54 year old male with a large right sided vestibular schwannoma. Options were discussed and we decided to proceed with a right retrosigmoid resection of the schwannoma. Procedure in Detail: The patient was brought to the operating room and was identified. He was placed on the operating table in supine position. A preoperative huddle was performed in accordance with institutional policy. Sequential compression devices were placed for deep vein thrombosis prophylaxis. Preoperative antibiotics were administered for prophylaxis. The patient was handed over to anesthesia for induction. A timeout was performed. The initial approach and resection was performed by Neurosurgery and dictated separately. We then proceeded with our part of the procedure. The dura on the posterior aspect of the temporal bone was elevated and reflected medially, and the porus acousticus was identified Using the 2.0mm Sonopet microclaw, the posterior wall of the IAC was drilled preserving the labyrinth but exposing 2/3 of the IAC. Superior and inferior troughs were then drilled, allowing exposure of the IAC contents over 270 degrees. The dura was incised and the lateral edge of the tumor was identified and retracted. Using careful microsurgical dissection, the facial nerve was identified distally, and tumor resection proceeded medially preserving the arachnoid layer over the facial and cochlear nerves. The tumor was completely dissected out of the IAC. It was then further debulked using the Sonopet microaspirator, and dissection continued into the cerebellopontine angle where the tumor was eventually completely removed. The facial nerve was anatomically intact and stimulated at 0.05mA at the end of the procedure. The cochlear nerve was also anatomically intact. The patient tolerated the procedure well and was transferred to the recovery room in stable condition. Normal [facility] SURGICAL PATHOLOGYon 024 CASE REPORT Normal [facility] Comment on above: Order Comment: Praneeth aguirre Type: TISSUE SPECIMENOrdering Facility: [facility] Address: [address] [place] [address] Result Comment: Surg ica Pathology Report Case: [id number] Authorizing Provider: Yovanny Soria MD Collected: 08/10/2024 08:42 AM Ordering Location: Admitting Received: 08/10/2024 10:37 AM Pathologist: Jefry Villafuerte MD Intraop: Cinthya Le MD Specimens: A) - Brain, Resection, Right CPA tumor B) - Brain, Resection, Right CPA tumor #2 Performed By: #### S ####[facility] LABCLIA [id number] [place] [address] [place] CLINICAL HISTORY Normal [facility] Comment on above: Order Comment: Praneeth aguirre Type: TISSUE SPECIMENOrdering Facility: [facility] Address: [address] [place] [address] Result Comment: Pre- op diagnosis: Schwannoma [D36.10] Vestibular schwannoma (HCC) [D33.3] Performed By: #### S ####[facility] LABCLIA [id number] [address] [place] FINAL DIAGNOSIS Normal [facility] Comment on above: Order Comment: Speci men Type: TISSUE SPECIMENOrdering Facility: [facility] Address: [address] [place] [address] Result Comment: A-B. Right cerebellopontine angle region, excision: - Schwannoma, WHO grade 1. RAP/mm/08/13/2024 Performed By: #### S ####[facility] LABCLIA [id number] [address] STATES OF [facility] FINAL PERFORMING LAB Normal [facility] Comment on above: Order Comment: Speci men Type: TISSUE SPECIMENOrdering Facility: [facility] Address: [address] [place] [address] Result Comment: Diag nostic interpretation performed at [facility], [address] [place] [address] CLIA# [id number] Still Operator: Tony Castillo M.D. Performed By: #### S ####[facility] LABCLIA [id number] [address] [place] GROSS DESCRIPTION Normal [facility] Comment on above: Order Comment: Speci men Type: TISSUE SPECIMENOrdering Facility: [facility] Address: [address] [place] [address] Result Comment: A. B rain, Resection Received fresh for intraoperative consultation labeled as right CPA tumor is one piece of giordano-pink soft tissue measuring 0.5 x 0.3 x 0.1 cm. Superintendent [employer] section is submitted as FS A1. Remainder of tissue submitted as A2. Gross examination performed at [address] 08/10/24 10:43 AM B. Brain, Resection Received in formalin labeled as right CPA tumor #2 are multiple fragments of giordano-brown tissue weighing 0.6 g and aggregating to 1.8 x 1.2 x 1.0 cm. Totally submitted 1 cassette. Gross examination performed at [facility], [address] [place] [address] CLIA# [id number] 08/11/24 8:55 AM Performed By: #### S ####[facility] LABIA [id number] [address] [place] INTRAOPERATIVE DIAGNOSIS Normal [facility] Comment on above: Order Comment: Speci men Type: TISSUE SPECIMENOrdering Facility: [facility] Address: [address] [place] [address] Result Comment: Jodi kang, Resection FSA1-right CPA tumor: Schwannoma (Dr. Le) Intraoperative diagnosis performed at [place] [address] Performed By: #### S ####[facility] LABIA [id number] [address] [place] CNPMyla 08-09-2024 CNPN Telephone ([facility]) MAYRA BLACK ([id number]) 1970 M Date Time Provider Department 08/09/24 MIKEY LENTZ During your visit today, we recorded the following information about you: Mikey Vines, SALE[place] 08/09/2024 3:19 PM Signed NEUROSURGERY CARE COORDINATION [facility] QUICK NOTE ? Spoke to patient, Mayra ? Reason for call: preop courtesy phone call. Reviewed NPO, PACC instructions, medications, arrival time for surgery. All questions answered/ reviewed. JANAK Lund, SALEEM 08/09/2024 3:19 PM Allergies As of Date: 08/09/2024 (Not on File) Date Reviewed: 07/27/2024 Reviewed by: Adrian Forrest APRN.COMMERCIAL INTERIOR DESIGNER - Fully Assessed Prescriptions as of 08/09/2024 - bisoprolol (ZEBETA) 5 mg tablet Take by mouth. - losartan (COZAAR) 100 mg tablet Take 100 mg by mouth once daily. 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] 12/11/2023 Generalized anxiety disorder [F41.1] 12/11/2023 Hemiparesis (HCC) [G81.90] 12/11/2023 07/27/2024 HTN (hypertension), benign [I10] 12/11/2023 Kidney stone [N20.0] 01/19/2024 BMI 30.0-30.9,adult [Z68.30] 12/11/2023 Mild cognitive impairment [G31.84] 12/11/2023 07/27/2024 Speech difficult to understand [R47.9] 07/27/2024 TIA (transient ischemic attack) [G45.9] 07/27/2024 Encounter Status:Closed by MIKEY LENTZ on 08/09/24 Normal [facility] CT TEMP BONES WO IVCONon CT TEMP BONES WO IVCON * * *Final Report* * * DATE OF EXAM: Aug 03 2024 1:55PM [facility] 0512 - CT TEMP BONES WO IVCON / PROCEDURE REASON: multiple diagnoses * * * * Physician Interpretation * * * * EXAMINATION: CT TEMP BONES WO IVCON CLINICAL HISTORY: Right vestibular schwannoma. Intermittent dizziness and imbalance with altered gait. TECHNIQUE: Spiral 0.6 mm axial scans through the temporal bones without contrast in high resolution bony algorithm. Coronal planar reconstructions provided. MQ: [id number] CT Radiation dose: Integrated Dose-Length Product (DLP) for this visit = 370 mGy*cm. CT Dose Reduction Employed: No dose reduction techniques were required COMPARISON: 05/07/2024 RESULT: RIGHT: External Auditory Canal/Superficial Soft Tissues: EAC is patent. Overlying superficial soft tissues and the tissues of the visualized inferotemporal fossa are within normal limits. Mastoid Air Cells and Middle Ear Cavities: Mastoid air cells and middle ear cavities are clear. Ossicles: Ossicles are normally aligned and intact. Inner Ear Structures: Inner ear structures are within normal limits. No evidence of dysmorphism, bony destruction or dehiscence. Internal Auditory Canals: Again noted is a large, lobulated extra-axial soft tissue mass in the right CP angle cistern which is centrally low in attenuation and demonstrates a peripheral rim of intermediate attenuation compatible with the history of a vestibular schwannoma. Overall, this mass measures approximately 2.3 x 2.5 x 2.3 cm in greatest AP, transverse, and CC dimensions within the constraints of CT. There continues to be mild mass effect on the adjacent right brachium pontis. The fourth ventricle remains patent. No significant change allowing for technical differences between the acquisitions. Skull Base: No evidence of a destructive process in the skull base. The right jugular bulb is marginally high riding is extensive the level of the basal turn of the cochlea and a thin rim of bone is interposed between the right middle ear cavity and jugular foramen. LEFT: External Auditory Canal/Superficial Soft Tissues: EAC is patent. Overlying superficial soft tissues and the tissues of the visualized inferotemporal fossa are within normal limits. Mastoid Air Cells and Middle Ear Cavities: Mastoid air cells and middle ear cavities are clear. Ossicles: Ossicles are normally aligned and intact. Inner Ear Structures: Inner ear structures are within normal limits. No evidence of dysmorphism, bony destruction or dehiscence. Internal Auditory Canals: IAC is within normal limits of caliber and configuration. Skull Base: No evidence of bony destruction. Localizer images: No additional findings. IMPRESSION: Findings compatible with a large right vestibular schwannoma which is stable since 05/07/2024 as outlined above. Otherwise normal temporal bone CT. Supervisor Cell Operation: SHIVAM Transcribe Date/Time: Aug 03 2024 1:59P Dictated by : LOBO PALOMO MD This examination was interpreted and the report reviewed and electronically signed by: LOBO PALOMO MD on Aug 03 2024 2:12PM EST [id number] Normal [facility] CT Temporal bone WO contrast on 08-03-2024 Radiology Study observation (narrative) [facility] IMPRESSION: Findings compatible with a large right vestibular schwannoma which is stable since 05/07/2024 as outlined above. Otherwise normal temporal bone CT. Supervisor Cell Operation: SHIVAM Transcribe Date/Time: Aug 03 2024 1:59P Dictated by : LOBO PALOMO MD This examination was interpreted and the report reviewed and electronically signed by: LOBO PALOMO MD on Aug 03 2024 2:12PM [facility] DIVISION OF RADIOLOGY * * *Final Report* * * DATE OF EXAM: Aug 03 2024 1:55PM [facility] 0512 - CT TEMP BONES WO IVCON / PROCEDURE REASON: multiple diagnoses * * * * Physician Interpretation * * * * EXAMINATION: CT TEMP BONES WO IVCON CLINICAL HISTORY: Right vestibular schwannoma. Intermittent dizziness and imbalance with altered gait. TECHNIQUE: Spiral 0.6 mm axial scans through the temporal bones without contrast in high resolution bony algorithm. Coronal planar reconstructions provided. MQ: CTTBWO_1 CT Radiation dose: Integrated Dose-Length Product (DLP) for this visit = 370 mGy*cm. CT Dose Reduction Employed: No dose reduction techniques were required COMPARISON: 05/07/2024 RESULT: RIGHT: External Auditory Canal/Superficial Soft Tissues: EAC is patent. Overlying superficial soft tissues and the tissues of the visualized inferotemporal fossa are within normal limits. Mastoid Air Cells and Middle Ear Cavities: Mastoid air cells and middle ear cavities are clear. Ossicles: Ossicles are normally aligned and intact. Inner Ear Structures: Inner ear structures are within normal limits. No evidence of dysmorphism, bony destruction or dehiscence. Internal Auditory Canals: Again noted is a large, lobulated extra-axial soft tissue mass in the right CP angle cistern which is centrally low in attenuation and demonstrates a peripheral rim of intermediate attenuation compatible with the history of a vestibular schwannoma. Overall, this mass measures approximately 2.3 x 2.5 x 2.3 cm in greatest AP, transverse, and CC dimensions within the constraints of CT. There continues to be mild mass effect on the adjacent right brachium pontis. The fourth ventricle remains patent. No significant change allowing for technical differences between the acquisitions. Skull Base: No evidence of a destructive process in the skull base. The right jugular bulb is marginally high riding is extensive the level of the basal turn of the cochlea and a thin rim of bone is interposed between the right middle ear cavity and jugular foramen. LEFT: External Auditory Canal/Superficial Soft Tissues: EAC is patent. Overlying superficial soft tissues and the tissues of the visualized inferotemporal fossa are within normal limits. Mastoid Air Cells and Middle Ear Cavities: Mastoid air cells and middle ear cavities are clear. Ossicles: Ossicles are normally aligned and intact. Inner Ear Structures: Inner ear structures are within normal limits. No evidence of dysmorphism, bony destruction or dehiscence. Internal Auditory Canals: IAC is within normal limits of caliber and configuration. Skull Base: No evidence of bony destruction. Localizer images: No additional findings. DIVISION OF RADIOLOGY Provider, [facility] - 08/03/2024 * * *Final Report* * * DATE OF EXAM: Aug 03 2024 1:55PM [facility] 0512 - CT TEMP BONES WO IVCON / PROCEDURE REASON: multiple diagnoses * * * * Physician Interpretation * * * * EXAMINATION: CT TEMP BONES WO IVCON CLINICAL HISTORY: Right vestibular schwannoma. Intermittent dizziness and imbalance with altered gait. TECHNIQUE: Spiral 0.6 mm axial scans through the temporal bones without contrast in high resolution bony algorithm. Coronal planar reconstructions provided. MQ: CTTBWO_1 CT Radiation dose: Integrated Dose-Length Product (DLP) for this visit = 370 mGy*cm. CT Dose Reduction Employed: No dose reduction techniques were required COMPARISON: 05/07/2024 RESULT: RIGHT: External Auditory Canal/Superficial Soft Tissues: EAC is patent. Overlying superficial soft tissues and the tissues of the visualized inferotemporal fossa are within normal limits. Mastoid Air Cells and Middle Ear Cavities: Mastoid air cells and middle ear cavities are clear. Ossicles: Ossicles are normally aligned and intact. Inner Ear Structures: Inner ear structures are within normal limits. No evidence of dysmorphism, bony destruction or dehiscence. Internal Auditory Canals: Again noted is a large, lobulated extra-axial soft tissue mass in the right CP angle cistern which is centrally low in attenuation and demonstrates a peripheral rim of intermediate attenuation compatible with the history of a vestibular schwannoma. Overall, this mass measures approximately 2.3 x 2.5 x 2.3 cm in greatest AP, transverse, and CC dimensions within the constraints of CT. There continues to be mild mass effect on the adjacent right brachium pontis. The fourth ventricle remains patent. No significant change allowing for technical differences between the acquisitions. Skull Base: No evidence of a destructive process in the skull base. The right jugular bulb is marginally high riding is extensive the level of the basal turn of the cochlea and a thin rim of bone is interposed between the right middle ear cavity and jugular foramen. LEFT: External Auditory Canal/Superficial Soft Tissues: EAC is patent. Overlying superficial soft tissues and the tissues of the visualized inferotemporal fossa are within normal limits. Mastoid Air Cells and Middle Ear Cavities: Mastoid air cells and middle ear cavities are clear. Ossicles: Ossicles are normally aligned and intact. Inner Ear Structures: Inner ear structures are within normal limits. No evidence of dysmorphism, bony destruction or dehiscence. Internal Auditory Canals: IAC is within normal limits of caliber and configuration. Skull Base: No evidence of bony destruction. Localizer images: No additional findings. IMPRESSION IMPRESSION: Findings compatible with a large right vestibular schwannoma which is stable since 05/07/2024 as outlined above. Otherwise normal temporal bone CT. Supervisor Cell Operation: SHIVAM Transcribe Date/Time: Aug 03 2024 1:59P Dictated by : LOBO PALOMO MD This examination was interpreted and the report reviewed and electronically signed by: LOBO PALOMO MD on Aug 03 2024 2:12PM EST [facility] CT Temporal bone WO contrast Ordered By: [facility] Provider on 08-03-2024 [facility] CNPNon 08-02-2024 CNPN Telephone ([facility]) MAYRA BLACK ([id number]) 1970 M Date Time Provider Department 08/02/24 MIKEY LENTZ During your visit today, we recorded the following information about you: Mikey Vines RN 08/02/2024 10:12 AM Signed NEUROSURGERY CARE COORDINATION [facility] QUICK NOTE Left patient surgical information packet at front desk coordinator to be mailed to patient. JANAK Lund, SALEEM 08/02/2024 10:12 AM Allergies As of Date: 08/02/2024 (Not on File) Date Reviewed: 07/27/2024 Reviewed by: Adrian Forrest APRN.COMMERCIAL INTERIOR DESIGNER - Fully Assessed Prescriptions as of 08/02/2024 - bisoprolol (ZEBETA) 5 mg tablet Take by mouth. - losartan (COZAAR) 100 mg tablet Take 100 mg by mouth once daily. 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] 12/11/2023 Generalized anxiety disorder [F41.1] 12/11/2023 Hemiparesis (HCC) [G81.90] 12/11/2023 07/27/2024 HTN (hypertension), benign [I10] 12/11/2023 Kidney stone [N20.0] 01/19/2024 BMI 30.0-30.9,adult [Z68.30] 12/11/2023 Mild cognitive impairment [G31.84] 12/11/2023 07/27/2024 Speech difficult to understand [R47.9] 07/27/2024 TIA (transient ischemic attack) [G45.9] 07/27/2024 Encounter Status:Closed by MIKEY LENTZ on 08/02/24 Normal [facility] Basic metabolic 2000 panelon 07-27-2024 Anion gap [Moles/Vol] 17 mmol/L High 8-15 [facility] Comment on above: Order Comment: Speci men Type: BLOOD SPECIMENOrdering Facility: [facility] Address: [address] [place] [address] Performed By: #### 2 4321-2 ####[facility] LABCLIA [id number] [place] [address] [place] Calcium [Mass/Vol] 9.7 mg/dL Normal 8.5-10.2 [facility] Comment on above: Order Comment: Speci men Type: BLOOD SPECIMENOrdering Facility: [facility] Address: [address] [place] [address] Performed By: #### 2 4321-2 ####[facility] LABCLIA [id number] [place] [address] [place] Chloride [Moles/Vol] 104 mmol/L Normal 98-107 [facility] Comment on above: Order Comment: Speci men Type: BLOOD SPECIMENOrdering Facility: [facility] Address: [address] [place] [address] Performed By: #### 2 4321-2 ####[facility] LABCLIA [id number] [place] [address] [place] CO2 [Moles/Vol] 22 mmol/L Normal 22-30 [facility] Comment on above: Order Comment: Speci men Type: BLOOD SPECIMENOrdering Facility: [facility] Address: [address] [place] [address] Performed By: #### 2 4321-2 ####[facility] LABIA [id number] [place] [address] [place] Creatinine [Mass/Vol] 0.96 mg/dL Normal 0.73-1.22 [facility] Comment on above: Order Comment: Speci men Type: BLOOD SPECIMENOrdering Facility: [facility] Address: [address] [place] [address] Performed By: #### 2 4321-2 ####[facility] LABIA [id number] [address] [place] Creatinine and Glomerular filtration rate.predicted panel (S/P/Bld) 93 mL/min/1.73m??? Normal >=60 [facility] Comment on above: Order Comment: Speci men Type: BLOOD SPECIMENOrdering Facility: [facility] Address: [address] [place] [address] Result Comment: Lexus mated Glomerular Filtration Rate (eGFR) is calculated using the 2020 CKD-EPI creatinine equation. This equation utilizes serum creatinine, sex, and age as parameters. The creatinine assay has traceable calibration to isotope dilution-mass spectrometry. Refer to KDIGO guidelines for clinical interpretation. In patients with unstable renal function, e.g. those with acute kidney injury, the eGFR may not accurately reflect actual GFR. Performed By: #### 2 4321-2 ####[facility] LABCLIA [id number] [place] [address] [place] Glucose [Mass/Vol] 101 mg/dL High 74-99 [facility] Comment on above: Order Comment: Speci men Type: BLOOD SPECIMENOrdering Facility: [facility] Address: [address] [place] [address] Result Comment: The [place] Diabetes Association (ADA) provides guidance for cutoff values for fasting glucose and random glucose. The ADA defines fasting as no caloric intake for at least 8 hours. Fasting plasma glucose results between 100 to 125 mg/dL indicate increased risk for diabetes (prediabetes). Fasting plasma glucose results greater than or equal to 126 mg/dL meet the criteria for diagnosis of diabetes. In the absence of unequivocal hyperglycemia, results should be confirmed by repeat testing. In a patient with classic symptoms of hyperglycemia or hyperglycemic crisis, random plasma glucose results greater than or equal to 200 mg/dL meet the criteria for diagnosis of diabetes. Reference: Standards of Medical Care in Diabetes 2016, [place] Diabetes Association. Diabetes Care. 2016.39(Suppl 1). Performed By: #### 2 4321-2 ####[facility] LABCLIA [id number] [place] [address] [place] Potassium [Moles/Vol] 4.2 mmol/L Normal 3.7-5.1 [facility] Comment on above: Order Comment: Speci men Type: BLOOD SPECIMENOrdering Facility: [facility] Address: [address] [place] [address] Performed By: #### 2 4321-2 ####[facility] LABCLIA [id number] [place] [address] [place] Sodium [Moles/Vol] 143 mmol/L Normal 136-144 [facility] Comment on above: Order Comment: Speci men Type: BLOOD SPECIMENOrdering Facility: [facility] Address: [address] [place] [address] Performed By: #### 2 4321-2 ####[facility] LABCLIA [id number] [place] [address] [place] Urea nitrogen [Mass/Vol] 12 mg/dL Normal 9-24 [facility] Comment on above: Order Comment: Speci men Type: BLOOD SPECIMENOrdering Facility: [facility] Address: [address] [place] [address] Performed By: #### 2 4321-2 ####[facility] LABCLIA [id number] [place] [address] [place] CBC W Auto Differential pane l (Bld)on 07-27-2024 Basophils (Bld) [#/Vol] 10*3/uL Normal <0.11 [facility] Comment on above: Order Comment: Speci men Type: BLOOD SPECIMENOrdering Facility: [facility] Address: [address] [place] [address] Performed By: #### 5 7021-8 ####[facility] LABCLIA [id number] [place] [address] [place] Basophils/100 WBC (Bld) 0.5 % Normal [facility] Comment on above: Order Comment: Speci men Type: BLOOD SPECIMENOrdering Facility: [facility] Address: [address] [place] [address] Performed By: #### 5 7021-8 ####[facility] LABCLIA [id number] [place] [address] [place] Differential cell count method Nom (Bld) Auto Normal [facility] Comment on above: Order Comment: Speci men Type: BLOOD SPECIMENOrdering Facility: [facility] Address: [address] [place] [address] Performed By: #### 5 7021-8 ####[facility] LABCLIA [id number] [place] [address] [place] Eosinophils (Bld) [#/Vol] 0.04 10*3/uL Normal <0.46 [facility] Comment on above: Order Comment: Speci men Type: BLOOD SPECIMENOrdering Facility: [facility] Address: [address] [place] [address] Performed By: #### 5 7021-8 ####[facility] LABIA [id number] [place] [address] [place] Eosinophils/100 WBC (Bld) 1.0 % Normal [facility] Comment on above: Order Comment: Speci men Type: BLOOD SPECIMENOrdering Facility: [facility] Address: [address] [place] [address] Performed By: #### 5 7021-8 ####[facility] LABIA [id number] [place] [address] [place] Erythrocyte distribution width (RBC) [Ratio] 12.2 % Normal 11.5-15.0 [facility] Comment on above: Order Comment: Speci men Type: BLOOD SPECIMENOrdering Facility: [facility] Address: [address] [place] [address] Performed By: #### 5 7021-8 ####[facility] LABIA [id number] [place] [address] [place] Hematocrit (Bld) [Volume fraction] 52.3 % High 39.0-51.0 [facility] Comment on above: Order Comment: Speci men Type: BLOOD SPECIMENOrdering Facility: [facility] Address: [address] [place] [address] Performed By: #### 5 7021-8 ####[facility] LABIA [id number] [place] [address] [place] Hemoglobin (Bld) [Mass/Vol] 17.9 g/dL High 13.0-17.0 [facility] Comment on above: Order Comment: Speci men Type: BLOOD SPECIMENOrdering Facility: [facility] Address: [address] [place] [address] Performed By: #### 5 7021-8 ####[facility] LABCLIA [id number] [place] [address] [place] Immature granulocytes (Bld) [#/Vol] 10*3/uL Normal <0.10 [facility] Comment on above: Order Comment: Speci men Type: BLOOD SPECIMENOrdering Facility: [facility] Address: [address] [place] [address] Performed By: #### 5 7021-8 ####[facility] LABCLIA [id number] [place] [address] [place] Immature granulocytes/100 WBC (Bld) 0.2 % Normal [facility] Comment on above: Order Comment: Speci men Type: BLOOD SPECIMENOrdering Facility: [facility] Address: [address] [place] [address] Performed By: #### 5 7021-8 ####[facility] LABCLIA [id number] [place] [address] [place] Lymphocytes (Bld) [#/Vol] 0.81 10*3/uL Low 1.00-4.00 [facility] Comment on above: Order Comment: Speci men Type: BLOOD SPECIMENOrdering Facility: [facility] Address: [address] [place] [address] Performed By: #### 5 7021-8 ####[facility] LABCLIA [id number] [place] [address] [place] Lymphocytes/100 WBC (Bld) 19.7 % Normal [facility] Comment on above: Order Comment: Speci men Type: BLOOD SPECIMENOrdering Facility: [facility] Address: [address] [place] [address] Performed By: #### 5 7021-8 ####[facility] LABCLIA [id number] [place] [address] [place] MCH (RBC) [Entitic mass] 30.7 pg Normal 26.0-34.0 [facility] Comment on above: Order Comment: Speci men Type: BLOOD SPECIMENOrdering Facility: [facility] Address: [address] [place] [address] Performed By: #### 5 7021-8 ####[facility] LABCLIA [id number] [place] [address] [place] MCHC (RBC) [Mass/Vol] 34.2 g/dL Normal 30.5-36.0 [facility] Comment on above: Order Comment: Speci men Type: BLOOD SPECIMENOrdering Facility: [facility] Address: [address] [place] [address] Performed By: #### 5 7021-8 ####[facility] LABIA [id number] [place] [address] [place] MCV (RBC) [Entitic vol] 89.7 fL Normal 80.0-100.0 [facility] Comment on above: Order Comment: Speci men Type: BLOOD SPECIMENOrdering Facility: [facility] Address: [address] [place] [address] Performed By: #### 5 7021-8 ####[facility] LABIA [id number] [place] [address] [place] Monocytes (Bld) [#/Vol] 0.30 10*3/uL Normal <0.87 [facility] Comment on above: Order Comment: Speci men Type: BLOOD SPECIMENOrdering Facility: [facility] Address: [address] [place] [address] Performed By: #### 5 7021-8 ####[facility] LABIA [id number] [place] [address] [place] Monocytes/100 WBC (Bld) 7.3 % Normal [facility] Comment on above: Order Comment: Speci men Type: BLOOD SPECIMENOrdering Facility: [facility] Address: [address] [place] [address] Performed By: #### 5 7021-8 ####[facility] LABCLIA [id number] [place] [address] [place] Neutrophils (Bld) [#/Vol] 2.94 10*3/uL Normal 1.45-7.50 [facility] Comment on above: Order Comment: Speci men Type: BLOOD SPECIMENOrdering Facility: [facility] Address: [address] [place] [address] Performed By: #### 5 7021-8 ####[facility] LABCLIA [id number] [place] [address] [place] Neutrophils/100 WBC (Bld) 71.3 % Normal [facility] Comment on above: Order Comment: Speci men Type: BLOOD SPECIMENOrdering Facility: [facility] Address: [address] [place] [address] Performed By: #### 5 7021-8 ####[facility] LABCLIA [id number] [place] [address] [place] Nucleated RBC (Bld) [#/Vol] 10*3/uL Normal <0.01 [facility] Comment on above: Order Comment: Speci men Type: BLOOD SPECIMENOrdering Facility: [facility] Address: [address] [place] [address] Performed By: #### 5 7021-8 ####[facility] LABCLIA [id number] [place] [address] [place] Nucleated RBC/100 WBC (Bld) [Ratio] 0.0 /100 WBC Normal [facility] Comment on above: Order Comment: Speci men Type: BLOOD SPECIMENOrdering Facility: [facility] Address: [address] [place] [address] Performed By: #### 5 7021-8 ####[facility] LABCLIA [id number] [place] [address] [place] Platelet mean volume (Bld) [Entitic vol] 10.8 fL Normal 9.0-12.7 [facility] Comment on above: Order Comment: Speci men Type: BLOOD SPECIMENOrdering Facility: [facility] Address: [address] [place] [address] Performed By: #### 5 7021-8 ####[facility] LABCLIA [id number] [place] [address] [place] Platelets (Bld) [#/Vol] 268 10*3/uL Normal 150-400 [facility] Comment on above: Order Comment: Speci men Type: BLOOD SPECIMENOrdering Facility: [facility] Address: [address] [place] [address] Performed By: #### 5 7021-8 ####[facility] LABIA [id number] [place] [address] [place] RBC (Bld) [#/Vol] 5.83 10*6/uL Normal 4.20-6.00 [facility] Comment on above: Order Comment: Speci men Type: BLOOD SPECIMENOrdering Facility: [facility] Address: [address] [place] [address] Performed By: #### 5 7021-8 ####[facility] LABIA [id number] [place] [address] [place] WBC (Bld) [#/Vol] 4.12 10*3/uL Normal 3.70-11.00 [facility] Comment on above: Order Comment: Speci men Type: BLOOD SPECIMENOrdering Facility: [facility] Address: [address] [place] [address] Performed By: #### 5 7021-8 ####[facility] LABIA [id number] [place] [address] [place] [facility] APTT PPPon 07-27-2024 [facility] APTT PPP 28.3 [facility] Comment on above: Frozen Plasma Aliquo t C[facility] CBC W AUTO DIFF BLDon Basophils/100 WBC (Bld) 0.5 % [facility] BASOPHILS # BLD AUTO <0.03 [facility] DIFFERENTIAL METHOD BLD Auto [facility] EOSINOPHIL # BLD AUTO 0.04 [facility] LYMPHOCYTES # BLD AUTO 0.81 Low [facility] MONOCYTES # BLD AUTO 0.3 [facility] NEUTROPHILS # BLD AUTO 2.94 [facility] NRBC # BLD AUTO <0.01 [facility] NRBC/100 WBC BLD-RTO 0 /100 WBC [facility] C[facility] PLATELET # BLD AUTO 268 [facility] PMV BLD AUTO 10.8 fL 9.0 - 12.7 fL [facility] WBC # BLD AUTO 4.12 [facility] Eosinophils/100 WBC (Bld) 1 % [facility] Erythrocyte distribution width (RBC) [Ratio] 12.2 % 11.5 - 15.0 % [facility] Hematocrit (Bld) [Volume fraction] 52.3 % High 39.0 - 51.0 % [facility] Hemoglobin (Bld) [Mass/Vol] 17.9 g/dL High 13.0 - 17.0 g/dL [facility] IMM GRANULOCYTES # BLD AUTO <0.03 [facility] IMM GRANULOCYTES/LEUK NFR BLD AUTO 0.2 % [facility] Interpretation and review of laboratory results Abnormal [facility] Lymphocytes/100 WBC (Bld) 19.7 % [facility] MCH (RBC) [Entitic mass] 30.7 pg 26.0 - 34.0 pg [facility] MCHC (RBC) [Mass/Vol] 34.2 g/dL 30.5 - 36.0 g/dL [facility] MCV (RBC) [Entitic vol] 89.7 fL 80.0 - 100.0 fL [facility] Monocytes/100 WBC (Bld) 7.3 % [facility] Neutrophils/100 WBC (Bld) 71.3 % [facility] RBC (Bld) [#/Vol] 5.83 10*6/uL 4.20 - 6.0 0 m/uL [facility] Specimen Type: BLOOD SPECIMEN [facility] Address: [address] [place] [address] Original Ordering Provider: YOVANNY AGUILA [facility] PT PNL PPPon 07-27-2024 [facility] INR PPP 1 0.9 - 1.3 [facility] Comment on above: Vitamin K Antagonist (VKA) Therapeutic Range: INR 2 to 3 (Target INR of 2.5) Note: For patients treated with VKA drugs, such as warfarin, the [place] [employer] 2012 Guideline recommends a therapeutic INR range of 2 to 3 (target INR of 2.5). This recommendation includes high-risk patients with antiphospholipid syndrome with previous arterial or venous thromboembolism, current-generation mechanical or bioprosthetic aortic heart valve replacement. Note: Patients with mechanical aortic valve replacement and additional risk factors for thromboembolic events (atrial fibrillation, previous thromboembolism, LV dysfunction, hypercoagulable conditions) or an older generation mechanical AVR (i.e., ball in-Cage) or any mechanical MVR should have a INR therapeutic range of 2.5 to 3.5 (target INR of 3). Brandiett GH, et al. Chest 2012, 141:7S-47S Kentrell RA, et al. [facility] 2017, 70: 252-289 [facility] PROTHROMBIN TIME 10.9 [facility] CONFIRM BLOOD TYPEon 024 ABO O Normal [facility] Comment on above: Order Comment: Speci men Type: BLOOD SPECIMENOrdering Facility: [facility] Address: [address] [place] [address] Performed By: #### C ONABO ####CC MAIN BLOOD BANKCLIA [id number] [place] [address] [place] Rh Nom (Bld) Positive Normal [facility] Comment on above: Order Comment: Speci men Type: BLOOD SPECIMENOrdering Facility: [facility] Address: [address] [place] [address] Performed By: #### C ONABO ####CC MAIN BLOOD BANKCLIA [id number] [place] [address] [place] ECG COMPLETEon 07-27-2024 ECG COMPLETE Ventricular Rate : 9 7 BPM Atrial Rate : 97 BPM P-R Interval : 164 ms QRS Duration : 104 ms Q-T Interval : 340 ms QTC Calculation(Bazett) : 431 ms Calculated P [place] : 51 degrees Calculated R [place] : 39 degrees Calculated T [place] : 39 degrees NORMAL SINUS RHYTHM NORMAL ECG Confirmed by WILMER CAMPOS M.D. ([id number]) on 07/27/2024 6:45:30 PM NAME : MAYRA BLACK PID : [id number] : 1970 Gender : Male Race : Unknown ORD : [id number] Procedure Date : Jul 27 2024 07:27:09 Edit Date : Jul 27 2024 18:45:33 Diagnosis: NORMAL SINUS RHYTHM NORMAL ECG Confirmed by WILMER CAMPOS M.D. ([id number]) on 07/27/2024 6:45:30 PM Test Reason : pre op Location : 545 : [facility] Overread By : WILMER CAMPOS M.D. Edited By : WILMER CAMPOS M.D. Referred By : IDALIA PATRICK Acquired by : Steve callahan [facility] HISTORY PHYSICALon HISTORY PHYSICAL HNO ID: [id number] Author: ADRIAN FORREST APRN.DERIK Service: ? Author Type: Nurse Practitioner Type: H&P Filed: 07/28/2024 08:53 Note Text: HISTORY AND PHYSICAL EXAMINATION SERVICE DATE: 07/27/2024 SERVICE TIME: 8:00 AM PRIMARY CARE PHYSICIAN: Zenaida Nix CNP, COMMERCIAL INTERIOR DESIGNER REASON FOR VISIT: Mayra Theodore Black is a 54 year old male who is scheduled for Right - CRANIECTOMY EXCISION TUMOR, INFARENTORIAL OR POST FOSSA, CEREBELLOPONTINE ANGLE TUMOR Right - MICROSURGICAL TECHNIQUE FOR CRANIOTOMY PROCEDURES Right - CRANIECTOMY EXCISION TUMOR, INFARENTORIAL OR POST FOSSA, CEREBELLOPONTINE ANGLE TUMOR Right - MICROSURGICAL TECHNIQUE FOR CRANIOTOMY PROCEDURES at the request of Dr. Idalia Patrick for consultation. My final recommendation will be communicated back to the requesting physician by way of shared medical record or letter. Assessment Vestibular schwannoma (HCC) Assessment: presents for surgical intervention Per Dr. Soria 07/21/24: 2.2 x 2.2 cm right sided CPA mass. We reviewed the imaging together, and I believe this is most likely a vestibular schwannoma, Rt hearing loss, muffled hearing, tinnitus since January of 2024. He reports some degree of hearing, just muffled. He does report some intermittent dizziness, imbalance. He will be starting vestibular therapy. Of note, he has unrelated speech defect, present since . Not related to hearing. HTN (hypertension), benign Assessment: stable and compliant with current medications Last 5 Encounter BP Readings: Date: BP: 07/27/2024 148/86 07/21/2024 148/92 Kidney stone Assessment: denies past surgical intervention. Denies current calculi Disc displacement, lumbar Assessment: s/p lumbar discectomy Generalized anxiety disorder Assessment: stable, denies panic/PTSD Speech difficult to understand Assessment: speaks slowly, difficulty with pronunciation. However able to communicate effectively. BMI 30.0-30.9,adult Assessment: Body mass index is 30.71 kg/m?. TIA (transient ischemic attack) Assessment: states was told he had a TIA in 2003, no residuals, no recurrence, follows with PCP. [place] Activity Status Index: METS: Walk indoors, such as around the house (1.75 METs) Do light work around the house, such as dusting or washing dishes (2.70 METs) Take care of self; that is eating, dressing, bathing, using the toilet (2.75 METs) Walk a block or two on level ground (2.75 METs) Do moderate work around the house, such as vacuuming, sweeping floors, or carrying in groceries (3.50 METs) Do yardwork, such as raking leaves, weeding, or pushing a power mower (4.50 METs) Climb a flight of stairs or walk up a hill (5.50 METs) Participate in moderate recreational activites, such as golf, bowling, dancing, doubles tennis, or throwing a baseball or football (6.00 METs) Do heavy work around the house, such as scrubbing floors, lifting or moving heavy furniture (8.00 METs) DASI Score: 37.45 Patient denies any chest pain or undue shortness of breath with the above physical activity. Clinical Frailty Scale: 2. Well STOP-Bang Score: Snores loudly Has or is being treated for high blood pressure Patient over 50 years old Male patient Denies feeling tired, fatigued, or sleepy during the daytime Has not been observed to stop breathing or choking/gasping during sleep BMI less than or equal to 35 kg/m2 Does not have a large neck STOP-Bang Score: 4 [id number] Score: Age: <65 Sex: male CHF history: No Hypertension history: Yes Stroke/TIA/thromboembol ism history: Yes Vascular disease history: No Diabetes history: No [id number] Score: 3 ARISCAT Score: Age: 51-80 Preoperative SpO2: >=96% Respiratory infection in the last month: No Duration of surgery: >3 hrs Emergency procedure: No ARISCAT Score: ANESTHESIA FINDINGS: Intubation History: No history of difficult intubation Significant Anesthesia Considerations: none Airway History: No history of difficult airway I - PHYSICAL EVALUATION AIRWAY Patient intubated: No. Tracheostomy tube not present Mallampati: II. TM distance: >3 FB. Neck ROM: full ROM without neurological symptoms. Mouth opening: adequate. Short neck: no. Thick neck: no Wallace present: no Lip Bite Test: III Microretrognathia/Micro nagthia/Recessed Chin: No DENTAL Dental findings: missing tooth/teeth. II - ANESTHESIA PLAN Anesthetic plan additional comments: *PACC/TCI - anesthesia choice. Beta Maryjane Monitoring Plan Post Procedure Analgesic Plan Prepared for surgery: This patient is optimally prepared for surgery. Pt scheduled his CT for 08/03/24 at surgeon's request CONSULTS: Patient does not require consults for optimization at this time. The Following Tests/Procedures Have Been Initiated: Labs per surgeon, we performed an EKG today Planned Anesthetic: Per anesthesia choice Subjective CHIEF COMPLAINT: Schwannoma [D36.10] Vestibular schw (more content not included)... Normal [facility] HbA1c (Bld)on 07-27-2024 Average glucose Estimated from glycated hemoglobin (Bld) [Mass/Vol] 71 mg/dL Normal [facility] Comment on above: Order Comment: Speci men Type: BLOOD SPECIMENOrdering Facility: [facility] Address: [address] [place] [address] Result Comment: eAG: (Estimated average glucose) is a calculated value from HgbA1c and is sales representative marine supplies of the average blood glucose level in the last 2-3 month period. Performed By: #### 5 5454-3 ####[facility] LABCLIA [id number] [facility] [id number] [address] [place] HbA1c (Bld) [Mass fraction] 4.1 % Low 4.3-5.6 [facility] Comment on above: Order Comment: Praneeth aguirre Type: BLOOD SPECIMENOrdering Facility: [facility] Address: [address] [place] [address] Result Comment: [place]arly [place] Diabetes Association guidelines indicate that patients with HgbA1c in the range 5.7-6.4% are at increased risk for development of diabetes, and intervention by lifestyle modification may be beneficial. HgbA1c greater or equal to 6.5% is considered diagnostic of diabetes. Performed By: #### 5 5454-3 ####[facility] LABCLIA [id number] [address] OF [place] No Panel Informationon 07-27 Specimen Type: BLOOD SPECIMEN [facility] Address: [address] [place] [address] Original Ordering Provider: YOVANNYROSENDO SORIA [facility] PT panel Coag (PPP)on 2023 INR Coag (PPP) [Relative time] 1.0 {INR} Normal 0.9-1.3 [facility] Comment on above: Order Comment: Praneeth aguirre Type: BLOOD SPECIMENOrdering Facility: [facility] Address: [address] [place] [address] Result Comment: Joann min K Antagonist (VKA) Therapeutic Range: INR 2 to 3 (Target INR of 2.5) Note: For patients treated with VKA drugs, such as warfarin, the [place] [employer] 2012 Guideline recommends a therapeutic INR range of 2 to 3 (target INR of 2.5). This recommendation includes high-risk patients with antiphospholipid syndrome with previous arterial or venous thromboembolism, current-generation mechanical or bioprosthetic aortic heart valve replacement. Note: Patients with mechanical aortic valve replacement and additional risk factors for thromboembolic events (atrial fibrillation, previous thromboembolism, LV dysfunction, hypercoagulable conditions) or an older generation mechanical AVR (i.e., ball in-Cage) or any mechanical MVR should have a INR therapeutic range of 2.5 to 3.5 (target INR of 3). Mima RILEY, et al. Chest 2012, 141:7S-47S Kentrell BLEDSOE et al. [facility] 2017, 70: 252-289 Performed By: #### 3 4528-0, 41280-6 ####[facility] LABCLIA [id number] [place] [address] [place] PT Coag (PPP) [Time] 10.9 s Normal 9.7-13.0 [facility] Comment on above: Order Comment: Speci men Type: BLOOD SPECIMENOrdering Facility: [facility] Address: [address] [place] [address] Performed By: #### 3 4528-0, 88599-4 ####[facility] LABCLIA [id number] [place] [address] [place] STAPHYLOCOCCUS AUREUS AND MR SA SCREEN, PCR, NASALon 07-27-2024 S. aureus and MRSA panel JUNITO+probe (Nose) Not detected Normal Not Detected [facility] Comment on above: Order Comment: Speci men Type: SWABOrdering Facility: [facility] Address: [address] [place] [address] Performed By: #### S APCR ####[facility] LABCLIA [id number] [place] [address] [place] TYPE AND SCREEN,30 DAYon ABO O Normal [facility] Comment on above: Order Comment: Speci men Type: BLOOD SPECIMENOrdering Facility: [facility] Address: [address] [place] [address] Performed By: #### T SCR30 ####CC [facility] BLOOD BANKCLIA [id number] [place] [address] [place] Rh Nom (Bld) Positive Normal [facility] Comment on above: Order Comment: Speci men Type: BLOOD SPECIMENOrdering Facility: [facility] Address: [address] [place] [address] Performed By: #### T SCR30 ####CC MAIN BLOOD BANKCLIA [id number] [address] [place] aPTT PPPon 07-27-2024 aPTT Coag (PPP) [Time] 28.3 s Normal 23.0-32.4 [facility] Comment on above: Order Comment: Speci men Type: BLOOD SPECIMENOrdering Facility: [facility] Address: [address] [place] [address] Result Comment: Frodoug en Plasma Aliquot Performed By: #### 3 4528-0, 74685-4 ####[facility] LABCLIA [id number] [address] OF [place] CNPMyla 07-22-2024 [facility] MAYRA BLACK ([id number]) 1970 M Date Time Provider Department 07/22/24 MIKEY LENTZ CHA During your visit today, we recorded the following information about you: Mikey Vines, RN 07/22/2024 1:31 PM Signed NEUROSURGERY CARE COORDINATION [facility] QUICK NOTE Left detailed VM at [facility] at [phone]. Re: request CT brain imaging from 07/21/19 be pushed to [facility]. Left contact number for callback. JANAK Lund, RN 07/22/2024 1:30 PM Marcela Brock 08/03/2024 9:00 AM Signed Called [facility], spoke to Lynette. Stated CT from 2019 was done at [facility]. Called [place] [phone]; transferred to Radiology. Spoke to [place], will push CT Brain via PACS Marcela Brock 08/31/2024 9:22 AM Signed Called [facility], connected to [facility] radiology. Spoke to Carolina. She sates they have to push through [facility], which has worked in the past from them. Will wait for imaging Allergies As of Date: 07/22/2024 (Not on File) Date Reviewed: 07/21/2024 Reviewed by: Anjana Hinojosa MA - Fully Assessed Prescriptions as of 08/31/2024 - methocarbamol (ROBAXIN) 500 mg tablet Take 1 tablet by mouth three times a day as needed. - acetaminophen (TYLENOL) 325 mg tablet 2 tablets by ORAL/FEEDING TUBE route every 4 hours as needed for pain. - pantoprazole DR (PROTONIX) 20 mg tablet Take 1 tablet by mouth daily at 6 am for 3 days. - amLODIPine (NORVASC) 10 mg tablet Take 10 mg by mouth once daily. - losartan (COZAAR) 100 mg tablet Take 100 mg by mouth once daily. 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] 07/21/2024 Encounter Status:Closed by MIKEY LNETZ on 07/22/24 [facility] CNOVon 07-21-2024 CNOV Office Visit (NSBRHL ) MAYRA BLACK ([id number]) 1970 M Date Time Provider Department 07/21/24 9:00 AM YOVANNY SORIA During your visit today, we recorded the following information about you: Pulse Respiration Blood pressure Weight 90/minute 20/minute 148/92 89.8 kg Height 1.727 m Yovanny Soria MD 07/21/2024 10:10 AM Signed SECTION OF SKULL BASE SURGERY MINIMALLY INVASIVE CRANIAL BASE AND PITUITARY SURGERY PROGRAM [facility] [place], [facility] CC: Patient Care Team: Mary Torres MD as Referring (Ent - Otolaryngology) Idalia Patrick MD (Ent - Otolaryngology) ASSESSMENT: In summary, Mayra Black is a very pleasant 54 year old male with a 2.2 x 2.2 cm right sided CPA mass. 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 The natural history of vestibular schwannomas was discussed in detail. Treatment options were discussed in detail including observation, radiation treatment/radiosurgery, or surgery. I discussed the pros and cons of each option with regard to hearing, balance, facial nerve function, duration of recovery, and possible complications. Observation gives the best short term outcome with the lowest short term risks. Surgery can give the best prison outcome, but it poses some risks up front. Stereotactic radiosurgery has excellent rates of tumor control over 5-10+ years, with deferred risks. In this case, I would recommend treatment given the size, and reported growth since 2019 (report says normal, but we will get images to confirm). PLAN: Right sided VS: OR for R retrosig crani for resection with Dr. Patrick Obtain [address] images Surgery Check List: Length - full block Position - supine, bump Preoperative - Imaging: CT temporal bone, Labs: standard Intraoperative - Navigation: no, Monitoring: NIM machine, Microscope: exoscope, Equipment: Sonopet Postoperative Level of Care - SDU Medical Decision Making: Problems: High: Illness/injury w/ threat to life/body function Data: Unique source(s) for external note(s) reviewed: 1 Unique test result(s) reviewed: 3+ Unique test(s) ordered: 1 Independent interpretation of test from other physician/QHCP Risk: High: Decision on elective major surgery w/ risk factors Medical Decision Making Level: 5 - High The patient is referred by: Idalia Patrick [address] [place] [address] for neurosurgical evaluation. Final recommendations will be communicated back to the requesting physician by way of the shared medical records, or letters to requesting physician via US Mail. Chief Complaint: History of Present Illness: Patient is unaccompanied. The patient is a 54 year old male who presents with Rt hearing loss, muffled hearing, tinnitus since January of 2024. He reports some degree of hearing, just muffled. He does report some intermittent dizziness, imbalance. He will be starting vestibular therapy. Had workup at [place], imaging completed, found brain mass. Of note, he has unrelated speech defect, present since . Not related to hearing. No face weakness/spasm No face numbness/pain No double vision No dysphagia Past Medical History: PAST MEDICAL HISTORY Diagnosis Date Speech impediment Unilateral vestibular schwannoma (HCC) Past Surgical History: No past surgical history on file. Family History: No family history on file. Social History: Social History Tobacco Use Smoking status: Never Smokeless tobacco: Never Substance Use Topics Alcohol use: Not Currently Drug use: Never Medications: Current Outpatient Medications on File Prior to Visit Medication Sig bisoprolol (ZEBETA) 5 mg tablet Take by mouth. losartan (COZAAR) 100 mg tablet Take 100 mg by mouth once daily. No current facility-administered medications on file prior to visit. Allergies: ALLERGIES Not on File Independent Physical Examination: Constitutional: BP 148/92 Pulse 90 Resp 20 Ht 5' 8 (1.73m) Wt 197 lb 15.6 oz (89.8kg) BMI 30.11 kg/(m2). Well developed, well nourished Neurological: Higher integrative functions: Oriented to person, place, and time Memory: Good recent and remote Speech: dysarthria Funds of knowledge: Normal Attention span and concentration: Good 3rd, 4th, and 6th cranial nerves: Pupils equally round and reactive to light, extraocular movements intact without nystagmus or subjective diplopia 5th cranial nerve: V1-3 intact to light touch bilaterally 7th cranial nerve: Facial muscles full and symmetric bilaterally 8th cranial nerve: hearing intact to finger rub on left; unable to hear rub on right 9th cranial nerve: gag reflex test deferr (more content not included)... [facility] Telephone ([facility]) MAYRA BLACK ([id number]) 1970 M Date Time Provider Department [facility] During your visit today, we recorded the following information about you: Mikey Vines RN 07/21/2024 11:36 AM Signed NEUROSURGERY CARE COORDINATION [facility] QUICK NOTE ? Spoke to patient, Mayra ? Reason for call: surgery scheduling. Per patient, unable to talk at this time. Requesting a call back tomorrow. This nurse will call patient tomorrow to discuss. JANAK Lund, RN 07/21/2024 11:36 AM Mikey Vines RN 07/22/2024 8:55 AM Signed NEUROSURGERY CARE COORDINATION [facility] SURGERY SCHEDULING ? Patient Mayra Theodore Black accepts surgery date of 08/10/[address] Soria/ [place]. Planned procedure is Rt retrosig crani for resection . ? PAT [facility] be [facility] at [facility]. ? Medications reviewed: Yes. Medications to be stopped prior to surgery: other : NA. ? Additional pre-op clearances needed: per [facility] provider recommendations. ? Any implanted devices: No. ? Transplant History No ? Patient will require optimization lab work: per [facility] provider recommendations ? Questions answered. Patient verbalizes understanding via teach back. JANAK Lund, RN 07/22/2024 8:55 AM Allergies As of Date: 07/21/2024 (Not on File) Date Reviewed: 07/21/2024 Reviewed by: Anjana Hinojosa MA - Fully Assessed Prescriptions as of 07/22/2024 - bisoprolol (ZEBETA) 5 mg tablet Take by mouth. - losartan (COZAAR) 100 mg tablet Take 100 mg by mouth once daily. Problem List As Of Date 07/21/2024 Noted Resolved Vestibular schwannoma (HCC) [D33.3] 07/21/2024 Encounter Status:Closed by MIKEY LENTZ on 07/21/24 [facility] CNOVon 07-12-2024 CNOV Office Visit (OTOLMN ) MAYRA BLACK ([id number]) 1970 M Date Time Provider Department 07/12/24 1:30 PM IDALIA PATRICK OTOLME During your visit today, we recorded the following information about you: Idalia Patrick MD 07/13/2024 4:47 PM Addendum SECTION OF OTOLOGY, NEUROTOLOGY AND LATERAL SKULL BASE SURGERY Department of Otolaryngology - Head and Neck Surgery [facility] [place], [facility] History History of Present Illness: Mayra Black is a 54 year old male who presents for evaluation of right vestibular schwannoma. He first developed tinnitus in his right ear in January/February, which then worsened in March. He also has noticed decreased hearing on the right side. Has had occasional unsteadiness when walking over the last month. He had an MRI brain in April which showed a 2.5 x 1.8 cm right cerebellopontine angle mass and was referred to [facility] for further evaluation and management. No past medical history on file. No past surgical history on file. No current outpatient medications on file prior to visit. No current facility-administered medications on file prior to visit. ALLERGIES Not on File No family history on file. Physical Exam Patient is alert, oriented Head examination: normocephalic Binocular microscopic examination of ears: Right ear: Pinna: normal External canal : patent Tympanic membrane :normal Left ear: Pinna: normal External canal : patent Tympanic membrane :normal Tuning Stephan Examination Venegas midline Right ear Rinne Positive Left ear Rinne Positive CN VII: Face is symmetric with normal eye closure and smile. Test Results WRS AD: 36 % : 100 % Tympanometry Imaging (personally reviewed) MRI brain 05/07/2024 ([facility]): IMPRESSION: No acute intracranial abnormality . 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 Assessment and Plan Mayra Black's history, physical examination, and diagnostic studies are consistent with the following diagnoses and associated treatment plan of care. Sensorineural hearing loss (SNHL) of left ear with unrestricted hearing of right ear Vestibular schwannoma (HCC) Tinnitus of right ear Other orders - bisoprolol (ZEBETA) 5 mg tablet; Take by mouth. - losartan (COZAAR) 100 mg tablet; Take 100 mg by mouth once daily. 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 Discussed that given the size and cystic nature of the tumor and mass effect, surgery would be the preferred treatment modality. Discussed the risks and benefits of surgical excision including incomplete resection, facial weakness or paralysis, hearing loss, balance issues. - consult to neurosurgery - will await neurosurgery evaluation and recommendations prior to deciding on the surgical approach and scheduling for surgery - I have answered all of his questions. Follow up: for surgery Elly Alonso MD for the service of Idalia Patrick MD I performed a history, reviewed potter exam findings and diagnostic studies, and discussed management plan with the resident. I reviewed the resident's note and agree with the documented findings and plan of care. Signed by: Jean Pierre Patrick MD, FACS Section Head, Otology-Neurotology Sterilization Technician, Hearing Implant Program Head and Neck [place] [facility] Medical Decision Making: Problems: Moderate: New problem with uncertain prognosis Data: Unique test result(s) reviewed: 2 Risk: High: Decision on elective major surgery w/ risk factors Medical Decision Making Level: 4 - Moderate Lyubov Og OCCA 07/12/2024 1:06 PM Signed Tobacco Use: Never Was smoking cessation packet given? N/A - Patient is a non-smoker or quit >1 year ago. Was a referral initiated?N/A Patient is a non-smoker Referring Provider: IDALIA PATRICK [[id number]] Allergies As of Date: 07/12/2024 (Not on File) Date Reviewed: 07/12/2024 Reviewed by: Lyubov Og OCCA - Fully Assessed Reason for Visit: New Patient [172] Cmt: Tumor in right ear,consult about surgery Primary Visit Diagnosis:Sensorineural hearing loss (SNHL) of left ear with unrestricted hearing of right ear [H90.42] Other Visit Diagnoses:Vestibular schwannoma (HCC) [D33.3] Tinnitus of right ear [H93.11] Unsteadiness [R26.81] Order(s):CONSULT TO PHYSICAL THERAPY [9032] Order #: [id number]: 1 FUTURE Prescriptions as of 07/13/2024 - bisoprolol (ZEBETA) 5 mg tablet Take by mouth. - losartan (COZAAR) 100 mg tablet Take 100 mg by mouth once daily. Problem List As Of Date: 07/12/2024 (None) Visit Notes: >> Lyubov Og O (more content not included)... Normal [facility] CNOV Office Visit (CDISMN ) MAYRA BLACK ([id number]) 1970 M Date Time Provider Department 07/12/24 10:30 AM MELINDA ECHEVARRIA [facility] During your visit today, we recorded the following information about you: Melinda Echevarria AUD 07/12/2024 1:19 PM Signed [facility] Surgical [place] Head and Neck Department Section of Audiology AUDIOLOGIC EVALUATION REPORT Name: Mayra Black [facility]#: [id number] Date of Service: 07/12/2024 Date of : 1970 Age: [age] year old Referred by: Idalia Patrick MD [address] [place] [address] Referred for: Evaluation of suspected change in hearing, tinnitus, or balance. Referral documented: In an order in [facility] Patient's major complaints: Reduced hearing in the right ear, Tinnitus in the right ear Mayra Black was seen for an initial audiologic evaluation at this facility prior to consultation to Idalia Patrick MD. Encounter at outside facility on 05/10/2024 reported: MRI shows an enhancing mass filling the IAC with a 2.5cm CP angle extension causing cerebellar compression. Tinnitus of right ear 01/19/2024, Sensorineural hearing loss (SNHL) of right ear with unrestricted hearing of left ear 03/31/2024, The following history was obtained by way of patients previous medical record and direct patient interview: Hearing loss: Patient reported subjective right sided hearing loss which was confirmed with audiogram (03/31/2024, no graph available, written report only). This onset March 17 (per 03/31/2024 outside report in EMR with Maggie Lopez CCC/Gladys). Per ENT note on 03/31/2024 with outside provider Mary Torres MD, patient was prescribed course of steroids at this time. On 04/28/2024 Dr. Torres reported in her note patient had excellent response to aggressive steroid tx , however, following MRI on 05/10/2024 Dr. Torres reported a right sided mass filling the IAC with CP angle extension causing cerebellar compression and she referred to Dr. Patrick for treatment. Tinnitus: Constant right sided ringing tinnitus, onset January 2024 (per 03/31/2024 outside report in EMR with Maggie Lopez CCC/Gladys). Patient reported this persists. Dizziness: Patient endorsed being wobbly or imbalanced when walking, no concern when sitting down. Denied spinning sensation. Otalgia: 0/10 ear pain today, through he will sometimes have pains in his right ear. Otorrhea: No drainage on pillow or clothing, but patient noted he will feel like his ears are wet sometimes. Aural Pressure: Denied. 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 Family History of Hearing Loss: Denied. Ototoxicity: Denied. Otologic Surgical History: Denied. See procedures tab for audiometric results. IMPRESSIONS RIGHT EAR: Sensorineural hearing loss LEFT EAR: Hearing within normal limits 10-60 dBHL asymmetry present 125-8000 Hz, right ear poorer. Comparison of today's results with previous test results (04/28/2024): No audiogram available for comparison, however results essentially consistent with degree of hearing loss in the limited written report below. Note, more recent result of 04/28/2024 noted right word discrimination in the right ear was excellent at 100%, however today's score of 36% is more consistent with previous result of 20% on 03/31/2024. (04/28/2024) (03/31/2024) NOTE: A decrease of 20 dB HL at any one test frequency, a decrease of 10 dB HL at any two adjacent test frequencies, or a loss of response at three consecutive frequencies where responses were previously obtained is considered a significant change per REE 1994 guidelines. AUDIOLOGIC EVALUATION Following is a brief interpretation of the obtained findings from the audiologic evaluation. Refer to the Auditory Test Record for complete audiometric results. The patient was counseled about the test findings and appropriate audiologic recommendations were made. SUMMARY: Audiogram can be viewed under Procedures tab. OTOSCOPY RIGHT EAR: Otoscopic inspection revealed ear canal was clear with an identifiable cone of light. LEFT EAR: Otoscopic inspection revealed ear canal was clear with an identifiable cone of light. TYMPANOMETRY Description of procedure: This test is an objective evaluation of middle ear function. CPT code: 63830 RIGHT EAR: Normal ME function. LEFT EAR: Normal ME function. ACOUSTIC REFLEXES Description of procedure: This test is an objective measure of auditory and facial nerve pathways. CPT code: 20378 RIGHT EAR PROBE EAR: (ipsi right stimulus ear; contralateral left stimulus ear): Acoustic Reflex Pattern Ipsilateral acoustic reflexes were absent at 500-2000 Hz. Contralateral acoustic reflexes present WNL for 500-2000 Hz. Acoustic Reflex Decay (left stimulus ear): Decay is negative for VIII nerve involvement in the LEFT ear LEFT EAR PROBE EAR: (i (more content not included)... Normal [facility] CNPNon 07-12-2024 CNPN Telephone (HNQ) MAYRA BLACK ([id number]) 1970 M Date Time Provider Department 07/12/24 IDALIA PATRICK During your visit today, we recorded the following information about you: Dee Stoner 07/12/2024 10:[address] was drop off at the front desk coordinator . CT was Delivered to [facility] . Patient Has appointment with Dr. Patrick at 1:30 PM. Allergies As of Date: 07/12/2024 (Not on File) Date Reviewed: Never Reviewed Reason for Visit: Patient Update [1234] Problem List As Of Date: 07/12/2024 (None) Encounter Status:Closed by DEE STONER on 07/12/24 Normal [facility] HEARING TEST/AUDIOGRAMon [facility] Lab Reportson 05-09-2023 Lab Reports [id number] CD:127 Normal [facility] Lab Reports [id number] CD:127 Normal [facility] RAD - MISCon 05-09-2023 [facility] [id number] D:127 Normal [facility] MIS [id number] D:127 Normal [facility] Patient Educationon 05-02-20 Patient Education Urology Kidney Stones Kidney stones are rock-like masses that form inside of the kidneys. Kidneys are organs that make pee (urine). A kidney stone may move into other parts of the urinary tract, including: ? The tubes that connect the kidneys to the bladder (ureters). ? The bladder. ? The tube that carries urine out of the body (urethra). Kidney stones can cause very bad pain and can block the flow of pee. The stone usually leaves your body (passes) through your pee. You may need to have a doctor take out the stone. What are the causes? Kidney stones may be caused by: ? A condition in which certain glands make too much parathyroid hormone (primary hyperparathyroidism). ? A buildup of a type of crystals in the bladder made of a chemical called uric acid. The body makes uric acid when you eat certain foods. ? Narrowing (stricture) of one or both of the ureters. ? A kidney blockage that you were born with. ? Past surgery on the kidney or the ureters, such as gastric bypass surgery. What increases the risk? You are more likely to develop this condition if: ? You have had a kidney stone in the past. ? You have a family history of kidney stones. ? You do not drink enough water. ? You eat a diet that is high in protein, salt (sodium), or sugar. ? You are overweight or very overweight (obese). What are the signs or symptoms? Symptoms of a kidney stone may include: ? Pain in the side of the belly, right below the ribs (flank pain). Pain usually spreads (radiates) to the groin. ? Needing to pee often or right away (urgently). ? Pain when going pee (urinating). ? Blood in your pee (hematuria). ? Feeling like you may vomit (nauseous). ? Vomiting. ? Fever and chills. How is this treated? Treatment depends on the size, location, and makeup of the kidney stones. The stones will often pass out of the body through peeing. You may need to: ? Drink more fluid to help pass the stone. In some cases, you may be given fluids through an IV tube put into one of your veins at the hospital. ? Take medicine for pain. ? Make changes in your diet to help keep kidney stones from coming back. Sometimes, medical procedures are needed to remove a kidney stone. This may involve: ? A procedure to break up kidney stones using a beam of light (laser) or shock waves. ? Surgery to remove the kidney stones. Follow these instructions at home: Medicines ? Take dfxa-ntn-ryoiloz and prescription medicines only as told by your doctor. ? Ask your doctor if the medicine prescribed to you requires you to avoid driving or using heavy machinery. Eating and drinking ? Drink enough fluid to keep your pee pale yellow. You may be told to drink at least 8?10 glasses of water each day. This will help you pass the stone. ? If told by your doctor, change your diet. This may include: ? Limiting how much salt you eat. ? Eating more fruits and vegetables. ? Limiting how much meat, poultry, fish, and eggs you eat. ? Follow instructions from your doctor about eating or drinking restrictions. General instructions ? Collect pee samples as told by your doctor. You may need to collect a pee sample: ? 24 hours after a stone comes out. ? 8?12 weeks after a stone comes out, and every 6?12 months after that. ? Strain your pee every time you pee (urinate), for as long as told. Use the strainer that your doctor recommends. ? Do not throw out the stone. Keep it so that it can be tested by your doctor. ? Keep all follow-up visits as told by your doctor. This is important. You may need follow-up tests. How is this prevented? To prevent another kidney stone: ? Drink enough fluid to keep your pee pale yellow. This is the best way to prevent kidney stones. ? Eat healthy foods. ? Avoid certain foods as told by your doctor. You may be told to eat less protein. ? Stay at a healthy weight. Where to find more information ? National Kidney Foundation (NKF): www.kidney.org ? U[employer] Care Foundation (UCF): www.urologyhealth.org Contact a doctor if: ? You have pain that gets worse or does not get better with medicine. Get help right away if: ? You have a fever or chills. ? You get very bad pain. ? You get new pain in your belly (abdomen). ? You pass out (faint). ? You cannot pee. Summary ? Kidney stones are rock-like masses that form inside of the kidneys. ? Kidney stones can cause very bad pain and can block the flow of pee. ? The stones will often pass out of the body through peeing. ? Drink enough fluid to keep your pee pale yellow. This information is not intended to replace advice given to you by your health care provider. Make sure you discuss any questions you have with your health care provider. Document Revised: 2022 Document Reviewed: 2022 [employer] Patient Education ? 2022 [employer]. [facility] Urology Office/Clinic Noteon 05-02-2023 Urology Office/Clinic Note Chief Complaint 3 wk follow up KUB HPI Staff 2 week f/u with KUB. Previous dx of hydronephrosis with ureteral stone and kidney stone. Tamsulosin 0.4mg BID therapy. He thinks this it is effects his B/P so he has only taking one QD, instead of BID denies any symptoms or passing any stones. Denies any urinary issues. History of Present Illness Tests reviewed: Reviewed UA and KUB. I have reviewed the previous health record information and history for this patient from Dr. Padilla. I have reviewed and verified the staff HPI to be accurate for this encounter. There have been no associated fever, chills, flank pain, or blood in the urine. Denies any urinary infections since last encounter. Review of Systems PHQ Score Initial Depression Screen Score: 0 ROS - Provider Constitutional: denies weight loss, denies hot flashes. Eyes: denies eye problems. Gastrointestinal: denies nausea, denies vomiting. Cardiovascular: denies chest pain or angina. Integumentary: no dryness Musculoskeletal: denies musculoskeletal symptoms. ENMT: denies otolaryngeal symptoms. Respiratory: no shortness of breath. Heme/Lymph: denies easy bleeding tendency, denies easy bruising tendency. Psychiatric: no confusion, no anxiety. Genitourinary: denies dysuria, denies hematuria, denies discharge, denies urinary frequency, denies urinary hesitancy, denies nocturia, denies incontinence, denies genital sores, denies decreased libido, and denies erectile dysfunction. Physical Exam Vitals & Measurements HR: 88(Peripheral) BP: 142/88 HT: 69 in HT: 174 cm WT: 86.5 kg WT: 190.3 lb BMI: 28.57 General Appearance: alert, no distress, well nourished, well developed male. Genitourinary: normal scrotum, normal testes, normal urethra, normal epididymis, normal vas deferens/spermatic cord. Flank Pain: none. Bladder: nonpalpable. Assessment/Plan 1. Hydronephrosis with ureteral calculus (N13.2: Hydronephrosis with renal and ureteral calculous obstruction) S/p Lt Stent Removal. Lt Ureter/Basket Extraction/Lt Stent Placement done 11/12/19. [1] CT AP w/o Con 03/27/23 - 0.5 cm calculus at the Rt UVJ w/ mild Rt pelvocaliectasis and mild Rt hydroureter proximal to this. KUB 03/27/23 no visible urinary tract calculi. KUB 04/28/23 neg for obvious stones. UA today neg Has not passed stone to his knowledge. Denies pain. -Order IVP -If stone is not visible follow up in 6 months 2. Kidney stone (N20.0: Calculus of kidney) Patient has been taking Tamsulosin 0.4mg BID, but decreased to once daily because he thought it was effecting his BP. CT AP wo con 03/27/23 shows 0.2 cm, 0.2 cm, and 0.6 cm nonobstructive calculi within the Rt renal pelvis. Probably uric acid stones. Follow-up With When Contact Information VALERIE BOLTON, Agustin Leon, [address] [place] [address]- Additional Instructions: IVP Patient Education Kidney Stones, Kqeo-mt-Ungb I, Marivel Ahuja, personally scribed for Dr. Padilla on 05/02/2023 12:55:51. . Documentation recorded by the scribe, Marivel Ahuja, accurately reflects the services(s) I performed and decisions made by me. Authenticated by Dr. Padilla on 05/02/2023 13:06:51. Problem List/Past Medical History Ongoing Hydronephrosis with ureteral calculus Kidney stone Right flank pain Historical No qualifying data Procedure/Surgical History Cystoscopic removal of ureteric stent (11/22/2019), Cystoscopic laser lithotripsy of ureteric calculus (11/12/2019), Procedure on back. Medications amLODIPine 10 mg Tab cyclobenzaprine 10 mg Tab losartan 100 mg Tab meloxicam 7.5 mg Tab tamsulosin 0.4 mg Cap, 0.4 mg= 1 cap(s), Oral, BID Allergies No Known Allergies Social History Tobacco Never (less than 100 in lifetime) Tobacco Use:. Never Smokeless Tobacco Use:. Household tobacco concerns: No., 05/02/2023 Family History Kidney stones: Sister. Immunizations Vaccine Date Status SARS-CoV-2 (COVID-19) mRNA BNT-162b2 vax 01/22/2021 Recorded SARS-CoV-2 (COVID-19) mRNA BNT-162b2 vax 01/01/2021 Recorded Lab Results Ambulatory Point of Care Results Bilirubin Urine Dipstick: Negative (05/02/23 12:04:00) Blood Urine Dipstick: Negative (05/02/23 12:04:00) Glucose Urine Dipstick: Negative (05/02/23 12:04:00) Ketones Urine Dipstick: Negative (05/02/23 12:04:00) Leukocytes Urine Dipstick: Negative (05/02/23 12:04:00) Nitrite Urine Dipstick: Negative (05/02/23 12:04:00) Protein Urine Dipstick: Negative (05/02/23 12:04:00) Specific [place] Urine Dipstick: 1.015 (05/02/23 12:04:00) Urine Appearance Urine Dipstick: Clear (05/02/23 12:04:00) Urine Color Urine Dipstick: Light yellow (05/02/23 12:04:00) Urobilinogen Urine Dipstick: Normal 0.2-1 EU/dl (05/02/23 12:04:00) pH Urine Dipstick: 7 (05/02/23 12:04:00) Normal [facility] Comment on above: Result Comment: Elec tronically Signed By: Agustin PADILLA MD\.br\Date and Time Signed: 05/02/23 13:06 EDT\.br\Electronically Co-Signed By: Marivel Ahuja\.br\Date and Time Co-Signed: 05/02/23 12:56 EDT RAD - MISCon 05-01-2023 RAD - MISC [id number] D:127 Normal [facility] Ambulatory Visit Summaryon 0 04-14-2023 Ambulatory Visit Summary MAYRA BLACK :1970 Visit Date:04/14/2023 Ambulatory Visit Instructions Your Diagnosis Hydronephrosis with ureteral calculus Kidney stone Tests Performed XR Abdomen 1 View -- Results Pending -- Please visit your patient portal for your results or contact your primary care physician. Your Care Team Attending Physician - Agustin PADILLA MD Primary Care Physician - ZENAIDA NIX CNP This Is Your Medications List tamsulosin (tamsulosin 0.4 mg Cap) Contact prescribing physician if questions or concerns amlodipine (amLODIPine 10 mg Tab) cyclobenzaprine (cyclobenzaprine 10 mg Tab) losartan (losartan 100 mg Tab) meloxicam (meloxicam 7.5 mg Tab) Procedures Performed Cystoscopic removal of ureteric stent (11/22/2019), Cystoscopic laser lithotripsy of ureteric calculus (11/12/2019), Procedure on back. Discharge Vitals Heart Rate (Peripheral) 68 Respiratory Rate 16 Blood Pressure 120/80 Height 174 cm Height 69 in Weight 86.5 kg Weight 190.3 lb BMI 28.57 What to do next Scheduled Follow-Up Appointments Friday 11:00 AM EDT With: VALERIE BOLTON, Agustin Leon Where: [facility] Rik [facility] Patient Educationon 04-14-20 Patient Education Urology Kidney Stones Kidney stones are rock-like masses that form inside of the kidneys. Kidneys are organs that make pee (urine). A kidney stone may move into other parts of the urinary tract, including: ? The tubes that connect the kidneys to the bladder (ureters). ? The bladder. ? The tube that carries urine out of the body (urethra). Kidney stones can cause very bad pain and can block the flow of pee. The stone usually leaves your body (passes) through your pee. You may need to have a doctor take out the stone. What are the causes? Kidney stones may be caused by: ? A condition in which certain glands make too much parathyroid hormone (primary hyperparathyroidism). ? A buildup of a type of crystals in the bladder made of a chemical called uric acid. The body makes uric acid when you eat certain foods. ? Narrowing (stricture) of one or both of the ureters. ? A kidney blockage that you were born with. ? Past surgery on the kidney or the ureters, such as gastric bypass surgery. What increases the risk? You are more likely to develop this condition if: ? You have had a kidney stone in the past. ? You have a family history of kidney stones. ? You do not drink enough water. ? You eat a diet that is high in protein, salt (sodium), or sugar. ? You are overweight or very overweight (obese). What are the signs or symptoms? Symptoms of a kidney stone may include: ? Pain in the side of the belly, right below the ribs (flank pain). Pain usually spreads (radiates) to the groin. ? Needing to pee often or right away (urgently). ? Pain when going pee (urinating). ? Blood in your pee (hematuria). ? Feeling like you may vomit (nauseous). ? Vomiting. ? Fever and chills. How is this treated? Treatment depends on the size, location, and makeup of the kidney stones. The stones will often pass out of the body through peeing. You may need to: ? Drink more fluid to help pass the stone. In some cases, you may be given fluids through an IV tube put into one of your veins at the hospital. ? Take medicine for pain. ? Make changes in your diet to help keep kidney stones from coming back. Sometimes, medical procedures are needed to remove a kidney stone. This may involve: ? A procedure to break up kidney stones using a beam of light (laser) or shock waves. ? Surgery to remove the kidney stones. Follow these instructions at home: Medicines ? Take aqyc-igb-julutzp and prescription medicines only as told by your doctor. ? Ask your doctor if the medicine prescribed to you requires you to avoid driving or using heavy machinery. Eating and drinking ? Drink enough fluid to keep your pee pale yellow. You may be told to drink at least 8?10 glasses of water each day. This will help you pass the stone. ? If told by your doctor, change your diet. This may include: ? Limiting how much salt you eat. ? Eating more fruits and vegetables. ? Limiting how much meat, poultry, fish, and eggs you eat. ? Follow instructions from your doctor about eating or drinking restrictions. General instructions ? Collect pee samples as told by your doctor. You may need to collect a pee sample: ? 24 hours after a stone comes out. ? 8?12 weeks after a stone comes out, and every 6?12 months after that. ? Strain your pee every time you pee (urinate), for as long as told. Use the strainer that your doctor recommends. ? Do not throw out the stone. Keep it so that it can be tested by your doctor. ? Keep all follow-up visits as told by your doctor. This is important. You may need follow-up tests. How is this prevented? To prevent another kidney stone: ? Drink enough fluid to keep your pee pale yellow. This is the best way to prevent kidney stones. ? Eat healthy foods. ? Avoid certain foods as told by your doctor. You may be told to eat less protein. ? Stay at a healthy weight. Where to find more information ? National Kidney Foundation (NKF): www.kidney.org ? [employer] (UCF): www.urologyhealth.org Contact a doctor if: ? You have pain that gets worse or does not get better with medicine. Get help right away if: ? You have a fever or chills. ? You get very bad pain. ? You get new pain in your belly (abdomen). ? You pass out (faint). ? You cannot pee. Summary ? Kidney stones are rock-like masses that form inside of the kidneys. ? Kidney stones can cause very bad pain and can block the flow of pee. ? The stones will often pass out of the body through peeing. ? Drink enough fluid to keep your pee pale yellow. This information is not intended to replace advice given to you by your health care provider. Make sure you discuss any questions you have with your health care provider. Document Revised: 2022 Document Reviewed: 2022 [employer] Patient Education ? 2022 [employer] Hydronephrosis (more content not included)... [facility] Reminderson 04-14-2023 Reminders - From: Marissa Lentz To: BETTINA Padilla; Sent: 04/14/2023 10:33:34 EDT Show up: 04/21/2023 10:33:00 EDT Subject: KUB Reminder Message Please Remember to:_have pt get KUB prior to appt. [facility] Urology Office/Clinic Noteon 04-14-2023 Urology Office/Clinic Note Chief Complaint 2wk follow up to Kidney Stones.174 HPI Staff 2wk follow up to Hydronephrosis w/ureteral calculus & Kidney Stones. *Tamsulosin 0.4mg BID therapy. No new imaging for today's appt. Unable to provide urine specimen. Has been straining urine. Has not noticed passage of stone. Pain has subsided. Denies visible blood in urine. Has increased water intake. History of Present Illness Tests reviewed: none I have reviewed the previous health record information and history for this patient from Dr. Padilla. I have reviewed and verified the staff HPI to be accurate for this encounter. There have been no associated fever, chills, flank pain, or blood in the urine. Denies any urinary infections since last encounter. Review of Systems PHQ Score Initial Depression Screen Score: 0 ROS - Provider Constitutional: denies weight loss, denies hot flashes. Eyes: denies eye problems. Gastrointestinal: denies nausea, denies vomiting. Cardiovascular: denies chest pain or angina. Integumentary: no dryness Musculoskeletal: denies musculoskeletal symptoms. ENMT: denies otolaryngeal symptoms. Respiratory: no shortness of breath. Heme/Lymph: denies easy bleeding tendency, denies easy bruising tendency. Psychiatric: no confusion, no anxiety. Genitourinary: See HPI. Physical Exam Vitals & Measurements HR: 68(Peripheral) RR: 16 BP: 120/80 HT: 69 in HT: 174 cm WT: 86.5 kg WT: 190.3 lb BMI: 28.57 General Appearance: alert, no distress, well nourished, well developed male. Genitourinary: normal scrotum, normal testes, normal urethra, normal epididymis, normal vas deferens/spermatic cord. Flank Pain: none. Bladder: nonpalpable. Assessment/Plan 1. Hydronephrosis with ureteral calculus (N13.2: Hydronephrosis with renal and ureteral calculous obstruction) S/p Lt Stent Removal. Lt Ureter/Basket Extraction/Lt Stent Placement done 11/12/19. [1] CT AP w/o Con 03/27/23 - 0.5 cm calculus at the Rt UVJ w/ mild Rt pelvocaliectasis and mild Rt hydroureter proximal to this. KUB 03/27/23 no visible urinary tract calculi. [2]urine ph is 6.0 2. Kidney stone (N20.0: Calculus of kidney) Pt is currently taking Tamsulosin 0.4mg BID. Refill sent today. CT AP wo con 03/27/23 shows 0.2 cm, 0.2 cm, and 0.6 cm nonobstructive calculi within the Rt renal pelvis. probably uric acid stones. Pt reports he has been straining his urine but denies passing any stones. Pt to continue increased water intake and straining his urine. no fevers or shaking chills. Follow up in 2-3 weeks with KUB. All questions/concerns were discussed. Pt to call the office if he encounters any issues prior. Pt acknowledges understanding. Follow-up With When Contact Information VALERIE BOLTON, Agustin R, URL [facility] [address] [place] [address]- [phone] Additional Instructions: 2-3 weeks KUB Patient Education Kidney Stones, [id number] Hydronephrosis I, Marissa Lentz, personally scribed for Dr. Padilla on 04/14/2023 10:29:52. . Documentation recorded by the scribe, Marissa Lentz, accurately reflects the services(s) I performed and decisions made by me. Authenticated by Dr. Padilla on 04/14/2023 10:33:23. Problem List/Past Medical History Ongoing Hydronephrosis with ureteral calculus Kidney stone Right flank pain Historical No qualifying data Procedure/Surgical History Cystoscopic removal of ureteric stent (11/22/2019), Cystoscopic laser lithotripsy of ureteric calculus (11/12/2019), Procedure on back. Medications amLODIPine 10 mg Tab cyclobenzaprine 10 mg Tab losartan 100 mg Tab meloxicam 7.5 mg Tab tamsulosin 0.4 mg Cap, 0.4 mg= 1 cap(s), Oral, BID Allergies No Known Allergies Social History Tobacco Never (less than 100 in lifetime) Tobacco Use:. Never Smokeless Tobacco Use:. Household tobacco concerns: No., 04/14/2023 Family History Kidney stones: Sister. Immunizations Vaccine Date Status SARS-CoV-2 (COVID-19) mRNA BNT-162b2 vax 01/22/2021 Recorded SARS-CoV-2 (COVID-19) mRNA BNT-162b2 vax 01/01/2021 Recorded [1] [employer] Instruction Facilitator, Ureteral stone; Agustin PADILLA MD 03/28/2023 08:55 EDT [2] [employer]- Satellite Instruction Facilitator, Ureteral stone; Agustin PADILLA MD 03/28/2023 08:55 EDT [facility] Comment on above: Result Comment: Elec tronically Signed By: Agustin PADILLA MD\.br\Date and Time Signed: 04/14/23 10:33 EDT\.br\Electronically Co-Signed By: Marissa Lentz\Date and Time Co-Signed: 04/14/23 10:30 EDT ED Note-Physicianon 03-31-20 23 ED Note-Physician [id number]#1.00 CD:127 [facility] Lab Reportson 03-31-2023 Lab Reports [id number]#1.00 CD:127 [facility] RAD - CT Reporton 03-31-2023 RAD - CT Report [id number]#1.00 CD:127 [facility] RAD - MISCon 03-31-2023 RAD - MISC [id number]#1.00 CD:127 Normal [facility] - MISC [id number] D:127 [facility] Ambulatory Visit Summaryon 0 03-28-2023 Ambulatory Visit Summary MAYRA BLACK :1970 Visit Date:03/28/2023 Ambulatory Visit Instructions Your Diagnosis Hydronephrosis with ureteral calculus Kidney stone Tests Performed Urnls Dip Stick Auto w/o Microscopy POC 44067 Your Care Team Attending Physician - Agustin PADILLA MD Primary Care Physician - ZENAIDA NIX CNP This Is Your Medications List tamsulosin (tamsulosin 0.4 mg Cap) Contact prescribing physician if questions or concerns amlodipine (amLODIPine 10 mg Tab) cyclobenzaprine (cyclobenzaprine 10 mg Tab) losartan (losartan 100 mg Tab) meloxicam (meloxicam 7.5 mg Tab) Procedures Performed Cystoscopic removal of ureteric stent (11/22/2019), Cystoscopic laser lithotripsy of ureteric calculus (11/12/2019), Procedure on back. Discharge Vitals Heart Rate (Peripheral) 68 Respiratory Rate 16 Blood Pressure 130/76 Height 174 cm Height 69 in Weight 86.5 kg Weight 190.3 lb BMI 28.57 What to do next Scheduled Follow-Up Appointments Friday 9:30 AM EDT With: Agustin PADILLA MD Where: [facility] [place] [facility] Patient Educationon 03-28-20 23 Patient Education Urology Kidney Stones Kidney stones are solid, rock-like deposits that form inside of the kidneys. The kidneys are a pair of organs that make urine. A kidney stone may form in a kidney and move into other parts of the urinary tract, including the tubes that connect the kidneys to the bladder (ureters), the bladder, and the tube that carries urine out of the body (urethra). As the stone moves through these areas, it can cause intense pain and block the flow of urine. Kidney stones are created when high levels of certain minerals are found in the urine. The stones are usually passed out of the body through urination, but in some cases, medical treatment may be needed to remove them. What are the causes? Kidney stones may be caused by: ? A condition in which certain glands produce too much parathyroid hormone (primary hyperparathyroidism), which causes too much calcium buildup in the blood. ? A buildup of uric acid crystals in the bladder (hyperuricosuria). Uric acid is a chemical that the body produces when you eat certain foods. It usually exits the body in the urine. ? Narrowing (stricture) of one or both of the ureters. ? A kidney blockage that is present at (congenital obstruction). ? Past surgery on the kidney or the ureters, such as gastric bypass surgery. What increases the risk? The following factors may make you more likely to develop this condition: ? Having had a kidney stone in the past. ? Having a family history of kidney stones. ? Not drinking enough water. ? Eating a diet that is high in protein, salt (sodium), or sugar. ? Being overweight or obese. What are the signs or symptoms? Symptoms of a kidney stone may include: ? Pain in the side of the abdomen, right below the ribs (flank pain). Pain usually spreads (radiates) to the groin. ? Needing to urinate frequently or urgently. ? Painful urination. ? Blood in the urine (hematuria). ? Nausea. ? Vomiting. ? Fever and chills. How is this diagnosed? This condition may be diagnosed based on: ? Your symptoms and medical history. ? A physical exam. ? Blood tests. ? Urine tests. These may be done before and after the stone passes out of your body through urination. ? Imaging tests, such as a CT scan, abdominal X-ray, or ultrasound. ? A procedure to examine the inside of the bladder (cystoscopy). How is this treated? Treatment for kidney stones depends on the size, location, and makeup of the stones. Kidney stones will often pass out of the body through urination. You may need to: ? Increase your fluid intake to help pass the stone. In some cases, you may be given fluids through an IV and may need to be monitored at the hospital. ? Take medicine for pain. ? Make changes in your diet to help prevent kidney stones from coming back. Sometimes, medical procedures are needed to remove a kidney stone. This may involve: ? A procedure to break up kidney stones using: ? A focused beam of light (laser therapy). ? Shock waves (extracorporeal shock wave lithotripsy). ? Surgery to remove kidney stones. This may be needed if you have severe pain or have stones that block your urinary tract. Follow these instructions at home: Medicines ? Take hprc-vqk-bsokkmd and prescription medicines only as told by your health care provider. ? Ask your health care provider if the medicine prescribed to you requires you to avoid driving or using heavy machinery. Eating and drinking ? Drink enough fluid to keep your urine pale yellow. You may be instructed to drink at least 8?10 glasses of water each day. This will help you pass the kidney stone. ? If directed, change your diet. This may include: ? Limiting how much sodium you eat. ? Eating more fruits and vegetables. ? Limiting how much animal protein?such as red meat, poultry, fish, and eggs?you eat. ? Follow instructions from your health care provider about eating or drinking restrictions. General instructions ? Collect urine samples as told by your health care provider. You may need to collect a urine sample: ? 24 hours after you pass the stone. ? 8?12 weeks after passing the kidney stone, and every 6?12 months after that. ? Strain your urine every time you urinate, for as long as directed. Use the strainer that your health care provider recommends. ? Do not throw out the kidney stone after passing it. Keep the stone so it can be tested by your health care provider. Testing the makeup of your kidney stone may help prevent you from getting kidney stones in the future. ? Keep all follow-up visits as told by your health care provider. This is important. You may need follow-up X-rays or ultrasounds to make sure that your stone has passed. How is this prevented? To prevent another kidney stone: ? Drink enough fluid to keep your urine pale yellow. This is the best way to prevent kidney stones. ? Eat a healthy diet and follow (more content not included)... [facility] RAD - MISCon 03-28-2023 [facility] [id number] D:127 [facility] Urology Office/Clinic Noteon 03-28-2023 Urology Office/Clinic Note Chief Complaint F/U to ER *Kidney Stone HPI Staff New pt, Last seen by Dr Harman 11/22/19 for Lt Stent Removal. Lt Ureter/Basket Extraction/Lt Stent Placement done 11/12/19. Pt was to follow up in 6m w/KUB. Pt had cancelled due to COVID. Pt is here today to follow up to [place] ER 03/27/23. CC: abdominal pain DX: 5mm Rt UVJ stone w/hydro CT w/o 03/27/23 KUB 03/27/23 Denies current pain. Denies current visible blood in urine. Has been straining urine, denies passing stone. Pt has been NPO since midnight. History of Present Illness Tests reviewed: reviewed UA, CT, KUB. I have reviewed the previous health record information and history for this patient from Dr. Padilla. I have reviewed and verified the staff HPI to be accurate for this encounter. There have been no associated fever, chills, flank pain, or blood in the urine. Denies any urinary infections since last encounter. Review of Systems PHQ Score Initial Depression Screen Score: 0 ROS - Provider Constitutional: denies weight loss, denies hot flashes. Eyes: denies eye problems. Gastrointestinal: denies nausea, denies vomiting. Cardiovascular: denies chest pain or angina. Integumentary: no dryness Musculoskeletal: denies musculoskeletal symptoms. ENMT: denies otolaryngeal symptoms. Respiratory: no shortness of breath. Heme/Lymph: denies easy bleeding tendency, denies easy bruising tendency. Psychiatric: no confusion, no anxiety. Genitourinary: See HPI. Physical Exam Vitals & Measurements HR: 68(Peripheral) RR: 16 BP: 130/76 HT: 69 in HT: 174 cm WT: 86.5 kg WT: 190.3 lb BMI: 28.57 General Appearance: alert, no distress, well nourished, well developed male. Head: normocephalic . Eyes: normal orbit and globe. ENMT: normal examination of external ears. Chest: Lungs CTA, respirations non labored. Cardiovascular: regular rate and rhythm. Abdomen: soft, non distended, no tenderness, no mass or organomegaly, no hernia. Genitourinary: normal scrotum, normal testes, normal urethra, normal epididymis, normal vas deferens/spermatic cord. Flank Pain: none. Bladder: nonpalpable. Penis: normal shaft, normal glans. Lymph Nodes: unremarkable palpation of the cervical area. Skin: warm, dry, no bruising. Psychiatric: cooperative, affect appropriate for age, normal judgement, euthymic mood. Assessment/Plan New patient, last seen by Dr. Harman 11/22/2019. 1. Hydronephrosis with ureteral calculus (N13.2: Hydronephrosis with renal and ureteral calculous obstruction) S/p Lt Stent Removal. Lt Ureter/Basket Extraction/Lt Stent Placement done 11/12/19. He was to follow up in 6 months w/ KUB, cancelled due to COVID. Patient presented to [facility] ER 03/27/23 with chief complaint of abdominal pain. CT AP w/o Con 03/27/23 - 0.5 cm calculus at the Rt UVJ w/ mild Rt pelvocaliectasis and mild Rt hydroureter proximal to this. KUB 03/27/23 no visible urinary tract calculi. Given the small size of the calcifications seen on the CT study performed earlier today these may not be visible, or may have passed. Stones are most likely uric acid due to not being visible on KUB acidic urine. Prescribed Flomax, Cipro, and Voltaren/Meloxicam at the ER. UA today shows large blood. Discussed w/ patient that he has a chance of passing stone on his own, he favors this over surgical intervention unless necessary. Patient to continue Flomax, increase to BID, new script sent today. Increase water intake. Continue to strain urine in case stone passes. Advised patient to keep stone for analysis if he would pass it. he wishes to try to pass theses stones. CT to be repeated in the next 2-4 weeks. Follow up in 2 weeks. All questions/concerns were discussed. Pt to call the office if he encounters any issues prior. Pt acknowledges understanding and agrees with plan. 2. Kidney stone (N20.0: Calculus of kidney) CT AP wo IV con 03/27/23 shows 0.2 cm, 0.2 cm, and 0.6 cm nonobstructive calculi within the Rt renal pelvis. will start to alkalinize his urine at next visit to help dissolve the renal stones. Follow-up With When Contact Information VALERIE BOLTON, Agustin Leon, URL [facility] [address], [place] [address]- Additional Instructions: 2 weeks Patient Education Kidney Stones I, Padma Cotto, personally scribed for Dr. Padilla on 03/28/2023 08:55:28. . Documentation recorded by the scribe, Padma Cotto, accurately reflects the services(s) I performed and decisions made by me. Problem List/Past Medical History Ongoing Hydronephrosis with ureteral calculus Kidney stone Right flank pain Historical No qualifying data Procedure/Surgical History Cystoscopic removal of ureteric stent (11/22/2019), Cystoscopic laser lithotripsy of ureteric calculus (11/12/2019), Procedure on back. Medications amLODIPine 10 mg Tab cyclobenzaprine 10 mg Tab losartan 100 mg Tab meloxicam 7.5 mg Tab tamsulosin 0.4 (more content not included)... [facility] Comment on above: Result Comment: Elec tronically Signed By: Agustin PADILLA MD\.br\Date and Time Signed: 03/28/23 09:01 EDT\.br\Electronically Co-Signed By: Padma Cotto\.br\Date and Time Co-Signed: 03/28/23 08:56 EDT\.br\Electronically Co-Signed By: Padma Cotto\.br\Date and Time Co-Signed: 03/28/23 08:58 EDT ECHOCARDIO M/2D COMPLETEon 0 11-18-2022 ECHOCARDIO M/2D COMPLETE Patient: MAYRA BLACK Exam Date: 11/18/2022 : 1970 Gender:M Ordering : DERIK ZENAIDA NIX [facility] Admission #: [id number] Family : Order #: [id number] CLICK HERE TO VIEW EXAM ECHOCARDIOGRAM REPORT PROCEDURE: CARDIO PULMONARY ECHOCARDIO M/2D COMP INDICATIONS: Chest heaviness, fatigue, hypertension COMPARISON: None. DESCRIPTION: COMPLETE ECHOCARDIOGRAM Real-time transthoracic echocardiography with 2D, M-mode, spectral and color flow Doppler performed. QUALITY: Technical quality was good. LEFT VENTRICLE: Normal chamber size. Normal left ventricular wall thickness. LV EF: Normal left ventricular ejection fraction, (>55%). DIASTOLIC: Normal diastolic function. ATRIAL SEPTUM: LEFT ATRIUM: Normal chamber size. RIGHT ATRIUM: Normal chamber size. RIGHT VENTRICLE: Normal chamber size. Normal right ventricular systolic function. TRICUSPID VALVE: Normal mobility and thickness. No stenosis with no regurgitation. MITRAL VALVE: Normal mobility and thickness. No evidence of mitral valve stenosis. Mild mitral annular calcification. No mitral regurgitation. AORTIC VALVE: Normal trileaflet appearance. No visible sclerosis. Normal leaflet mobility. No evidence of aortic valve stenosis. No aortic regurgitation. AORTIC ROOT: Normal diameter and appearance. PULMONIC VALVE: Normal thickness and mobility. No stenosis. Trivial regurgitation. PERICARDIUM: No evidence of pericardial effusion. IVC: Collapses with inspirations. PLEURA: CONCLUSION: 1. Normal ventricular systolic function. LVEF is 65%. 2. Normal diastolic function. 3. No significant valvular dysfunction. 4. No pericardial effusion. Adult Echocardiography Procedure Report Left Ventricle LVEDD (3.7 - 5.6 cm): 4.55 cm LVESD (2.2 - 4.0 cm): 2.94 cm LVIVS thickness (0.6 - 1.2 cm): 0.87 cm LVPW thickness (0.5 - 1.0 cm): 0.76 cm e': 0.13 m/s E - e': 5.35 LVOT Max Gradient: 6.06 mm[Hg], 6.93 mm[Hg], 7.64 mm[Hg] Peak Velocity (LVOT): 1.23 m/s, 1.32 m/s, 1.38 m/s Mean Velocity (LVOT): 0.78 m/s, 0.79 m/s, 0.86 m/s LVOT Diameter 2.07 cm Left Ventricular Ejection Fraction: 65 % Left Atrium LA Volume Index (2D A2C): 29.16 ml, 29.16 ml Left Atrium Systolic Dimension: 3.08 cm Mitral Valve MV E to A Ratio: 0.74 Mitral Valve A-Wave Peak Velocity: 0.96 m/s Mitral Valve E-Wave Peak Velocity: 0.72 m/s Right Ventricle Aorta AO Root Diam: 3.16 cm Aortic Valve AoV Area (Peak Brad): 3.35 cm2, 3.15 cm2 Peak Velocity(Antegrade Flow): 1.31 m/s Peak Gradient(Antegrade Flow): 6.88 mm[Hg] Tricuspid Valve Peak Velocity: 0.82 m/s Pulmonic Valve Peak Velocity: 1.16 m/s, 1.57 m/s Peak Gradient: 5.42 mm[Hg], 9.83 mm[Hg] Right Atrium Right Atrium Systolic Pressure: 26.01 ml, 26.01 ml Dictated by: Melquiades Peralta M.D. on 11/21/2022 at 09:44 Approved by: Melquiades Peralta M.D. on 11/21/2022 at 09:47 Normal [facility] XR LSPINE W_OBLS AND FLEX_EX Ton 06-11-2022 XR LSPINE W_OBLS AND FLEX_EXT EXAMINATION: XR LSPINE W_OBLS AND FLEX_EXT HISTORY: Prolapsed lumbar intervertebral disc COMPARISON: No relevant comparison available. FINDINGS: BONES: Mild widespread spondylosis and facet osteoarthritis. No visible acute bony abnormality. DISC SPACES: Normal. No significant disc height narrowing, subluxation, or endplate abnormality. PARASPINOUS: Negative. No paraspinous abnormality is seen. OTHER: Negative. IMPRESSION: Mild degenerative changes No dynamic instability Electronically authenticated by: KRYSTINA HAWKINS Date: 2022-06-11 07:11 Normal [facility] CBC AUTO DIFFon 05-21-2022 BASO # 0.0 103/ul Normal 0.0-0.1 [facility] Comment on above: Performed By: #### C BC #### [facility] [address] [place] [address] Dr. Alex Hemphill Basophils/100 WBC (Bld) 0.6 % Normal 0.2-2.0 [facility] Comment on above: Performed By: #### C BC #### [facility] [address] [place] [address] Dr. Alex Hemphill EO # 0.0 103/ul Normal 0.0-0.7 [facility] Comment on above: Performed By: #### C BC #### [facility] [address] [place] [address] Dr. Alex Hemphill Eosinophils/100 WBC (Bld) 0.8 % Critically low 0.9-7.0 [facility] Comment on above: Performed By: #### C BC #### [facility] [address] [place] [address] Dr. Alex Hemphill Erythrocyte distribution width (RBC) [Ratio] 11.8 % Normal 11.0-15.0 [facility] Comment on above: Performed By: #### C BC #### [facility] [address] [place] [address] Dr. Alex Hemphill Hematocrit (Bld) [Volume fraction] 47.8 % Normal 42.0-54.0 [facility] Comment on above: Performed By: #### C BC #### [facility] [address] [place] [address] Dr. Alex Hemphill Hemoglobin (Bld) [Mass/Vol] 16.7 g/dL Normal 14.0-18.0 [facility] Comment on above: Performed By: #### C BC #### [facility] [address] [place] [address] Dr. Alex Hemphill IG # 0.04 10e3/ul Critically high 0.00-0.03 [facility] Comment on above: Performed By: #### C BC #### [facility] [address] [place] [address] Dr. Alex Hemphill IG % 0.8 % Critically high 0.0-0.[address] [facility] Comment on above: Performed By: #### C BC #### [facility] [address] [place] [address] Dr. Alex Hemphill LYMPH # 0.9 103/ul Critically low 1.2-3.8 [facility] Comment on above: Performed By: #### C BC #### [facility] [address] [place] [address] Dr. Alex Hemphill Lymphocytes/100 WBC (Bld) 19.5 % Critically low 20.5-60.0 [facility] Comment on above: Performed By: #### C BC #### [facility] [address] [place] [address] Dr. Alex Hemphill MANUAL DIFF REQ NO Normal [facility] Comment on above: Performed By: #### C BC #### [facility] [address] [place] [address] Dr. Alex Hemphill MCH (RBC) [Entitic mass] 30.2 pg Normal 25.9-34.0 [facility] Comment on above: Performed By: #### C BC #### [facility] [address] [place] [address] Dr. Alex Hemphill MCHC (RBC) [Mass/Vol] 34.9 g/dL Normal 29.9-35.2 [facility] Comment on above: Performed By: #### C BC #### [facility] [address] [place] [address] Dr. Alex Hemphill MCV (RBC) [Entitic vol] 86.4 fL Normal 80.0-94.0 [facility] Comment on above: Performed By: #### C BC #### [facility] [address] [place] [address] Dr. Alex Hemphill MONO # 0.4 103/ul Normal 0.3-0.8 [facility] Comment on above: Performed By: #### C BC #### [facility] [address] [place] [address] Dr. Alex Hemphill Monocytes/100 WBC (Bld) 7.8 % Normal 1.7-12.0 [facility] Comment on above: Performed By: #### C BC #### [facility] [address] [place] [address] Dr. Alex Hemphill NEUT # 3.3 103/ul Normal 1.4-6.5 [facility] Comment on above: Performed By: #### C BC #### [facility] [address] [address] [address] Alex Hemphill Neutrophils/100 WBC (Bld) 70.5 % Normal 43.0-75.0 [facility] Comment on above: Performed By: #### C BC #### [facility] [address] [address] [address] Alex Hemphill Platelet mean volume (Bld) [Entitic vol] 9.5 fL Normal 9.5-13.5 [facility] Comment on above: Performed By: #### C BC #### [facility] [address] [place] [address] Dr. Alex Hemphill PLT 174 103/ul Normal 150-450 [facility] Comment on above: Performed By: #### C BC #### [facility] [address] [place] [address] Dr. Alex Hemphill RBC 5.53 106/ul Normal 4.70-6.10 [facility] Comment on above: Performed By: #### C BC #### [facility] [address] [place] [address] Dr. Alex Hemphill WBC 4.7 103/ul Normal 4.0-11.0 [facility] Comment on above: Performed By: #### C BC #### [facility] [address] [address] [address] Alex Hemphill OCC BLD IMMUNO SCREENon OCCULT BLOOD Positive Abnormal NEGATIVE [facility] Comment on above: Performed By: #### O BSCRN ####[facility] [address] [address]Dr. Alex Hemphill PROF 14(COMP METB)on 022 Albumin [Mass/Vol] 4.0 g/dL Normal 3.4-5.0 [facility] Comment on above: Performed By: #### C MP #### [facility] [address] [address] [address] Alex Hemphill Albumin/Globulin [Mass ratio] 1.3 {ratio} Normal [facility] Comment on above: Performed By: #### C MP #### [facility] [address] [address] [address] Alex Hemphill ALP [Catalytic activity/Vol] 95 U/L Normal 46-116 [facility] Comment on above: Performed By: #### C MP #### [facility] [address] [address] [address] Alex Hemphill ALT [Catalytic activity/Vol] 32 U/L Normal 16-63 [facility] Comment on above: Performed By: #### C MP #### [facility] [address] [address] [address] Alex Hemphill Anion gap [Moles/Vol] 8.4 mmol/L Normal [facility] Comment on above: Performed By: #### C MP #### [facility] [address] [place] [address] Dr. Alex Hemphill AST [Catalytic activity/Vol] 16 U/L Normal 15-37 [facility] Comment on above: Performed By: #### C MP #### [facility] [address] [place] [address] Dr. Alex Hemphill Bilirubin [Mass/Vol] 0.7 mg/dL Normal 0.2-1.0 [facility] Comment on above: Performed By: #### C MP #### [facility] [address] [place] [address] Dr. Alex Hemphill Calcium [Mass/Vol] 8.7 mg/dL Normal 8.5-10.1 [facility] Comment on above: Performed By: #### C MP #### [facility] [address] [place] [address] Dr. Alex Hemphill Chloride [Moles/Vol] 102 mmol/L Normal 98-107 [facility] Comment on above: Performed By: #### C MP #### [facility] [address] [address] [address] Alex Hemphill CO2 [Moles/Vol] 28.6 mmol/L Normal 21.0-32.[address] [facility] Comment on above: Performed By: #### C MP #### [facility] [address] [address] [address] Alex Hemphill Creatinine [Mass/Vol] 1.14 mg/dL Normal 0.70-1.30 [facility] Comment on above: Performed By: #### C MP #### [facility] [address] [address] [address] Alex Hemphill EGFR-AF BAHRAINI >60 Normal >=[address] [facility] Comment on above: Performed By: #### C MP #### [facility] [address] [address] [address] Alex Hemphill EGFR-NON AF BAHRAINI >60 Normal >=60 [facility] Comment on above: Performed By: #### C MP #### [facility] [address] [place] [address] Dr. Alex Hemphill Globulin (S) [Mass/Vol] 3.0 g/dL Normal [facility] Comment on above: Performed By: #### C MP #### [facility] [address] [place] [address] Dr. Alex Hemphill Glucose [Mass/Vol] 102 mg/dL Normal 74-106 [facility] Comment on above: Performed By: #### C MP #### [facility] [address] [place] [address] Dr. Alex Hemphill Potassium [Moles/Vol] 4.0 mmol/L Normal 3.5-5.1 [facility] Comment on above: Performed By: #### C MP #### [facility] [address] [place] [address] Dr. Alex Hemphill Protein [Mass/Vol] 7.0 g/dL Normal 6.4-8.2 [facility] Comment on above: Performed By: #### C MP #### [facility] [address] [place] [address] Dr. Alex Hemphill Sodium [Moles/Vol] 135 mmol/L Critically low 136-145 [facility] Comment on above: Performed By: #### C MP #### [facility] [address] [place] [address] Dr. Alex Hemphill Urea nitrogen [Mass/Vol] 17.0 mg/dL Normal 7.0-18.0 [facility] Comment on above: Performed By: #### C MP #### [facility] [address] [address] [address] Alex Hemphill Urea nitrogen/Creatinine [Mass ratio] 14.9 mg/mg Normal [facility] Comment on above: Performed By: #### C MP #### [facility] [address] [address] [address] Alex Hemphill PROTIMEon 05-21-2022 INR Coag (PPP) [Relative time] 0.95 {INR} Normal [facility] Comment on above: Performed By: #### P T, PTT #### [facility] [address] [place] [address] Dr. Alex Hemphill INR GUIDELINES SEE BELOW Normal [facility] Comment on above: Result Comment: ARABELLA RED INR: 2.0 - 3.0 CONDITIONS NOT LISTED BELOW 2.5 - 3.5 FOR PROSTHETIC HEART VALVE REPLACEMENT 2.5 - 3.5 RECURRENT THROMBOSIS Performed By: #### P T, PTT #### [facility] [address] [place] [address] Dr. Alex Hemphill PT Coag (PPP) [Time] 10.3 s Normal 9.0-11.6 [facility] Comment on above: Performed By: #### P T, PTT #### [facility] [address] [place] [address] Dr. Alex Hemphill PTTon 05-21-2022 aPTT Coag (Bld) [Time] 27.6 s Normal 22.3-36.2 [facility] Comment on above: Performed By: #### P T, PTT ####[facility] [address] [address]Dr. Alex Hemphill Vital Signs Date Time Vital Sign Value Performing Clinician Facility 09-22-2024 14:04-0500 Body height 175.3 cm Zenaida Nix [employer] Work Phone: [facility] 09-22-2024 14:04-0500 Body mass index (BMI) [Ratio] 28.91 kg/m2 Zenaida Provaishnavi [employer] Work Phone: [facility] 09-22-2024 14:04-0500 Body temperature 98.49 [degF] Zenaida Woodluis [employer] Work Phone: [facility] 09-22-2024 14:04-0500 Body weight 88.81 kg Zenaida rPovaishnavi [employer] Work Phone: [facility] 09-22-2024 14:04-0500 Diastolic blood pressure 90 mm[Hg] Zenaida Provaishnavi N P Work Phone: [facility] 09-22-2024 14:04-0500 Heart rate 113 /min Zenaida Provaishnavi [employer] Work Phone: [facility] 09-22-2024 14:04-0500 Respiratory rate 20 /min Zenaida Provaishnavi [employer] Work Phone: [facility] 09-22-2024 14:04-0500 SaO2% (BldA) [Mass fraction] 97 % Zenaida Provaishnavi [employer] Work Phone: [facility] 09-22-2024 14:04-0500 Systolic blood pressure 144 mm[Hg] Zenaida Provaishnavi [employer] Work Phone: [facility] 09-20-2024 14:19-0500 Body mass index (BMI) [Ratio] 29.67 kg/m2 Yovanny Soria MD Work Phone: [facility] 09-20-2024 14:19-0500 Body temperature 98.2 [degF] Yovanny Soria MD Work Phone: [facility] 09-20-2024 14:19-0500 Body weight 88.5 kg Yovanny Soria MD Work Phone: [facility] Comment on above: with shoes 09-20-2024 14:19-0500 Diastolic blood pressure 81 mm[Hg] Yovanny Soria MD Work Phone: [facility] Comment on above: notified 09-20-2024 14:19-0500 Heart rate 121 /min Yovanny Soria MD Work Phone: [facility] Comment on above: notified 09-20-2024 14:19-0500 Respiratory rate 18 /min Yovanny Soria MD Work Phone: [facility] 09-20-2024 14:19-0500 SaO2% (BldA) [Mass fraction] 96 % Yovanny Soria MD Work Phone: [facility] 09-20-2024 14:19-0500 Systolic blood pressure 162 mm[Hg] Yovanny Soria MD Work Phone: [facility] Comment on above: md notified 08-23-2024 09:25-0500 Body temperature 98.2 [degF] Mikey Lentz RN [facility] 08-23-2024 09:25-0500 Diastolic blood pressure 102 mm[Hg] Mikey Lentz RN [facility] 08-23-2024 09:25-0500 Heart rate 108 /min Mikey Lentz [facility] 08-23-2024 09:25-0500 Systolic blood pressure 163 mm[Hg] Mikey Lentz [facility] 08-23-2024 09:23-0500 Body height 172.7 cm Mikey Lentz RN [facility] 08-23-2024 09:23-0500 Body mass index (BMI) [Ratio] 29.9 kg/m2 Mikey Lentz RN [facility] 08-23-2024 09:23-0500 Body weight 89.2 kg Mikey Lentz RN [facility] 08-10-2024 09:13-0500 SaO2% (BldA) [Mass fraction] 99 % IDALIA PATRICK [facility] Comment on above: Order Comment: Specimen Type: ARTERIAL B LOOD SPECIMENOrdering Facility: [facility] Address: [address] [place] [address] Performed By: #### A LLBG ####[facility] LABCLIA [id number] [address] [place] OF [facility] 07-27-2024 07:20-0500 Body height 172.7 cm Pacc 2 Work Phone: [facility] 07-27-2024 07:20-0500 Body mass index (BMI) [Ratio] 30.71 kg/m2 Pacc 2 Work Phone: [facility] 07-27-2024 07:20-0500 Body temperature 98.29 [degF] Pacc 2 Work Phone: [facility] 07-27-2024 07:20-0500 Body weight 91.6 kg Pacc 2 Work Phone: [facility] 07-27-2024 07:20-0500 Diastolic blood pressure 86 mm[Hg] Pacc 2 Work Phone: [facility] 07-27-2024 07:20-0500 Heart rate 101 /min Pacc 2 Work Phone: [facility] 07-27-2024 07:20-0500 Respiratory rate 18 /min Pacc 2 Work Phone: [facility] 07-27-2024 07:20-0500 SaO2% (BldA) [Mass fraction] 96 % Pacc 2 Work Phone: [facility] 07-27-2024 07:20-0500 Systolic blood pressure 148 mm[Hg] Pacc 2 Work Phone: [facility] 07-21-2024 08:47-0500 Body height 172.7 cm Yovanny Soria MD Work Phone: [facility] 07-21-2024 08:47-0500 Body mass index (BMI) [Ratio] 30.1 kg/m2 Yovanny Soria MD Work Phone: [facility] 07-21-2024 08:47-0500 Body weight 89.8 kg Yovanny Soria MD Work Phone: [facility] 07-21-2024 08:47-0500 Diastolic blood pressure 92 mm[Hg] Yovanny Soria MD Work Phone: [facility] 07-21-2024 08:47-0500 Heart rate 90 /min Yovanny Soria MD Work Phone: [facility] 07-21-2024 08:47-0500 Respiratory rate 20 /min Yovanny Soria MD Work Phone: [facility] 07-21-2024 08:47-0500 Systolic blood pressure 148 mm[Hg] Yovanny Soria MD Work Phone: [facility] 07-13-2024 09:41-0400 Body height 175.3 cm Mary Torres MD Work Phone: [facility] 07-13-2024 09:41-0400 Body mass index (BMI) [Ratio] 29.24 kg/m2 Mary Torres MD Work Phone: [facility] 07-13-2024 09:41-0400 Body weight 89.81 kg Mary Torres MD Work Phone: [facility] 05-10-2024 14:18-0400 Body height 175.3 cm Mary Torres MD Work Phone: [facility] 05-10-2024 14:18-0400 Body mass index (BMI) [Ratio] 29.83 kg/m2 Mary Torres MD Work Phone: [facility] 05-10-2024 14:18-0400 Body weight 91.63 kg Mary Torres MD Work Phone: [facility] 05-10-2024 14:18-0400 Diastolic blood pressure 114 mm[Hg] Mary Hall Work Phone: [facility] 05-10-2024 14:18-0400 Systolic blood pressure 185 mm[Hg] Mary Torres MD Work Phone: [facility] 05-02-2023 12:28-0400 Diastolic blood pressure 88 mm[Hg] Agustin PADILLA [facility] [place] [address]-18-2023 12:28-0400 Mean blood pressure 106 mm[Hg] Agustin PADILLA [facility] 05-02-2023 12:28-0400 Systolic blood pressure 142 mm[Hg] Agustin PADILLA [facility] 05-02-2023 12:05-0400 Blood Pressure Location Agustin PADILLA [facility] 05-02-2023 12:05-0400 Diastolic blood pressure 88 mm[Hg] Agustin PADILLA [facility] 05-02-2023 12:05-0400 Heart rate 88 /min Agustin PADILLA [facility] 05-02-2023 12:05-0400 Systolic blood pressure 148 mm[Hg] Agustin PADILLA [facility] 04-14-2023 09:47-0400 Blood Pressure Location Agustin PADILLA [facility] 04-14-2023 09:47-0400 Diastolic blood pressure 80 mm[Hg] Agustin PADILLA [facility] 04-14-2023 09:47-0400 Heart rate 68 /min Agustin PADILLA [facility] 04-14-2023 09:47-0400 Respiratory rate 16 /min Agustin PADILLA [facility] 04-14-2023 09:47-0400 Systolic blood pressure 120 mm[Hg] Agustin PADILLA [facility] 03-28-2023 08:32-0400 Blood Pressure Location Agustin PADILLA [facility] 03-28-2023 08:32-0400 Diastolic blood pressure 76 mm[Hg] Agustin PADILLA [facility] 03-28-2023 08:32-0400 Heart rate 68 /min Agustin PADILLA [facility] 03-28-2023 08:32-0400 Respiratory rate 16 /min Agustin PADILLA [facility] 03-28-2023 08:32-0400 Systolic blood pressure 130 mm[Hg] Agustin PADILLA [facility] Encounters Encounter Date Encounter Type Care Provider Facility Start: 11-26-2024 ambulatory [facility] Facility:[facility] Start: 11-26-2024 End: 11-26-2024 Subsequent hospital visit by physician [facility] (Istat/3t) Work Phone: [facility] Comment on above: Schwannoma [D36.10] Start: 11-17-2024 End: 11-18-2024 Telephone encounter Mary Torres MD Work Phone: [facility] Comment on above: ear Start: 11-08-2024 End: 11-08-2024 Bamboo flowsheet Celina Masters PT [facility] Start: 11-08-2024 End: 11-08-2024 Bamboo flowsheet Celina Masters PT [facility] Start: 11-08-2024 End: 11-08-2024 Treatment Celina Masters PT [facility] Comment on above: Dizziness and giddin ess (Primary Dx); Benign neoplasm of cranial nerves (CMS/HCC); Ataxic gait; Gait disorder; Vestibular schwannoma (CMS/HCC) Start: 11-04-2024 End: 11-04-2024 Bamboo flowsheet Jessee Guillen MEASURER [facility] Start: 11-04-2024 End: 11-04-2024 Bamboo flowsheet Jessee Guillen [facility] Start: 11-04-2024 End: 11-04-2024 Treatment Jessee Guillen [facility] Comment on above: Dizziness and giddin ess (Primary Dx); Benign neoplasm of cranial nerves (CMS/HCC); Ataxic gait; Gait disorder; Vestibular schwannoma (CMS/HCC) Start: 11-01-2024 End: 11-01-2024 Bamboo flowsheet Jessee Guillen [facility]UR[facility] Start: 11-01-2024 End: 11-01-2024 Bamboo flowsheet Jessee Guillen [facility] Start: 11-01-2024 End: 11-01-2024 Treatment Jessee Guillen [facility] Comment on above: Dizziness and giddin ess (Primary Dx); Benign neoplasm of cranial nerves (CMS/HCC); Ataxic gait; Gait disorder; Vestibular schwannoma (CMS/HCC) Start: 10-28-2024 End: 10-28-2024 Bamboo flowsheet Celina Masters PT [facility] Start: 10-28-2024 End: 10-28-2024 Bamboo flowsheet Celina Masters PT [facility] Start: 10-28-2024 End: 10-28-2024 Treatment Celina Masters PT [facility] Comment on above: Dizziness and giddin ess (Primary Dx); Benign neoplasm of cranial nerves (CMS/HCC); Ataxic gait; Gait disorder; Vestibular schwannoma (CMS/HCC) Start: 10-25-2024 End: 10-25-2024 Bamboo flowsheet Jessee Guillen [facility] Start: 10-25-2024 End: 10-25-2024 Bamboo flowsheet Jessee Guillen [facility] Start: 10-25-2024 End: 10-25-2024 Treatment Jessee Guillen [facility] Comment on above: Dizziness and giddin ess (Primary Dx); Benign neoplasm of cranial nerves (CMS/HCC); Ataxic gait; Gait disorder; Vestibular schwannoma (CMS/HCC) Start: 10-21-2024 End: 10-21-2024 Bamboo flowsheet Jessee Wilmer [facility] Start: 10-21-2024 End: 10-21-2024 Bamboo flowsheet Jessee Wilmer [facility] Start: 10-21-2024 End: 10-21-2024 Treatment Jessee Guillen [facility] Comment on above: Dizziness and giddin ess (Primary Dx); Benign neoplasm of cranial nerves (CMS/HCC); Ataxic gait; Gait disorder; Vestibular schwannoma (CMS/HCC) Start: 10-19-2024 End: 10-19-2024 Bamboo flowsheet Celina Masters PT [facility] Start: 10-19-2024 End: 10-19-2024 Bamboo flowsheet Celina Masters PT [facility] Start: 10-19-2024 End: 10-19-2024 Treatment Celina Masters PT [facility] Comment on above: Dizziness and giddin ess (Primary Dx); Benign neoplasm of cranial nerves (CMS/HCC); Ataxic gait; Gait disorder; Vestibular schwannoma (CMS/HCC) Start: 10-14-2024 End: 10-14-2024 Bamboo flowsheet Jessee Wilmer [facility] Start: 10-14-2024 End: 10-14-2024 Bamboo flowsheet Jessee Wilmer [facility] Start: 10-14-2024 End: 10-14-2024 Treatment Jessee Guillen [facility] Comment on above: Dizziness and giddin ess (Primary Dx); Benign neoplasm of cranial nerves (CMS/HCC); Ataxic gait; Gait disorder; Vestibular schwannoma (CMS/HCC) Start: 10-11-2024 End: 10-11-2024 Bamboo flowsheet Jessee Wilmer [facility] Start: 10-11-2024 End: 10-11-2024 Bamboo flowsheet Jessee Wilmer [facility] Start: 10-11-2024 End: 10-11-2024 Treatment Jessee Wilmer [facility] Comment on above: Dizziness and giddin ess (Primary Dx); Benign neoplasm of cranial nerves (CMS/HCC); Ataxic gait; Gait disorder; Vestibular schwannoma (CMS/HCC) Start: 10-08-2024 End: 10-08-2024 Postop follow up visit related to original px Idalia Patrick MD Work Phone: Otolaryngology Comment on above: Vestibular schwannom a (HCC) (Primary Dx); Sensorineural hearing loss (SNHL) of right ear with unrestricted hearing of left ear; Cervicalgia Start: 10-08-2024 End: 10-08-2024 ambulatory IDALIA PATRICK Facility:[facility] Start: 10-08-2024 End: 10-08-2024 Patient encounter procedure Roxann MCGINNIS Work Phone: Audiology Comment on above: Sensorineural hearin g loss (SNHL) of right ear with unrestricted hearing of left ear (Primary Dx); Tinnitus, right ear; Pressure sensation in right ear; Vestibular schwannoma (HCC) Start: 10-01-2024 End: 10-01-2024 Bamboo flowsheet Celina Masters PT [facility] Start: 10-01-2024 End: 10-01-2024 Bamboo flowsheet Celina Masters PT [facility] Start: 10-01-2024 End: 10-01-2024 Treatment Celina Masters PT [facility] Comment on above: Dizziness and giddin ess (Primary Dx); Benign neoplasm of cranial nerves (CMS/HCC); Ataxic gait; Gait disorder; Vestibular schwannoma (CMS/HCC) Start: 09-28-2024 End: 09-28-2024 Bamboo flowsheet Jessee Guillen [facility] Start: 09-28-2024 End: 09-28-2024 Bamboo flowsheet Jessee Guillen [facility] Start: 09-28-2024 End: 09-28-2024 ambulatory Jessee Guillen [facility] Comment on above: Dizziness and giddin ess (Primary Dx); Benign neoplasm of cranial nerves (CMS/HCC); Ataxic gait Start: 09-24-2024 End: 09-24-2024 Bamboo flowsheet Jessee Guillen [facility]UR[facility] Start: 09-24-2024 End: 01-10-2025 Bamboo flowsheet Jessee Guillen [facility] Start: 09-24-2024 End: 09-24-2024 ambulatory Jessee Wilmer [facility] Comment on above: Dizziness and giddin ess (Primary Dx); Benign neoplasm of cranial nerves (CMS/HCC); Ataxic gait Start: 09-22-2024 End: 09-22-2024 Bamboo flowsheet Zenaidagladys Nix SUPERVISOR [employer] Work Phone: [facility] Start: 09-22-2024 End: 09-22-2024 Bamboo flowsheet Zenaida Boyd SUPERVISOR [employer] Work Phone: [facility] Start: 09-22-2024 End: 09-22-2024 Office outpatient visit 25 minutes Zenaida Nix SUPERVISOR [employer] Work Phone: [facility] Comment on above: HTN (hypertension), benign (CMS/HCC) (Primary Dx); Vestibular schwannoma (CMS/HCC); Overweight (BMI 25.0-29.9); Tinnitus of right ear; Sensorineural hearing loss (SNHL) of right ear with unrestricted hearing of left ear; Generalized anxiety disorder (CMS/HCC) Start: 09-22-2024 End: 09-22-2024 ambulatory ZENAIDA BOYD Not Available Start: 09-21-2024 End: 09-21-2024 Bamboo flowsheet Jessee Wilmer [facility] Start: 09-21-2024 End: 09-21-2024 Bamboo flowsanselmo Hooks Wilmer MEASURER [facility] Start: 09-21-2024 End: 09-21-2024 Telephone encounter Zenaidagladys Nix SUPERVISOR [employer] Work Phone: [facility] Start: 09-21-2024 End: 09-21-2024 ambulatory Jessee Guillen [facility] Comment on above: Dizziness and giddin ess (Primary Dx); Benign neoplasm of cranial nerves (CMS/HCC); Ataxic gait Start: 09-20-2024 End: 09-20-2024 ambulatory YOAVNNY YANG Facility:[facility] Start: 09-20-2024 End: 09-20-2024 Patient encounter procedure Yovanny Yang MD Work Phone: [facility] Comment on above: Vestibular schwannom a (HCC) (Primary Dx) Start: 09-16-2024 End: 09-16-2024 ambulatory Jessee Guillen [facility] Comment on above: Dizziness and giddin ess (Primary Dx); Benign neoplasm of cranial nerves (CMS/HCC); Ataxic gait Start: 09-16-2024 End: 09-16-2024 Bamboo flowsheet Jessee Guillen [facility]UR[facility] Start: 09-16-2024 End: 09-16-2024 Bamboo flowsheet Jessee Guillen [facility] Start: 09-13-2024 End: 09-13-2024 Bamboo flowsheet Jessee Guillen [facility] Start: 09-13-2024 End: 09-13-2024 Bamboo flowsheet Jessee Guillen MEASURER [facility] Start: 09-13-2024 End: 09-13-2024 ambulatory Jessee Guillen [facility]UR[facility] Comment on above: Dizziness and giddin ess (Primary Dx); Benign neoplasm of cranial nerves (CMS/HCC); Ataxic gait Start: 09-06-2024 End: 09-06-2024 Bamboo flowsheet Jessee Guillen MEASURER [facility] Start: 09-06-2024 End: 09-06-2024 Bamboo flowsheet Jessee Guillen MEASURER [facility] Start: 09-06-2024 End: 09-06-2024 ambulatory Jessee Guillen MEASURER [facility] Comment on above: Dizziness and giddin ess (Primary Dx); Benign neoplasm of cranial nerves (CMS/HCC); Ataxic gait Start: 09-03-2024 End: 09-03-2024 Bamboo flowsheet Jessee Guillen MEASURER [facility] Start: 09-03-2024 End: 09-03-2024 Bamboo flowsheet Jessee Guillen MEASURER [facility] Start: 09-03-2024 End: 09-03-2024 ambulatory Jessee Guillen MEASURER [facility] Comment on above: Dizziness and giddin ess (Primary Dx); Benign neoplasm of cranial nerves (CMS/HCC); Ataxic gait Start: 08-31-2024 End: 08-31-2024 Bamboo flowsheet Celina Masters PT [facility] Start: 08-31-2024 End: 08-31-2024 Bamboo flowsheet Celina Masters PT [facility] Start: 08-31-2024 End: 08-31-2024 ambulatory Celina Masters PT [facility] Comment on above: Dizziness and giddin ess (Primary Dx); Benign neoplasm of cranial nerves (CMS/HCC); Ataxic gait Start: 08-23-2024 End: 08-23-2024 Postop follow up visit related to original px Idalia Patrick MD Work Phone: Otolaryngology Comment on above: Vestibular schwannom a (HCC) (Primary Dx) Start: 08-23-2024 End: 08-24-2024 Telephone encounter Mikey Lentz RN Neurosurgery Comment on above: Refill Request Start: 08-23-2024 End: 08-23-2024 ambulatory IDALIA PATRICK Facility:[facility] Start: 08-23-2024 End: 08-23-2024 Nursing evaluation of patient and report Mikey Lentz RN Neurosurgery Comment on above: Presence of surgical incision (Primary Dx) Start: 08-18-2024 End: 08-18-2024 Telephone encounter Mikey Lentz RN Neurosurgery Start: 08-13-2024 End: 08-13-2024 Telephone encounter Mikey Lentz RN Neurosurgery Comment on above: urgent postop Start: 08-10-2024 End: 08-13-2024 Evaluation and management of inpatient YOVANNY SORIA Facility:[facility] Start: 08-09-2024 End: 08-09-2024 Telephone encounter Mikey Lentz RN Neurosurgery Start: 08-03-2024 End: 08-03-2024 Patient encounter procedure Angelina Pycraft RT(R) Radiology Ct Scan Start: 08-03-2024 End: 08-03-2024 ambulatory Angelina Pycraft RT(R) Radiology Ct Scan Comment on above: Radiology CT Start: 08-03-2024 End: 08-03-2024 Subsequent hospital visit by physician [facility] [place] [facility] Radiology Ct Scan Comment on above: Schwannoma [D36.10] Start: 08-02-2024 End: 08-02-2024 Bamboo flowsheet Jessee Guillen MEASURER [facility] Start: 08-02-2024 End: 08-02-2024 Bamboo flowsheet Jessee Guillen MEASURER [facility] Start: 08-02-2024 End: 08-02-2024 Telephone encounter Mikey Lentz RN Neurosurgery Comment on above: Gait disorder (Prima ry Dx); Vestibular schwannoma (CMS/HCC) Start: 08-02-2024 End: 08-02-2024 ambulatory Jessee Guillen MEASURER [facility] Start: 07-27-2024 End: 07-28-2024 Clinisync Result Encounter Generic External Data Provider [facility] External Department Unsolicited Start: 07-27-2024 End: 07-28-2024 Clinisync Result Encounter Generic External Data Provider [facility] External Department Unsolicited Start: 07-27-2024 End: 07-27-2024 ambulatory YOVANNY YANG Facility:[facility] Start: 07-27-2024 Encounter for other preprocedural examination IDALIA DARNELL [facility] Start: 07-27-2024 End: 07-27-2024 PAT [facility] Work Phone: Pre Anesthesia Comment on above: Pre-op examination ( Primary Dx); Schwannoma; Vestibular schwannoma (HCC); Speech difficult to understand; HTN (hypertension), benign; Kidney stone; Disc displacement, lumbar; Generalized anxiety disorder; BMI 30.0-30.9,adult; TIA (transient ischemic attack) Start: 07-27-2024 End: 07-27-2024 Preprocedural examination done [facility] Work Phone: [facility] Work Phone: Start: 07-22-2024 End: 07-22-2024 Telephone encounter Mikey Lentz RN Neurosurgery Start: 07-21-2024 End: 07-21-2024 Telephone encounter Mikey Lentz RN Neurosurgery Start: 07-21-2024 End: 07-21-2024 ambulatory YOVANNY YANG Facility:[facility] Start: 07-21-2024 End: 07-21-2024 Patient encounter procedure Yovanny Soria MD Work Phone: Neurosurgery Comment on above: Vestibular schwannom a (HCC) (Primary Dx) Start: 07-20-2024 End: 07-20-2024 Evaluation Celina Masters PT [facility] Comment on above: Gait disorder (Prima ry Dx); Vestibular schwannoma (CMS/HCC) Start: 07-20-2024 End: 07-20-2024 Bamboo flowsheet Celina Masters PT [facility] Start: 07-20-2024 End: 07-20-2024 Bamboo flowsheet Celina Masters PT [facility] Start: 07-20-2024 End: 07-20-2024 ambulatory CELINA MASTERS Not Available Start: 07-13-2024 End: 07-13-2024 Bamboo flowsheet Mary Torres MD Work Phone: [facility] Start: 07-13-2024 End: 07-13-2024 Bamboo flowsanselmo Torres MD Work Phone: [facility] Start: 07-13-2024 End: 07-13-2024 Office outpatient visit 15 minutes Mary Torres MD Work Phone: [facility] Comment on above: Vestibular schwannom a (CMS/HCC) (Primary Dx); Gait disorder Start: 07-13-2024 End: 07-13-2024 ambulatory MARY TORRES Not Available Start: 07-12-2024 End: 07-12-2024 Telephone encounter Idalia Patrick MD Work Phone: [facility] Comment on above: Patient Update Start: 07-12-2024 End: 07-12-2024 ambulatory IDALIA PATRICK Facility:[facility] Start: 07-12-2024 End: 07-12-2024 Office outpatient new 45 minutes Idalia Patrick MD Work Phone: Otolaryngology Comment on above: Sensorineural hearin g loss (SNHL) of left ear with unrestricted hearing of right ear (Primary Dx); Vestibular schwannoma (HCC); Tinnitus of right ear; Unsteadiness Start: 07-12-2024 End: 07-12-2024 ambulatory MELINDA BONEZZI Facility:[facility] Start: 07-12-2024 End: 07-12-2024 Patient encounter procedure Melinda Echevarria AUD Work Phone: Audiology Comment on above: Tinnitus, right ear (Primary Dx); Sensorineural hearing loss (SNHL) of right ear with unrestricted hearing of left ear; Imbalance Start: 05-19-2024 End: 05-19-2024 Telephone encounter Mary Torres MD Work Phone: [facility] Start: 05-13-2024 End: 05-13-2024 Telephone encounter Mary Torres MD Work Phone: [facility] Start: 05-10-2024 End: 05-10-2024 Office outpatient visit 25 minutes Mary Torres MD Work Phone: [facility] Comment on above: Vestibular schwannom a (CMS/HCC) (Primary Dx) Start: 05-10-2024 End: 05-10-2024 ambulatory MARY H TIMMIS Not Available Start: 05-10-2024 End: 05-10-2024 Telephone encounter Mary Torres MD Work Phone: [facility] Start: 04-28-2024 End: 04-28-2024 ambulatory MARY H TIMMIS Not Available Start: 03-31-2024 End: 03-31-2024 ambulatory MARY H TIMMIS Not Available Start: 03-02-2024 End: 03-02-2024 ambulatory ZENAIDA AICHHOLZ Not Available Start: 01-19-2024 End: 01-19-2024 ambulatory ZENAIDA AICHHOLZ Not Available Start: 12-11-2023 End: 12-11-2023 ambulatory ZENAIDA AICHHOLZ Not Available Start: 10-31-2023 ambulatory Agustin Manzoi ty:[facility] Start: 05-02-2023 End: 05-03-2023 ambulatory Agustin PADILLA Facility:[facility] Start: 05-02-2023 End: 05-02-2023 Patient encounter procedure Agustin PADILLA [facility] Start: 04-14-2023 End: 04-15-2023 ambulatory Martin Patricio MD Facility:[facility] Start: 04-14-2023 End: 04-15-2023 ambulatory Agustin PADILLA Facility:[facility] [place] Start: 04-14-2023 End: 04-14-2023 Patient encounter procedure Agustin R VALERIE [facility] Start: 03-28-2023 End: 03-29-2023 ambulatory Agustin PADILLA Facility: [place] Start: 03-28-2023 End: 03-28-2023 Patient encounter procedure Agustin R VALERIE [facility] Start: 03-10-2023 End: 03-11-2023 ambulatory Martin Patricio MD Facility: [place] Start: 11-18-2022 End: 11-19-2022 ambulatory DERIK HINTONA BOYD Facility:[facility] Start: 11-12-2022 End: 11-13-2022 ambulatory NAM GUEVARA . Facility:[facility] Start: 09-13-2022 End: 09-14-[address] SHAUNA MANLEY . Facility:[facility] Start: 08-27-2022 End: 08-27-[address] SHAUNA MANLEY . Facility:[facility] Start: 08-14-2022 End: 08-15-[address] SHAUNA MANLEY . Facility:[facility] Start: 07-30-2022 End: 07-30-[address] SHAUNA MANLEY . Facility:[facility] Start: 06-25-2022 End: 06-26-[address] SHAUNA MANLEY . Facility:[facility] Start: 06-21-2022 End: 06-21-[address] JIM PANIAGUA . Facility:[facility] Start: 06-10-2022 End: 06-11-[address] SHAUNA MANLEY . Facility:[facility] Start: 06-04-2022 End: 06-05-[address] SHAUNA MANLEY . Facility:[facility] Start: 05-21-2022 End: 05-21-[address] IDALIA VEE Facility: Procedures Date Procedure Procedure Detail Performing Clinician Start: 11-26-2024 Mri brain brain stem w/o w/contrast material Yovanny Soria MD Work Phone: Start: 10-08-2024 HEARING TEST/AUDIOGRAM Roxann Carmona RAS Work Phone: Start: 08-03-2024 Ct orbit sella/post fossa/ear w/o contrast matrl Yovanny Soria MD Work Phone: Start: 07-27-2024 Antibody screen IDALIA LOZADA SSIM Comment on above: Order Comment: Speci men Type: BLOOD SPECIMENOrdering Facility: [facility] Address: [address] [place] [address] Performed By: #### T [id number] ####CC MAIN BLOOD BANKCLIA [id number] [place] [address] [place] Start: 07-27-2024 [facility] APTT PPP Generic Ex ternal Data Provider Start: 07-27-2024 [facility] CBC W AUTO DIFF BLD Generic External Data Provider Start: 07-27-2024 [facility] PT PNL PPP Generic External Data Provider Start: 07-27-2024 Ecg routine ecg w/le ast 12 lds i&r only [facility] Provider Start: 07-12-2024 HEARING TEST/AUDIOGRAM Idalia Patrick MD Work Phone: Start: 11-22-2019 Cystoscopic removal of ureteric stent Agustin PADILLA Start: 11-12-2019 Cystoscopic laser lithotripsy of ureteric calculus Agustin PADILLA Procedure on back Agustin VERGARA Plan of Treatment Date Care Activity Detail Author Start: 08-13-2027 Diabetes Screening Diabetes Screening [facility] Start: 07-27-2027 Diabetes Screening Diabetes Screening [facility] Start: 01-25-2025 End: 01-25-2025 Patient encounter procedure 01/25/2025 11:00 AM EDT Office Visit Neurosurgery [address] [place] [address] Korin Saunders APRN.COMMERCIAL INTERIOR DESIGNER [address] [place] [address] 4 MONTH FOLLOW UP WITH NIDA Neurosurgery Comment on above: 4 MONTH FOLLOW UP WITH NIDA Start: 01-20-2025 End: 01-20-2025 Patient encounter procedure 01/20/2025 9:40 AM EDT Office Visit [facility] [address] [place] [id number] Zenaida Nix, SUPERVISOR GLYCERIN [address] [place] [address] [facility] Start: 12-10-2024 Screening for malignant neoplasm of colon Colorectal Cancer Screening [facility] Comment on above: Postponed from 05/21/2023 (Patient Refus ed) Start: 11-08-2024 End: 11-08-2024 ambulatory 11/08/2024 8:30 AM EST Treatment [facility] [address] [place] [address] Celina Masters, PT [facility] Start: 11-04-2024 End: 11-04-2024 ambulatory [facility] Comment on above: Arrived Start: 11-01-2024 End: 11-01-2024 ambulatory [facility] Comment on above: Dizziness and giddiness (Primary Dx); Benign neoplasm of cranial nerves (CMS/HCC) Start: 10-28-2024 End: 10-28-2024 ambulatory [facility] Comment on above: Arrived Start: 10-25-2024 End: 10-25-2024 ambulatory [facility] Comment on above: Arrived Start: 10-21-2024 End: 10-21-2024 ambulatory [facility] Comment on above: Arrived Start: 10-19-2024 End: 10-19-2024 ambulatory [facility] Comment on above: Dizziness and giddiness (Primary Dx); Benign neoplasm of cranial nerves (CMS/HCC); Ataxic gait; Gait disorder; Vestibular schwannoma (CMS/HCC) Start: 10-14-2024 End: 10-14-2024 ambulatory [facility] Comment on above: Arrived Start: 10-11-2024 End: 10-11-2024 ambulatory 10/11/2024 12:00 PM EST Treatment [facility] [address] [facility] [address] [place] [address] Jessee Guillen, MEASURER Arrived [facility] Comment on above: Arrived Start: 10-08-2024 End: 10-08-2024 Patient encounter procedure Audiology Comment on above: 1 Month Follow Up Start: 10-01-2024 End: 10-01-2024 ambulatory [facility] Comment on above: Arrived Start: 09-28-2024 End: 09-28-2024 ambulatory 09/28/2024 10:30 AM EST Treatment [facility] [address] [facility] [address] [place] [address] Jessee Guillen, MEASURER [facility] Start: 09-24-2024 End: 09-24-2024 ambulatory [facility] Comment on above: Arrived Start: 09-23-2024 End: 08-24-2025 HEARING TEST/AUDIOGRAM HEARING TEST/AUDIOGRAM Audiology Routine Vestibular schwannoma (HCC) Expected: 09/23/2024, Expires: 08/24/2025 [facility] Work Phone: Comment on above: Expected: 09/23/2024, Expires: Start: 09-22-2024 End: 09-22-2024 Patient encounter procedure 09/22/2024 2:00 PM EST Office Visit [facility] [address] [place] [address] Zenaida Nix NP [address] [place] [address] Arrived [facility] Comment on above: Arrived Start: 09-21-2024 End: 09-21-2024 ambulatory [facility] Comment on above: Arrived Start: 09-20-2024 End: 09-20-2024 Patient encounter procedure 09/20/2024 2:30 PM EST Office Visit [facility] Brain Tumor [place] [address] [place] [address] Yovanny Soria MD [address] [place] [address] Post-Op Scheduling Request [facility] Comment on above: Post-Op Scheduling Request Start: 09-16-2024 End: 09-16-2024 ambulatory [facility] Comment on above: Dizziness and giddiness (Primary Dx); Benign neoplasm of cranial nerves (CMS/HCC); Ataxic gait Start: 09-13-2024 End: 09-13-2024 ambulatory 09/13/2024 9:30 AM EST Treatment [facility] [address] [facility] [address] [place] [address] Jessee Guillen, EDWIN [facility] Start: 09-06-2024 End: 09-06-2024 ambulatory [facility] Comment on above: Dizziness and giddiness (Primary Dx); Benign neoplasm of cranial nerves (CMS/HCC); Ataxic gait Start: 09-03-2024 End: 09-03-2024 ambulatory [facility] Comment on above: Arrived Start: 08-31-2024 End: 08-31-2024 ambulatory 08/31/2024 11:00 AM EST Evaluation [facility] [address] [address] Celina Masters, PT Dizziness and giddiness (Primary Dx); Benign neoplasm of cranial nerves (CMS/HCC); Ataxic gait [facility] Comment on above: Dizziness and giddiness (Primary Dx); Benign neoplasm of cranial nerves (CMS/HCC); Ataxic gait Start: 08-23-2024 End: 08-23-2024 Patient encounter procedure 08/23/2024 2:00 PM EST Office Visit Otolaryngology [address] [address] Idalia Patrick MD [address] [place] [address] POST OP Otolaryngology Comment on above: POST OP Start: 08-23-2024 End: 08-23-2024 Nursing evaluation of patient and report 08/23/2024 9:30 AM EST Nurse Visit Neurosurgery [address] [place] [address] Mikey Lentz RN Post-Op Scheduling Request Neurosurgery Comment on above: Post-Op Scheduling Request Start: 08-10-2024 End: 08-10-2024 Admission to same day surgery center 08/10/2024 7:30 AM EST - 08/10/2024 4:15 PM EST Surgery Admitting [address] [place] [address] Yovanny Soria MD [address] [place] [phone] CRANIECTOMY EXCISION TUMOR, INFARENTORIAL OR POST FOSSA, CEREBELLOPONTINE ANGLE TUMOR Admitting Comment on above: CRANIECTOMY EXCISION TUMOR, INFARENTORIA L OR POST FOSSA, CEREBELLOPONTINE ANGLE TUMOR Start: 08-10-2024 End: 08-10-2024 Anesthesia consultation 08/10/2024 7:30 AM EST Anesthesia Event Admitting [address] [place] [address] Celso Joseph SRNA Admitting Start: 08-10-2024 End: 08-10-2024 Crnec niall infrattl/postfossa crblopnt angle niall CRANIECTOMY EXCISION TUMOR, INFARENTORIAL OR POST FOSSA, CEREBELLOPONTINE ANGLE TUMOR Schwannoma Vestibular schwannoma (HCC) 08/10/2024 7:30 AM EST [facility] Start: 08-10-2024 End: 08-10-2024 Microsurg tqs req use operating microscope MICROSURGICAL TECHNIQUE FOR CRANIOTOMY PROCEDURES Schwannoma Vestibular schwannoma (HCC) 08/10/2024 7:30 AM EST [facility] Start: 08-10-2024 Subsequent hospital visit by physician Admitting Comment on above: Schwannoma [D36.10], Vestibular schwanno ma ([facility]) [D33.3] Start: 08-03-2024 End: 08-03-2024 Patient encounter procedure 08/03/2024 3:20 PM EST Appointment Radiology Ct Scan [address] [place] [address] Scan Comment on above: Pre op Start: 07-27-2024 End: 07-27-2024 ambulatory 07/27/2024 8:30 AM EST Results Only [facility] Draw Station [address] [place] [address] [facility] Comment on above: Pre op Start: 07-27-2024 End: 07-27-2024 Anesthesia consultation 07/27/2024 7:20 AM EST PAT Pre Anesthesia [address] [place], [place] [id number] PRE OP Pre Anesthesia Comment on above: PRE OP Start: 07-26-2024 End: 10-25-2024 CONFIRM BLOOD TYPE CONFIRM BLOOD TYPE Blood Bank Routine Pre-op examination Expected: 07/26/2024, Expires: 10/25/2024 [facility] Work Phone: Comment on above: Expected: 07/26/2024, Expires: Start: 07-20-2024 End: 07-20-2024 Evaluation 07/20/2024 2:30 PM EST Evaluation [facility] [address] [place] [address] Celina Masters, PT Gait disorder [facility] Comment on above: Gait disorder Start: 06-14-2024 End: 06-14-2024 Patient encounter procedure 06/14/2024 8:40 AM EDT Office Visit [facility] [address] [place] [address] Zenaida Nix, NAYE [address] [place] [address] [facility] Start: 05-16-2024 Covid-19 Vaccine (3 - 2024-25 season) Covid-19 Vaccine ( season) [facility] Start: 05-16-2024 Influenza vaccination Influenza Vaccine (#1) [facility] Start: 05-10-2024 End: 05-10-2024 Patient encounter procedure 05/10/2024 2:20 PM EDT [facility] [address] [facility] [address] [place] [address] Mary Torres MD [address] [facility] [address] [place] [address] MAXIMINO [facility] Start: 05-21-2023 Screening for malignant neoplasm of colon [facility] Start: 2023 Prostate specific antigen measurement Prostate Cancer Screening Discussion [facility] Start: 2018 Pneumococcal Vaccine: 50+ (1 of 1 - PCV) Pneumococcal Vaccine: 50+ (1 of 1 - PCV) [facility] Start: 2018 Shingrix Vaccine (1 of 2) Shingrix Vaccine (1 of 2) [facility] Start: 2013 Diabetes Screening Diabetes Screening [facility] Start: 2013 Screening for malignant neoplasm of colon [facility] Start: 2003 Lipid panel Lipid Screening [facility] Start: 1987 Hepatitis B Vaccine (1 of 3 - 19+ 3-dose series) Hepatitis B Vaccine (1 of 3 - 19+ 3-dose series) [facility] Start: 1987 Urine microalbumin profile DTaP,Tdap,Td Vaccine (1 - Tdap) [facility] Start: 1986 Annual PCP Team Chronic Disease Visit Annual PCP Team Chronic Disease Visit [facility] Start: 1986 Anxiety Screening Anxiety Screening [facility] Start: 1986 BP Controlled (<130/80) BP Controlled (<130/80) [facility] Start: 1986 Depression Screening Depression Screening [facility] Start: 1986 Hepatitis C screening Hepatitis C Screening [facility] Start: 1986 HIV screening HIV Screening [facility] Start: 1968 Screening for malignant neoplasm of colon [facility] CONFIRM BLOOD TYPE CONFIRM BLOOD TYPE Blood Bank Routine Pre-op examination 07/27/2024 8:11 AM EST [facility] Crnec niall infrattl/postfossa crblopnt angle niall CRANIECTOMY EXCISION TUMOR, INFARENTORIAL OR POST FOSSA, CEREBELLOPONTINE ANGLE TUMOR Schwannoma Vestibular schwannoma (HCC) [facility] ECG COMPLETE [facility] Comment on above: Ordered: 07/27/2024 Microsurg tqs req us e operating microscope MICROSURGICAL TECHNIQUE FOR CRANIOTOMY PROCEDURES Schwannoma Vestibular schwannoma (HCC) [facility] Immunizations Immunization Date Immunization Notes Care Provider Fa cility 01-22-2021 SARS-CoV-2 (COVID-19 ) mRNA BNT-162b2 vax Agustin PADILLA [facility] 01-01-2021 SARS-CoV-2 (COVID-19 ) mRNA BNT-162b2 vax Agustin PADILLA [facility] Payers Date Payer Category Payer Medicaid [id number] 2005 Worker's Compensation 1968 Unknown [id number] 2.16.84 0.1.162306.3.579.2.593 1968 Unknown [id number] 2.16.84 0.1.284690.3.579.2.593 1968 Unknown [id number] 2.16.84 0.1.817811.3.579.2.593 1968 Unknown [id number] 2.16.84 0.1.378797.3.579.2.593 1968 Unknown [id number] 2.16.84 0.1.939682.3.579.2.593 1968 Unknown [id number] 2.16.84 0.1.933107.3.579.2.593 1968 Unknown [id number] 2.16.84 0.1.759780.3.579.2.593 1968 Unknown [id number] 2.16.84 0.1.673473.3.579.2.593 1968 Unknown [id number] 2.16.84 0.1.886274.3.579.2.593 1968 Unknown [id number] 2.16.84 0.1.340500.3.579.2.593 1968 Unknown [id number] 2.16.84 0.1.983616.3.579.2.593 1968 Unknown [id number] 2.16. 840.1.676167.3.579.2.196 1968 Unknown [id number] 2.16. 840.1.592810.3.579.2.196 1968 Unknown [id number] 2.16.8 40.1.409617.3.579.2.727 1968 Unknown [id number] 2.16.8 40.1.849460.3.579.2.727 1968 Unknown [id number] 2.16.8 40.1.332685.3.579.2.727 1968 Unknown [id number] 2.16.8 40.1.572776.3.579.2.727 1968 Unknown [id number] 2.16.84 0.1.868015.3.579.2.1259 1968 Unknown [id number] 2.16.84 0.1.647194.3.579.2.1259 1968 Unknown [id number] 2.16.84 0.1.359560.3.579.2.1259 1968 Unknown [id number] 2.16.84 0.1.385319.3.579.2.1259 1968 Unknown [id number] 2.16.84 0.1.646390.3.579.2.1259 1968 Unknown [id number] 2.16.84 0.1.249970.3.579.2.1259 1968 Unknown [id number] 2.16.84 0.1.004625.3.579.2.1259 1968 Unknown [id number] 2.16.84 0.1.622961.3.579.2.1259 1968 Unknown [id number] 2.16.84 0.1.661769.3.579.2.125 1968 Unknown [id number] 2.16.84 0.1.334244.3.579.2.125 1968 Unknown [id number] 2.16.84 0.1.064743.3.579.2.1258 1968 Unknown [id number] 2.16.84 0.1.649696.3.579.2.1258 1968 Unknown [id number] 2.16.84 0.1.266685.3.579.2.125 1968 Unknown [id number] 2.16.84 0.1.891850.3.579.2.125 1968 Unknown [id number] 2.16.84 0.1.760339.3.579.2.1258 1968 Unknown [id number] 2.16.84 0.1.931960.3.579.2.9 1968 Unknown [id number] 2.16.84 0.1.648655.3.579.2.125 1968 Unknown [id number] 2.16.84 0.1.406615.3.579.2.1259 1968 Unknown [id number] 2.16.84 0.1.966764.3.579.2.1258 1968 Unknown [id number] 2.16.84 0.1.955063.3.579.2.1259 1968 Unknown [id number] 2.16.84 0.1.573548.3.579.2.125 1968 Unknown [id number] 2.16.84 0.1.487442.3.579.2.1259 1968 Unknown [id number] 2.16.84 0.1.711540.3.579.2.9 1968 Unknown [id number] 2.16.84 0.1.061084.3.579.2.9 1968 Unknown [id number] 2.16.84 0.1.050932.3.579.2.1258 1968 Unknown [id number] 2.16.84 0.1.789341.3.579.2.1258 1968 Unknown [id number] 2.16.84 0.1.118881.3.579.2.1258 1968 Unknown [id number] 2.16.84 0.1.408224.3.579.2.9 1968 Unknown [id number] 2.16.84 0.1.550198.3.579.2.1258 1968 Unknown [id number] 2.16.84 0.1.384853.3.579.2.1259 1959 Medicaid [id number] 1959 Unknown [id number] 1959 Unknown [id number] Social History Date Type Detail Facility Start: 03-28-2023 End: 07-12-2024 Tobacco smoking status Never smoked tobacco (finding) [facility] Tobacco smoking status Never [facility] Start: 07-12-2024 End: 10-08-2024 Sex Assigned At Male [facility] Start: 12-11-2023 End: 07-12-2024 Tobacco use and exposure Smokeless tobacco non-user [facility] Start: 07-12-2024 End: 10-08-2024 Alcoholic beverage intake Ex-drinker (finding) [facility] Start: 07-12-2024 End: 10-08-2024 History of Social function [facility] Start: 1970 Sex assigned at Not on file C [facility] Medical Equipment Procedure Code Equipment Code Equipment Original Text Equipment Identifier Dates Cement Hydroset Calcium Phosphate Bone Injectable Osteoconductive 10cc Void - [id number] Start: 08-10-2024 Functional Status Date Assessment Result Facility 08-13-2024 Are you deaf, or do you have serious difficulty hearing Yes 08/13/2024 12:57 PM Gagan Chi, RN Yes [facility] 08-13-2024 Are you blind, or do you have serious difficulty seeing, even when wearing glasses No 08/13/2024 12:57 PM Gagan Chi, S[place] No [facility] 08-13-2024 Do you have serious difficulty walking or climbing stairs No 08/13/2024 12:57 PM Gagan Chi, S[place] No [facility] 08-13-2024 Do you have difficul ty dressing or bathing No 08/13/2024 12:57 PM Gagan Chi, S[place] No [facility] 08-13-2024 Because of a physica l, mental, or emotional condition, do you have difficulty doing errands alone such as visiting a physician's office or shopping No 08/13/2024 12:57 PM Gagan Chi, SALEEM No [facility] 05-02-2023 Functional Status N/A [facility] 04-14-2023 Functional Status N/A [facility] 03-28-2023 Functional Status N/A [facility] Mental Status Date Assessment Result Facility 08-13-2024 Because of a physica l, mental, or emotional condition, do you have serious difficulty concentrating, remembering, or making decisions No 08/13/2024 12:57 PM Gagan Chi, RN No [facility] Clinical Notes 06-04-2022 to 11-26-2024 [facility] - Sally Winkler, claim attorney - [facility] - 11/26/2024 10:20 AM EDTTelephone Encounter - Kim Gifford - 11/18/2024 11:25 AM EST Note Date & Type Note Facility 11-26-2024 Miscellaneous Notes Radiology Service Progress Note DATE OF SERVICE: November 26, 2024 TIME: 10:38 AM PATIENT IDENTITY VERIFICATION COMPLETED USING TWO (2) STANDARD IDENTIFIERS: Name and Date of confirmed by patient verbally and Name and Date of confirmed by identification band. FALL SCREENING: Has the patient had 2 falls in the last year or 1 fall with injury or currently using an Ambulatory Assistive Device (Walker, Cane, Wheelchair, Crutches, etc.)? No PATIENT GENDER DATA: Assigned male at PATIENT RELEVANT IMPLANT DATA REVIEWED: Yes PATIENT PRESENTS WITH AN IMPLANTABLE OR ATTACHED MUSEUM EDUCATOR: No ALLERGIES: Reviewed and unchanged CONTRAST ALLERGY: NO. EXAM: MRI - CONTRAST TYPE: GROUP II PERIPHERAL IV DATA: Ambulatory: A peripheral IV was started in the Left with a Angio cath: 24 gauge. RADIOLOGY DEPARTMENT: MR; Exam(s) Completed: Head: Cranial Nerve, Lower SIGNATURE: VIRI Benitez PATIENT NAME: Mayra Black DATE: November 26, 2024 TIME: 10:38 AM documented in this encounter [facility] 11-26-2024 Progress note Formatting of t his note is different from the original. Radiology Service Progress Note DATE OF SERVICE: November 26, 2024 TIME: 10:38 AM PATIENT IDENTITY VERIFICATION COMPLETED USING TWO (2) STANDARD IDENTIFIERS: Name and Date of confirmed by patient verbally and Name and Date of confirmed by identification band. FALL SCREENING: Has the patient had 2 falls in the last year or 1 fall with injury or currently using an Ambulatory Assistive Device (Walker, Cane, Wheelchair, Crutches, etc.)? No PATIENT GENDER DATA: Assigned male at PATIENT RELEVANT IMPLANT DATA REVIEWED: Yes PATIENT PRESENTS WITH AN IMPLANTABLE OR ATTACHED MUSEUM EDUCATOR: No ALLERGIES: Reviewed and unchanged CONTRAST ALLERGY: NO. EXAM: MRI - CONTRAST TYPE: GROUP II PERIPHERAL IV DATA: Ambulatory: A peripheral IV was started in the Left with a Angio cath: 24 gauge. RADIOLOGY DEPARTMENT: MR; Exam(s) Completed: Head: Cranial Nerve, Lower SIGNATURE: VIRI Benitez PATIENT NAME: Mayra Black DATE: November 26, 2024 TIME: 10:38 AM [facility] 11-18-2024 Telephone encounter Note Lm for pt per Dr Torres to bring to his surgeon's attention at next fu [facility] 11-18-2024 Miscellaneous Notes Lm for pt per Dr Torres to bring to his surgeon's attention at next fu Bring to his surgeon's attention at next F/U Pt stopped in to let you know that he is half way good after the surgery done NOV, still has pressure, and can't handle loud noises. Pt having an MRI next week in [place] documented in this encounter [facility] 11-17-2024 Telephone encounter Note Bring to his surgeon's attention at next F/U [facility] 11-17-2024 Telephone encounter Note Pt stopped in to let you know that he is half way good after the surgery done NOV, still has pressure, and can't handle loud noises. Pt having an MRI next week in [place] [facility] 11-08-2024 History of Present illness Narrative Images from the original note were not included. Physical Therapy Treatment Visit / DISCHARGE Patient Name: Mayra Black Today's Date: 11/08/2024 Encounter Diagnoses Name Primary? Dizziness and giddiness Yes 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 Gait disorder Vestibular schwannoma ([facility]) Visit number: 14 (4 visits in 2023) Timed Code Treatment Minutes: 45 minutes Total Treatment Time: 55 minutes Time In: 829 Time Out: 926 History: Pt returns to PT following surgery for right retrosigmoid craniotomy for removal of a vestibular schwannoma on 08/10/24. Pt states he has had quite a bit of pain and tenderness up until last week. Pt states solitario were already removed and incision is healing well. Pt states he has had a few instances of LOB and stumbling following surgery; usually close enough to catch self on something and denies falls. States hearing hasn't changed so far, will have a hearing test at end of next month. Precautions: Falls, universal Subjective: Pt states pressure continues in the back of his head. Tried calling Dr office Friday but states couldn't get a hold of anyone. Going to try to call again today after therapy. Pain: 11/22 Objective: PT Evaluation (08/31/2024) Functional Mobility: Gait: TUG without device: 10.46 seconds and 10.39 seconds Strength: Five Time Sit to Stand: 12.71 seconds with arms across chest Balance: Tsai Balance Scale = 35/56; Feet together, eyes closed on foam only 2 seconds. Functional Reach: 4 inches Treatment: Education: HEP education with demonstration, Educated on Eval Findings and POC Manual Therapy: Passive ROM, Joint mobilization, Soft Tissue Mobilization, Myofascial Release, Muscle Energy Technique, Neural Mobilization, Myofascial Cupping, Dry Needling, IASTM, and Scar mobilization as needed. Therapeutic Exercise: (30 minutes) Strength, Endurance, Flexibility, ROM, HEP, Neural Mobilization, Power, and Core Stability as needed. Performed exercises per grid for strength and balance. Discussed performing feet together eyes closed in doorway at home; pt voiced good understanding. Nustep x10 minutes unsupervised. Therapeutic Activity: Exercises to improve dynamic activities, functional tasks, functional mobility to return to prior activity level as needed. Neuromuscular re-education: (15 minutes) Balance Training, Muscle Facilitation, Dynamic Stability, Core Stabilization, and Blood Flow Restriction Training (BFRT) as needed. Modalities: Heat, Ice, Electrical Stimulation, Ultrasound, Cervical Mechanical Traction, Lumbar Mechanical Traction, Iontophoresis, and Fluidotherapy as needed. Assessment: Pt has completed 18 PT sessions for gait and balance. TUG without use of device: 8.29 seconds and 7.74 seconds. Five Time Sit to Stand: 8.26 seconds with arms across chest. Functional Reach: 7.7 inches. Standing feet together with eyes closed on balance pad remains limited to 1-2 seconds. LEFS score currently: 59/80. We will now discharge to home program. Outcome Measure: Lower Extremity Functional Scale (LEFS): 33/80 Rehab Diagnosis: difficulty walking Short Term Goal: To be met in 2 weeks Goal 1: Pt to be instructed in home exercise program. - MET Skilled Nursing Goals: To be met in 10 weeks Goal 1: Pt to report independence and compliance with home program. - MET Goal 2: Pt to complete Five Sit to Stands in less than 10.00 seconds with hands on chest indicating improved functional strength of LE's. - MET Goal 3: Pt to complete TUG in less than 9.0 seconds indicating improved gait and mobility. - MET Goal 4: Pt to score no less than 50/80 on LEFS indicating improved QOL. - MET Goal 5: Pt to achieve 7 inches with functional reach testing indicating improved stability and balance. - MET Goal 6: Pt to maintain standing feet together, eyes closed on Airex indicating improved balance. - NOT MET DISCHARGE PT documented in this encounter [facility] 10-28-2024 History of Present illness Narrative Images from the original note were not included. Physical Therapy Treatment Visit Patient Name: Mayra Black Today's Date: 10/28/2024 Encounter Diagnoses Name Primary? Dizziness and giddiness Yes 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 Gait disorder Vestibular schwannoma (CMS/HCC) Visit number: 11 (4 visits in 2023) Timed Code Treatment Minutes: 46 minutes Total Treatment Time: 56 minutes Time In: 0800 Time Out: 0900 History: Pt returns to PT following surgery for right retrosigmoid craniotomy for removal of a vestibular schwannoma on 08/10/24. Pt states he has had quite a bit of pain and tenderness up until last week. Pt states solitario were already removed and incision is healing well. Pt states he has had a few instances of LOB and stumbling following surgery; usually close enough to catch self on something and denies falls. States hearing hasn't changed so far, will have a hearing test at end of next month. Precautions: Falls, universal Subjective: Pt states he feels balance and gait is improving, continues to feel very tired following PT sessions. Pt c/o increased pressure and pain on side of head this date after waking up on that side. Pain: 11/22 Objective: PT Evaluation (08/31/2024) Functional Mobility: Gait: TUG without device: 10.46 seconds and 10.39 seconds Strength: Five Time Sit to Stand: 12.71 seconds with arms across chest Balance: Tsai Balance Scale = 35/56; Feet together, eyes closed on foam only 2 seconds. Functional Reach: 4 inches Treatment: Education: HEP education with demonstration, Educated on Eval Findings and POC Manual Therapy: Passive ROM, Joint mobilization, Soft Tissue Mobilization, Myofascial Release, Muscle Energy Technique, Neural Mobilization, Myofascial Cupping, Dry Needling, IASTM, and Scar mobilization as needed. Therapeutic Exercise: (31 minutes) Strength, Endurance, Flexibility, ROM, HEP, Neural Mobilization, Power, and Core Stability as needed. Performed exercises per grid for strength and balance. Nustep x10 minutes unsupervised. Therapeutic Activity: Exercises to improve dynamic activities, functional tasks, functional mobility to return to prior activity level as needed. Neuromuscular re-education: (15 minutes) Balance Training, Muscle Facilitation, Dynamic Stability, Core Stabilization, and Blood Flow Restriction Training (BFRT) as needed. Modalities: Heat, Ice, Electrical Stimulation, Ultrasound, Cervical Mechanical Traction, Lumbar Mechanical Traction, Iontophoresis, and Fluidotherapy as needed. Assessment: Pt has completed 15 PT sessions for gait and balance. Pt able to maintain standing feet together with eyes closed on airex approximately 1 second before opening eyes due to LOB. Will continue to progress as pt tolerates. Outcome Measure: Lower Extremity Functional Scale (LEFS): 33/80 Rehab Diagnosis: Short Term Goal: To be met in 2 weeks Goal 1: Pt to be instructed in home exercise program. Water Filtration Technician Goals: To be met in 10 weeks Goal 1: Pt to report independence and compliance with home program. (Progressing) Goal 2: Pt to complete Five Sit to Stands in less than 10.00 seconds with hands on chest indicating improved functional strength of LE's. (Not Met) Goal 3: Pt to complete TUG in less than 9.0 seconds indicating improved gait and mobility. (7.31 seconds - Goal Met) Goal 4: Pt to score no less than 50/80 on LEFS indicating improved QOL. (41/80 - Not Met) Goal 5: Pt to achieve 7 inches with functional reach testing indicating improved stability and balance. (Not Met) Goal 6: Pt to maintain standing feet together, eyes closed on Airex indicating improved balance. (Not Met) Pt will benefit from skilled PT for 2x/week from 08/31/2024 to 11/09/2024 to address the above impairments. I hereby deem this POC medically necessary. Please sign below. Date: documented in this encounter [facility] 10-19-2024 History of Present illness Narrative Images from the original note were not included. Physical Therapy Treatment Visit Patient Name: Mayra Black Today's Date: 10/19/2024 Encounter Diagnoses Name Primary? Dizziness and giddiness Yes 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 Gait disorder Vestibular schwannoma (CMS/HCC) Visit number: 8 (4 visits in 2023) Timed Code Treatment Minutes: 42 minutes Total Treatment Time: 52 minutes Time In: 0920 Time Out: 1016 History: Pt returns to PT following surgery for right retrosigmoid craniotomy for removal of a vestibular schwannoma on 08/10/24. Pt states he has had quite a bit of pain and tenderness up until last week. Pt states solitario were already removed and incision is healing well. Pt states he has had a few instances of LOB and stumbling following surgery; usually close enough to catch self on something and denies falls. States hearing hasn't changed so far, will have a hearing test at end of next month. Precautions: Falls, universal Subjective: Pt states at 4am this morning he felt like things were draining more into his stomach. Wasn't feel well and got sick. States woke back up at 7am and felt fine. Pain: 310 Objective: PT Evaluation (08/31/2024) Functional Mobility: Gait: TUG without device: 10.46 seconds and 10.39 seconds Strength: Five Time Sit to Stand: 12.71 seconds with arms across chest Balance: Tsai Balance Scale = 35/56; Feet together, eyes closed on foam only 2 seconds. Functional Reach: 4 inches Treatment: Education: HEP education with demonstration, Educated on Eval Findings and POC Manual Therapy: Passive ROM, Joint mobilization, Soft Tissue Mobilization, Myofascial Release, Muscle Energy Technique, Neural Mobilization, Myofascial Cupping, Dry Needling, IASTM, and Scar mobilization as needed. Therapeutic Exercise: (28 minutes) Strength, Endurance, Flexibility, ROM, HEP, Neural Mobilization, Power, and Core Stability as needed. Performed exercises per grid for strength and balance. Nustep x10 minutes unsupervised. Therapeutic Activity: Exercises to improve dynamic activities, functional tasks, functional mobility to return to prior activity level as needed. Neuromuscular re-education: (14 minutes) Balance Training, Muscle Facilitation, Dynamic Stability, Core Stabilization, and Blood Flow Restriction Training (BFRT) as needed. Modalities: Heat, Ice, Electrical Stimulation, Ultrasound, Cervical Mechanical Traction, Lumbar Mechanical Traction, Iontophoresis, and Fluidotherapy as needed. Assessment: Pt has completed 12 PT sessions for gait and balance. Pt with noted LE fatigue following exercises with increase unsteadiness. Pt requires SBA with standing balance exercises for safety. Will continue to progress exercises as pt tolerates. Outcome Measure: Lower Extremity Functional Scale (LEFS): 33/80 Rehab Diagnosis: Short Term Goal: To be met in 2 weeks Goal 1: Pt to be instructed in home exercise program. Skilled Nursing Goals: To be met in 10 weeks Goal 1: Pt to report independence and compliance with home program. (Progressing) Goal 2: Pt to complete Five Sit to Stands in less than 10.00 seconds with hands on chest indicating improved functional strength of LE's. (Not Met) Goal 3: Pt to complete TUG in less than 9.0 seconds indicating improved gait and mobility. (7.31 seconds - Goal Met) Goal 4: Pt to score no less than 50/80 on LEFS indicating improved QOL. (41/80 - Not Met) Goal 5: Pt to achieve 7 inches with functional reach testing indicating improved stability and balance. (Not Met) Goal 6: Pt to maintain standing feet together, eyes closed on Airex indicating improved balance. (Not Met) Pt will benefit from skilled PT for 2x/week from 08/31/2024 to 11/09/2024 to address the above impairments. I hereby deem this POC medically necessary. Please sign below. Date: documented in this encounter [facility] 10-08-2024 Note HNO ID: [id number] Author: IDALIA PATRICK MD Service: ? Author Type: Physician Type: Progress Notes Filed: 10/08/2024 11:39 Note Text: SECTION OF OTOLOGY, NEUROTOLOGY AND LATERAL SKULL BASE SURGERY Department of Otolaryngology - Head and Neck Surgery [facility] [place] History Mr. MAYRA BLACK is a 54 year old male returning for follow-up of his right vestibular schwannoma Balance is improving Having pains at the site of surgery Physical Exam Patient is alert, oriented Head examination: normocephalic Right ear: Pinna: normal External canal : patent Tympanic membrane :normal Left ear: Pinna: normal External canal : patent Tympanic membrane :normal Post auricular incision well healed. Minimal edema, no fluctuance CN VII: Face is symmetric with normal eye closure and smile. Test Results Audiogram AND Tympanogram (personally reviewed) WRS AD: 0 % : 90 % Tympanometry Vestibular testing Imaging (personally reviewed) Interval postoperative findings of right retrosigmoid approach resection of the right internal auditory canal and cerebellopontine angle mass likely representing a schwannoma compared to the prior MRI. No acute intracranial findings. No findings of residual enhancing soft tissue mass. Mild enhancement of the right 7th and 8th cranial nerves which courses along the anterior margins of the resection cavity, likely reflecting postoperative change. Assessment and Plan Mayra Black's history, physical examination, and diagnostic studies are consistent with the following diagnoses and associated treatment plan of care. Vestibular schwannoma (HCC) Sensorineural hearing loss (SNHL) of right ear with unrestricted hearing of left ear Cervicalgia - baclofen 10 mg tablet; Take 1 tablet by mouth two times a day for 14 days. Discussed hearing aids. Wants to hold off Baclofen for muscle pain/cervicalgia I have answered all of his questions. Follow up: with NSG Signed by: Jean Pierre Patrick MD, FACS Section Head, Otology-Neurotology Sterilization Technician, Hearing Implant Program Head and Neck [place] [facility] 10-08-2024 History of Present illness Narrative Images from the original note were not included. SECTION OF OTOLOGY, NEUROTOLOGY AND LATERAL SKULL BASE SURGERY Department of Otolaryngology - Head and Neck Surgery [facility] [place] History Mr. MAYRA BLACK is a 54 year old male returning for follow-up of his right vestibular schwannoma Balance is improving Having pains at the site of surgery Physical Exam Patient is alert, oriented Head examination: normocephalic Right ear: Pinna: normal External canal : patent Tympanic membrane :normal Left ear: Pinna: normal External canal : patent Tympanic membrane :normal Post auricular incision well healed. Minimal edema, no fluctuance CN VII: Face is symmetric with normal eye closure and smile. Test Results Audiogram & Tympanogram (personally reviewed) WRS AD: 0 % : 90 % Tympanometry Vestibular testing Imaging (personally reviewed) Interval postoperative findings of right retrosigmoid approach resection of the right internal auditory canal and cerebellopontine angle mass likely representing a schwannoma compared to the prior MRI. No acute intracranial findings. No findings of residual enhancing soft tissue mass. Mild enhancement of the right 7th and 8th cranial nerves which courses along the anterior margins of the resection cavity, likely reflecting postoperative change. Assessment and Plan Mayra Black'nirav history, physical examination, and diagnostic studies are consistent with the following diagnoses and associated treatment plan of care. Vestibular schwannoma (HCC) Sensorineural hearing loss (SNHL) of right ear with unrestricted hearing of left ear Cervicalgia - baclofen 10 mg tablet; Take 1 tablet by mouth two times a day for 14 days. Discussed hearing aids. Wants to hold off Baclofen for muscle pain/cervicalgia I have answered all of his questions. Follow up: with NSG Signed by: Jean Pierre Patrick MD, FACS Section Head, Otology-Neurotology Sterilization Technician, Hearing Implant Program [facility] [place] [facility] Tobacco Use: Never Was smoking cessation packet given? N/A - Patient is a non-smoker or quit >1 year ago. Was a referral initiated?N/A Patient is a non-smoker documented in this encounter [facility] 10-08-2024 Note HNO ID: [id number] Author: CHANG ALVAREZ CT Service: ? Author Type: Clinical Vacuum Tester Cans Type: Progress Notes Filed: 10/08/2024 11:39 Note Text: Tobacco Use: Never Was smoking cessation packet given? N/A - Patient is a non-smoker or quit >1 year ago. Was a referral initiated?N/A Patient is a non-smoker [facility] 10-08-2024 History of Present illness Narrative Images from the original note were not included. [facility] [place] Head and Neck Department Section of Audiology AUDIOLOGIC EVALUATION REPORT Name: Mayra Black [facility]#: [id number] Date of Service: 10/08/2024 Date of : 1970 Age: [age] year old Referred by:Idalia Patrick MD Referred for: Evaluation of suspected change in hearing, tinnitus, or balance. Referral documented: In an order in Epic Patient's major complaints: Reduced hearing in the right ear, Tinnitus in the right ear, Pressure/fullness in the right ear Mayra Theodore Black was seen for recheck post-operative audiologic evaluation prior to otologic follow up with Idalia Patrick M.D. Recall, medical history is significant for right vestibular schwannoma, S/p right Retrosigmoid craniotomy for removal of a vestibular schwannoma on 08/10/2024. 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 Family History of Hearing Loss: Denied History of ear infections: Denied Otologic Surgical History: Denied History of chemotherapy/ radiation: Denied Head trauma: Several concussions in the past Significant medical history: Right vestibular schwannoma; S/p right Retrosigmoid craniotomy for removal of a vestibular schwannoma on 08/10/2024 Hearing Aid Use: Denied Refer to audiogram under Procedures tab for results. Risk of Falls Documentation for over 65 years old: No history of falls reported so minimal to no risk IMPRESSIONS RIGHT EAR: Sensorineural hearing loss LEFT EAR: Hearing within normal limits Comparison of today's results with previous test results (07/12/2024): Today's results suggest a decrease in the right ear at the following frequencies: 125 Hz, 250 Hz, 500 Hz, 1000 Hz, 2000 Hz, 3000 Hz , 4000 Hz , 6000 Hz, and 8000 Hz NOTE: A decrease of 20 dB HL at any one test frequency, a decrease of 10 dB HL at any two adjacent test frequencies, or a loss of response at three consecutive frequencies where responses were previously obtained is considered a significant change per REE 1994 guidelines. AUDIOLOGIC EVALUATION Following is a brief interpretation of the obtained findings from the audiologic evaluation. Refer to the Auditory Test Record for complete audiometric results. The patient was counseled about the test findings and appropriate audiologic recommendations were made. SUMMARY: Audiogram can be viewed under Procedures tab. OTOSCOPY RIGHT EAR: Otoscopic inspection revealed ear canal was clear with minimal amount of non-occluding cerumen present and identifiable cone of light suggesting WNL middle ear system. LEFT EAR: Otoscopic inspection revealed ear canal was clear with an identifiable cone of light. TYMPANOMETRY Description of procedure: This test is an objective evaluation of middle ear function. CPT code: 16346 RIGHT EAR: Normal ME function. LEFT EAR: Normal ME function. ACOUSTIC REFLEXES Description of procedure: This test is an objective measure of auditory and facial nerve pathways. CPT code: 20213, 57396 RIGHT EAR PROBE EAR: (ipsi right stimulus ear; contralateral left stimulus ear): Acoustic Reflex Pattern Did not test Acoustic Reflex Decay (left stimulus ear): Did not test. LEFT EAR PROBE EAR: (ipsi left stimulus ear; contralateral right stimulus ear): Acoustic Reflex Pattern Did not test Acoustic Reflex Decay (right stimulus ear):Did not test. PURE TONE AUDIOMETRY AND SPEECH TESTING Description of procedure: This test is an objective evaluation hearing sensitivity via air and bone conduction and speech recognition testing. CPT code:49585 RIGHT EAR: Hearing Sensitivity: Profound SNHL. No response at the levels of the equipment 125-8000 Hz. Word Recognition Score: Could not test due to degree of hearing loss. LEFT EAR: Hearing Sensitivity: WNL 125-8000 Hz Word Recognition Score: Excellent (90%). WRS is consistent with hearing sensitivity. Words were presented at 55 dB HL which approximates (45-55 dB HL) intensity level for average conversational speech. The NU-6 Ordered by Difficulty Word List (10 words) was used for testing. RECOMMENDATIONS * Continue medical follow-up with Idalia Patrick M.D. * The patient was counseled regarding the need to continue to monitor hearing and have regular hearing assessments. * Call [phone] to schedule an appointment for a SSD evaluation for GRACIE or CI (if medically indicated); or follow up with a Medicaid provider to investigate possibility of obtaining a CROS device. Patient was provided a list of Medicaid providers if interested in CROS device. * Re-evaluation as medically indicated, or sooner, if a change in hearing is noted. Ras Sewell, CCC/A Hearing Implant Fellow POTTER Abbrev- iation Definition Degree of hearing sensitivity dB range WNL within normal limits WNL 0 - 20 SNHL sensorineural hearing loss Mild 20-40 CHL conductive hearing loss Moderate 40-55 MHL mixed hearing loss Moderately-Severe 55-70 WRS word recognition score Severe 70-90 ME middle ear Profound 90 + TM tympanic membrane documented in this encounter [facility] 10-08-2024 Note HNO ID: [id number] Author: ROXANN CARMONA AUD Service: ? Author Type: Clinical Science Consultant Type: Progress Notes Filed: 10/08/2024 11:08 Note Text: [facility] [place] Section of Audiology AUDIOLOGIC EVALUATION REPORT Name: Mayra Black [facility]#: [id number] Date of Service: 10/08/2024 Date of : 1970 Age: [age] year old Referred by:Idalia Patrick MD Referred for: Evaluation of suspected change in hearing, tinnitus, or balance. Referral documented: In an order in Epic Patient's major complaints: Reduced hearing in the right ear, Tinnitus in the right ear, Pressure/fullness in the right ear Mayra Black was seen for recheck post-operative audiologic evaluation prior to otologic follow up with Idalia Patrick M.D. Recall, medical history is significant for right vestibular schwannoma, S/p right Retrosigmoid craniotomy for removal of a vestibular schwannoma on 08/10/2024. 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 Family History of Hearing Loss: Denied History of ear infections: Denied Otologic Surgical History: Denied History of chemotherapy/ radiation: Denied Head trauma: Several concussions in the past Significant medical history: Right vestibular schwannoma; S/p right Retrosigmoid craniotomy for removal of a vestibular schwannoma on 08/10/2024 Hearing Aid Use: Denied Refer to audiogram under Procedures tab for results. Risk of Falls Documentation for over 65 years old: No history of falls reported so minimal to no risk IMPRESSIONS RIGHT EAR: Sensorineural hearing loss LEFT EAR: Hearing within normal limits Comparison of today's results with previous test results (07/12/2024): Today's results suggest a decrease in the right ear at the following frequencies: 125 Hz, 250 Hz, 500 Hz, 1000 Hz, 2000 Hz, 3000 Hz , 4000 Hz , 6000 Hz, and 8000 Hz NOTE: A decrease of 20 dB HL at any one test frequency, a decrease of 10 dB HL at any two adjacent test frequencies, or a loss of response at three consecutive frequencies where responses were previously obtained is considered a significant change per REE 1994 guidelines. AUDIOLOGIC EVALUATION Following is a brief interpretation of the obtained findings from the audiologic evaluation. Refer to the Auditory Test Record for complete audiometric results. The patient was counseled about the test findings and appropriate audiologic recommendations were made. SUMMARY: Audiogram can be viewed under Procedures tab. OTOSCOPY RIGHT EAR: Otoscopic inspection revealed ear canal was clear with minimal amount of non-occluding cerumen present and identifiable cone of light suggesting WNL middle ear system. LEFT EAR: Otoscopic inspection revealed ear canal was clear with an identifiable cone of light. TYMPANOMETRY Description of procedure: This test is an objective evaluation of middle ear function. CPT code: 61283 RIGHT EAR: Normal ME function. LEFT EAR: Normal ME function. ACOUSTIC REFLEXES Description of procedure: This test is an objective measure of auditory and facial nerve pathways. CPT code: 55758, 59975 RIGHT EAR PROBE EAR: (ipsi right stimulus ear; contralateral left stimulus ear): Acoustic Reflex Pattern Did not test Acoustic Reflex Decay (left stimulus ear): Did not test. LEFT EAR PROBE EAR: (ipsi left stimulus ear; contralateral right stimulus ear): Acoustic Reflex Pattern Did not test Acoustic Reflex Decay (right stimulus ear):Did not test. PURE TONE AUDIOMETRY AND SPEECH TESTING Description of procedure: This test is an objective evaluation hearing sensitivity via air and bone conduction and speech recognition testing. CPT code:20175 RIGHT EAR: Hearing Sensitivity: Profound SNHL. No response at the levels of the equipment 125-8000 Hz. Word Recognition Score: Could not test due to degree of hearing loss. LEFT EAR: Hearing Sensitivity: WNL 125-8000 Hz Word Recognition Score: Excellent (90%). WRS is consistent with hearing sensitivity. Words were presented at 55 dB HL which approximates (45-55 dB HL) intensity level for average conversational speech. The NU-6 Ordered by Difficulty Word List (10 words) was used for testing. RECOMMENDATIONS * Continue medical follow-up with Idalia Patrick M.D. * The patient was counseled regarding the need to continue to monitor hearing and have regular hearing assessments. * Call [phone] to schedule an appointment for a SSD evaluation for GRACIE or CI (if medically indicated); or follow up with a Medicaid provider to invest (more content not included)... [facility] 10-01-2024 History of Present illness Narrative Images from the original note were not included. Physical Therapy Treatment Visit Patient Name: Mayra Black Today's Date: 10/01/2024 Encounter Diagnoses Name Primary? Dizziness and giddiness Yes 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 Gait disorder Vestibular schwannoma (CMS/HCC) Visit number: 5 (4 visits in 2023) Timed Code Treatment Minutes: 55 minutes Total Treatment Time: 55 minutes Time In: 1030 Time Out: 1129 History: Pt returns to PT following surgery for right retrosigmoid craniotomy for removal of a vestibular schwannoma on 08/10/24. Pt states he has had quite a bit of pain and tenderness up until last week. Pt states solitario were already removed and incision is healing well. Pt states he has had a few instances of LOB and stumbling following surgery; usually close enough to catch self on something and denies falls. States hearing hasn't changed so far, will have a hearing test at end of next month. Precautions: Falls, universal Subjective: Pt states having more pain at incision site this date. Frustrated with continued pain on side of head and lack of hearing in right ear. Pain: 3/10 Objective: PT Evaluation (08/31/2024) Functional Mobility: Gait: TUG without device: 10.46 seconds and 10.39 seconds Strength: Five Time Sit to Stand: 12.71 seconds with arms across chest Balance: Tsai Balance Scale = 35/56; Feet together, eyes closed on foam only 2 seconds. Functional Reach: 4 inches Treatment: Education: HEP education with demonstration, Educated on Eval Findings and POC Manual Therapy: Passive ROM, Joint mobilization, Soft Tissue Mobilization, Myofascial Release, Muscle Energy Technique, Neural Mobilization, Myofascial Cupping, Dry Needling, IASTM, and Scar mobilization as needed. Therapeutic Exercise: (30 minutes) Strength, Endurance, Flexibility, ROM, HEP, Neural Mobilization, Power, and Core Stability as needed. Performed exercises per grid for strength and balance. Therapeutic Activity: Exercises to improve dynamic activities, functional tasks, functional mobility to return to prior activity level as needed. Neuromuscular re-education: (25 minutes) Balance Training, Muscle Facilitation, Dynamic Stability, Core Stabilization, and Blood Flow Restriction Training (BFRT) as needed. Modalities: Heat, Ice, Electrical Stimulation, Ultrasound, Cervical Mechanical Traction, Lumbar Mechanical Traction, Iontophoresis, and Fluidotherapy as needed. Assessment: Pt has completed 9 PT sessions for gait and balance. PT able to complete 5 sit to stands in 10.36 seconds with arms across chest. Pt requires occasional cues to stay on task with exercises. SBA with retro walking for safety. Will continue. Outcome Measure: Lower Extremity Functional Scale (LEFS): 33/80 Rehab Diagnosis: Short Term Goal: To be met in 2 weeks Goal 1: Pt to be instructed in home exercise program. Skilled Nursing Goals: To be met in 10 weeks Goal 1: Pt to report independence and compliance with home program. Goal 2: Pt to complete Five Sit to Stands in less than 10.00 seconds with hands on chest indicating improved functional strength of LE's. Goal 3: Pt to complete TUG in less than 9.0 seconds indicating improved gait and mobility. Goal 4: Pt to score no less than 50/80 on LEFS indicating improved QOL. Goal 5: Pt to achieve 7 inches with functional reach testing indicating improved stability and balance. Goal 6: Pt to maintain standing feet together, eyes closed on Airex indicating improved balance. Pt will benefit from skilled PT for 2x/week from 08/31/2024 to 11/09/2024 to address the above impairments. I hereby deem this POC medically necessary. Please sign below. Date: documented in this encounter [facility] 09-22-2024 History of Present illness Narrative Associated Problem(s): Generalized anxiety disorder (CMS/HCC) Anxiety tends to worsen with overwhelming situations He does not take meds at this time and does not want to Associated Problem(s): Tinnitus of right ear No longer present Associated Problem(s): Sensorineural hearing loss (SNHL) of right ear with unrestricted hearing of left ear Continue with follow up with ENT ect Associated Problem(s): Overweight (BMI 25.0-29.9) Healthy diet choices, progress activity as tolerated Associated Problem(s): HTN (hypertension), benign (CMS/HCC) Please check blood pressure daily and record DASH diet Limit caffeine Take medication as directed Contact office if chest pain, pressure, dizziness, shortness of breath, swelling legs Recommend slow position changes Takes his amlodipine sporadically, recommend that he does take this daily as directed Associated Problem(s): Vestibular schwannoma (CMS/HCC) Continue with [place] for FU Cont with PT Told has some residual blood clots in area, will have CT 01/07 Images from the original note were not included. Mayra Black is a 54 y.o. male presents with chief complaint of Hypertension HPI: Had surgery approx 6 weeks ago in [place] for Schwannoma right ear Still with follow ups, most recent appt 3 days ago. Is in PT, is still having pain, told it would take at least 4 months recovery, still not hearing out of right ear, may be getting chochlear implant at some point Hypertension This is a chronic problem. The current episode started more than 1 year ago. The problem has been waxing and waning since onset. The problem is controlled. Associated symptoms include anxiety, headaches and neck pain. Pertinent negatives include no chest pain, peripheral edema or shortness of breath. There are no associated agents to hypertension. Risk factors for coronary artery disease include male gender. Past treatments include calcium channel blockers. The current treatment provides moderate improvement. There is no history of CAD/CT, heart failure or PVD. SUBJECTIVE: MEDICATIONS: Current Outpatient Medications Medication Instructions acetaminophen (TYLENOL) 650 mg, Every 4 hours PRN amLODIPine (NORVASC) 10 mg, Oral, Daily ALLERGIES: No Known Allergies REVIEW OF SYMPTOMS: Review of Systems Constitutional: Negative for activity change, appetite change and unexpected weight change. HENT: Positive for hearing loss. Negative for ear pain, nosebleeds, sneezing, trouble swallowing and voice change. Eyes: Negative for pain, discharge and visual disturbance. Respiratory: Negative for apnea, chest tightness, shortness of breath and wheezing. Cardiovascular: Negative for chest pain and leg swelling. Gastrointestinal: Negative for abdominal distention, blood in stool, constipation and diarrhea. Genitourinary: Negative for decreased urine volume, difficulty urinating, dysuria and hematuria. Musculoskeletal: Positive for neck pain. Skin: Negative for color change. Neurological: Positive for headaches. Negative for dizziness, tremors and seizures. Psychiatric/Behavioral: Negative for agitation, decreased concentration, hallucinations, self-injury and suicidal ideas. The patient is not nervous/anxious. Hematological: Negative for adenopathy. Does not bruise/bleed easily. Endocrine: Negative for cold intolerance, heat intolerance, polydipsia and polyuria. Allergic/Immunologic: Negative for environmental allergies and food allergies. PAST MEDICAL HISTORY Past Medical History: Diagnosis Date Anxiety Hypertension (CMS/HCC) Past Surgical History: Procedure Laterality Date BACK SURGERY 2005 family history includes Cancer in his father. OBJECTIVE: Visit Vitals BP 144/90 (BP Location: Left arm, Patient Position: Sitting, BP Cuff Size: Adult long) Pulse (!) 113 Temp 98.5 F (Temporal) Resp 20 Ht 5' 9 Wt 195 lb 12.8 oz SpO2 97% BMI 28.91 kg/m Smoking Status Never BSA 2.08 m Physical Exam Vitals and nursing note reviewed. Constitutional: General: He is not in acute distress. Appearance: Normal appearance. He is normal weight. He is not ill-appearing, toxic-appearing or diaphoretic. HENT: Head: Normocephalic. Right Ear: Tympanic membrane, ear canal and external ear normal. Left Ear: Tympanic membrane, ear canal and external ear normal. Nose: Nose normal. No congestion or rhinorrhea. Mouth/Throat: Mouth: Mucous membranes are moist. Pharynx: Oropharynx is clear. No oropharyngeal exudate or posterior oropharyngeal erythema. Eyes: Extraocular Movements: Extraocular movements intact. Conjunctiva/sclera: Conjunctivae normal. Cardiovascular: Rate and Rhythm: Normal rate and regular rhythm. Pulses: Normal pulses. Heart sounds: Normal heart sounds. Pulmonary: Effort: Pulmonary effort is normal. Breath sounds: Normal breath sounds. No wheezing or rales. Abdominal: General: Bowel sounds are normal. Palpations: Abdomen is soft. Musculoskeletal: Cervical back: Neck supple. Right lower leg: No edema. Left lower leg: No edema. Lymphadenopathy: Cervical: No cervical adenopathy. Skin: General: Skin is warm and dry. Capillary Refill: Capillary refill takes 2 to 3 seconds. Neurological: General: No focal deficit present. Mental Status: He is alert and oriented to person, place, and time. Psychiatric: Mood and Affect: Mood normal. Behavior: Behavior normal. Thought Content: Thought content normal. Judgment: Judgment normal. Comments: Anxious at times ASSESSMENT AND PLAN: Follow up in about 4 months (around 01/20/2025) for Next scheduled follow-up. Problem List Items Addressed This Visit HTN (hypertension), benign (CMS/HCC) - Primary Please check blood pressure daily and record DASH diet Limit caffeine Take medication as directed Contact office if chest pain, pressure, dizziness, shortness of breath, swelling legs Recommend slow position changes Takes his amlodipine sporadically, recommend that he does take this daily as directed Generalized anxiety disorder (CMS/HCC) Anxiety tends to worsen with overwhelming situations He does not take meds at this time and does not want to Overweight (BMI 25.0-29.9) Healthy diet choices, progress activity as tolerated Tinnitus of right ear No longer present Sensorineural hearing loss (SNHL) of right ear with unrestricted hearing of left ear Continue with follow up with ENT ect Vestibular schwannoma (CMS/HCC) Continue with [place] for FU Cont with PT Told has some residual blood clots in area, will have CT 01/07 documented in this encounter [facility] 09-22-2024 Instructions Zenaida Nix NP - 09/22/2024 2:00 PM EST Please take your blood pressure pills EVERY day documented in this encounter [facility] 09-21-2024 Telephone encounter Note Pt needs a fu appt scheduled for blood pressure check LA [facility] 09-21-2024 Miscellaneous Notes Pt needs a fu appt scheduled for blood pressure check LA documented in this encounter [facility] 09-20-2024 Instructions Yovanny Soria MD - 09/20/2024 2:58 PM EST You are recovering well from surgery. Okay to resume normal activities without restriction. Recommend slow up-titration of activity as tolerated. Increase weight lifted by ~5-10 lbs per week until back to preoperative level of activity. We will plan for an MRI in 6 months and follow up with one our nurse practitioners at that time. Thank you for allowing me to participate in your care. Please do not hesitate to call with questions. Yovanny Soria MD documented in this encounter [facility] 09-20-2024 History of Present illness Narrative Images from the original note were not included. SECTION OF SKULL BASE SURGERY MINIMALLY INVASIVE CRANIAL BASE & PITUITARY SURGERY PROGRAM [facility] [place] CC: Patient Care Team: Zenaida Nix CNP as PCP - General (Family Medicine) Mary Torres MD as Referring (Ent - Otolaryngology) Idalia Patrick MD (Ent - Otolaryngology) Assessment: In summary, Mayra Black is a very pleasant 54 year old male with right sided hearing loss, with MRI showing a large right sided vestibular schwannoma. S/p Right sided retrosigmoid craniectomy, GTR of all visible tumor combo with ENT on 08/10/24. (Path- Schwannoma, WHO grade 1.). Overall, he is recovering well. We will plan for MRI in January and f/u with BT [facility] at that time. Hopefully, he will have a durable benefit from resection of right sided VS. Plan: R sided vestibular schwannoma, WHO grade 1, s/p radiographic GTR 08/10/24 Okay to resume normal activities without restriction. Recommend slow up-titration of activity as tolerated. Increase weight lifted by ~5-10 lbs per week until back to preoperative level of activity. MRI skull base w/wo in January and f/u with [facility] at that time Right sided hearing loss: F/u with Dr. Patrick scheduled in end of the month Yovanny Soria MD I spent a total of 20 minutes on the date of the service which included preparing to see the patient, [id number] patient care, completing clinical documentation, obtaining and/or reviewing separately obtained history, performing a medically appropriate examination, counseling and educating the patient/family/caregiver, ordering medications, tests, or procedures, communicating with other HCPs (not separately reported), and independently interpreting results (not separately reported). Subjective: Patient is unaccompanied.Pt reports continued Tinnitus to Lt ear, muffled. Pt denies any new neurological symptoms. Pt reports 2 occurrences of SOB since surgery, last 2 weeks ago. This happens while patiens is asleep, this SOB wakes him out of sleep. He then wakes up and is able to catch his breath. No pulmonary history. Pt unable to verbalize if attacks were from anxiety. Current Outpatient Medications Medication Sig acetaminophen (TYLENOL) 325 mg tablet 2 tablets by ORAL/FEEDING TUBE route every 4 hours as needed for pain. amLODIPine (NORVASC) 10 mg tablet Take 10 mg by mouth once daily. losartan (COZAAR) 100 mg tablet Take 100 mg by mouth once daily. methocarbamol (ROBAXIN) 500 mg tablet Take 1 tablet by mouth three times a day as needed. (Patient not taking: Reported on 08/23/2024) pantoprazole DR (PROTONIX) 20 mg tablet Take 1 tablet by mouth daily at 6 am for 3 days. No current facility-administered medications for this visit. Physical Examination: BP 162/81[md notified[ Pulse 121[md notified[ Temp (Src) 98.2 (Oral) Resp 18 Wt 195 lb 1.7 oz (88.5kg) SpO2 96% AOx3, NAD PERRL, EOMI FS, TM FSILT No drift BUE 5/5 BLE 5/5 SILT No hearing right ear Incision c/d/i Data Review: Imaging: , Pathology Additional intake questions: Has the patient had fever, nausea, vomiting, diarrhea, constipation, fatigue for > 1 week? No Does the patient have a decreased appetite? No Does patient want to see a Cellophaner? No (yes to any of above refer patient to schedulers for dietitian appointment) ) Does patient have any new or increased numbness or tingling of extremities? No Is patient interested in fertility information? No Does patient need any prescription refills? No Does patient have an advanced directive in place? No, Patient referred to [facility] documented in this encounter [facility] 09-20-2024 Note HNO ID: [id number] Author: YOVANNY SORIA MD Service: ? Author Type: Physician Type: Progress Notes Filed: 09/20/2024 15:00 Note Text: SECTION OF SKULL BASE SURGERY MINIMALLY INVASIVE CRANIAL BASE AND PITUITARY SURGERY PROGRAM [facility] [place] CC: Patient Care Team: Zenaida Nix CNP as PCP - General (Family Medicine) Spenser, Mary Richardson MD as Referring (Ent - Otolaryngology) Idalia Patrick MD (Ent - Otolaryngology) Assessment: In summary, Mayra Black is a very pleasant 54 year old male with right sided hearing loss, with MRI showing a large right sided vestibular schwannoma. S/p Right sided retrosigmoid craniectomy, GTR of all visible tumor combo with ENT on 08/10/24. (Path- Schwannoma, WHO grade 1.). Overall, he is recovering well. We will plan for MRI in January and f/u with [facility] at that time. Hopefully, he will have a durable benefit from resection of right sided VS. Plan: R sided vestibular schwannoma, WHO grade 1, s/p radiographic GTR 08/10/24 Okay to resume normal activities without restriction. Recommend slow up-titration of activity as tolerated. Increase weight lifted by ~5-10 lbs per week until back to preoperative level of activity. MRI skull base w/wo in January and f/u with [facility] at that time Right sided hearing loss: F/u with Dr. Patrick scheduled in end of the month Yovanny Soria MD I spent a total of 20 minutes on the date of the service which included preparing to see the patient, [id number] patient care, completing clinical documentation, obtaining and/or reviewing separately obtained history, performing a medically appropriate examination, counseling and educating the patient/family/caregiver, ordering medications, tests, or procedures, communicating with other HCPs (not separately reported), and independently interpreting results (not separately reported). Subjective: Patient is unaccompanied.Pt reports continued Tinnitus to Lt ear, muffled. Pt denies any new neurological symptoms. Pt reports 2 occurrences of SOB since surgery, last 2 weeks ago. This happens while patiens is asleep, this SOB wakes him out of sleep. He then wakes up and is able to catch his breath. No pulmonary history. Pt unable to verbalize if attacks were from anxiety. Current Outpatient Medications Medication Sig acetaminophen (TYLENOL) 325 mg tablet 2 tablets by ORAL/FEEDING TUBE route every 4 hours as needed for pain. amLODIPine (NORVASC) 10 mg tablet Take 10 mg by mouth once daily. losartan (COZAAR) 100 mg tablet Take 100 mg by mouth once daily. methocarbamol (ROBAXIN) 500 mg tablet Take 1 tablet by mouth three times a day as needed. (Patient not taking: Reported on 08/23/2024) pantoprazole DR (PROTONIX) 20 mg tablet Take 1 tablet by mouth daily at 6 am for 3 days. No current facility-administered medications for this visit. Physical Examination: BP 162/81[md notified[ Pulse 121[md notified[ Temp (Src) 98.2 (Oral) Resp 18 Wt 195 lb 1.7 oz (88.5kg) SpO2 96% AOx3, NAD PERRL, EOMI FS, TM FSILT No drift BUE 5/5 BLE 5/5 SILT No hearing right ear Incision c/d/i Data Review: Imaging: , Pathology [facility] 09-20-2024 Note HNO ID: [id number] Author: ANN MANDUJANO MA Service: ? Author Type: Spanish Translator Type: Progress Notes Filed: 09/20/2024 15:00 Note Text: Additional intake questions: Has the patient had fever, nausea, vomiting, diarrhea, constipation, fatigue for > 1 week? No Does the patient have a decreased appetite? No Does patient want to see a Cellophaner? No (yes to any of above refer patient to schedulers for dietitian appointment) ) Does patient have any new or increased numbness or tingling of extremities? No Is patient interested in fertility information? No Does patient need any prescription refills? No Does patient have an advanced directive in place? No, Patient referred to Resource Center Electronically Signed By: Ann Mandujano MA [facility] 08-31-2024 History of Present illness Narrative Images from the original note were not included. Physical Therapy Evaluation Visit Patient Name: Mayra Black Today's Date: 08/31/2024 Encounter Diagnoses Name Primary? Dizziness and giddiness Yes 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 Visit number: 1 Timed Code Treatment Minutes: 50 minutes Total Treatment Time: 50 minutes Time In: 1055 Time Out: 1147 History: Pt returns to PT following surgery for right retrosigmoid craniotomy for removal of a vestibular schwannoma on 08/10/24. Pt states he has had quite a bit of pain and tenderness up until last week. Pt states solitario were already removed and incision is healing well. Pt states he has had a few instances of LOB and stumbling following surgery; usually close enough to catch self on something and denies falls. States hearing hasn't changed so far, will have a hearing test at end of next month. Precautions: Falls, universal Subjective: Right side of skull Pain: 6-7/10 Objective: PT Evaluation (08/31/2024) Functional Mobility: Gait: TUG without device: 10.46 seconds and 10.39 seconds Strength: Five Time Sit to Stand: 12.71 seconds with arms across chest Balance: Tsai Balance Scale = 35/56; Feet together, eyes closed on foam only 2 seconds. Functional Reach: 4 inches Treatment: Education: HEP education with demonstration, Educated on Eval Findings and POC Manual Therapy: Passive ROM, Joint mobilization, Soft Tissue Mobilization, Myofascial Release, Muscle Energy Technique, Neural Mobilization, Myofascial Cupping, Dry Needling, IASTM, and Scar mobilization as needed. Therapeutic Exercise: (10 minutes) Strength, Endurance, Flexibility, ROM, HEP, Neural Mobilization, Power, and Core Stability as needed. Performed exercises per grid for strength and balance. Therapeutic Activity: Exercises to improve dynamic activities, functional tasks, functional mobility to return to prior activity level as needed. Neuromuscular re-education: Balance Training, Muscle Facilitation, Dynamic Stability, Core Stabilization, and Blood Flow Restriction Training (BFRT) as needed. Modalities: Heat, Ice, Electrical Stimulation, Ultrasound, Cervical Mechanical Traction, Lumbar Mechanical Traction, Iontophoresis, and Fluidotherapy as needed. Assessment: Pt is 54 y/o male with recent right retrosigmoid craniotomy. Pt with decrease balance and stability in standing. Reports multiple near falls since surgery. Tsai Balance Score: 35/56; this score is associated with almost 100% fall risk while the patient at the moment may be requiring assistance in performing certain activities of daily living such as walking. Pt will benefit from further PT to address deficits and decrease risk for falls. Outcome Measure: Lower Extremity Functional Scale (LEFS): 33/80 Rehab Diagnosis: Short Term Goal: To be met in 2 weeks Goal 1: Pt to be instructed in home exercise program. Skilled Nursing Goals: To be met in 10 weeks Goal 1: Pt to report independence and compliance with home program. Goal 2: Pt to complete Five Sit to Stands in less than 10.00 seconds with hands on chest indicating improved functional strength of LE's. Goal 3: Pt to complete TUG in less than 9.0 seconds indicating improved gait and mobility. Goal 4: Pt to score no less than 50/80 on LEFS indicating improved QOL. Goal 5: Pt to achieve 7 inches with functional reach testing indicating improved stability and balance. Goal 6: Pt to maintain standing feet together, eyes closed on Airex indicating improved balance. Pt will benefit from skilled PT for 2x/week from 08/31/2024 to 11/09/2024 to address the above impairments. I hereby deem this POC medically necessary. Please sign below. Date: documented in this encounter [facility] 08-23-2024 Note HNO ID: [id number] Author: IDALIA PATRICK MD Service: ? Author Type: Physician Type: Progress Notes Filed: 08/23/2024 17:25 Note Text: SECTION OF OTOLOGY, NEUROTOLOGY AND LATERAL SKULL BASE SURGERY [facility] History Patient presents with: Post-Op Visit History of Present Illness: Mayra Black is a 54 year old male who presents for a firstpost-operative visit for Right Retrosigmoid craniotomy for removal of a vestibular schwannoma Otalgia: No Otorrhea: No Dizziness: Yes Tinnitus: No Other: feels hearing is quite reduced post-operatively ALLERGIES No Known Allergies Physical Exam ENT EXAMINATION: Patient is alert, oriented Head examination: normocephalic Binocular microscopic examination of ears: Right ear: Incision: well healed but beer still runner compounder External canal : patent Tympanic membrane :normal Assessment and Plan Vestibular schwannoma (HCC) - CONSULT TO PHYSICAL THERAPY; Future - HEARING TEST/AUDIOGRAM; Future IMPRESSION Encouraged VRT Follow up in one month with repeat audio I have answered all of his questions. Signed by: Idalia Patrick MD, FACS Section Head, Otology-Neurotology Sterilization Technician, Hearing Implant Program [facility] 08-23-2024 History of Present illness Narrative Images from the original note were not included. SECTION OF OTOLOGY, NEUROTOLOGY AND LATERAL SKULL BASE SURGERY [facility] History Patient presents with: Post-Op Visit History of Present Illness: Mayra Black is a 54 year old male who presents for a firstpost-operative visit for Right Retrosigmoid craniotomy for removal of a vestibular schwannoma Otalgia: No Otorrhea: No Dizziness: Yes Tinnitus: No Other: feels hearing is quite reduced post-operatively ALLERGIES No Known Allergies Physical Exam ENT EXAMINATION: Patient is alert, oriented Head examination: normocephalic Binocular microscopic examination of ears: Right ear: Incision: well healed but beer still runner compounder External canal : patent Tympanic membrane :normal Assessment and Plan Vestibular schwannoma (HCC) - CONSULT TO PHYSICAL THERAPY; Future - HEARING TEST/AUDIOGRAM; Future IMPRESSION Encouraged VRT Follow up in one month with repeat audio I have answered all of his questions. Signed by: Idalia Patrick MD, FACS Section Head, Otology-Neurotology Sterilization Technician, Hearing Implant Program [place] [facility] Tobacco Use: Never Was smoking cessation packet given? N/A - Patient is a non-smoker or quit >1 year ago. Was a referral initiated?N/A Patient is a non-smoker documented in this encounter [facility] 08-23-2024 Telephone encounter Note NEUROSURGERY CARE COORDINATION CELESTE QUICK NOTE ? Spoke to patient, Mayra and uncle ? Reason for call: confirm postop appts and driving restrictions postop. Reviewed all postop restrictions, including driving. Confirmed all postop appts. Pt,uncle verbalized understanding. JANAK Lund, S[place] 08/23/2024 2:44 PM [facility] 08-23-2024 Miscellaneous Notes NEUROSURGERY CARE COORDINATION CELESTE QUICK NOTE ? Spoke to patient, Mayra and uncle ? Reason for call: confirm postop appts and driving restrictions postop. Reviewed all postop restrictions, including driving. Confirmed all postop appts. Pt,uncle verbalized understanding. JANAK Lund, RN 08/23/2024 2:44 PM documented in this encounter [facility] 08-23-2024 Note HNO ID: [id number] Author: ADORE MARKS MA Service: ? Author Type: Spanish Translator Type: Progress Notes Filed: 08/23/2024 17:25 Note Text: Tobacco Use: Never Was smoking cessation packet given? N/A - Patient is a non-smoker or quit >1 year ago. Was a referral initiated?N/A Patient is a non-smoker [facility] 08-23-2024 Note HNO ID: [id number] Author: MIKEY VINES, SALEEM Service: ? Author Type: Registered Nurse Type: Progress Notes Filed: 08/23/2024 10:09 Note Text: Patient is here today unaccompanied for suture removal. 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 Pt reports some ongoing incisional soreness, relieved with robaxin. Pt states imbalance same as baseline, pt feels some dizziness/ imbalance when first standing up to walk. Pt walking unassisted at home, pt denies falls. Pt also reports Pt reports since surgery, pitch distortion to hearing on Rt hear, people sound like they inhaled helium when they speak. Pt states this is constant. Pt has appt with Dr Patrick today, will discuss further. Pt denies any other neurological symptoms. Re-discussed postoperative activity and associated restrictions. Rt retrosig Craniotomy incision is well-approximated and healed with some mild scabbing. There are no signs or symptoms of infection. The area was cleansed with alcohol swab and the sutures were removed without difficulty. (see image). Pt tolerated the procedure well. Reviewed wound care with patient with good understanding and confirmed postoperative follow up appointment with Dr Soria on 09/20/24. Aware to phone office with any questions or concerns. JANAK Lund, RN [facility] 08-23-2024 History of Present illness Narrative Patient is here today unaccompanied for suture removal. 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 Pt reports some ongoing incisional soreness, relieved with robaxin. Pt states imbalance same as baseline, pt feels some dizziness/ imbalance when first standing up to walk. Pt walking unassisted at home, pt denies falls. Pt also reports Pt reports since surgery, pitch distortion to hearing on Rt hear, people sound like they inhaled helium when they speak. Pt states this is constant. Pt has appt with Dr Patrick today, will discuss further. Pt denies any other neurological symptoms. Re-discussed postoperative activity and associated restrictions. Rt retrosig Craniotomy incision is well-approximated and healed with some mild scabbing. There are no signs or symptoms of infection. The area was cleansed with alcohol swab and the sutures were removed without difficulty. (see image). Pt tolerated the procedure well. Reviewed wound care with patient with good understanding and confirmed postoperative follow up appointment with Dr Soria on 09/20/24. Aware to phone office with any questions or concerns. JANAK Lund, RN documented in this encounter [facility] 08-18-2024 Telephone encounter Note NEUROSURGERY CARE COORDINATION CELESTE QUICK NOTE ? Spoke to patient, Mayra ? Reason for call: Pt calling to report feeling of increased pressure to right ear when laying down. Pt currently taking robaxin PRN for pain. Pt states he will start to use OTC tylenol as well if needed Pt denies any drainage, s/sx infection or incisional issues or any other neurological symptoms; pt advised to call office to report any of these symptoms. Pt encouraged to elevate head when laying down on 2 pillows. Discussed expected postop symptoms/ recovery. Pt currently 8 days postop. Pt verbalizes understanding. JANAK Lund, RN 08/18/2024 2:15 PM [facility] 08-18-2024 Miscellaneous Notes NEUROSURGERY CARE COORDINATION CELESTE QUICK NOTE ? Spoke to patient, Mayra ? Reason for call: Pt calling to report feeling of increased pressure to right ear when laying down. Pt currently taking robaxin PRN for pain. Pt states he will start to use OTC tylenol as well if needed Pt denies any drainage, s/sx infection or incisional issues or any other neurological symptoms; pt advised to call office to report any of these symptoms. Pt encouraged to elevate head when laying down on 2 pillows. Discussed expected postop symptoms/ recovery. Pt currently 8 days postop. Pt verbalizes understanding. JANAK Lund, RN 08/18/2024 2:15 PM documented in this encounter [facility] 08-13-2024 Telephone encounter Note Spoke with patient scheduled and confirmed Kathy Richmond August 13, 2024 1:12 PM [facility] 08-13-2024 Miscellaneous Notes Spoke with patient scheduled and confirmed Irinas Marjorie August 13, 2024 1:12 PM Post-Op Scheduling Request Time Frame: 2 weeks Orders: suture removal Provider: mikey lentz Visit type: In person Surgery/GK Date: 08/10/24 Diagnosis: VS *please also schedule [address] Soria documented in this encounter [facility] 08-13-2024 Telephone encounter Note Post-Op Scheduling Request Time Frame: 2 weeks Orders: suture removal Provider: mikey lentz Visit type: In person Surgery/GK Date: 08/10/24 Diagnosis: VS *please also schedule [address] Soria [facility] 08-13-2024 Note HNO ID: [id number] Author: KARIE HENRY CPhT Service: ? Author Type: Extruder Type: Plan of Care Filed: 08/13/2024 13:03 Note Text: PHARMACY BEDSIDE DELIVERY SERVICE Patient Name: Mayra Black The marked outpatient medications were Filled at: [facility] and delivered to the patient's bedside to PT Medication List START taking these medications acetaminophen 325 mg tablet Commonly known as: TYLENOL 2 tablets by ORAL/FEEDING TUBE route every 4 hours as needed for pain. OTC dexAMETHasone 2 mg tablet Commonly known as: DECADRON Take 1 tablet by mouth two times a day with meals for 2 days, THEN 1 tablet daily with breakfast for 1 day. Patient should start on August 14, 2024. Start taking on: August 14, 2024 DELIVERED methocarbamol 500 mg tablet Commonly known as: ROBAXIN Take 1 tablet by mouth three times a day as needed. DELIVERED oxyCODONE IR 5 mg immediate release tablet Commonly known as: ROXICODONE Take 1 tablet by mouth every 6 hours as needed for pain for up to [address] 20 mg tablet Commonly known as: PROTONIX Take 1 tablet by mouth daily at 6 am for 3 days. Start taking on: August 14, 2024 DELIVERED senna-docusate 8.6-50 mg per tablet Commonly known as: SENNA-S Take 1 tablet by mouth two times a day for 5 days. DELIVERED CONTINUE taking these medications amLODIPine 10 mg tablet Commonly known as: NORVASC losartan 100 mg tablet Commonly known as: COZAAR You might also be taking other medications not listed above. If you have questions about any of your other medications, talk to the person who prescribed them or your Primary Care Provider. Karie Henry CPhT August 13, 2024 11:30 AM [facility] 08-13-2024 Note HNO ID: [id number] Author: ODETTE VASQUEZ APRN.DERIK Service: Neurosurgery Author Type: Nurse Practitioner Type: Progress Notes Filed: 08/13/2024 10:51 Note Text: SERVICE DATE: 08/13/2024 SERVICE TIME: 10:51 AM NEUROSURGERY SKULL BASE INPATIENT PROGRESS NOTE Before 8 AM, after 6 PM and weekends please page [phone] or night/weekend [facility] air traffic control operator. See care team assignment for Primary Service [facility]. 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 He reports his right hearing is absent, as expected. Discussed plan to get out of bed, and ambulate today. He will DC to home if he is safely ambulating in the halls. Objective PHYSICAL EXAM: GENERAL: A AND O x Oriented to: person, place, and time, awake and alert. Speech is Normal, full, fluent. Appears stated age, well built, in no apparent distress. PSYCHIATRIC: Mood and affect: Appropriate. SKIN: Color, texture, turgor normal. No rashes or lesions Inspection: No evidence of eythema, warmth, bruising, abrasions, scars, deformity, or lacerations. Positive: Appropriate postop incision. CARDIOVASCULAR: Normal heart sounds, rate, rhythm, pedal pulses. No audible murmurs, carotid bruits, LE edema.. RRR without murmur, gallop, or rubs. No ectopy. Telemetry: normal sinus rhythm RESPIRATORY: lungs CTA bilat ABDOMEN: Soft and Non-tender NEUROLOGY: Motor: UE BICEPS TRICEPS DELTS Knitting Tester HI R 5/5 5/5 5/5 5/5 5/5 L 5/5 5/5 5/5 5/5 5/5 LE Hip Flex Knee Flex Knee Extend Plantarflex Dorsiflex EHL R 5/5 5/5 5/5 5/5 5/5 5/5 L 5/5 5/5 5/5 5/5 5/5 5/5 Sensory: intact.Gait: normal-based. There was no drift bilaterally on pronator drift testing. CRANIAL NERVES: Pupils: OD Right: 3 mm Reactive OS Left: 3 mm Reactive II Visual mason: are full to confrontation III, IV, EOM full V Facial sensation normal VII Normal strength VIII Normal bilaterally IX, X Normal, midline palatal rise XI Symmetric shrug, and head rotation XII Tongue midline, mobile Grade I - Normal; Normal facial function in all areas Vitals: 08/12/249 08/13/24 0135 08/13/24 0444 08/13/24 0856 BP: 101/62 125/78 134/81 133/81 Pulse: 94 89 88 96 Resp: 18 18 18 16 Temp: 36.8 ?C (98.2 ?F) 36.2 ?C (97.2 ?F) 36.8 ?C (98.2 ?F) TempSrc: Oral Oral Oral Oral SpO2: 94% 93% 92% 92% Weight: Height: Intake AND Output Intake/Output Summary (Last 24 hours) at 08/13/2024 1049 Last data filed at 08/12/2024 1800 Gross per 24 hour Intake 350 ml Output -- Net 350 ml Drains: Lines, Drains, and Airways Line Duration Peripheral 08/10/24 0555 [facility] Short Left Hand 18 Gauge 3 days Peripheral 08/10/24 0823 Right Hand 16 Gauge 3 days LABS: Na: Recent Labs 08/13/24 0603 08/12/24 0544 08/11/24 0518 NA 140 139 140 Pituitary Labs: No results found for: ACTH No results found for: COR No results found for: ILGF1 No results found for: GH 1. Out of bed and ambulating: Yes Needs PT or OT Evaluation: No 2. Central line present? No 3. Continued need for urinary catheter? Not Applicable 4. Nutrition: PO- Yes. 5. Restraints No. 6. 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 Decadron 8mg BID with taper to off in 5 days MRI skull base complete and reviewed Pain control Path pending - APAP, robaxin, PRN oxycodone Plan for DC 08/13/2024 Generalized anxiety disorder 12/11/2023 - Present Yes HTN (hypertension), benign 12/11/2023 - Present Yes Current Assessment AND Plan Continue home amlodipine, losartan PRN labetalol Maintain SBP <160 BMI 30.0-30.9,adult 12/11/2023 - Present Yes Current Assessment AND Plan [facility] healthy diet for DC Dysarthria 08/11/2024 - Present Yes Current Assessment AND Plan Baseline dysarthria * Vestibular schwannoma (HCC)- (present on admission) 08/10 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 Decadron 8mg BID with taper to off in 5 days MRI skull base complete and reviewed Pain control Path pending - APAP, robaxin, PRN oxycodone Plan for DC 08/13/2024 Dysarthria- (present on admission) Baseline dysarthria BMI 30.0-30.9,adult- (present on admission) [facility] healthy diet for DC HTN (hypertension), benign- (present on admission) Continue home amlodipine, losartan PRN labetalol Maintain SBP <160 Medication and Non-Pharmacologic VTE Prophylaxis/Anticoagulants Anticoagulant AND Antiplatelet Medications (From admission, onward) Start Dose Route Frequency Last Action Ordered Stop 08/11/242155 heparin 5,000 Units i (more content not included)... [facility] 08-12-2024 Note HNO ID: [id number] Author: RADHA OAKLEY MD Service: Neurosurgery Author Type: Resident Type: Progress Notes Filed: 08/12/2024 06:58 Note Text: Neurosurgery Inpatient Progress Note Interval HPI: NAEON Objective: 08/12/24 0200 08/12/24 0400 08/12/24 0500 08/12/24 0537 BP: 131/78 161/85 155/84 137/91 Pulse: 94 100 103 110 Resp: 19 16 Temp: 36.7 ?C (98.1 ?F) 36.7 ?C (98 ?F) TempSrc: Oral Oral SpO2: 93% 94% 94% 94% Weight: Height: EXAM: Oriented x3, baseline dysarthria PERRL, EOMI FS, TM BUE 5/5 BLE 5/5 SILT Incision c/d/i ASSESSMENT: 54M PMH HTN, known slow speech, obesity, hearing loss in setting of right sided likely VS, here for resection. 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 Yang Oakley MD PGY-2, Neurological Surgery Pager: [phone] 6:57 AM 08/12/24 Please page [phone] after 6pm, on weekends, or if unable to reach the above [facility] 08-11-2024 Note HNO ID: [id number] Author: ODETTE VASQUEZ APRN.CNP Service: Neurosurgery Author Type: Nurse Practitioner Type: Progress Notes Filed: 08/11/2024 13:43 Note Text: Attestation signed by Yovanny Soria MD at 08/11/2024 9:57 PM [facility] [place] BY [facility] STAFF PHYSICIAN NOTE OF PERSONAL INVOLVEMENT IN CARE I have personally performed a [id number] assessment of the patient, reviewed the progress note obtained and documented by the [facility], and personally participated in the potter components. I have discussed the case and management of the patient's care with the [facility]. The following comments revise or confirm relevant potter components of the [facility]'s note. POD 1 s/p R retrosig for VS resection. Doing well, FS, no drift. Feels like he can hear on the right. MRI done, looks good. Dex taper off over 5 days. SQH tonight. D/c likely 1-2 days. RNF transfer. Yovanny Soria MD Associate Staff, Skull Base AND Spine Surgery Department of Neurological Surgery August 11, 2024 9:57 PM SERVICE DATE: 08/11/2024 SERVICE TIME: 1:27 PM NEUROSURGERY SKULL BASE INPATIENT PROGRESS NOTE Before 8 AM, after 6 PM and weekends please page [phone] or night/weekend NIDA air traffic control operator. See care team assignment for Primary Service NIDA. 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 Overnight events noted were none. Objective PHYSICAL EXAM: GENERAL: A AND O x Oriented to: person, place, and time, awake and alert. Speech is baseline dysarthric. Appears stated age, well built, in no apparent distress. PSYCHIATRIC: Mood and affect: Appropriate. SKIN: Color, texture, turgor normal. No rashes or lesions Inspection: No evidence of eythema, warmth, bruising, abrasions, scars, deformity, or lacerations. Positive: Appropriate postop incision. CARDIOVASCULAR: Normal heart sounds, rate, rhythm, pedal pulses. No audible murmurs, carotid bruits, LE edema.. RRR without murmur, gallop, or rubs. No ectopy. Telemetry: normal sinus rhythm RESPIRATORY: lungs CTA bilat ABDOMEN: Soft and Non-tender NEUROLOGY: Motor: UE BICEPS TRICEPS DELTS Knitting Tester HI R 5/5 5/5 5/5 5/5 5/5 L 5/5 5/5 5/5 5/5 5/5 LE Hip Flex Knee Flex Knee Extend Plantarflex Dorsiflex EHL R 5/5 5/5 5/5 5/5 5/5 5/5 L 5/5 5/5 5/5 5/5 5/5 5/5 Sensory: intact.Gait: normal-based. There was no drift bilaterally on pronator drift testing. CRANIAL NERVES: Pupils: OD Right: 3 mm Reactive OS Left: 3 mm Reactive II Visual mason: are full to confrontation III, IV, EOM full V Facial sensation normal VII Normal strength VIII Normal bilaterally IX, X Normal, midline palatal rise XI Symmetric shrug, and head rotation XII Tongue midline, mobile Grade I - Normal; Normal facial function in all areas Vitals: 08/11/24 0700 08/11/24 0800 08/11/24 1000 08/11/24 1200 BP: 147/81 137/79 143/63 139/65 Pulse: 113 106 101 107 Resp: Temp: 36.9 ?C (98.4 ?F) 36.8 ?C (98.2 ?F) TempSrc: Oral Oral SpO2: 95% 96% 93% 94% Weight: Height: Intake AND Output Intake/Output Summary (Last 24 hours) at 08/11/2024 1324 Last data filed at 08/11/2024 1200 Gross per 24 hour Intake 1872 ml Output 2745 ml Net -873 ml Drains: Lines, Drains, and Airways Line Duration Peripheral 08/10/24 0555 [facility] Facility Short Left Hand 18 Gauge 1 day Peripheral 08/10/24 0823 Right Hand 16 Gauge 1 day Drain Duration Indwelling Urinary Catheter 08/10/24 0822 Coude 16 Fr 1 day LABS: Na: Recent Labs 08/11/24 0518 NA 140 Pituitary Labs: No results found for: ACTH No results found for: COR No results found for: ILGF1 No results found for: GH Assessment AND Plan Active Hospital Problems as of 08/11/2024 Noted - Resolved PO Hospital * (Principal) Vestibular schwannoma (HCC) 07/21/2024 - Present Yes Current Assessment AND Plan 08/10 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 Decadron 8mg BID with taper to off in 5 days MRI skull base post op Pain control Path pending - APAP, robaxin, PRN oxycodone Ok for RNF Expected DC Generalized anxiety disorder 12/11/2023 - Present Yes HTN (hypertension), benign 12/11/2023 - Present Yes Current Assessment AND Plan Continue home amlodipine, losartan PRN labetalol Maintain SBP <160 BMI 30.0-30.9,adult 12/11/2023 - Present Yes Current Assessment AND Plan [facility] healthy diet for DC Dysarthria 08/11/2024 - Present Yes Current Assessment AND Plan Baseline dysarthria * Vestibular schwannoma (HCC)- (present on admission) 08/10 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 [facility] 08-11-2024 Note HNO ID: [id number] Author: CRISTINA HOWELL, ? Service: Pharmacy Author Type: Extruder Type: Plan of Care Filed: 08/11/2024 11:46 Note Text: Insurance investigation completed Patient has active prescription insurance: Yes - Patient's insurance is in-network with [facility] Insurance loaded into [place]: Yes Test claim was completed to verify insurance is active: Successful Any questions, please reach out to your medication patient access. 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 Objective: 08/10/24 0545 08/10/24 1713 08/10/241714 BP: 155/96 177/85 146/82 Pulse: 98 97 96 Resp: Temp: 36.7 ?C (98.1 ?F) 36.9 ?C (98.4 ?F) TempSrc: Temporal Temporal SpO2: 96% 97% 98% Weight: 91.2 kg (201 lb) Height: 172.7 cm (5' 8 ) EXAM: Waking up from anesthesia Oriented x3, baseline dysarthria PERRL, EOMI FS, TM BUE 5/5 BLE 5/5 SILT Dressing c/d/i A/P: 54 year old y/o male s/p: 08/10/24: 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 Author Type: Anesthesiologist Type: Anesthesia Procedure Notes Filed: 08/10/2024 09:44 Note Text: ANESTHESIOLOGY PROCEDURE NOTE Airway General Information Procedure Start Time/Medication Administration: 08/10/2024 7:37 AM Procedure End Time: 08/10/2024 7:38 AM Patient location during procedure: OR Timeout Performed Pre-procedure: timeout performed Consent Obtained: Yes Patient identity confirmed: arm band and patient Staffing Anesthesiologist: Natalee Olsen MD SRNA: Celso Joseph SRNA Performed by: KATHARINE Indications and Patient Condition Indications for airway management: anesthesia Preoxygenated: yes anesthesia circuit Patient position: sniffing Method: asleep Difficult Mask: No Final Airway Details Final airway type: endotracheal airway Final Endotracheal Airway: ETT Cuffed: yes Successful intubation technique: video laryngoscopy Devices used: Chirinos Endotracheal tube insertion site: oral Blade size: #4 ETT size (mm): 7.5 Measured from: teeth Measurement (cm): 23 Placement verified by: capnometry Cormack-Lehane Classification: grade I - full view of glottis Number of attempts at approach: 1 Airway not difficult Comments For this procedure, I was physically present for this entire procedure. Natalee Olsen MD SIGNATURE: KATHARINE Bowman PATIENT NAME: Mayra Black DATE: August 10, 2024 TIME: 8:23 AM CSN: [id number] [facility] 08-10-2024 Note HNO ID: [id number] Author: NATALEE OLSEN MD Service: ? Author Type: Anesthesiologist Type: Anesthesia Procedure Notes Filed: 08/10/2024 09:44 Note Text: ANESTHESIOLOGY PROCEDURE NOTE A-Line General Information Procedure Start Time/Medication Administration: 08/10/2024 8:23 AM Procedure End Time: 08/10/2024 8:23 AM Patient location during procedure: OR Timeout Performed Pre-procedure: timeout performed Consent Obtained: Yes Indications: continuous blood pressure monitoring Staffing Anesthesiologist: Natalee Olsen MD SRNA: Celso Joseph SRNA Performed by: KATHARINE Preparation Sterility Preparation: hand hygiene performed prior to procedure, sterile gloves, drapes, and procedure tray, gown used during line insertion, surgical cap used, mask used, sterile drape used during line insertion, skin prep agent completely dried prior to procedure Site Prep: Chlorhexidine Procedure Details Catheter Type: arterial line Catheter Size: 20 G Catheter Length: 5.25 in Guidewire Used: Yes Guidewire Removed Intact: Yes Laterality: left Site: radial artery Ultrasound Guided: No Line Secured: occlusive biodressing and tape Events Events: patient tolerated procedure well with no complications Comments For this procedure, I was physically present for this entire procedure. Natalee Olsen MD SIGNATURE: KATHARINE Bowman PATIENT NAME: Mayra Black DATE: August 10, 2024 TIME: 8:23 AM CSN: [id number] [facility] 08-10-2024 Note HNO ID: [id number] Author: CELSO JOSEPH SRNA Service: ? Author Type: Student Type: Anesthesia Procedure Notes Filed: 08/10/2024 08:23 Note Text: ANESTHESIOLOGY PROCEDURE NOTE PIV General Information Procedure Start Time/Medication Administration: 08/10/2024 8:23 AM Procedure End Time: 08/10/2024 8:23 AM Patient Location: OR Staffing Anesthesiologist: Natalee Olsen MD SRNA: Celso Joseph SRNA Performed by: SRNA Preparation Sterility Preparation: hand hygiene performed prior to procedure Site Prep: alcohol Procedure Details Indication: need for IV access Needle Size/Type: 16 gauge angiocath Orientation: Right Location: Hand Imaging Guidance Used: No SIGNATURE: KATHARINE Bowman PATIENT NAME: Mayra Black DATE: August 10, 2024 TIME: 8:23 AM CSN: [id number] [facility] 08-09-2024 Telephone encounter Note NEUROSURGERY CARE COORDINATION [place] QUICK NOTE ? Spoke to patient, Mayra ? Reason for call: preop courtesy phone call. Reviewed NPO, PACC instructions, medications, arrival time for surgery. All questions answered/ reviewed. JANAK Lund, RN 08/09/2024 3:19 PM [facility] 08-09-2024 Miscellaneous Notes NEUROSURGERY CARE COORDINATION [place] QUICK NOTE ? Spoke to patient, Mayra ? Reason for call: preop courtesy phone call. Reviewed NPO, PACC instructions, medications, arrival time for surgery. All questions answered/ reviewed. JANAK Lund, RN 08/09/2024 3:19 PM documented in this encounter [facility] 08-03-2024 Note HNO ID: [id number] Author: ANGELINA REYES, RT(R) Service: ? Author Type: Technologist Type: Progress Notes Filed: 08/03/2024 13:43 Note Text: Radiology Service Progress Note PATIENT NAME: Mayra Black DATE OF SERVICE: August 03, 2024 TIME: 1:43 PM PATIENT IDENTITY VERIFICATION COMPLETED USING TWO (2) IDENTIFIERS: Name and Date of confirmed by patient verbally. FALL SCREENING: Has the patient had 2 falls in the last year or 1 fall with injury or currently using an Ambulatory Assistive Device (Walker, Cane, Wheelchair, Crutches, etc.)? No PATIENT GENDER DATA: Male PATIENT RELEVANT IMPLANT DATA REVIEWED: Not Applicable PATIENT PRESENTS WITH AN IMPLANTABLE OR ATTACHED MUSEUM EDUCATOR: No RADIOLOGY DEPARTMENT: CT; Exam(s) Completed: Temporal Bones PERIPHERAL IV DATA: Not applicable SIGNED BY: RT Christofer(Carolyn) August 03, 2024 1:43 PM [facility] 08-03-2024 History of Present illness Narrative Radiology Service Progress Note PATIENT NAME: Mayra Black DATE OF SERVICE: August 03, 2024 TIME: 1:43 PM PATIENT IDENTITY VERIFICATION COMPLETED USING TWO (2) IDENTIFIERS: Name and Date of confirmed by patient verbally. FALL SCREENING: Has the patient had 2 falls in the last year or 1 fall with injury or currently using an Ambulatory Assistive Device (Walker, Cane, Wheelchair, Crutches, etc.)? No PATIENT GENDER DATA: Male PATIENT RELEVANT IMPLANT DATA REVIEWED: Not Applicable PATIENT PRESENTS WITH AN IMPLANTABLE OR ATTACHED MUSEUM EDUCATOR: No RADIOLOGY DEPARTMENT: CT; Exam(s) Completed: Temporal Bones PERIPHERAL IV DATA: Not applicable SIGNED BY: RT Christofer(Carolyn) August 03, 2024 1:43 PM documented in this encounter [facility] 08-02-2024 History of Present illness Narrative Physical Therapy Treatment Visit Patient Name: Mayra Black Today's Date: 08/02/2024 Encounter Diagnoses Name Primary? Gait disorder Yes Vestibular schwannoma (CMS/HCC) Visit number: 2 Timed Code Treatment Minutes: 50 minutes Total Treatment Time: 50 minutes Time In: 1200 Time Out: 1250 History: Pt states he just found out over the summer he has a benign tumor that grows on the nerves that supply the inner ear. Pt states he started to notice difficulty hearing in right ear. He has also noticed some worsening of balance. Pt states he recently was seen by [facility] and is hoping to have tumor removed in the next few weeks. Was told by ENT that he will need to get therapy before he can do surgery. Precautions: [place]; falls Subjective: denies pain this date. Pt states he is undergoing surgery next Friday (08/10/24) to remove tomorrow. Pain: 0/10 Objective: PT Evaluation (07/20/2024) Functional Mobility: Gait: TUG without device: 10.70 seconds and 10.39 seconds Strength: Five Time Sit to Stand: 10.75 seconds with arms across chest Balance: Tsai Balance Scale = 41/56 Treatment: Education: HEP education with demonstration, Educated on Eval Findings and POC Manual Therapy: Passive ROM, Joint mobilization, Soft Tissue Mobilization, Myofascial Release, Muscle Energy Technique, Neural Mobilization, Myofascial Cupping, Dry Needling, IASTM, and Scar mobilization as needed. Therapeutic Exercise: (20 minutes) Strength, Endurance, Flexibility, ROM, HEP, Neural Mobilization, Power, and Core Stability as needed. Therapeutic Activity: Exercises to improve dynamic activities, functional tasks, functional mobility to return to prior activity level as needed. Neuromuscular re-education: (30 minutes) Balance Training, Muscle Facilitation, Dynamic Stability, Core Stabilization, and Blood Flow Restriction Training (BFRT) as needed. Pt performed balance related activities with good nasrin. Modalities: Heat, Ice, Electrical Stimulation, Ultrasound, Cervical Mechanical Traction, Lumbar Mechanical Traction, Iontophoresis, and Fluidotherapy as needed. Assessment: Pt us 48 y/o male with reports of worsening balance and hearing from right ear; recent vestibular schwannoma diagnosis. Pt with Tsai Balance Score 41/56; score is associated with patients who are mostly independent in their movement, however, present with significant risk of falling. Progressed pt throughout for balance and LE strengthening. Pt on hold from PT as he is undergoing surgery on 08/10/24. Outcome Measure: Lower Extremity Functional Scale (LEFS): 80/80 Rehab Diagnosis: difficulty walking; decrease balance; unsteady gait. Short Term Goal: To be met in 2 weeks Goal 1: Pt to be instructed in home exercise program. Skilled Nursing Goals: To be met in 10 weeks Goal 1: Pt to report independence and compliance with home program. Goal 2: Pt to complete Five Sit to Stands in less than 8.0 seconds with hands across chest indicating improved functional strength of LE's. Goal 3: Pt to complete TUG in less than 9.0 seconds indicating improved gait and mobility. Goal 4: Pt to score no less than 49/56 on Tsai Balance Test indicating decrease risk for falls. Pt will benefit from skilled PT for 1x/week from 07/20/2024 to 09/28/2024 to address the above impairments. I hereby deem this POC medically necessary. Please sign below. Date: Cosigned by Celina Masters PT at 08/02/2024 7:12 PM EST documented in this encounter [facility] 08-02-2024 Telephone encounter Note NEUROSURGERY CARE COORDINATION [place] QUICK NOTE Left patient surgical information packet at front desk coordinator to be mailed to patient. JANAK Lund, RN 08/02/2024 10:12 AM [facility] 08-02-2024 Miscellaneous Notes NEUROSURGERY CARE COORDINATION [place] QUICK NOTE Left patient surgical information packet at front desk coordinator to be mailed to patient. JANAK Lund, RN 08/02/2024 10:12 AM documented in this encounter [facility] 07-27-2024 Instructions Adrian Forrest APRN.[facility] - 07/27/2024 7:39 AM EST PATIENT PREOPERATIVE INSTRUCTIONS Idalia Patrick has scheduled you for your procedure at this surgery center: [facility] [place] [facility] Scheduling Office: [phone] --[address] [place] [address]. Please read below carefully for your personalized instructions. Dietary Restrictions: - No solid food after midnight. - You may have 12 ounces of clear liquids (water, clear juices such as apple juice or gatorade, carbonated beverages, clear tea, black coffee, jello) until 2 hours before scheduled arrival at facility. Medications: Unless instructed differently below, stay on all of your medications until your surgery. If you start any new medications after today's visit, please contact your surgeon. Pre-Surgery Med Instructions Medication Instructions losartan (COZAAR) 100 mg tablet Do not take the evening before, or the morning of surgery use mupirocin ointment twice daily for 5 days. Apply 0.5 inch with cotton swab (Q-tip) to each nostril in the morning and evening for 5 days prior to and including day of surgery. If you take any medications for erectile dysfunction-Cialis (Tadalafil), Levitra, Staxyn (Vardenafil) Viagra (Sildenenafil please do not take these for 48 hours before surgery. If you start any new medications after today's visit, please contact the surgeon's office. If you are currently using a [id number] injectable or oral medication for diabetes or weight loss such as Dulaglutide (Trulicity), Exenatide (Byetta, Bydureon), Liraglutide (Victoza, Saxenda), Semaglutide (Ozempic, Wegovy, Rybelsus), or Tirzepatide (Mounjaro), the medicine should be stopped at least 7 days before surgery. These medicines can cause food to remain in your stomach for a very long time and increase the risks from surgery and anesthesia. Not stopping the medication for a long enough time may result in your surgery being rescheduled. Blood Thinning Medications: - Hold NSAIDS (Ibuprofen, Advil, Aleve, Motrin, Celebrex, Mobic, etc.) 7 days before surgery, as directed by your surgeon. - Hold Aspirin 7 days before surgery, as directed by your surgeon. - Hold all herbals and dietary supplements 7 days before surgery. - You may take Tylenol (Acetaminophen) or any of your pain medications that do not contain aspirin or NSAIDS as needed. Important Reminders: - If you use CPAP/BIPAP, bring the machine with you to the surgery center. - If you are prescribed inhalers for breathing, continue using them. - Candy, mints, and tobacco products are NOT permitted the morning of surgery. - Hearing aids, dentures and glasses may be worn the morning of surgery. - NO jewelry, body piercings, makeup, hairpins or contacts are to be worn the day of surgery. If you develop symptoms such as a fever, cold, or flu, or have other changes to your health within TWO DAYS of scheduled surgery or the morning of surgery, please contact the surgery center above. Personal Belongings: -Please have photo ID and insurance cards. -If you do not have a copy of advance directives on file with us, please bring a copy with you on the day of surgery. - Leave ALL valuables and money at home or with family members. For Outpatient Procedures: - YOU MUST HAVE A RESPONSIBLE HOSPITAL WARD CLERK TAKE YOU HOME. A FLOOR COVERING CONTRACTOR OR INSPECTOR ADVANCED COMPOSITE CANNOT BE MADE A RESPONSIBLE HOSPITAL WARD CLERK. - We recommend that a responsible person stays with you overnight to take care of you. - You cannot stay in a hotel alone after outpatient surgery. You will not be permitted to have your surgery, if you do not have someone to take care of you. Arrival Time for Surgery: - To obtain your arrival time for surgery, call your physician's office the day before your surgery. - If your surgery is scheduled for Friday, call the Friday before. Your surgeon s home care scheduler will tell you what time to call the office. - If you have not reached the departmental home care scheduler by 5 P.M., call [phone] after 5 P.M. the day before your surgery. Please be aware that emergency situations arise, which may delay or change your surgical time. If this happens, we will notify you as soon as possible and regret any inconvenience. If you already have an Advance Directive, please fax a copy to [phone] or email to for it to be added to your chart. If you do not have an Advance Directive, you can find the appropriate form and more information at [email or web address]. We recommend that you complete the Advance Directive form found on the website and bring it with you the day of your surgery. It can be witnessed and scanned into your chart that day. documented in this encounter [facility] 07-27-2024 History and physical note Images from the original note were not included. HISTORY AND PHYSICAL EXAMINATION SERVICE DATE: 07/27/2024 SERVICE TIME: 8:00 AM PRIMARY CARE PHYSICIAN: Zenaida Nix, DERIK, COMMERCIAL INTERIOR DESIGNER REASON FOR VISIT: Mayra Black is a 54 year old male who is scheduled for Right - CRANIECTOMY EXCISION TUMOR, INFARENTORIAL OR POST FOSSA, CEREBELLOPONTINE ANGLE TUMOR Right - MICROSURGICAL TECHNIQUE FOR CRANIOTOMY PROCEDURES Right - CRANIECTOMY EXCISION TUMOR, INFARENTORIAL OR POST FOSSA, CEREBELLOPONTINE ANGLE TUMOR Right - MICROSURGICAL TECHNIQUE FOR CRANIOTOMY PROCEDURES at the request of Dr. Idalia Patrick for consultation. My final recommendation will be communicated back to the requesting physician by way of shared medical record or letter. Assessment Vestibular schwannoma (HCC) Assessment: presents for surgical intervention Per Dr. Soria 07/21/24: 2.2 x 2.2 cm right sided CPA mass. We reviewed the imaging together, and I believe this is most likely a vestibular schwannoma, Rt hearing loss, muffled hearing, tinnitus since January of 2024. He reports some degree of hearing, just muffled. He does report some intermittent dizziness, imbalance. He will be starting vestibular therapy. Of note, he has unrelated speech defect, present since . Not related to hearing. HTN (hypertension), benign Assessment: stable and compliant with current medications Last 5 Encounter BP Readings: Date: BP: 07/27/2024 148/86 07/21/2024 148/92 Kidney stone Assessment: denies past surgical intervention. Denies current calculi Disc displacement, lumbar Assessment: s/p lumbar discectomy Generalized anxiety disorder Assessment: stable, denies panic/PTSD Speech difficult to understand Assessment: speaks slowly, difficulty with pronunciation. However able to communicate effectively. BMI 30.0-30.9,adult Assessment: Body mass index is 30.71 kg/m . TIA (transient ischemic attack) Assessment: states was told he had a TIA in 2003, no residuals, no recurrence, follows with PCP. [place] Activity Status Index: METS: Walk indoors, such as around the house (1.75 METs) Do light work around the house, such as dusting or washing dishes (2.70 METs) Take care of self; that is eating, dressing, bathing, using the toilet (2.75 METs) Walk a block or two on level ground (2.75 METs) Do moderate work around the house, such as vacuuming, sweeping floors, or carrying in groceries (3.50 METs) Do yardwork, such as raking leaves, weeding, or pushing a power mower (4.50 METs) Climb a flight of stairs or walk up a hill (5.50 METs) Participate in moderate recreational activites, such as golf, bowling, dancing, doubles tennis, or throwing a baseball or football (6.00 METs) Do heavy work around the house, such as scrubbing floors, lifting or moving heavy furniture (8.00 METs) DASI Score: 37.45 Patient denies any chest pain or undue shortness of breath with the above physical activity. Clinical Frailty Scale: 2. Well STOP-Bang Score: Snores loudly Has or is being treated for high blood pressure Patient over 50 years old Male patient Denies feeling tired, fatigued, or sleepy during the daytime Has not been observed to stop breathing or choking/gasping during sleep BMI less than or equal to 35 kg/m^2 Does not have a large neck STOP-Bang Score: 4 [id number] Score: Age: <65 Sex: male CHF history: No Hypertension history: Yes Stroke/TIA/thromboembolism history: Yes Vascular disease history: No Diabetes history: No [id number] Score: 3 ARISCAT Score: Age: 51-80 Preoperative SpO2: >=96% Respiratory infection in the last month: No Duration of surgery: >3 hrs Emergency procedure: No ARISCAT Score: ANESTHESIA FINDINGS: Intubation History: No history of difficult intubation Significant Anesthesia Considerations: none Airway History: No history of difficult airway I - PHYSICAL EVALUATION AIRWAY Patient intubated: No. Tracheostomy tube not present Mallampati: II. TM distance: >3 FB. Neck ROM: full ROM without neurological symptoms. Mouth opening: adequate. Short neck: no. Thick neck: no Wallace present: no Lip Bite Test: III Microretrognathia/Micronagthia/Re cessed Chin: No DENTAL Dental findings: missing tooth/teeth. II - ANESTHESIA PLAN Anesthetic plan additional comments: *PACC/TCI - anesthesia choice. Beta Maryjane Monitoring Plan Post Procedure Analgesic Plan Prepared for surgery: This patient is optimally prepared for surgery. CONSULTS: Patient does not require consults for optimization at this time. 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 Patient denies any chest pain, shortness of breath, palpitations, fever/chills, nausea/vomiting, fatigue, or diarrhea. REVIEW OF SYSTEMS: PAIN ASSESSMENT: General: No weight loss, malaise or fevers. Neuro: Postive for h/o TIA 2003 no residual, vestibular schwannoma, Negative for Headaches Seizures Respiratory: No history of current cough or dyspnea, or pneumonia in the past 6 weeks. No history of respiratory/pulmonary symptoms or problems. Cardiovascular: Positive for: HTN, Negative for CAD, Chest Pain, CHF, DVT/PE GI: No history of GI symptoms or problems. No history of esophageal varices, recent ascites, or ETOH greater than 2 drinks per day. : h/o kidney stones Endocrine: No history of diabetes. Has not taken steroids within the past 30 days. No history of endocrinological symptoms or problems. Hematology: No history of bleeding or clotting disorder. Pt is not taking anti-coagulation or platelet medications. No history of hematological symptoms or problems. Oncology: No history of CA metastasis, chemo within 30 days, or radiotherapy within 90 days. Has not lost 10% of body wt in 6 months. No history of oncological symptoms or problems. Implanted Devices: No Psych: Anxiety Marijuana use: No Musculoskeletal: anxiety, Body mass index is 30.71 kg/m . Skin: Negative for lesions, rash and itching. The patient has the following: ACTIVE PROBLEM LIST Vestibular Schwannoma (Hcc) Disc Displacement, Lumbar Generalized Anxiety Disorder Htn (Hypertension), Benign Kidney Stone Overweight With Body Mass Index (Bmi) 25.0-29.9 Mild Cognitive Impairment Covid Immunization Dates Overdue - Covid-19 Vaccine (2023- season) Overdue since 05/16/2024 01/22/2021 Imm Admin: COVID-19 original vaccine, age 12+ yr, monovalent (PFIZER-BIONTECH - PURPLE TOP) 01/01/2021 Imm Admin: COVID-19 original vaccine, age 12+ yr, monovalent (PFIZER-BIONTECH - PURPLE TOP) PAST MEDICAL HISTORY Diagnosis Date Speech impediment Unilateral vestibular schwannoma (HCC) PAST SURGICAL HISTORY Procedure Laterality Date PAST SURGICAL HISTORY OF 2005 L4 discectomy PAST SURGICAL HISTORY OF wisdom teeth History reviewed. No pertinent family history. Social History Tobacco Use Smoking status: Never Smokeless tobacco: Never Vaping Use Vaping status: Never Used Substance Use Topics Alcohol use: Not Currently Drug use: Never Prior to Admission medications as of 07/27/24 0759 Medication Sig Last Dose Taking mupirocin (BACTROBAN) 2 % ointment two times a day for 5 days. Apply 0.5 inch with cotton swab (Q-tip) to each nostril in the morning and evening for 5 days prior to and including day of surgery. Yes bisoprolol (ZEBETA) 5 mg tablet Take by mouth. Taking Yes losartan (COZAAR) 100 mg tablet Take 100 mg by mouth once daily. Taking Yes No medication comments found. ALLERGIES Not on File Objective PHYSICAL EXAM: VITALS: BP 148/86 Pulse 101 Temp (Src) 98.3 (Temporal) Resp 18 Ht 5' 8 (1.73m) Wt 201 lb 15.1 oz (91.6kg) SpO2 96% BMI 30.71 kg/(m^2). General: Alert and oriented, No acute distress Skin: Normal color, no rash, no lesions. HEENT: EOM, pupils equal, round and reactive. Cardiovascular: Normal S1 & S2, no rubs, murmurs or gallops. No JVD. Pulse regular. Lungs: Normal breath sounds, no wheezes or crackles. Abdomen: Soft, non-tender, no rigidity. Extremities: No deformity, no edema or tenderness, no joint swelling or clubbing. Neurological: Normal cognition and motor skills. Pulses: Carotid and radial pulses normal +2. Diagnostic tests reviewed for today's visit: Lab Value Units Date High Low HB No results within date range. HCT No results within date range. WBC No results within date range. PLT No results within date range. NA No results within date range. K No results within date range. GLUC No results within date range. BUN No results within date range. CREAT No results within date range. PTSEC No results within date range. INR No results within date range. APTT No results within date range. ALT No results within date range. AST No results within date range. TBILI No results within date range. TSH No results within date range. No results found for: HBA1C Most recent EKG Recent Results (from the past 8760 hour(s)) ECG COMPLETE Collection Time: 07/27/24 7:27 AM Result Value Ventricular Rate 97 Atrial Rate 97 P-R Interval 164 QRS Duration 104 QT Interval 340 QTC Calculation (Bazett) 431 Calculated P [place] 51 Calculated R [place] 39 Calculated T [place] 39 Impression NORMAL SINUS RHYTHM NORMAL ECG Most recent MRI HEAD BRN 05/07/24 FINDINGS: There is no restricted diffusion to suggest acute infarct. There is no midline shift, mass effect, or abnormal extraaxial fluid collections. There is a 2.5 x 2.5 x 1.8 cm well-defined enhancing extra-axial mass with cystic components in the right cerebellopontine angle, extends through the internal auditory canal. There is mild mass effect upon the right anterior cerebellum. The cortical sulci and ventricular system are within normal limits for the age. The major intracranial flow voids are visualized. The cerebellar tonsils are normal in position. The orbits demonstrate no suspicious enhancement or any focal lesions. The paranasal sinuses show no air-fluid level. The mastoid air cells are clear. The calvarium and extracranial soft tissues are unremarkable. Instructions Given to Patient: Instructions located in the after visit summary. Patient given verbal and written preop instructions and voices comprehension and compliance. SIGNATURE: Adrian Forrest APRN.COMMERCIAL INTERIOR DESIGNER PATIENT NAME: Mayra Black DATE: 07/27/2024 TIME: 8:[address] Soria 07/21/24 2.2 x 2.2 cm right sided CPA mass. We reviewed the imaging together, and I believe this is most likely a vestibular schwannoma, Rt hearing loss, muffled hearing, tinnitus since January of 2024. He reports some degree of hearing, just muffled. He does report some intermittent dizziness, imbalance. He will be starting vestibular therapy. Of note, he has unrelated speech defect, present since . Not related to hearing. [facility] 07-27-2024 History and physical note Images from the original note were not included. HISTORY AND PHYSICAL EXAMINATION SERVICE DATE: 07/27/2024 SERVICE TIME: 8:00 AM PRIMARY CARE PHYSICIAN: Zenaida Nix, DERIK, COMMERCIAL INTERIOR DESIGNER REASON FOR VISIT: Mayra Black is a 54 year old male who is scheduled for Right - CRANIECTOMY EXCISION TUMOR, INFARENTORIAL OR POST FOSSA, CEREBELLOPONTINE ANGLE TUMOR Right - MICROSURGICAL TECHNIQUE FOR CRANIOTOMY PROCEDURES Right - CRANIECTOMY EXCISION TUMOR, INFARENTORIAL OR POST FOSSA, CEREBELLOPONTINE ANGLE TUMOR Right - MICROSURGICAL TECHNIQUE FOR CRANIOTOMY PROCEDURES at the request of Dr. Idalia Patrick for consultation. My final recommendation will be communicated back to the requesting physician by way of shared medical record or letter. Assessment Vestibular schwannoma (HCC) Assessment: presents for surgical intervention Per Dr. Soria 07/21/24: 2.2 x 2.2 cm right sided CPA mass. We reviewed the imaging together, and I believe this is most likely a vestibular schwannoma, Rt hearing loss, muffled hearing, tinnitus since January of 2024. He reports some degree of hearing, just muffled. He does report some intermittent dizziness, imbalance. He will be starting vestibular therapy. Of note, he has unrelated speech defect, present since . Not related to hearing. HTN (hypertension), benign Assessment: stable and compliant with current medications Last 5 Encounter BP Readings: Date: BP: 07/27/2024 148/86 07/21/2024 148/92 Kidney stone Assessment: denies past surgical intervention. Denies current calculi Disc displacement, lumbar Assessment: s/p lumbar discectomy Generalized anxiety disorder Assessment: stable, denies panic/PTSD Speech difficult to understand Assessment: speaks slowly, difficulty with pronunciation. However able to communicate effectively. BMI 30.0-30.9,adult Assessment: Body mass index is 30.71 kg/m . TIA (transient ischemic attack) Assessment: states was told he had a TIA in 2003, no residuals, no recurrence, follows with PCP. [place] Activity Status Index: METS: Walk indoors, such as around the house (1.75 METs) Do light work around the house, such as dusting or washing dishes (2.70 METs) Take care of self; that is eating, dressing, bathing, using the toilet (2.75 METs) Walk a block or two on level ground (2.75 METs) Do moderate work around the house, such as vacuuming, sweeping floors, or carrying in groceries (3.50 METs) Do yardwork, such as raking leaves, weeding, or pushing a power mower (4.50 METs) Climb a flight of stairs or walk up a hill (5.50 METs) Participate in moderate recreational activites, such as golf, bowling, dancing, doubles tennis, or throwing a baseball or football (6.00 METs) Do heavy work around the house, such as scrubbing floors, lifting or moving heavy furniture (8.00 METs) DASI Score: 37.45 Patient denies any chest pain or undue shortness of breath with the above physical activity. Clinical Frailty Scale: 2. Well STOP-Bang Score: Snores loudly Has or is being treated for high blood pressure Patient over 50 years old Male patient Denies feeling tired, fatigued, or sleepy during the daytime Has not been observed to stop breathing or choking/gasping during sleep BMI less than or equal to 35 kg/m^2 Does not have a large neck STOP-Bang Score: 4 [id number] Score: Age: <65 Sex: male CHF history: No Hypertension history: Yes Stroke/TIA/thromboembolism history: Yes Vascular disease history: No Diabetes history: No [id number] Score: 3 ARISCAT Score: Age: 51-80 Preoperative SpO2: >=96% Respiratory infection in the last month: No Duration of surgery: >3 hrs Emergency procedure: No ARISCAT Score: ANESTHESIA FINDINGS: Intubation History: No history of difficult intubation Significant Anesthesia Considerations: none Airway History: No history of difficult airway I - PHYSICAL EVALUATION AIRWAY Patient intubated: No. Tracheostomy tube not present Mallampati: II. TM distance: >3 FB. Neck ROM: full ROM without neurological symptoms. Mouth opening: adequate. Short neck: no. Thick neck: no Wallace present: no Lip Bite Test: III Microretrognathia/Micronagthia/Re cessed Chin: No DENTAL Dental findings: missing tooth/teeth. II - ANESTHESIA PLAN Anesthetic plan additional comments: *PACC/TCI - anesthesia choice. Beta Maryjane Monitoring Plan Post Procedure Analgesic Plan Prepared for surgery: This patient is optimally prepared for surgery. CONSULTS: Patient does not require consults for optimization at this time. 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 Patient denies any chest pain, shortness of breath, palpitations, fever/chills, nausea/vomiting, fatigue, or diarrhea. REVIEW OF SYSTEMS: PAIN ASSESSMENT: General: No weight loss, malaise or fevers. Neuro: Postive for h/o TIA 2003 no residual, vestibular schwannoma, Negative for Headaches Seizures Respiratory: No history of current cough or dyspnea, or pneumonia in the past 6 weeks. No history of respiratory/pulmonary symptoms or problems. Cardiovascular: Positive for: HTN, Negative for CAD, Chest Pain, CHF, DVT/PE GI: No history of GI symptoms or problems. No history of esophageal varices, recent ascites, or ETOH greater than 2 drinks per day. : h/o kidney stones Endocrine: No history of diabetes. Has not taken steroids within the past 30 days. No history of endocrinological symptoms or problems. Hematology: No history of bleeding or clotting disorder. Pt is not taking anti-coagulation or platelet medications. No history of hematological symptoms or problems. Oncology: No history of CA metastasis, chemo within 30 days, or radiotherapy within 90 days. Has not lost 10% of body wt in 6 months. No history of oncological symptoms or problems. Implanted Devices: No Psych: Anxiety Marijuana use: No Musculoskeletal: anxiety, Body mass index is 30.71 kg/m . Skin: Negative for lesions, rash and itching. The patient has the following: ACTIVE PROBLEM LIST Vestibular Schwannoma (Hcc) Disc Displacement, Lumbar Generalized Anxiety Disorder Htn (Hypertension), Benign Kidney Stone Overweight With Body Mass Index (Bmi) 25.0-29.9 Mild Cognitive Impairment Covid Immunization Dates Overdue - Covid-19 Vaccine (2023- season) Overdue since 05/16/2024 01/22/2021 Imm Admin: COVID-19 original vaccine, age 12+ yr, monovalent (PFIZER-BIONTECH - PURPLE TOP) 01/01/2021 Imm Admin: COVID-19 original vaccine, age 12+ yr, monovalent (PFIZER-BIONTECH - PURPLE TOP) PAST MEDICAL HISTORY Diagnosis Date Speech impediment Unilateral vestibular schwannoma (HCC) PAST SURGICAL HISTORY Procedure Laterality Date PAST SURGICAL HISTORY OF 2006 L4 discectomy PAST SURGICAL HISTORY OF wisdom teeth History reviewed. No pertinent family history. Social History Tobacco Use Smoking status: Never Smokeless tobacco: Never Vaping Use Vaping status: Never Used Substance Use Topics Alcohol use: Not Currently Drug use: Never Prior to Admission medications as of 07/27/24 0759 Medication Sig Last Dose Taking mupirocin (BACTROBAN) 2 % ointment two times a day for 5 days. Apply 0.5 inch with cotton swab (Q-tip) to each nostril in the morning and evening for 5 days prior to and including day of surgery. Yes bisoprolol (ZEBETA) 5 mg tablet Take by mouth. Taking Yes losartan (COZAAR) 100 mg tablet Take 100 mg by mouth once daily. Taking Yes No medication comments found. ALLERGIES Not on File Objective PHYSICAL EXAM: VITALS: BP 148/86 Pulse 101 Temp (Src) 98.3 (Temporal) Resp 18 Ht 5' 8 (1.73m) Wt 201 lb 15.1 oz (91.6kg) SpO2 96% BMI 30.71 kg/(m^2). General: Alert and oriented, No acute distress Skin: Normal color, no rash, no lesions. HEENT: EOM, pupils equal, round and reactive. Cardiovascular: Normal S1 & S2, no rubs, murmurs or gallops. No JVD. Pulse regular. Lungs: Normal breath sounds, no wheezes or crackles. Abdomen: Soft, non-tender, no rigidity. Extremities: No deformity, no edema or tenderness, no joint swelling or clubbing. Neurological: Normal cognition and motor skills. Pulses: Carotid and radial pulses normal +2. Diagnostic tests reviewed for today's visit: Lab Value Units Date High Low HB No results within date range. HCT No results within date range. WBC No results within date range. PLT No results within date range. NA No results within date range. K No results within date range. GLUC No results within date range. BUN No results within date range. CREAT No results within date range. PTSEC No results within date range. INR No results within date range. APTT No results within date range. ALT No results within date range. AST No results within date range. TBILI No results within date range. TSH No results within date range. No results found for: HBA1C Most recent EKG Recent Results (from the past 8760 hour(s)) ECG COMPLETE Collection Time: 07/27/24 7:27 AM Result Value Ventricular Rate 97 Atrial Rate 97 P-R Interval 164 QRS Duration 104 QT Interval 340 QTC Calculation (Bazett) 431 Calculated P [place] 51 Calculated R [place] 39 Calculated T [place] 39 Impression NORMAL SINUS RHYTHM NORMAL ECG Most recent MRI HEAD BRN 05/07/24 FINDINGS: There is no restricted diffusion to suggest acute infarct. There is no midline shift, mass effect, or abnormal extraaxial fluid collections. There is a 2.5 x 2.5 x 1.8 cm well-defined enhancing extra-axial mass with cystic components in the right cerebellopontine angle, extends through the internal auditory canal. There is mild mass effect upon the right anterior cerebellum. The cortical sulci and ventricular system are within normal limits for the age. The major intracranial flow voids are visualized. The cerebellar tonsils are normal in position. The orbits demonstrate no suspicious enhancement or any focal lesions. The paranasal sinuses show no air-fluid level. The mastoid air cells are clear. The calvarium and extracranial soft tissues are unremarkable. Instructions Given to Patient: Instructions located in the after visit summary. Patient given verbal and written preop instructions and voices comprehension and compliance. SIGNATURE: Adrian Forrest APRN.COMMERCIAL INTERIOR DESIGNER PATIENT NAME: Mayra Black DATE: 07/27/2024 TIME: 8:[address] Soria 07/21/24 2.2 x 2.2 cm right sided CPA mass. We reviewed the imaging together, and I believe this is most likely a vestibular schwannoma, Rt hearing loss, muffled hearing, tinnitus since January of 2024. He reports some degree of hearing, just muffled. He does report some intermittent dizziness, imbalance. He will be starting vestibular therapy. Of note, he has unrelated speech defect, present since . Not related to hearing. documented in this encounter [facility] 07-22-2024 Telephone encounter Note NEUROSURGERY CARE COORDINATION [place] QUICK [place] Left detailed VM at [facility] at [phone]. Re: request CT brain imaging from 07/21/19 be pushed to [facility]. Left contact number for callback. JANAK Lund, RN 07/22/2024 1:30 PM [facility] 07-22-2024 Miscellaneous Notes NEUROSURGERY CARE COORDINATION [place] QUICK [place] Left detailed VM at [facility] at [phone]. Re: request CT brain imaging from 07/21/19 be pushed to [facility]. Left contact number for callback. JANAK Lund, RN 07/22/2024 1:30 PM documented in this encounter [facility] 07-21-2024 Telephone encounter Note NEUROSURGERY CARE COORDINATION [place] QUICK NOTE ? Spoke to patient, Mayra ? Reason for call: surgery scheduling. Per patient, unable to talk at this time. Requesting a call back tomorrow. This nurse will call patient tomorrow to discuss. JANAK Lund, RN 07/21/2024 11:36 AM [facility] 07-21-2024 Miscellaneous Notes NEUROSURGERY CARE COORDINATION [place] QUICK NOTE ? Spoke to patient, Mayra ? Reason for call: surgery scheduling. Per patient, unable to talk at this time. Requesting a call back tomorrow. This nurse will call patient tomorrow to discuss. JANAK Lund, RN 07/21/2024 11:36 AM documented in this encounter [facility] 07-21-2024 Instructions Yovanny Soria MD - 07/21/2024 10:07 AM EST We reviewed the imaging together, and I believe this is most likely a vestibular schwannoma, although the possibility that this could represent another type of tumor was also discussed. The natural history of vestibular schwannomas was discussed in detail. Treatment options were discussed in detail including observation, radiation treatment/radiosurgery, or surgery. I discussed the pros and cons of each option with regard to hearing, balance, facial nerve function, duration of recovery, and possible complications. Observation gives the best short term outcome with the lowest short term risks. Surgery can give the best intermodal owner operator truck driver outcome, but it poses some risks up front. Stereotactic radiosurgery has excellent rates of tumor control over 5-10+ years, with deferred risks. In this case, I recommend surgery given the size, symptoms, and reported growth since 2019 CT scan. Surgical options were discussed in detail including the middle fossa, translabyrithine, and retrosigmoid approaches. In this case, I favor the retrosigmoid approach. The surgery would be done via a right-sided retrosigmoid approach. The risks and benefits of a retrosigmoid craniectomy were discussed in detail including but not limited to: bleeding, infection, brain damage, cerebrospinal fluid leak, stroke, permanent neurological deficit, hearing loss, facial paralysis, and paralysis. In addition, it was discussed that this may be one of several procedures required to treat the problem. Thank you for allowing me to participate in your care. Please do not hesitate to call with questions. Yovanny Soria MD documented in this encounter [facility] 07-21-2024 History of Present illness Narrative Images from the original note were not included. SECTION OF SKULL BASE SURGERY MINIMALLY INVASIVE CRANIAL BASE & PITUITARY SURGERY PROGRAM [facility] [place], [facility] CC: Patient Care Team: Mary Torres MD as Referring (Ent - Otolaryngology) Idalia Patrick MD (Ent - Otolaryngology) ASSESSMENT: In summary, Mayra Black is a very pleasant 54 year old male with a 2.2 x 2.2 cm right sided CPA mass. 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 The natural history of vestibular schwannomas was discussed in detail. Treatment options were discussed in detail including observation, radiation treatment/radiosurgery, or surgery. I discussed the pros and cons of each option with regard to hearing, balance, facial nerve function, duration of recovery, and possible complications. Observation gives the best short term outcome with the lowest short term risks. Surgery can give the best prison outcome, but it poses some risks up front. Stereotactic radiosurgery has excellent rates of tumor control over 5-10+ years, with deferred risks. In this case, I would recommend treatment given the size, and reported growth since 2019 (report says normal, but we will get images to confirm). PLAN: Right sided VS: OR for R retrosig crani for resection with Dr. Patrick Obtain 2019 CT images Surgery Check List: Length - full block Position - supine, bump Preoperative - Imaging: CT temporal bone, Labs: standard Intraoperative - Navigation: no, Monitoring: NIM machine, Microscope: exoscope, Equipment: Sonopet Postoperative Level of Care - SDU Medical Decision Making: Problems: High: Illness/injury w/ threat to life/body function Data: Unique source(s) for external note(s) reviewed: 1 Unique test result(s) reviewed: 3+ Unique test(s) ordered: 1 Independent interpretation of test from other physician/QHCP Risk: High: Decision on elective major surgery w/ risk factors Medical Decision Making Level: 5 - High The patient is referred by: Idalia Patrick [address] [place] [address] for neurosurgical evaluation. Final recommendations will be communicated back to the requesting physician by way of the shared medical records, or letters to requesting physician via [place] Mail. Chief Complaint: History of Present Illness: Patient is unaccompanied. The patient is a 54 year old male who presents with Rt hearing loss, muffled hearing, tinnitus since January of 2024. He reports some degree of hearing, just muffled. He does report some intermittent dizziness, imbalance. He will be starting vestibular therapy. Had workup at [place], imaging completed, found brain mass. Of note, he has unrelated speech defect, present since . Not related to hearing. No face weakness/spasm No face numbness/pain No double vision No dysphagia Past Medical History: PAST MEDICAL HISTORY Diagnosis Date Speech impediment Unilateral vestibular schwannoma (HCC) Past Surgical History: No past surgical history on file. Family History: No family history on file. Social History: Social History Tobacco Use Smoking status: Never Smokeless tobacco: Never Substance Use Topics Alcohol use: Not Currently Drug use: Never Medications: Current Outpatient Medications on File Prior to Visit Medication Sig bisoprolol (ZEBETA) 5 mg tablet Take by mouth. losartan (COZAAR) 100 mg tablet Take 100 mg by mouth once daily. No current facility-administered medications on file prior to visit. Allergies: ALLERGIES Not on File Independent Physical Examination: Constitutional: BP 148/92 Pulse 90 Resp 20 Ht 5' 8 (1.73m) Wt 197 lb 15.6 oz (89.8kg) BMI 30.11 kg/(m^2). Well developed, well nourished Neurological: Higher integrative functions: Oriented to person, place, and time Memory: Good recent and remote Speech: dysarthria Funds of knowledge: Normal Attention span and concentration: Good 3rd, 4th, and 6th cranial nerves: Pupils equally round and reactive to light, extraocular movements intact without nystagmus or subjective diplopia 5th cranial nerve: V1-3 intact to light touch bilaterally 7th cranial nerve: Facial muscles full and symmetric bilaterally 8th cranial nerve: hearing intact to finger rub on left; unable to hear rub on right 9th cranial nerve: gag reflex test deferred 10th cranial nerve: Palate elevates symmetrically and uvula in the midline 11th cranial nerve: shoulder shrug 5/5 bilaterally 12th cranial nerve: tongue protrudes in the midline Motors: Normal muscle tone, 5/5 strength throughout without pronator drift Sensation: Intact to light touch in all extremities Coordination: no dysmetria on fingers-nose testing bilaterally Gait: unsteady gait, unable to do tandem gait Data Review: Imagin.2 x 2.2 cm right CPA/IAC mass. Moderate mass effect on MCP Minimal if any edema documented in this encounter [facility] 07-21-2024 Note HNO ID: [id number] Author: YOVANNY SORIA MD Service: ? Author Type: Physician Type: Progress Notes Filed: 07/21/2024 10:10 Note Text: SECTION OF SKULL BASE SURGERY MINIMALLY INVASIVE CRANIAL BASE AND PITUITARY SURGERY PROGRAM [facility] AND [facility] [place], [facility] CC: Patient Care Team: Mary Torres MD as Referring (Ent - Otolaryngology) Idalia Patrick MD (Ent - Otolaryngology) ASSESSMENT: In summary, Mayra Black is a very pleasant 54 year old male with a 2.2 x 2.2 cm right sided CPA mass. 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 The natural history of vestibular schwannomas was discussed in detail. Treatment options were discussed in detail including observation, radiation treatment/radiosurgery, or surgery. I discussed the pros and cons of each option with regard to hearing, balance, facial nerve function, duration of recovery, and possible complications. Observation gives the best short term outcome with the lowest short term risks. Surgery can give the best prison outcome, but it poses some risks up front. Stereotactic radiosurgery has excellent rates of tumor control over 5-10+ years, with deferred risks. In this case, I would recommend treatment given the size, and reported growth since 2019 (report says normal, but we will get images to confirm). PLAN: Right sided VS: OR for R retrosig crani for resection with Dr. Patrick Obtain [address] images Surgery Check List: Length - full block Position - supine, bump Preoperative - Imaging: CT temporal bone, Labs: standard Intraoperative - Navigation: no, Monitoring: NIM machine, Microscope: exoscope, Equipment: Sonopet Postoperative Level of Care - SDU Medical Decision Making: Problems: High: Illness/injury w/ threat to life/body function Data: Unique source(s) for external note(s) reviewed: 1 Unique test result(s) reviewed: 3+ Unique test(s) ordered: 1 Independent interpretation of test from other physician/QHCP Risk: High: Decision on elective major surgery w/ risk factors Medical Decision Making Level: 5 - High The patient is referred by: Idalia Patrick [facility] [place] [address] for neurosurgical evaluation. Final recommendations will be communicated back to the requesting physician by way of the shared medical records, or letters to requesting physician via US Mail. Chief Complaint: History of Present Illness: Patient is unaccompanied. The patient is a 54 year old RH male who presents with Rt hearing loss, muffled hearing, tinnitus since January of 2024. He reports some degree of hearing, just muffled. He does report some intermittent dizziness, imbalance. He will be starting vestibular therapy. Had workup at [place], imaging completed, found brain mass. Of note, he has unrelated speech defect, present since . Not related to hearing. No face weakness/spasm No face numbness/pain No double vision No dysphagia Past Medical History: PAST MEDICAL HISTORY Diagnosis Date Speech impediment Unilateral vestibular schwannoma (HCC) Past Surgical History: No past surgical history on file. Family History: No family history on file. Social History: Social History Tobacco Use Smoking status: Never Smokeless tobacco: Never Substance Use Topics Alcohol use: Not Currently Drug use: Never Medications: Current Outpatient Medications on File Prior to Visit Medication Sig bisoprolol (ZEBETA) 5 mg tablet Take by mouth. losartan (COZAAR) 100 mg tablet Take 100 mg by mouth once daily. No current facility-administered medications on file prior to visit. Allergies: ALLERGIES Not on File Independent Physical Examination: Constitutional: BP 148/92 Pulse 90 Resp 20 Ht 5' 8 (1.73m) Wt 197 lb 15.6 oz (89.8kg) BMI 30.11 kg/(m2). Well developed, well nourished Neurological: Higher integrative functions: Oriented to person, place, and time Memory: Good recent and remote Speech: dysarthria Funds of knowledge: Normal Attention span and concentration: Good 3rd, 4th, and 6th cranial nerves: Pupils equally round and reactive to light, extraocular movements intact without nystagmus or subjective diplopia 5th cranial nerve: V1-3 intact to light touch bilaterally 7th cranial nerve: Facial muscles full and symmetric bilaterally 8th cranial nerve: hearing intact to finger rub on left; unable to hear rub on right 9th cranial nerve: gag reflex test deferred 10th cranial nerve: Palate elevates symmetrically and uvula in the midline 11th cranial nerve: shoulder shrug 5/5 bilaterally 12th cranial nerve: tongue protrudes in the midline Motors: Normal muscle tone, 5/5 strength throughout without pronator drift Sensation: Intact to (more content not included)... [facility] 07-13-2024 History of Present illness Narrative Subjective Patient ID: Mayra Black is a 54 y.o. male who presents for Hearing Loss (Patient has questions.) Pt seen by Dr Patrick yesterday who recommended surgical removal of his tumor. Pt wondering about vest rehab. Having some gait issues. Advised it will be definitely needed after surgery, but we can get it started now. Family History Problem Relation Name Age of Onset Cancer Father Active Ambulatory Problems Diagnosis Date Noted Disc displacement, lumbar 12/11/2023 Hemiparesis (CMS/HCC) 12/11/2023 HTN (hypertension), benign (CMS/HCC) 12/11/2023 Lumbar spondylolysis 12/11/2023 Mild cognitive impairment 12/11/2023 Enlarged prostate 12/11/2023 Generalized anxiety disorder (CMS/HCC) 12/11/2023 Overweight (BMI 25.0-29.9) 12/11/2023 Abnormal TSH 12/11/2023 Kidney stone 01/19/2024 Tinnitus of right ear 01/19/2024 Sensorineural hearing loss (SNHL) of right ear with unrestricted hearing of left ear 03/31/2024 Right-sided tinnitus 03/31/2024 Vestibular schwannoma (CMS/HCC) 05/10/2024 Resolved Ambulatory Problems Diagnosis Date Noted No Resolved Ambulatory Problems Past Medical History: Diagnosis Date Anxiety Hypertension (CMS/HCC) Past Surgical History: Procedure Laterality Date BACK SURGERY 2005 No Known Allergies Current Outpatient Medications on File Prior to Visit Medication Sig Dispense Refill amLODIPine (Norvasc) 10 MG tablet Take 1 tablet (10 mg) by mouth Daily 90 tablet 1 triamterene-hydroCHLOROthiazide (Dyazide) 37.5-25 MG capsule Take 1 capsule by mouth in the morning. 30 capsule 1 [DISCONTINUED] cetirizine (ZyrTEC) 10 MG tablet Take 1 tablet (10 mg) by mouth Daily 30 tablet 2 No current facility-administered medications on file prior to visit. Objective Last Recorded Vitals There were no vitals filed for this visit. ENT Physical Exam Constitutional Appearance: patient appears well-developed, well-nourished and well-groomed, Communication/Voice: communication appropriate for developmental age; vocal quality normal; Assessment/Plan Diagnoses and all orders for this visit: Vestibular schwannoma (CMS/HCC) Gait disorder I will initiate a vestibular rehab eval now for Mayra's current issues, as well as to get the rehab team familiar with him for the therapy he will definitely need post-operatively documented in this encounter [facility] 07-12-2024 Nurse Note Tobacco Use: Never Was smoking cessation packet given? N/A - Patient is a non-smoker or quit >1 year ago. Was a referral initiated?N/A Patient is a non-smoker [facility] 07-12-2024 Nurse Note Tobacco Use: Never Was smoking cessation packet given? N/A - Patient is a non-smoker or quit >1 year ago. Was a referral initiated?N/A Patient is a non-smoker documented in this encounter [facility] 07-12-2024 Note HNO ID: [id number] Author: IDALIA PATRICK MD Service: ? Author Type: Physician Type: Progress Notes Filed: 07/13/2024 16:47 Note Text: SECTION OF OTOLOGY, NEUROTOLOGY AND LATERAL SKULL BASE SURGERY Department of Otolaryngology - Head and Neck Surgery [facility] [place] History History of Present Illness: Mayra Black is a 54 year old male who presents for evaluation of right vestibular schwannoma. He first developed tinnitus in his right ear in January/February, which then worsened in March. He also has noticed decreased hearing on the right side. Has had occasional unsteadiness when walking over the last month. He had an MRI brain in April which showed a 2.5 x 1.8 cm right cerebellopontine angle mass and was referred to [facility] for further evaluation and management. No past medical history on file. No past surgical history on file. No current outpatient medications on file prior to visit. No current facility-administered medications on file prior to visit. ALLERGIES Not on File No family history on file. Physical Exam Patient is alert, oriented Head examination: normocephalic Binocular microscopic examination of ears: Right ear: Pinna: normal External canal : patent Tympanic membrane :normal Left ear: Pinna: normal External canal : patent Tympanic membrane :normal Tuning Stephan Examination Venegas midline Right ear Rinne Positive Left ear Rinne Positive CN VII: Face is symmetric with normal eye closure and smile. Test Results WRS AD: 36 % : 100 % Tympanometry Imaging (personally reviewed) MRI brain 05/07/2024 (OSH): IMPRESSION: No acute intracranial abnormality . 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 Assessment and Plan Mayra Black's history, physical examination, and diagnostic studies are consistent with the following diagnoses and associated treatment plan of care. Sensorineural hearing loss (SNHL) of left ear with unrestricted hearing of right ear Vestibular schwannoma (HCC) Tinnitus of right ear Other orders - bisoprolol (ZEBETA) 5 mg tablet; Take by mouth. - losartan (COZAAR) 100 mg tablet; Take 100 mg by mouth once daily. 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 Discussed that given the size and cystic nature of the tumor and mass effect, surgery would be the preferred treatment modality. Discussed the risks and benefits of surgical excision including incomplete resection, facial weakness or paralysis, hearing loss, balance issues. - consult to neurosurgery - will await neurosurgery evaluation and recommendations prior to deciding on the surgical approach and scheduling for surgery - I have answered all of his questions. Follow up: for surgery Elly Alonso MD for the service of Idalia Patrick MD I performed a history, reviewed potter exam findings and diagnostic studies, and discussed management plan with the resident. I reviewed the resident's note and agree with the documented findings and plan of care. Signed by: Jean Pierre Patrick MD, FACS Section Head, Otology-Neurotology Sterilization Technician, Hearing Implant Program [facility] [place] [place] [facility] Medical Decision Making: Problems: Moderate: New problem with uncertain prognosis Data: Unique test result(s) reviewed: 2 Risk: High: Decision on elective major surgery w/ risk factors Medical Decision Making Level: 4 - Moderate [facility] 07-12-2024 History of Present illness Narrative Images from the original note were not included. SECTION OF OTOLOGY, NEUROTOLOGY AND LATERAL SKULL BASE SURGERY Department of Otolaryngology - Head and Neck Surgery [facility] Surgical [facility] History History of Present Illness: Mayra Black is a 54 year old male who presents for evaluation of right vestibular schwannoma. He first developed tinnitus in his right ear in January/February, which then worsened in March. He also has noticed decreased hearing on the right side. Has had occasional unsteadiness when walking over the last month. He had an MRI brain in April which showed a 2.5 x 1.8 cm right cerebellopontine angle mass and was referred to [facility] for further evaluation and management. No past medical history on file. No past surgical history on file. No current outpatient medications on file prior to visit. No current facility-administered medications on file prior to visit. ALLERGIES Not on File No family history on file. Physical Exam Patient is alert, oriented Head examination: normocephalic Binocular microscopic examination of ears: Right ear: Pinna: normal External canal : patent Tympanic membrane :normal Left ear: Pinna: normal External canal : patent Tympanic membrane :normal Tuning Stephan Examination Venegas midline Right ear Rinne Positive Left ear Rinne Positive CN VII: Face is symmetric with normal eye closure and smile. Test Results WRS AD: 36 % : 100 % Tympanometry Imaging (personally reviewed) MRI brain 05/07/2024 (OSH): IMPRESSION: No acute intracranial abnormality . 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 Assessment and Plan Mayra Black's history, physical examination, and diagnostic studies are consistent with the following diagnoses and associated treatment plan of care. Sensorineural hearing loss (SNHL) of left ear with unrestricted hearing of right ear Vestibular schwannoma (HCC) Tinnitus of right ear Other orders - bisoprolol (ZEBETA) 5 mg tablet; Take by mouth. - losartan (COZAAR) 100 mg tablet; Take 100 mg by mouth once daily. 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 Discussed that given the size and cystic nature of the tumor and mass effect, surgery would be the preferred treatment modality. Discussed the risks and benefits of surgical excision including incomplete resection, facial weakness or paralysis, hearing loss, balance issues. - consult to neurosurgery - will await neurosurgery evaluation and recommendations prior to deciding on the surgical approach and scheduling for surgery - I have answered all of his questions. Follow up: for surgery Elly Alonso MD for the service of Idalia Patrick MD Signed by: Jean Pierre Patrick MD, FACS Section Head, Otology-Neurotology Sterilization Technician, Hearing Implant Program [facility] [place] [place] [facility] Medical Decision Making: Problems: Moderate: New problem with uncertain prognosis Data: Unique test result(s) reviewed: 2 Risk: High: Decision on elective major surgery w/ risk factors Medical Decision Making Level: 4 - Moderate documented in this encounter [facility] 07-12-2024 History of Present illness Narrative Images from the original note were not included. [facility] Head and Neck Department Section of Audiology AUDIOLOGIC EVALUATION REPORT Name: Mayra Materesa [facility]#: [id number] Date of Service: 07/12/2024 Date of : 1970 Age: [age] year old Referred by: Idalia Patrick MD [address] [place] [address] Referred for: Evaluation of suspected change in hearing, tinnitus, or balance. Referral documented: In an order in [facility] Patient's major complaints: Reduced hearing in the right ear, Tinnitus in the right ear Mayra Black was seen for an initial audiologic evaluation at this facility prior to consultation to Idalia Patrick MD. Encounter at outside facility on 05/10/2024 reported: MRI shows an enhancing mass filling the IAC with a 2.5cm CP angle extension causing cerebellar compression. Tinnitus of right ear 01/19/2024, Sensorineural hearing loss (SNHL) of right ear with unrestricted hearing of left ear 03/31/2024, The following history was obtained by way of patients previous medical record and direct patient interview: Hearing loss: Patient reported subjective right sided hearing loss which was confirmed with audiogram (03/31/2024, no graph available, written report only). This onset March 17 (per 03/31/2024 outside report in EMR with Maggie Lopez CCC/Gladys). Per ENT note on 03/31/2024 with outside provider Mary Torres MD, patient was prescribed course of steroids at this time. On 04/28/2024 Dr. Torres reported in her note patient had excellent response to aggressive steroid tx , however, following MRI on 05/10/2024 Dr. Torres reported a right sided mass filling the IAC with CP angle extension causing cerebellar compression and she referred to Dr. Patrick for treatment. Tinnitus: Constant right sided ringing tinnitus, onset January 2024 (per 03/31/2024 outside report in EMR with Maggie Lopez CCC/Gladys). Patient reported this persists. Dizziness: Patient endorsed being wobbly or imbalanced when walking, no concern when sitting down. Denied spinning sensation. Otalgia: 0/10 ear pain today, through he will sometimes have pains in his right ear. Otorrhea: No drainage on pillow or clothing, but patient noted he will feel like his ears are wet sometimes. Aural Pressure: Denied. 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 Family History of Hearing Loss: Denied. Ototoxicity: Denied. Otologic Surgical History: Denied. See procedures tab for audiometric results. IMPRESSIONS RIGHT EAR: Sensorineural hearing loss LEFT EAR: Hearing within normal limits 10-60 dBHL asymmetry present 125-8000 Hz, right ear poorer. Comparison of today's results with previous test results (04/28/2024): No audiogram available for comparison, however results essentially consistent with degree of hearing loss in the limited written report below. Note, more recent result of 04/28/2024 noted right word discrimination in the right ear was excellent at 100%, however today's score of 36% is more consistent with previous result of 20% on 03/31/2024. (04/28/2024) (03/31/2024) NOTE: A decrease of 20 dB HL at any one test frequency, a decrease of 10 dB HL at any two adjacent test frequencies, or a loss of response at three consecutive frequencies where responses were previously obtained is considered a significant change per REE 1994 guidelines. AUDIOLOGIC EVALUATION Following is a brief interpretation of the obtained findings from the audiologic evaluation. Refer to the Auditory Test Record for complete audiometric results. The patient was counseled about the test findings and appropriate audiologic recommendations were made. SUMMARY: Audiogram can be viewed under Procedures tab. OTOSCOPY RIGHT EAR: Otoscopic inspection revealed ear canal was clear with an identifiable cone of light. LEFT EAR: Otoscopic inspection revealed ear canal was clear with an identifiable cone of light. TYMPANOMETRY Description of procedure: This test is an objective evaluation of middle ear function. CPT code: 87103 RIGHT EAR: Normal ME function. LEFT EAR: Normal ME function. ACOUSTIC REFLEXES Description of procedure: This test is an objective measure of auditory and facial nerve pathways. CPT code: 37532 RIGHT EAR PROBE EAR: (ipsi right stimulus ear; contralateral left stimulus ear): Acoustic Reflex Pattern Ipsilateral acoustic reflexes were absent at 500-2000 Hz. Contralateral acoustic reflexes present WNL for 500-2000 Hz. Acoustic Reflex Decay (left stimulus ear): Decay is negative for VIII nerve involvement in the LEFT ear LEFT EAR PROBE EAR: (ipsi left stimulus ear; contralateral right stimulus ear): Acoustic Reflex Pattern Ipsilateral acoustic reflexes present WNL for 500-2000 Hz. Contralateral acoustic reflexes were absent at 500-2000 Hz. Acoustic Reflex Decay (right stimulus ear):Could not test due to absence of contralateral reflex. PURE TONE AUDIOMETRY AND SPEECH TESTING Description of procedure: This test is an objective evaluation hearing sensitivity via air and bone conduction and speech recognition testing. CPT code: 74644 RIGHT EAR: Hearing Sensitivity: Mild sensorineural hearing loss 125-1000 Hz sloping to moderate to severe 4756-3435 Hz. Word Recognition Score: Very Poor (36%). WRS is poorer than expected given hearing sensitivity. Words were presented at 85 dB HL is above (greater than or equal to 60 dB HL) intensity level for average conversational speech. The NU-6 Word List (25 words) was used. Contralateral masking was used. Did not perform different presentation levels/rollover due to time limitations. LEFT EAR: Hearing Sensitivity: Within normal limits 125-8000 Hz. Word Recognition Score: Excellent (100%). WRS is consistent with hearing sensitivity. Words were presented at 60 dB HL which is above (greater than or equal to 60 dB HL) intensity level for average conversational speech. The NU-6 Ordered by Difficulty Word List (10 words) was used for testing. RECOMMENDATIONS * Continue medical follow-up with Idalia Patrick MD for medical management. * Re-evaluation as medically indicated or sooner if a change in hearing is noted. Ras Orozco, [facility] Clinical Clinical Science Consultant POTTER Abbrev- iation Definition Degree of hearing sensitivity dB range WNL within normal limits WNL 0 - 20 SNHL sensorineural hearing loss Mild 20-40 CHL conductive hearing loss Moderate 40-55 MHL mixed hearing loss Moderately-Severe 55-70 WRS word recognition score Severe 70-90 ME middle ear Profound 90 + TM tympanic membrane documented in this encounter [facility] 07-12-2024 Note HNO ID: [id number] Author: MELINDA ECHEVARRIA AUD Service: ? Author Type: Clinical Science Consultant Type: Progress Notes Filed: 07/12/2024 13:19 Note Text: [facility] Head and Neck Department Section of Audiology AUDIOLOGIC EVALUATION REPORT Name: Mayra Materesa [facility]#: [id number] Date of Service: 07/12/2024 Date of : 1970 Age: [age] year old Referred by: [place] [address] [place] [address] Referred for: Evaluation of suspected change in hearing, tinnitus, or balance. Referral documented: In an order in [facility] Patient's major complaints: Reduced hearing in the right ear, Tinnitus in the right ear Mayra Black was seen for an initial audiologic evaluation at this facility prior to consultation to Idalia Patrick MD. Encounter at outside facility on 05/10/2024 reported: MRI shows an enhancing mass filling the IAC with a 2.5cm CP angle extension causing cerebellar compression. Tinnitus of right ear 01/19/2024, Sensorineural hearing loss (SNHL) of right ear with unrestricted hearing of left ear 03/31/2024, The following history was obtained by way of patients previous medical record and direct patient interview: Hearing loss: Patient reported subjective right sided hearing loss which was confirmed with audiogram (03/31/2024, no graph available, written report only). This onset March 17 (per 03/31/2024 outside report in EMR with Maggie Lopez CCC/Gladys). Per ENT note on 03/31/2024 with outside provider Mary Torres MD, patient was prescribed course of steroids at this time. On 04/28/2024 Dr. Torres reported in her note patient had excellent response to aggressive steroid tx , however, following MRI on 05/10/2024 Dr. Torres reported a right sided mass filling the IAC with CP angle extension causing cerebellar compression and she referred to Dr. Patrick for treatment. Tinnitus: Constant right sided ringing tinnitus, onset January 2024 (per 03/31/2024 outside report in EMR with GLYNN Thomas). Patient reported this persists. Dizziness: Patient endorsed being wobbly or imbalanced when walking, no concern when sitting down. Denied spinning sensation. Otalgia: 0/10 ear pain today, through he will sometimes have pains in his right ear. Otorrhea: No drainage on pillow or clothing, but patient noted he will feel like his ears are wet sometimes. Aural Pressure: Denied. 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 Family History of Hearing Loss: Denied. Ototoxicity: Denied. Otologic Surgical History: Denied. See procedures tab for audiometric results. IMPRESSIONS RIGHT EAR: Sensorineural hearing loss LEFT EAR: Hearing within normal limits 10-60 dBHL asymmetry present 125-8000 Hz, right ear poorer. Comparison of today's results with previous test results (04/28/2024): No audiogram available for comparison, however results essentially consistent with degree of hearing loss in the limited written report below. Note, more recent result of 04/28/2024 noted right word discrimination in the right ear was excellent at 100%, however today's score of 36% is more consistent with previous result of 20% on 03/31/2024. (04/28/2024) (03/31/2024) NOTE: A decrease of 20 dB HL at any one test frequency, a decrease of 10 dB HL at any two adjacent test frequencies, or a loss of response at three consecutive frequencies where responses were previously obtained is considered a significant change per REE 1994 guidelines. AUDIOLOGIC EVALUATION Following is a brief interpretation of the obtained findings from the audiologic evaluation. Refer to the Auditory Test Record for complete audiometric results. The patient was counseled about the test findings and appropriate audiologic recommendations were made. SUMMARY: Audiogram can be viewed under Procedures tab. OTOSCOPY RIGHT EAR: Otoscopic inspection revealed ear canal was clear with an identifiable cone of light. LEFT EAR: Otoscopic inspection revealed ear canal was clear with an identifiable cone of light. TYMPANOMETRY Description of procedure: This test is an objective evaluation of middle ear function. CPT code: 24253 RIGHT EAR: Normal ME function. LEFT EAR: Normal ME function. ACOUSTIC REFLEXES Description of procedure: This test is an objective measure of auditory and facial nerve pathways. CPT code: 63702 RIGHT EAR PROBE EAR: (ipsi right stimulus ear; contralateral left stimulus ear): Acoustic Reflex Pattern Ipsilateral acoustic reflexes were absent at 500-2000 Hz. Contralateral acoustic reflexes present WNL for 500-2000 Hz. Acoustic Reflex Decay (left stimulus ear): Decay is negative for VIII nerve involvement in the LEFT ear LEFT EAR PROBE EAR: (ipsi left stimulus ear; contralateral right stimulus ear): Acoustic Reflex Pattern Ipsilateral acoustic reflexes present WNL for 500-2000 Hz. Contralateral acoustic reflexes were absent a (more content not included)... [facility] 07-12-[address] was drop off at the front desk coordinator . CT was Delivered to [facility] . Patient Has appointment with Dr. Patrick at 1:30 PM. [facility] 07-12-[address] was drop off at the front desk coordinator . CT was Delivered to [facility] . Patient Has appointment with Dr. Patrick at 1:30 PM. documented in this encounter [facility] 05-19-2024 Telephone encounter Note Pt stopped in again today 05/[address] Darnell bruce did not have any information on referral sent to there office. I called directly to Dr Patrick office [phone] and they did not have anything on file-so they gave me a direct fax# [phone]. I cld and spoke to Joanne in the precert office and gave her this updated info and she was going to fax referral to them. I then notified pt that referral was being refaxed to Dr Patrick office [facility] 05-19-2024 Miscellaneous Notes Pt stopped in again today 05/[address] Darnell bruce did not have any information on referral sent to there office. I called directly to Dr Patrick office [phone] and they did not have anything on file-so they gave me a direct fax# [phone]. I cld and spoke to Joanne in the precert office and gave her this updated info and she was going to fax referral to them. I then notified pt that referral was being refaxed to Dr Patrick office documented in this encounter [facility] 05-13-2024 Telephone encounter Note Pt stopped in 05/13 to say he has not heard anything-silvano did supply him with the phone# of the doctor @ [facility] and it was given to pt. Pt said he would give them a call 05/18 if he does hear from them on 05/14 and being that its a holiday Mon [facility] 05-13-2024 Miscellaneous Notes Pt stopped in 05/13 to say he has not heard anything-silvano did supply him with the phone# of the doctor @ [facility] and it was given to pt. Pt said he would give them a call 05/18 if he does hear from them on 05/14 and being that its a holiday Mon documented in this encounter [facility] 05-10-2024 History of Present illness Narrative Subjective Patient ID: Mayra Black is a 54 y.o. male who presents for Hearing Loss (Follow up MRI) MRI shows an enhancing mass filling the IAC with a 2.5cm CP angle extension causing cerebellar compression. Family History Problem Relation Name Age of Onset Cancer Father Active Ambulatory Problems Diagnosis Date Noted Disc displacement, lumbar 12/11/2023 Hemiparesis (CMS/HCC) 12/11/2023 HTN (hypertension), benign (CMS/HCC) 12/11/2023 Lumbar spondylolysis 12/11/2023 Mild cognitive impairment 12/11/2023 Enlarged prostate 12/11/2023 Generalized anxiety disorder (CMS/HCC) 12/11/2023 Overweight (BMI 25.0-29.9) 12/11/2023 Abnormal TSH 12/11/2023 Kidney stone 01/19/2024 Tinnitus of right ear 01/19/2024 Sensorineural hearing loss (SNHL) of right ear with unrestricted hearing of left ear 03/31/2024 Right-sided tinnitus 03/31/2024 Resolved Ambulatory Problems Diagnosis Date Noted No Resolved Ambulatory Problems Past Medical History: Diagnosis Date Anxiety Hypertension (CMS/HCC) Past Surgical History: Procedure Laterality Date BACK SURGERY 2005 No Known Allergies Current Outpatient Medications on File Prior to Visit Medication Sig Dispense Refill triamterene-hydroCHLOROthiazide (Dyazide) 37.5-25 MG capsule Take 1 capsule by mouth in the morning. 30 capsule 1 amLODIPine (Norvasc) 10 MG tablet Take 1 tablet (10 mg) by mouth Daily 90 tablet 1 cetirizine (ZyrTEC) 10 MG tablet Take 1 tablet (10 mg) by mouth Daily 30 tablet 2 No current facility-administered medications on file prior to visit. 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 I will refer Mayra to Dr Jean Pierre Patrick at [facility] for tx. Mayra will brain picker a copy of his MRI to take to his appt. documented in this encounter [facility] 05-10-2024 Telephone encounter Note Cld pt and gave appt 05/10 @ 2:20 [facility] 05-10-2024 Miscellaneous Notes Cld pt and gave appt 05/10 @ 2:20 Move up appt to later this week to review MRI documented in this encounter [facility] 05-10-2024 Telephone encounter Note Move up appt to later this week to review MRI [facility] 05-02-2023 Hospital Discharge instructions Patient Education 05/02/2023 12:53:25 Kidney Stones, Pwit-bi-Osgc Kidney Stones Kidney stones are rock-like masses that form inside of the kidneys. Kidneys are organs that make pee (urine). A kidney stone may move into other parts of the urinary tract, including: The tubes that connect the kidneys to the bladder (ureters). The bladder. The tube that carries urine out of the body (urethra). Kidney stones can cause very bad pain and can block the flow of pee. The stone usually leaves your body (passes) through your pee. You may need to have a doctor take out the stone. What are the causes? Kidney stones may be caused by: A condition in which certain glands make too much parathyroid hormone (primary hyperparathyroidism). A buildup of a type of crystals in the bladder made of a chemical called uric acid. The body makes uric acid when you eat certain foods. Narrowing (stricture) of one or both of the ureters. A kidney blockage that you were born with. Past surgery on the kidney or the ureters, such as gastric bypass surgery. What increases the risk? You are more likely to develop this condition if: You have had a kidney stone in the past. You have a family history of kidney stones. You do not drink enough water. You eat a diet that is high in protein, salt (sodium), or sugar. You are overweight or very overweight (obese). What are the signs or symptoms? Symptoms of a kidney stone may include: Pain in the side of the belly, right below the ribs (flank pain). Pain usually spreads (radiates) to the groin. Needing to pee often or right away (urgently). Pain when going pee (urinating). Blood in your pee (hematuria). Feeling like you may vomit (nauseous). Vomiting. Fever and chills. How is this treated? Treatment depends on the size, location, and makeup of the kidney stones. The stones will often pass out of the body through peeing. You may need to: Drink more fluid to help pass the stone. In some cases, you may be given fluids through an IV tube put into one of your veins at the hospital. Take medicine for pain. Make changes in your diet to help keep kidney stones from coming back. Sometimes, medical procedures are needed to remove a kidney stone. This may involve: A procedure to break up kidney stones using a beam of light (laser) or shock waves. Surgery to remove the kidney stones. Follow these instructions at home: Medicines Take iecm-oiz-xdganqa and prescription medicines only as told by your doctor. Ask your doctor if the medicine prescribed to you requires you to avoid driving or using heavy machinery. Eating and drinking Drink enough fluid to keep your pee pale yellow. You may be told to drink at least 8 10 glasses of water each day. This will help you pass the stone. If told by your doctor, change your diet. This may include: ?Limiting how much salt you eat. ?Eating more fruits and vegetables. ?Limiting how much meat, poultry, fish, and eggs you eat. Follow instructions from your doctor about eating or drinking restrictions. General instructions Collect pee samples as told by your doctor. You may need to collect a pee sample: ?24 hours after a stone comes out. ?8 12 weeks after a stone comes out, and every 6 12 months after that. Strain your pee every time you pee (urinate), for as long as told. Use the strainer that your doctor recommends. Do not throw out the stone. Keep it so that it can be tested by your doctor. Keep all follow-up visits as told by your doctor. This is important. You may need follow-up tests. How is this prevented? To prevent another kidney stone: Drink enough fluid to keep your pee pale yellow. This is the best way to prevent kidney stones. Eat healthy foods. Avoid certain foods as told by your doctor. You may be told to eat less protein. Stay at a healthy weight. Where to find more information National Kidney Foundation (NKF): www.kidney.org [facility] ([facility]): www.urologyhealth.org Contact a doctor if: You have pain that gets worse or does not get better with medicine. Get help right away if: You have a fever or chills. You get very bad pain. You get new pain in your belly (abdomen). You pass out (faint). You cannot pee. Summary Kidney stones are rock-like masses that form inside of the kidneys. Kidney stones can cause very bad pain and can block the flow of pee. The stones will often pass out of the body through peeing. Drink enough fluid to keep your pee pale yellow. This information is not intended to replace advice given to you by your health care provider. Make sure you discuss any questions you have with your health care provider. Document Revised: 2022 Document Reviewed: 2022 [employer] Patient Education 2022 [employer] Follow Up Care 04/14/2023 10:32:58 With:VALERIE BOLTON, Agustin Leon, URL Address: [address] [place] [id number] When: Unknown [facility] 04-14-2023 Hospital Discharge instructions Patient Education 04/14/2023 10:28:47 Kidney Stones, Hlfi-bf-Cgyt Kidney Stones Kidney stones are rock-like masses that form inside of the kidneys. Kidneys are organs that make pee (urine). A kidney stone may move into other parts of the urinary tract, including: The tubes that connect the kidneys to the bladder (ureters). The bladder. The tube that carries urine out of the body (urethra). Kidney stones can cause very bad pain and can block the flow of pee. The stone usually leaves your body (passes) through your pee. You may need to have a doctor take out the stone. What are the causes? Kidney stones may be caused by: A condition in which certain glands make too much parathyroid hormone (primary hyperparathyroidism). A buildup of a type of crystals in the bladder made of a chemical called uric acid. The body makes uric acid when you eat certain foods. Narrowing (stricture) of one or both of the ureters. A kidney blockage that you were born with. Past surgery on the kidney or the ureters, such as gastric bypass surgery. What increases the risk? You are more likely to develop this condition if: You have had a kidney stone in the past. You have a family history of kidney stones. You do not drink enough water. You eat a diet that is high in protein, salt (sodium), or sugar. You are overweight or very overweight (obese). What are the signs or symptoms? Symptoms of a kidney stone may include: Pain in the side of the belly, right below the ribs (flank pain). Pain usually spreads (radiates) to the groin. Needing to pee often or right away (urgently). Pain when going pee (urinating). Blood in your pee (hematuria). Feeling like you may vomit (nauseous). Vomiting. Fever and chills. How is this treated? Treatment depends on the size, location, and makeup of the kidney stones. The stones will often pass out of the body through peeing. You may need to: Drink more fluid to help pass the stone. In some cases, you may be given fluids through an IV tube put into one of your veins at the hospital. Take medicine for pain. Make changes in your diet to help keep kidney stones from coming back. Sometimes, medical procedures are needed to remove a kidney stone. This may involve: A procedure to break up kidney stones using a beam of light (laser) or shock waves. Surgery to remove the kidney stones. Follow these instructions at home: Medicines Take rqvy-cdl-inwlere and prescription medicines only as told by your doctor. Ask your doctor if the medicine prescribed to you requires you to avoid driving or using heavy machinery. Eating and drinking Drink enough fluid to keep your pee pale yellow. You may be told to drink at least 8 10 glasses of water each day. This will help you pass the stone. If told by your doctor, change your diet. This may include: ?Limiting how much salt you eat. ?Eating more fruits and vegetables. ?Limiting how much meat, poultry, fish, and eggs you eat. Follow instructions from your doctor about eating or drinking restrictions. General instructions Collect pee samples as told by your doctor. You may need to collect a pee sample: ?24 hours after a stone comes out. ?8 12 weeks after a stone comes out, and every 6 12 months after that. Strain your pee every time you pee (urinate), for as long as told. Use the strainer that your doctor recommends. Do not throw out the stone. Keep it so that it can be tested by your doctor. Keep all follow-up visits as told by your doctor. This is important. You may need follow-up tests. How is this prevented? To prevent another kidney stone: Drink enough fluid to keep your pee pale yellow. This is the best way to prevent kidney stones. Eat healthy foods. Avoid certain foods as told by your doctor. You may be told to eat less protein. Stay at a healthy weight. Where to find more information National Kidney Foundation (NKF): www.kidney.org [facility] (UCF): www.urologyhealth.org Contact a doctor if: You have pain that gets worse or does not get better with medicine. Get help right away if: You have a fever or chills. You get very bad pain. You get new pain in your belly (abdomen). You pass out (faint). You cannot pee. Summary Kidney stones are rock-like masses that form inside of the kidneys. Kidney stones can cause very bad pain and can block the flow of pee. The stones will often pass out of the body through peeing. Drink enough fluid to keep your pee pale yellow. This information is not intended to replace advice given to you by your health care provider. Make sure you discuss any questions you have with your health care provider. Document Revised: 2022 Document Reviewed: 2022 [employer] Patient Education 2022 [employer]. 04/14/2023 10:28:45 Hydronephrosis Hydronephrosis Hydronephrosis is the swelling of one or both kidneys due to a blockage that stops urine from flowing out of the body. Kidneys filter waste from the blood and produce urine. This condition can lead to kidney failure and may become life-threatening if not treated promptly. What are the causes? In infants and children, common causes include problems that occur when a baby is developing in the womb. These can include problems in the kidneys or in the tubes that drain urine into the bladder (ureters). In adults, common causes include: Kidney stones. . A tumor or cyst in the abdomen or pelvis. An enlarged prostate gland. Other causes include: Bladder infection. Scar tissue from a previous surgery or injury. A blood clot. Cancer of the prostate, bladder, uterus, ovary, or colon. What are the signs or symptoms? Symptoms of this condition include: Pain or discomfort in your side (flank) or abdomen. Swelling in your abdomen. Nausea and vomiting. Fever. Pain when passing urine. Feelings of urgency when you need to urinate. Urinating more often than normal. In some cases, you may not have any symptoms. How is this diagnosed? This condition may be diagnosed based on: Your symptoms and medical history. A physical exam. Blood and urine tests. Imaging tests, such as an ultrasound, CT scan, or MRI. A procedure to look at your urinary tract and bladder by inserting a scope into the urethra (cystoscopy). How is this treated? Treatment for this condition depends on where the blockage is, how long it has been there, and what caused it. The goal of treatment is to remove the blockage. Treatment may include: Antibiotic medicines to treat or prevent infection. A procedure to place a small, thin tube (stent) into a blocked ureter. The stent will keep the ureter open so that urine can drain through it. A nonsurgical procedure that crushes kidney stones with shock waves (extracorporeal shock wave lithotripsy). If kidney failure occurs, treatment may include dialysis or a kidney transplant. Follow these instructions at home: Take jhpc-lhb-utyqthr and prescription medicines only as told by your health care provider. If you were prescribed an antibiotic medicine, take it exactly as told by your health care provider. Do not stop taking the antibiotic even if you start to feel better. Rest and return to your normal activities as told by your health care provider. Ask your health care provider what activities are safe for you. Drink enough fluid to keep your urine pale yellow. Keep all follow-up visits. This is important. Contact a health care provider if: You continue to have symptoms after treatment. You develop new symptoms. Your urine becomes cloudy or bloody. You have a fever. Get help right away if: You have severe flank or abdominal pain. You cannot drink fluids without vomiting. Summary Hydronephrosis is the swelling of one or both kidneys due to a blockage that stops urine from flowing out of the body. Hydronephrosis can lead to kidney failure and may become life-threatening if not treated promptly. The goal of treatment is to remove the blockage. It may include a procedure to insert a stent into a blocked ureter, a procedure to break up kidney stones, or taking antibiotic medicines. Follow your health care provider's instructions for taking care of yourself at home, including instructions about drinking fluids, taking medicines, and limiting activities. This information is not intended to replace advice given to you by your health care provider. Make sure you discuss any questions you have with your health care provider. Document Revised: 12/19/2020 Document Reviewed: 12/19/2020 [employer] Patient Education 2022 [employer]. Follow Up Care 03/28/2023 09:13:10 With:VALERIE BOLTON, Agustin Leon, URL Address: [facility] [address] , [place] [phone] When: Unknown Comments:2-3 weeks [facility] 03-28-2023 Hospital Discharge instructions Patient Education 03/28/2023 08:47:02 Kidney Stones Kidney Stones Kidney stones are solid, rock-like deposits that form inside of the kidneys. The kidneys are a pair of organs that make urine. A kidney stone may form in a kidney and move into other parts of the urinary tract, including the tubes that connect the kidneys to the bladder (ureters), the bladder, and the tube that carries urine out of the body (urethra). As the stone moves through these areas, it can cause intense pain and block the flow of urine. Kidney stones are created when high levels of certain minerals are found in the urine. The stones are usually passed out of the body through urination, but in some cases, medical treatment may be needed to remove them. What are the causes? Kidney stones may be caused by: A condition in which certain glands produce too much parathyroid hormone (primary hyperparathyroidism), which causes too much calcium buildup in the blood. A buildup of uric acid crystals in the bladder (hyperuricosuria). Uric acid is a chemical that the body produces when you eat certain foods. It usually exits the body in the urine. Narrowing (stricture) of one or both of the ureters. A kidney blockage that is present at (congenital obstruction). Past surgery on the kidney or the ureters, such as gastric bypass surgery. What increases the risk? The following factors may make you more likely to develop this condition: Having had a kidney stone in the past. Having a family history of kidney stones. Not drinking enough water. Eating a diet that is high in protein, salt (sodium), or sugar. Being overweight or obese. What are the signs or symptoms? Symptoms of a kidney stone may include: Pain in the side of the abdomen, right below the ribs (flank pain). Pain usually spreads (radiates) to the groin. Needing to urinate frequently or urgently. Painful urination. Blood in the urine (hematuria). Nausea. Vomiting. Fever and chills. How is this diagnosed? This condition may be diagnosed based on: Your symptoms and medical history. A physical exam. Blood tests. Urine tests. These may be done before and after the stone passes out of your body through urination. Imaging tests, such as a CT scan, abdominal X-ray, or ultrasound. A procedure to examine the inside of the bladder (cystoscopy). How is this treated? Treatment for kidney stones depends on the size, location, and makeup of the stones. Kidney stones will often pass out of the body through urination. You may need to: Increase your fluid intake to help pass the stone. In some cases, you may be given fluids through an IV and may need to be monitored at the hospital. Take medicine for pain. Make changes in your diet to help prevent kidney stones from coming back. Sometimes, medical procedures are needed to remove a kidney stone. This may involve: A procedure to break up kidney stones using: ?A focused beam of light (laser therapy). ?Shock waves (extracorporeal shock wave lithotripsy). Surgery to remove kidney stones. This may be needed if you have severe pain or have stones that block your urinary tract. Follow these instructions at home: Medicines Take [id number]-kwxfkjk and prescription medicines only as told by your health care provider. Ask your health care provider if the medicine prescribed to you requires you to avoid driving or using heavy machinery. Eating and drinking Drink enough fluid to keep your urine pale yellow. You may be instructed to drink at least 8 10 glasses of water each day. This will help you pass the kidney stone. If directed, change your diet. This may include: ?Limiting how much sodium you eat. ?Eating more fruits and vegetables. ?Limiting how much animal protein such as red meat, poultry, fish, and eggs you eat. Follow instructions from your health care provider about eating or drinking restrictions. General instructions Collect urine samples as told by your health care provider. You may need to collect a urine sample: ?24 hours after you pass the stone. ?8 12 weeks after passing the kidney stone, and every 6 12 months after that. Strain your urine every time you urinate, for as long as directed. Use the strainer that your health care provider recommends. Do not throw out the kidney stone after passing it. Keep the stone so it can be tested by your health care provider. Testing the makeup of your kidney stone may help prevent you from getting kidney stones in the future. Keep all follow-up visits as told by your health care provider. This is important. You may need follow-up X-rays or ultrasounds to make sure that your stone has passed. How is this prevented? To prevent another kidney stone: Drink enough fluid to keep your urine pale yellow. This is the best way to prevent kidney stones. Eat a healthy diet and follow recommendations from your health care provider about foods to avoid. You may be instructed to eat a low-protein diet. Recommendations vary depending on the type of kidney stone that you have. Maintain a healthy weight. Where to find more information National Kidney Foundation (NKF): www.kidney.org [facility] (UCF): www.urologyhealth.org Contact a health care provider if: You have pain that gets worse or does not get better with medicine. Get help right away if: You have a fever or chills. You develop severe pain. You develop new abdominal pain. You faint. You are unable to urinate. Summary Kidney stones are solid, rock-like deposits that form inside of the kidneys. Kidney stones can cause nausea, vomiting, blood in the urine, abdominal pain, and the urge to urinate frequently. Treatment for kidney stones depends on the size, location, and makeup of the stones. Kidney stones will often pass out of the body through urination. Kidney stones can be prevented by drinking enough fluids, eating a healthy diet, and maintaining a healthy weight. This information is not intended to replace advice given to you by your health care provider. Make sure you discuss any questions you have with your health care provider. Document Revised: 05/22/2022 Document Reviewed: 2022 [employer] Patient Education 2022 [employer]. Follow Up Care 03/27/2023 08:18:18 With:VALERIE BOLTON, MATT Marina Address: [facility] [address] , [place] [id number]- When: Unknown Comments:2 weeks [facility] 11-12-2022 Note CONSULTATION CONSULTATION DATE: 11/12/2022 TO: Zenaida Nix CNP CHIEF COMPLAINT: Includes severe lower back pain occurring bilaterally from a work related injury. HISTORY OF PRESENT ILLNESS: He reports that the pain is being rated at 5-7/10 pain, sharp in character, which seems to increase with activities such as standing, walking and performing transitioning maneuvers. The patient feels the most comfortable in the semi-recumbent position. Denies any change in bowel or bladder habits or new sensorimotor changes in his lower extremities. EXAM: Notable for the patient having a non-focal sensorimotor exam involving the lower extremities. Deep tendon reflexes are symmetrical. He had a negative straight leg raise. He has had no clinical signs consistent with myelopathy involving the lower extremities. Patient did have pain with lumbar axial loading maneuvers with point tenderness along the L4-5 interspace. Patient also had associated myofascial spasm of the lumbar paravertebral muscles. IMPRESSION: At this point, the patient has undergone two medial branch blocks at L3, 4 and 5 bilaterally. He reports having at least 80% reduction of pain symptoms with the procedure, with the recurrence of pain back to his baseline. 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 I have gone over the details of the procedure with the patient. All of his questions were answered. He agrees to proceed with the above plan. In the interim, I have asked him to continue with Flexeril, Mobic as prescribed. [facility] 09-13-2022 Note CONSULTATION CONSULTATION DATE: 09/13/2022 HISTORY OF PRESENT ILLNESS: This is a 52-year-old gentleman who returns to the clinic status post #2 bilateral MBB of L3, L4 and L5 completed on 08/27/2022. The patient was afforded 100% relief for two weeks. The patient does state, since the injection, he has been having very active and goofy dreams, and he feels tired when he wakes up. He is more somnolent during the day, most likely due to lack of sleep. His medications include Flexeril 10 mg q.h.s., Mobic 15 mg daily, Celexa and amlodipine. He is under the care of his PCP for hypertension, has an appointment with her next week for possible dose adjustment. Activities such as twisting, pushing, pulling, standing, walking and lifting aggravate his pain. He was shoveling snow recently, but is very aware of when to stop and to not overdo it. He denies any vasomotor changes or new pain patterns. Patient's REVIEW OF SYSTEMS / PAST MEDICAL HISTORY / ALLERGIES and IMAGES have been reviewed and noted in the chart. PHYSICAL EXAM: VITAL SIGNS: Blood pressure 164/102, heart rate is 106. Temperature is 97.7. He is 6', weighs 197 pounds. GENERAL IMPRESSION: Pleasant, appropriate, tired appearing, but in no acute distress. FOCUSED EXAM - BACK: Range of motion is functional but guarded in lateral rotation and flexion/extension. Paravertebral muscles are non-spasmodic. Reproduction of spinal axial pain upon compression of the lower lumbar facets of L3, L4, L5 bilaterally indicative of facet arthropathy, lumbar spondylosis. Patient has no radiating pain below the knees. MUSCULOSKELETAL: Motor is intact, 4/5 bilateral lower extremities. Patient walks unassisted with a steady gait. NEUROLOGICALLY: Radicular sensory is intact. Negative polyneuropathy. Patient talks with a chronic slurred speech. DIAGNOSIS: Lumbar spondylosis, lumbar degenerative disc disease, chronic lower back pain. PLAN: We will progress forward with bilateral radiofrequency ablation of L3, L4, L5. I reiterated to him to take his Flexeril only at night and not during the day. I did recommend him to try melatonin at night so he can have a more peaceful sleep and feel more rested during the day. Patient agreed to move forward with the procedure. Will be followed up in the clinic thereafter. ADDENDUM: Correction on diagnosis code: He is a [facility] case with code being M51.26. [facility] 08-14-2022 Note CONSULTATION CONSULTATION DATE: 08/14/2022 This is a 52-year-old gentleman returning to the clinic status post #1 bilateral MBB to L3, L4 and L5 completed on 07/30/2022. The patient reports 100% relief for 24 hours. The patient states he was sleeping better, walking longer without pain, and was able to bend and do housework with this pain. On 08/07/2022 the patient was doing stretches and resolved it in a very sore area to his right lumbar region. He states he felt it was spasmodic. He has been placing a topical heat rub and heat on it, which did decrease the pain. He reports his pain is 6 out of 10 today and described as a deep ache, primarily to his left back. Twisting, turning, pushing, pulling, stairs, ADL and physical activities aggravate his pain. Sitting down and the use of ice decreases his pain. His medications include Losartan and Flexeril. He does have a history of hypertension and had a prescription for diclofenac but he has not been taking it. REVIEW OF SYSTEMS, PAST MEDICAL HISTORY, ALLERGIES AND IMAGES: Have been reviewed and noted in the chart. PHYSICAL EXAM: VITAL SIGNS: Blood pressure 156/99, heart rate is 109. Height is 5'9 , weighs 87 kg. GENERAL APPEARANCE: Pleasant, appropriate and in no acute distress. FOCUSED EXAM: BACK: Range of motion is guarded in lateral rotation, flexion and extension. Reproduction of spinoaxial pain upon direct compression along the lumbar facets of L3, L4 and L5, left greater than right. Fullness is felt, indicative of ill facet arthropathy, lumbar spondylosis. Gianna's point is nontender bilaterally with negative Joseluis's and compression test. Paravertebral muscles are non-spasmodic. MUSCULOSKELETAL: Motor is intact 4 out of 5 bilaterally. The patient walks with a stable gait and does not use an assistive device. NEUROLOGICAL: Radicular sensory intact to lower extremities, patchy hypesthesia along the left lateral side of L5 distribution. The patient is cognitively intact. DIAGNOSIS: C code M51.26. PLAN: We will move forward with the #2 bilateral MBB of L3, L4 and L5. He was instructed to no longer use diclofenac due to hypertension. We will do the trial of Mobic 15 mg q. day and monitor his blood pressure thereafter. The patient agrees to move forward with the plan of care and the procedure will be followed up in the clinic thereafter. [facility] 06-25-2022 Note CONSULTATION CONSULTATION DATE: 06/25/2022 CHIEF COMPLAINT: Low back pain. HISTORY OF PRESENT ILLNESS: This is a very pleasant, 52-year-old gentleman, who has had a work related injury. The patient has a herniated disc at the level of L4-L5. The patient has low back, radiating pain into his leg. The patient states sitting mitigates the pain as does laying down. Standing, walking aggravate the patient's pain. The patient takes diclofenac 75 mg b.i.d. , Flexeril on a b.i.d. basis, losartan has been increased to 100 mg daily secondary to the patient having uncontrolled hypertension. PHYSICAL EXAMINATION: GENERAL: Upon physical examination, this is a very pleasant, cooperative gentleman, who does not appear to be in any acute distress. VITAL SIGNS: His blood pressure is still extremely high at 192/115. The patient is under the care of Zenaida Nix. The patient's repeat blood pressure, manual, was 182/118 and repeat was at 190/122. The patient did have four Pepsi's today where the patient was instructed to stop caffeine intake. FOCUSED EVALUATION: The patient has tenderness along the posterior elements bilaterally. Extension, compression, direct palpation aggravate and reproduce the patient's component of the patient's pain symptomatology. The remainder of the examination is within the previous examination. X-rays were reviewed in office today which show sclerotic changes. IMPRESSION: Current working diagnosis is herniated disc at the level of L4-L5, elevated blood pressure. PLAN: The patient will be scheduled for a diagnostic lumbar medial branch block at the level of L3, L4, L5 bilaterally under fluoroscopy, once the blood pressure is under control. The pain is affecting the patient's quality of life significantly, to the point where the patient had to quit his job where he has worked for years. CC: Zenaida Nix, DERIK [facility] 06-04-2022 Note CONSULTATION CONSULTATION DATE: CHIEF COMPLAINT: Low back pain. HISTORY OF PRESENT ILLNESS: This is a very pleasant, 52-year-old gentleman, who is referred to us by [facility]. The patient has a work related injury dating back to 2005. The patient has significant pain in his low back. He states the pain radiates into his gluteal regions bilaterally. Any activities such as twisting, pushing, sitting still aggravate the patient's pain, as does lifting and bending. The patient works at [employer]. The patient is very active with regards to his work. The patient states, during COVID especially, he had increased duties secondary to labor restrictions. The patient currently is taking methylprednisolone 4 mg dosepak, Flexeril 10 mg on a b.i.d. basis, which he is currently out of, and Tylenol Arthritis. The patient's PAST MEDICAL HISTORY / SURGICAL HISTORY / REVIEW OF SYSTEMS are noted on the chart. No RADIOLOGICAL IMAGES are available. The patient, in the remote past in 2005, had what appears to be a lumbar diskectomy by Dr. Moise. We shall have the charts pulled. 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 VITAL SIGNS: The blood pressure is extremely elevated at 188/122 with a heart rate of 101. At a height of 5'9 , the patient weighs 87 kg. FOCUSED EVALUATION: The patient has a speech impediment; however, is able to communicate. With regards to his back, significant paravertebral spasming is present bilaterally. Extension, deep palpation aggravate the patient's pain at the level of L4-L5 and L5-S1. EXTREMITIES: No pedal edema is noted. MUSCULOSKELETAL: Intact at 5/5 bilaterally. NEUROLOGICALLY: Currently, no radicular symptomatology is present. PSYCHIATRICALLY: Affect is appropriate. The patient is in the process of transitioning caregivers. The patient has Zenaida Nix, which he will be seeing for his hypertension. Given his blood pressure of 188/122, Catapres 0.2 mg has been given to the patient, 15 tablets. IMPRESSION: Current working diagnosis on the patient is history of sprained lumbosacral region, herniated lumbar disc at the level of L4-L5, hypertension. The patient states part of it is due to the severe pain that he has. PLAN: We will refill the patient's Flexeril 10 mg b.i.d. X-ray of the lumbar spine, flexion/extension, has been ordered. In the interim, the patient will also start diclofenac 75 mg b.i.d. The patient will be seen in office in two weeks. CC: [facility], KENDRA, CLASSIFIED ADVERTISING CLERK-BC [facility] Evaluation + Plan note Future Appointments Appointment Date:04/14/2023 09:30:00 AM Scheduled Provider:Agustin PADILLA MD Location:[facility] Appointment Type:URO Office Visit [facility] Evaluation + Plan note Future Appointments Appointment Date:05/02/2023 11:00:00 AM Scheduled Provider:Agustin PADILLA MD Location:[facility] Appointment Type:URO Office Visit [facility] Evaluation + Plan note Future Appointments Appointment Date:10/31/2023 08:00:00 AM Scheduled Provider:Agustin PADILLA MD Location:[facility] Appointment Type:URO Office Visit Diagnostic Tests PendingCreatinine 05/02/23BUN 05/02/23 [facility] Evaluation note Diagnosis Tinnitus, right ear- Primary Sensorineural hearing loss (SNHL) of right ear with unrestricted hearing of left ear Imbalance Abnormality of gait [facility] Sensorineural hearing loss (SNHL) of left ear with unrestricted hearing of right ear- Primary 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 Tinnitus of right ear Unspecified tinnitus Unsteadiness Abnormality of gait [facility] Diagnosis HTN (hypertension), benign (CMS/HCC)- Primary Essential hypertension, benign Enlarged prostate Hypertrophy of prostate without urinary obstruction and other lower urinary tract symptoms (LUTS) Generalized anxiety disorder (CMS/HCC) Generalized anxiety disorder Overweight (BMI 25.0-29.9) Overweight Tinnitus of right ear- Primary HTN (hypertension), benign (CMS/HCC) Essential hypertension, benign Overweight (BMI 25.0-29.9) Overweight Lumbar spondylolysis Lumbosacral spondylosis without myelopathy HTN (hypertension), benign (CMS/HCC)- Primary Essential hypertension, benign Overweight (BMI 25.0-29.9) Overweight Vestibular schwannoma (CMS/HCC)- Primary Benign neoplasm of cranial nerves Gait disorder Abnormality of gait [facility] HTN (hypertension), benign (CMS/HCC)- Primary Essential hypertension, benign Enlarged prostate Hypertrophy of prostate without urinary obstruction and other lower urinary tract symptoms (LUTS) Generalized anxiety disorder (CMS/HCC) Generalized anxiety disorder Overweight (BMI 25.0-29.9) Overweight Tinnitus of right ear- Primary HTN (hypertension), benign (CMS/HCC) Essential hypertension, benign Overweight (BMI 25.0-29.9) Overweight Lumbar spondylolysis Lumbosacral spondylosis without myelopathy HTN (hypertension), benign (CMS/HCC)- Primary Essential hypertension, benign Overweight (BMI 25.0-29.9) Overweight Gait disorder- Primary Abnormality of gait Vestibular schwannoma (CMS/HCC) Benign neoplasm of cranial nerves [facility] Diagnosis 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 [facility] Diagnosis Pre-op examination- Primary Preoperative examination, unspecified Schwannoma Other benign neoplasm of connective and other soft tissue of unspecified site 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 Speech difficult to understand HTN (hypertension), benign Essential hypertension, benign Kidney stone Calculus of kidney Disc displacement, lumbar Displacement of lumbar intervertebral disc without myelopathy Generalized anxiety disorder BMI 30.0-30.9,adult Body Mass Index 30.0-30.9, adult TIA (transient ischemic attack) Unspecified transient cerebral ischemia Schwannoma Other benign neoplasm of connective and other soft tissue of unspecified site 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 * Assessment & Plan Note - Adrian Forrest APRN.CNP - 07/27/2024 8:06 AM EST Associated Problem(s): TIA (transient ischemic attack) Assessment: states was told he had a TIA in 2003, no residuals, no recurrence, follows with PCP. * Assessment & Plan Note - Adrian Forrest APRN.CNP - 07/27/2024 8:05 AM EST Associated Problem(s): BMI 30.0-30.9,adult Assessment: Body mass index is 30.71 kg/m . * Assessment & Plan Note - Adrian Forrest APRN.CNP - 07/27/2024 8:05 AM EST Associated Problem(s): Speech difficult to understand Assessment: speaks slowly, difficulty with pronunciation. However able to communicate effectively. * Assessment & Plan Note - Adrian Forrest APRN.CNP - 07/27/2024 8:04 AM EST Associated Problem(s): Generalized anxiety disorder Assessment: stable, denies panic/PTSD * Assessment & Plan Note - Adrian Forrest APRN.CNP - 07/27/2024 8:04 AM EST Associated Problem(s): Disc displacement, lumbar Assessment: s/p lumbar discectomy * Assessment & Plan Note - Adrian Forrest APRN.DERIK - 07/27/2024 8:04 AM EST Associated Problem(s): Kidney stone Assessment: denies past surgical intervention. Denies current calculi * Assessment & Plan Note - Adrian Forrest APRN.CNP - 07/27/2024 8:03 AM EST Associated Problem(s): HTN (hypertension), benign Assessment: stable and compliant with current medications Last 5 Encounter BP Readings: Date: BP: 07/27/2024 148/86 07/21/2024 148/92 * Assessment & Plan Note - Adrian Forrest APRN.CNP - 07/27/2024 8:03 AM EST Associated Problem(s): Vestibular schwannoma (HCC) Assessment: presents for surgical intervention Per Dr. Soria 07/21/24: 2.2 x 2.2 cm right sided CPA mass. We reviewed the imaging together, and I believe this is most likely a vestibular schwannoma, Rt hearing loss, muffled hearing, tinnitus since January of 2024. He reports some degree of hearing, just muffled. He does report some intermittent dizziness, imbalance. He will be starting vestibular therapy. Of note, he has unrelated speech defect, present since . Not related to hearing. [facility] Diagnosis Pre-op examination- Primary Preoperative examination, unspecified Schwannoma Other benign neoplasm of connective and other soft tissue of unspecified site 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 Speech difficult to understand HTN (hypertension), benign Essential hypertension, benign Kidney stone Calculus of kidney Disc displacement, lumbar Displacement of lumbar intervertebral disc without myelopathy Generalized anxiety disorder BMI 30.0-30.9,adult Body Mass Index 30.0-30.9, adult TIA (transient ischemic attack) Unspecified transient cerebral ischemia Schwannoma Other benign neoplasm of connective and other soft tissue of unspecified site 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 Schwannoma Other benign neoplasm of connective and other soft tissue of unspecified site 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 [facility] Diagnosis HTN (hypertension), benign (CMS/HCC)- Primary Essential hypertension, benign Enlarged prostate Hypertrophy of prostate without urinary obstruction and other lower urinary tract symptoms (LUTS) Generalized anxiety disorder (CMS/HCC) Generalized anxiety disorder Overweight (BMI 25.0-29.9) Overweight Tinnitus of right ear- Primary HTN (hypertension), benign (CMS/HCC) Essential hypertension, benign Overweight (BMI 25.0-29.9) Overweight Lumbar spondylolysis Lumbosacral spondylosis without myelopathy HTN (hypertension), benign (CMS/HCC)- Primary Essential hypertension, benign Overweight (BMI 25.0-29.9) Overweight Gait disorder- Primary Abnormality of gait Vestibular schwannoma (CMS/HCC) Benign neoplasm of cranial nerves documented in this encounter [facility] note* Diagnosis 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 Schwannoma Other benign neoplasm of connective and other soft tissue of unspecified site 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 Acute post-operative pain Generalized anxiety disorder HTN (hypertension), benign Essential hypertension, benign BMI 30.0-30.9,adult Body Mass Index 30.0-30.9, adult Dysarthria Acute post-operative pain Pre-op examination- Primary Preoperative examination, unspecified Schwannoma Other benign neoplasm of connective and other soft tissue of unspecified site 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 Speech difficult to understand HTN (hypertension), benign Essential hypertension, benign Kidney stone Calculus of kidney Disc displacement, lumbar Displacement of lumbar intervertebral disc without myelopathy Generalized anxiety disorder BMI 30.0-30.9,adult Body Mass Index 30.0-30.9, adult TIA (transient ischemic attack) Unspecified transient cerebral ischemia Presence of surgical incision- [facility] Diagnosis 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 Schwannoma Other benign neoplasm of connective and other soft tissue of unspecified site 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 Acute post-operative pain Generalized anxiety disorder HTN (hypertension), benign Essential hypertension, benign BMI 30.0-30.9,adult Body Mass Index 30.0-30.9, adult Dysarthria Acute post-operative pain Pre-op examination- Primary Preoperative examination, unspecified Schwannoma Other benign neoplasm of connective and other soft tissue of unspecified site 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 Speech difficult to understand HTN (hypertension), benign Essential hypertension, benign Kidney stone Calculus of kidney Disc displacement, lumbar Displacement of lumbar intervertebral disc without myelopathy Generalized anxiety disorder BMI 30.0-30.9,adult Body Mass Index 30.0-30.9, adult TIA (transient ischemic attack) Unspecified transient cerebral ischemia 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 documented in this encounter [facility] note* Diagnosis 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 Schwannoma Other benign neoplasm of connective and other soft tissue of unspecified site 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 Acute post-operative pain Generalized anxiety disorder HTN (hypertension), benign Essential hypertension, benign BMI 30.0-30.9,adult Body Mass Index 30.0-30.9, adult Dysarthria Acute post-operative pain Pre-op examination- Primary Preoperative examination, unspecified Schwannoma Other benign neoplasm of connective and other soft tissue of unspecified site 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 Speech difficult to understand HTN (hypertension), benign Essential hypertension, benign Kidney stone Calculus of kidney Disc displacement, lumbar Displacement of lumbar intervertebral disc without myelopathy Generalized anxiety disorder BMI 30.0-30.9,adult Body Mass Index 30.0-30.9, adult TIA (transient ischemic attack) Unspecified transient cerebral ischemia 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 documented in this encounter [facility] note* Diagnosis HTN (hypertension), benign (CMS/HCC)- Primary Essential hypertension, benign Enlarged prostate Hypertrophy of prostate without urinary obstruction and other lower urinary tract symptoms (LUTS) Generalized anxiety disorder (CMS/HCC) Generalized anxiety disorder Overweight (BMI 25.0-29.9) Overweight Tinnitus of right ear- Primary HTN (hypertension), benign (CMS/HCC) Essential hypertension, benign Overweight (BMI 25.0-29.9) Overweight Lumbar spondylolysis Lumbosacral spondylosis without myelopathy HTN (hypertension), benign (CMS/HCC)- Primary Essential hypertension, benign Overweight (BMI 25.0-29.9) Overweight Dizziness and giddiness- Primary Benign neoplasm of cranial nerves (CMS/HCC) Benign neoplasm of cranial nerves Ataxic gait Abnormality of gait documented in this encounter [facility]* Diagnosis Vestibular schwannoma (CMS/HCC)- Primary Benign neoplasm of cranial nerves documented in this encounter [facility]* Diagnosis HTN (hypertension), benign (CMS/HCC)- Primary Essential hypertension, benign Enlarged prostate Hypertrophy of prostate without urinary obstruction and other lower urinary tract symptoms (LUTS) Generalized anxiety disorder (CMS/HCC) Generalized anxiety disorder Overweight (BMI 25.0-29.9) Overweight Tinnitus of right ear- Primary HTN (hypertension), benign (CMS/HCC) Essential hypertension, benign Overweight (BMI 25.0-29.9) Overweight Lumbar spondylolysis Lumbosacral spondylosis without myelopathy HTN (hypertension), benign (CMS/HCC)- Primary Essential hypertension, benign Overweight (BMI 25.0-29.9) Overweight Dizziness and giddiness- Primary Benign neoplasm of cranial nerves (CMS/HCC) Benign neoplasm of cranial nerves Ataxic gait Abnormality of gait documented in this encounter [facility]* Diagnosis HTN (hypertension), benign (CMS/HCC)- Primary Essential hypertension, benign Enlarged prostate Hypertrophy of prostate without urinary obstruction and other lower urinary tract symptoms (LUTS) Generalized anxiety disorder (CMS/HCC) Generalized anxiety disorder Overweight (BMI 25.0-29.9) Overweight Tinnitus of right ear- Primary HTN (hypertension), benign (CMS/HCC) Essential hypertension, benign Overweight (BMI 25.0-29.9) Overweight Lumbar spondylolysis Lumbosacral spondylosis without myelopathy HTN (hypertension), benign (CMS/HCC)- Primary Essential hypertension, benign Overweight (BMI 25.0-29.9) Overweight Dizziness and giddiness- Primary Benign neoplasm of cranial nerves (CMS/HCC) Benign neoplasm of cranial nerves Ataxic gait Abnormality of gait documented in this encounter [facility]* Diagnosis HTN (hypertension), benign (CMS/HCC)- Primary Essential hypertension, benign Enlarged prostate Hypertrophy of prostate without urinary obstruction and other lower urinary tract symptoms (LUTS) Generalized anxiety disorder (CMS/HCC) Generalized anxiety disorder Overweight (BMI 25.0-29.9) Overweight Tinnitus of right ear- Primary HTN (hypertension), benign (CMS/HCC) Essential hypertension, benign Overweight (BMI 25.0-29.9) Overweight Lumbar spondylolysis Lumbosacral spondylosis without myelopathy HTN (hypertension), benign (CMS/HCC)- Primary Essential hypertension, benign Overweight (BMI 25.0-29.9) Overweight Dizziness and giddiness- Primary Benign neoplasm of cranial nerves (CMS/HCC) Benign neoplasm of cranial nerves Ataxic gait Abnormality of gait [facility] 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 Schwannoma Other benign neoplasm of connective and other soft tissue of unspecified site 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 Acute post-operative pain Generalized anxiety disorder HTN (hypertension), benign Essential hypertension, benign BMI 30.0-30.9,adult Body Mass Index 30.0-30.9, adult Dysarthria Acute post-operative pain Pre-op examination- Primary Preoperative examination, unspecified Schwannoma Other benign neoplasm of connective and other soft tissue of unspecified site 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 Speech difficult to understand HTN (hypertension), benign Essential hypertension, benign Kidney stone Calculus of kidney Disc displacement, lumbar Displacement of lumbar intervertebral disc without myelopathy Generalized anxiety disorder BMI 30.0-30.9,adult Body Mass Index 30.0-30.9, adult TIA (transient ischemic attack) Unspecified transient cerebral ischemia 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 [facility] Diagnosis HTN (hypertension), benign (CMS/HCC)- Primary Essential hypertension, benign Enlarged prostate Hypertrophy of prostate without urinary obstruction and other lower urinary tract symptoms (LUTS) Generalized anxiety disorder (CMS/HCC) Generalized anxiety disorder Overweight (BMI 25.0-29.9) Overweight Tinnitus of right ear- Primary HTN (hypertension), benign (CMS/HCC) Essential hypertension, benign Overweight (BMI 25.0-29.9) Overweight Lumbar spondylolysis Lumbosacral spondylosis without myelopathy HTN (hypertension), benign (CMS/HCC)- Primary Essential hypertension, benign Overweight (BMI 25.0-29.9) Overweight Dizziness and giddiness- Primary Benign neoplasm of cranial nerves (CMS/HCC) Benign neoplasm of cranial nerves Ataxic gait Abnormality of gait documented in this encounter [facility]* Diagnosis HTN (hypertension), benign (CMS/HCC)- Primary Essential hypertension, benign Enlarged prostate Hypertrophy of prostate without urinary obstruction and other lower urinary tract symptoms (LUTS) Generalized anxiety disorder (CMS/HCC) Generalized anxiety disorder Overweight (BMI 25.0-29.9) Overweight Tinnitus of right ear- Primary HTN (hypertension), benign (CMS/HCC) Essential hypertension, benign Overweight (BMI 25.0-29.9) Overweight Lumbar spondylolysis Lumbosacral spondylosis without myelopathy HTN (hypertension), benign (CMS/HCC)- Primary Essential hypertension, benign Overweight (BMI 25.0-29.9) Overweight HTN (hypertension), benign (CMS/HCC)- Primary Essential hypertension, benign Vestibular schwannoma (CMS/HCC) Benign neoplasm of cranial nerves Overweight (BMI 25.0-29.9) Overweight Tinnitus of right ear Sensorineural hearing loss (SNHL) of right ear with unrestricted hearing of left ear Generalized anxiety disorder (CMS/HCC) Generalized anxiety disorder documented in this encounter [facility]* Diagnosis HTN (hypertension), benign (CMS/HCC)- Primary Essential hypertension, benign Enlarged prostate Hypertrophy of prostate without urinary obstruction and other lower urinary tract symptoms (LUTS) Generalized anxiety disorder (CMS/HCC) Generalized anxiety disorder Overweight (BMI 25.0-29.9) Overweight Tinnitus of right ear- Primary HTN (hypertension), benign (CMS/HCC) Essential hypertension, benign Overweight (BMI 25.0-29.9) Overweight Lumbar spondylolysis Lumbosacral spondylosis without myelopathy HTN (hypertension), benign (CMS/HCC)- Primary Essential hypertension, benign Overweight (BMI 25.0-29.9) Overweight HTN (hypertension), benign (CMS/HCC)- Primary Essential hypertension, benign Vestibular schwannoma (CMS/HCC) Benign neoplasm of cranial nerves Overweight (BMI 25.0-29.9) Overweight Tinnitus of right ear Sensorineural hearing loss (SNHL) of right ear with unrestricted hearing of left ear Generalized anxiety disorder (CMS/HCC) Generalized anxiety disorder Dizziness and giddiness- Primary Benign neoplasm of cranial nerves (CMS/HCC) Benign neoplasm of cranial nerves Ataxic gait Abnormality of gait documented in [facility] encounter [facility]* Diagnosis HTN (hypertension), benign (CMS/HCC)- Primary Essential hypertension, benign Enlarged prostate Hypertrophy of prostate without urinary obstruction and other lower urinary tract symptoms (LUTS) Generalized anxiety disorder (CMS/HCC) Generalized anxiety disorder Overweight (BMI 25.0-29.9) Overweight Tinnitus of right ear- Primary HTN (hypertension), benign (CMS/HCC) Essential hypertension, benign Overweight (BMI 25.0-29.9) Overweight Lumbar spondylolysis Lumbosacral spondylosis without myelopathy HTN (hypertension), benign (CMS/HCC)- Primary Essential hypertension, benign Overweight (BMI 25.0-29.9) Overweight HTN (hypertension), benign (CMS/HCC)- Primary Essential hypertension, benign Vestibular schwannoma (CMS/HCC) Benign neoplasm of cranial nerves Overweight (BMI 25.0-29.9) Overweight Tinnitus of right ear Sensorineural hearing loss (SNHL) of right ear with unrestricted hearing of left ear Generalized anxiety disorder (CMS/HCC) Generalized anxiety disorder Dizziness and giddiness- Primary Benign neoplasm of cranial nerves (CMS/HCC) Benign neoplasm of cranial nerves Ataxic gait Abnormality of gait documented in this encounter [facility]* Diagnosis HTN (hypertension), benign (CMS/HCC)- Primary Essential hypertension, benign Enlarged prostate Hypertrophy of prostate without urinary obstruction and other lower urinary tract symptoms (LUTS) Generalized anxiety disorder (CMS/HCC) Generalized anxiety disorder Overweight (BMI 25.0-29.9) Overweight Tinnitus of right ear- Primary HTN (hypertension), benign (CMS/HCC) Essential hypertension, benign Overweight (BMI 25.0-29.9) Overweight Lumbar spondylolysis Lumbosacral spondylosis without myelopathy HTN (hypertension), benign (CMS/HCC)- Primary Essential hypertension, benign Overweight (BMI 25.0-29.9) Overweight HTN (hypertension), benign (CMS/HCC)- Primary Essential hypertension, benign Vestibular schwannoma (CMS/HCC) Benign neoplasm of cranial nerves Overweight (BMI 25.0-29.9) Overweight Tinnitus of right ear Sensorineural hearing loss (SNHL) of right ear with unrestricted hearing of left ear Generalized anxiety disorder (CMS/HCC) Generalized anxiety disorder Dizziness and giddiness- Primary Benign neoplasm of cranial nerves (CMS/HCC) Benign neoplasm of cranial nerves Ataxic gait Abnormality of gait Gait disorder Abnormality of gait Vestibular schwannoma (CMS/HCC) Benign neoplasm of cranial nerves documented in this encounter [facility]* Diagnosis 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 Schwannoma Other benign neoplasm of connective and other soft tissue of unspecified site 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 Acute post-operative pain Generalized anxiety disorder HTN (hypertension), benign Essential hypertension, benign BMI 30.0-30.9,adult Body Mass Index 30.0-30.9, adult Dysarthria Acute post-operative pain Pre-op examination- Primary Preoperative examination, unspecified Schwannoma Other benign neoplasm of connective and other soft tissue of unspecified site 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 Speech difficult to understand HTN (hypertension), benign Essential hypertension, benign Kidney stone Calculus of kidney Disc displacement, lumbar Displacement of lumbar intervertebral disc without myelopathy Generalized anxiety disorder BMI 30.0-30.9,adult Body Mass Index 30.0-30.9, adult TIA (transient ischemic attack) Unspecified transient cerebral ischemia 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 Sensorineural hearing loss (SNHL) of right ear with unrestricted hearing of left ear Cervicalgia [facility] Diagnosis 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 Schwannoma Other benign neoplasm of connective and other soft tissue of unspecified site 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 Acute post-operative pain Generalized anxiety disorder HTN (hypertension), benign Essential hypertension, benign BMI 30.0-30.9,adult Body Mass Index 30.0-30.9, adult Dysarthria Acute post-operative pain Pre-op examination- Primary Preoperative examination, unspecified Schwannoma Other benign neoplasm of connective and other soft tissue of unspecified site 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 Speech difficult to understand HTN (hypertension), benign Essential hypertension, benign Kidney stone Calculus of kidney Disc displacement, lumbar Displacement of lumbar intervertebral disc without myelopathy Generalized anxiety disorder BMI 30.0-30.9,adult Body Mass Index 30.0-30.9, adult TIA (transient ischemic attack) Unspecified transient cerebral ischemia Sensorineural hearing loss (SNHL) of right ear with unrestricted hearing of left ear- Primary Tinnitus, right ear Pressure sensation in right ear 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 [facility] Diagnosis HTN (hypertension), benign (CMS/HCC)- Primary Essential hypertension, benign Enlarged prostate Hypertrophy of prostate without urinary obstruction and other lower urinary tract symptoms (LUTS) Generalized anxiety disorder (CMS/HCC) Generalized anxiety disorder Overweight (BMI 25.0-29.9) Overweight Tinnitus of right ear- Primary HTN (hypertension), benign (CMS/HCC) Essential hypertension, benign Overweight (BMI 25.0-29.9) Overweight Lumbar spondylolysis Lumbosacral spondylosis without myelopathy HTN (hypertension), benign (CMS/HCC)- Primary Essential hypertension, benign Overweight (BMI 25.0-29.9) Overweight HTN (hypertension), benign (CMS/HCC)- Primary Essential hypertension, benign Vestibular schwannoma (CMS/HCC) Benign neoplasm of cranial nerves Overweight (BMI 25.0-29.9) Overweight Tinnitus of right ear Sensorineural hearing loss (SNHL) of right ear with unrestricted hearing of left ear Generalized anxiety disorder (CMS/HCC) Generalized anxiety disorder Dizziness and giddiness- Primary Benign neoplasm of cranial nerves (CMS/HCC) Benign neoplasm of cranial nerves Ataxic gait Abnormality of gait Gait disorder Abnormality of gait Vestibular schwannoma (CMS/HCC) Benign neoplasm of cranial nerves documented in this encounter [facility]* Diagnosis HTN (hypertension), benign (CMS/HCC)- Primary Essential hypertension, benign Enlarged prostate Hypertrophy of prostate without urinary obstruction and other lower urinary tract symptoms (LUTS) Generalized anxiety disorder (CMS/HCC) Generalized anxiety disorder Overweight (BMI 25.0-29.9) Overweight Tinnitus of right ear- Primary HTN (hypertension), benign (CMS/HCC) Essential hypertension, benign Overweight (BMI 25.0-29.9) Overweight Lumbar spondylolysis Lumbosacral spondylosis without myelopathy HTN (hypertension), benign (CMS/HCC)- Primary Essential hypertension, benign Overweight (BMI 25.0-29.9) Overweight HTN (hypertension), benign (CMS/HCC)- Primary Essential hypertension, benign Vestibular schwannoma (CMS/HCC) Benign neoplasm of cranial nerves Overweight (BMI 25.0-29.9) Overweight Tinnitus of right ear Sensorineural hearing loss (SNHL) of right ear with unrestricted hearing of left ear Generalized anxiety disorder (CMS/HCC) Generalized anxiety disorder Dizziness and giddiness- Primary Benign neoplasm of cranial nerves (CMS/HCC) Benign neoplasm of cranial nerves Ataxic gait Abnormality of gait Gait disorder Abnormality of gait Vestibular schwannoma (CMS/HCC) Benign neoplasm of cranial nerves documented in this encounter [facility]* Diagnosis HTN (hypertension), benign (CMS/HCC)- Primary Essential hypertension, benign Enlarged prostate Hypertrophy of prostate without urinary obstruction and other lower urinary tract symptoms (LUTS) Generalized anxiety disorder (CMS/HCC) Generalized anxiety disorder Overweight (BMI 25.0-29.9) Overweight Tinnitus of right ear- Primary HTN (hypertension), benign (CMS/HCC) Essential hypertension, benign Overweight (BMI 25.0-29.9) Overweight Lumbar spondylolysis Lumbosacral spondylosis without myelopathy HTN (hypertension), benign (CMS/HCC)- Primary Essential hypertension, benign Overweight (BMI 25.0-29.9) Overweight HTN (hypertension), benign (CMS/HCC)- Primary Essential hypertension, benign Vestibular schwannoma (CMS/HCC) Benign neoplasm of cranial nerves Overweight (BMI 25.0-29.9) Overweight Tinnitus of right ear Sensorineural hearing loss (SNHL) of right ear with unrestricted hearing of left ear Generalized anxiety disorder (CMS/HCC) Generalized anxiety disorder Dizziness and giddiness- Primary Benign neoplasm of cranial nerves (CMS/HCC) Benign neoplasm of cranial nerves Ataxic gait Abnormality of gait Gait disorder Abnormality of gait Vestibular schwannoma (CMS/HCC) Benign neoplasm of cranial nerves documented in this encounter [facility]* Diagnosis HTN (hypertension), benign (CMS/HCC)- Primary Essential hypertension, benign Enlarged prostate Hypertrophy of prostate without urinary obstruction and other lower urinary tract symptoms (LUTS) Generalized anxiety disorder (CMS/HCC) Generalized anxiety disorder Overweight (BMI 25.0-29.9) Overweight Tinnitus of right ear- Primary HTN (hypertension), benign (CMS/HCC) Essential hypertension, benign Overweight (BMI 25.0-29.9) Overweight Lumbar spondylolysis Lumbosacral spondylosis without myelopathy HTN (hypertension), benign (CMS/HCC)- Primary Essential hypertension, benign Overweight (BMI 25.0-29.9) Overweight HTN (hypertension), benign (CMS/HCC)- Primary Essential hypertension, benign Vestibular schwannoma (CMS/HCC) Benign neoplasm of cranial nerves Overweight (BMI 25.0-29.9) Overweight Tinnitus of right ear Sensorineural hearing loss (SNHL) of right ear with unrestricted hearing of left ear Generalized anxiety disorder (CMS/HCC) Generalized anxiety disorder Dizziness and giddiness- Primary Benign neoplasm of cranial nerves (CMS/HCC) Benign neoplasm of cranial nerves Ataxic gait Abnormality of gait Gait disorder Abnormality of gait Vestibular schwannoma (CMS/HCC) Benign neoplasm of cranial nerves documented in this encounter [facility]* Diagnosis HTN (hypertension), benign (CMS/HCC)- Primary Essential hypertension, benign Enlarged prostate Hypertrophy of prostate without urinary obstruction and other lower urinary tract symptoms (LUTS) Generalized anxiety disorder (CMS/HCC) Generalized anxiety disorder Overweight (BMI 25.0-29.9) Overweight Tinnitus of right ear- Primary HTN (hypertension), benign (CMS/HCC) Essential hypertension, benign Overweight (BMI 25.0-29.9) Overweight Lumbar spondylolysis Lumbosacral spondylosis without myelopathy HTN (hypertension), benign (CMS/HCC)- Primary Essential hypertension, benign Overweight (BMI 25.0-29.9) Overweight HTN (hypertension), benign (CMS/HCC)- Primary Essential hypertension, benign Vestibular schwannoma (CMS/HCC) Benign neoplasm of cranial nerves Overweight (BMI 25.0-29.9) Overweight Tinnitus of right ear Sensorineural hearing loss (SNHL) of right ear with unrestricted hearing of left ear Generalized anxiety disorder (CMS/HCC) Generalized anxiety disorder Dizziness and giddiness- Primary Benign neoplasm of cranial nerves (CMS/HCC) Benign neoplasm of cranial nerves Ataxic gait Abnormality of gait Gait disorder Abnormality of gait Vestibular schwannoma (CMS/HCC) Benign neoplasm of cranial nerves documented in this encounter [facility]* Diagnosis HTN (hypertension), benign (CMS/HCC)- Primary Essential hypertension, benign Enlarged prostate Hypertrophy of prostate without urinary obstruction and other lower urinary tract symptoms (LUTS) Generalized anxiety disorder (CMS/HCC) Generalized anxiety disorder Overweight (BMI 25.0-29.9) Overweight Tinnitus of right ear- Primary HTN (hypertension), benign (CMS/HCC) Essential hypertension, benign Overweight (BMI 25.0-29.9) Overweight Lumbar spondylolysis Lumbosacral spondylosis without myelopathy HTN (hypertension), benign (CMS/HCC)- Primary Essential hypertension, benign Overweight (BMI 25.0-29.9) Overweight HTN (hypertension), benign (CMS/HCC)- Primary Essential hypertension, benign Vestibular schwannoma (CMS/HCC) Benign neoplasm of cranial nerves Overweight (BMI 25.0-29.9) Overweight Tinnitus of right ear Sensorineural hearing loss (SNHL) of right ear with unrestricted hearing of left ear Generalized anxiety disorder (CMS/HCC) Generalized anxiety disorder Dizziness and giddiness- Primary Benign neoplasm of cranial nerves (CMS/HCC) Benign neoplasm of cranial nerves Ataxic gait Abnormality of gait Gait disorder Abnormality of gait Vestibular schwannoma (CMS/HCC) Benign neoplasm of cranial nerves documented in this encounter [facility]* Diagnosis 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 Schwannoma Other benign neoplasm of connective and other soft tissue of unspecified site 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 Acute post-operative pain Generalized anxiety disorder HTN (hypertension), benign Essential hypertension, benign BMI 30.0-30.9,adult Body Mass Index 30.0-30.9, adult Dysarthria Acute post-operative pain Pre-op examination- Primary Preoperative examination, unspecified Schwannoma Other benign neoplasm of connective and other soft tissue of unspecified site 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 Speech difficult to understand HTN (hypertension), benign Essential hypertension, benign Kidney stone Calculus of kidney Disc displacement, lumbar Displacement of lumbar intervertebral disc without myelopathy Generalized anxiety disorder BMI 30.0-30.9,adult Body Mass Index 30.0-30.9, adult TIA (transient ischemic attack) Unspecified transient cerebral ischemia Schwannoma Other benign neoplasm of connective and other soft tissue of unspecified site [facility] Narrative No data available for this section [facility] progress note No data available for this section [facility] reason for referral (narrative)* Outpatient Procedure (Routine) - New Request Specialty Diagnoses / Procedures Referred By Sarah t Referred To Contact [facility] Diagnoses Pre-op examination Procedures ECG COMPLETE ECG ROUTINE ECG W/LEAST 12 LDS W/I&R Adrian Forrest APRN.COMMERCIAL INTERIOR DESIGNER [address] [place] [address] [facility] [place] [address] Referral ID Status Reason Start Date Expiration Date Visits Requested Visits Authorized [id number] New Request Auto-Generat ed Referral 4 07/27/2025 1 1 [facility] for visit Narrative* Rehabilitation - Outpatient (Routine) - Authorized Specialty Diagnoses / Procedures Referred By Sarah huggins Referred To Contact Physical Therapy Diagnoses Gait disorder Procedures SD OFFICE/OUTPATIENT [facility] 60 MINUTES Mary Torres MD 112 [facility] [address] [place] [address] Phone: tel: fax: [facility] 112 [facility] [address] [place] [address] Phone: tel: fax: Referral ID Status Reason Start Date Expiration Date Visits Requested Visits Authorized [id number] Authorized Specialty Services Required 01/09/2025 30 30 [facility] Narrative* Rehabilitation - Outpatient (Routine) - Authorized Specialty Diagnoses / Procedures Referred By Sarah huggins Referred To Contact Physical Therapy Diagnoses Dizziness and giddiness 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 Procedures SD PHYSICAL THERAPY EVALUATION LOW COMPLEX 20 MINS SD OFFICE/OUTPATIENT [facility] Idalia Patrick MD [address] [place] [address] Phone: tel: fax: Celina Masters, BECKY Referral ID Status Reason Start Date Expiration Date V isits Requested Visits Authorized [id number] Authorized 08/31/2024 02/27/2025 30 30 [facility] Narrative* Rehabilitation - Outpatient (Routine) - Authorized Specialty Diagnoses / Procedures Referred By Sarah huggins Referred To Contact Physical Therapy Diagnoses Dizziness and giddiness 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 Procedures SD PHYSICAL THERAPY EVALUATION LOW COMPLEX 20 MINS SD OFFICE/OUTPATIENT [facility] Idalia Patrick MD [address] [place] [address] Phone: tel: fax: Celina Masters, PT Referral ID Status Reason Start Date Expiration Date V isits Requested Visits Authorized [id number] Authorized 08/31/2024 09/14/2024 30 30 [facility] Narrative* Rehabilitation - Outpatient (Routine) - Authorized Specialty Diagnoses / Procedures Referred By Sarah huggins Referred To Contact Physical Therapy Diagnoses Dizziness and giddiness 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 Procedures PHYS/OCC THERAPY SS SD MANUAL THERAPY TQS 1/> REGIONS EACH 15 MINUTES SD THERAPEUTIC PX 1/> AREAS EACH 15 MIN EXERCISES SD THER PX 1/> AREAS EACH 15 MIN NEUROMUSC REEDUCA Idalia Patrick MD [address] [place] [id number] Phone: tel: fax: Celina Masters, PT Referral ID Status Reason Start Date Expiration Date V isits Requested Visits Authorized [id number] Authorized 09/16/2024 09/30/2024 30 30 [facility] for visit Narrative* Rehabilitation - Outpatient (Routine) - Authorized Specialty Diagnoses / Procedures Referred By Sarah huggins Referred To Contact Physical Therapy Diagnoses Dizziness and giddiness 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 Procedures PHYS/OCC THERAPY SS SD MANUAL THERAPY TQS 1/> REGIONS EACH 15 MINUTES SD THERAPEUTIC PX 1/> AREAS EACH 15 MIN EXERCISES SD THER PX 1/> AREAS EACH 15 MIN NEUROMUSC REEDUCA Idalia Patrick MD [address] [place] [address] Phone: tel: fax: Celina Masters, PT Referral ID Status Reason Start Date Expiration Date V isits Requested Visits Authorized [id number] Authorized 09/16/2024 09/14/2025 30 30 [facility] Narrative* Rehabilitation - Outpatient (Routine) - Closed Specialty Diagnoses / Procedures Referred By Sarah huggins Referred To Contact Physical Therapy Diagnoses Dizziness and giddiness 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 Procedures PHYS/OCC THERAPY SS SD MANUAL THERAPY TQS 1/> REGIONS EACH 15 MINUTES SD THERAPEUTIC PX 1/> AREAS EACH 15 MIN EXERCISES SD THER PX 1/> AREAS EACH 15 MIN NEUROMUSC REEDUCA Idalia Patrick MD [address] [place] [address] Phone: tel: fax: Celina Masters, PT Referral ID Status Reason Start Date Expiration Date Visits Re quested Visits Authorized [id number] Closed 09/16/2024 09/14/2025 30 30 [facility] for [facility] Narrative* MRI/CT (Routine) - Closed Specialty Diagnoses / Procedures Referred By Sarah huggins Referred To Contact MR IMAGING Diagnoses Schwannoma Procedures MRI SKULL BASE WO/W IVCON MRI BRAIN BRAIN STEM W/O W/CONTRAST MATERIAL Yovanny Soria MD [address] [place] [address] Phone: tel: fax: [facility] [place] [address] Referral ID Status Reason Start Date Expiration Date V isits Requested Visits Authorized [id number] Closed Auto-Generate d Referral 09/21/2024 10/21/2025 1 1 [facility] Summary Purpose Family History No Family History Records FoundNo Family History Records FoundNo Family History Records FoundNo Family History Records FoundNo Family History Records FoundNo Family History Records Found Advance Directives No Advanced Directives Records FoundNo Advanced Directives Records FoundNo Advanced Directives Records FoundNo Advanced Directives Records FoundNo Advanced Directives Records FoundNo Advanced Directives Records Found Reason for Referral Specialty Diagnoses / Procedures Referred By Sarah huggins Referred To Contact Procedures HEARING TEST/AUDIOGRAM COMPRE AUDIOMETRY THRESHOLD EVAL SP RECOGNIJ Roxann Carmona, AUD [address] [place] [phone] [facility] [address] [place] [address] Referral ID Status Reason Start Date Expiration Date Visits Requested Visits Authorized [id number] New Request Auto-Generat ed Referral 10/08/2024 10/09/2025 1 1 Specialty Diagnoses / Procedures Referred By Sarah t Referred To Contact Diagnoses Vestibular schwannoma (HCC) Procedures HEARING TEST/AUDIOGRAM COMPRE AUDIOMETRY THRESHOLD EVAL SP RECOGNIdalia Guzman MD [address] [place] [address] [facility] [address] [place] [address] Referral ID Status Reason Start Date Expiration Date Visits Requested Visits Authorized [id number] New Request Auto-Generat ed Referral 09/23/2024 08/24/2025 1 1 Specialty Diagnoses / Procedures Referred By Contac t Referred To Contact [facility] Diagnoses Vestibular schwannoma (HCC) Procedures CONSULT TO PHYSICAL THERAPY PHYSICAL THERAPY EVALUATION HIGH COMPLEX 45 MINS Idalia Patrick MD [address] [place] [address] [facility] [place] [address] Referral ID Status Reason Start Date Expiration Date Visits Requested Visits Authorized [id number] Pending Review Auto-Generat ed Referral 08/23/2024 08/23/2025 1 1 Specialty Diagnoses / Procedures Referred By Contac t Referred To Contact CT IMAGING Diagnoses Schwannoma Vestibular schwannoma (HCC) Procedures CT TEMP BONES WO IVCON CT ORBIT SELLA/POST FOSSA/EAR W/O CONTRAST Yovanny Rivera MD [address] [place] [address] Ct [facility] [place] [address] Referral ID Status Reason Start Date Expiration Date V isits Requested Visits Authorized [id number] Closed Auto-Generate d Referral 07/22/2024 08/21/2025 1 1 Specialty Diagnoses / Procedures Referred By Contac t Referred To Contact [facility] Diagnoses Unsteadiness Procedures CONSULT TO PHYSICAL THERAPY PHYSICAL THERAPY EVALUATION HIGH COMPLEX 45 MINS Idalia Patrick MD [address] [place] [address] [facility] [place] [address] Referral ID Status Reason Start Date Expiration Date Visits Requested Visits Authorized [id number] Pending Review Auto-Generat ed Referral 07/12/2025 1 1 Additional Source Comments (unrecognized sect ion and content) No Status Records FoundNo Status Records FoundNo Status Records FoundNo Status Records FoundNo Status Records FoundNo Status Records Found INFORMATION SOURCE (unrecogn ized section and content) DATE CREATED AUTHOR 02/21/2023 [facility] DATE CREATED AUTHOR AUTHOR'S ORGANIZ ATION 2023 [facility] DATE CREATED AUTHOR AUTHOR'S ORGANIZ ATION 05/10/2023 [facility] DATE CREATED AUTHOR AUTHOR'S ORGANIZ ATION 11/09/2024 [facility] Special[facility] DATE CREATED AUTHOR AUTHOR'S ORGANIZ ATION 11/11/2024 [facility] DATE CREATED AUTHOR AUTHOR'S ORGANIZ ATION 11/29/2024 [facility] Patient Care team informatio n (unrecognized section and content) Dog Handler Relationship Specialty Start Date End Date Mary Torres MD [address] [place] [address] Referring Ent - Otolaryngology 05/25/24 Dog Handler Relationship Specialty Start Date End Date Mary Torres MD [address] [place] [address] Referring Ent - Otolaryngology 05/25/24 Dog Handler Relationship Specialty Start Date End Date Mary Torres MD [address] [facility] [address] [place] [address] Referring Ent - Otolaryngology 05/25/24 Dog Handler Relationship Specialty Start Date End Date Jean Pierre Ochoa MD [address] [place] [address] PCP - General Family Medicine 01/19/24 Martha Robles MD [address] [place] [address] PCP - [facility] [place] [facility] 12/15/23 Zenaida Nix, NAYE [address] [place] [address] Nurse Practitioner Family Medicine 05/16/23 Zenaida Nix, NAYE [address] [place] [address] Nurse Practitioner Family Medicine 01/19/24 Dog Handler Relationship Specialty Start Date End Date Jean Pierre Ochoa MD [address] [place] [address] PCP - General Family Medicine 01/19/24 Martha Robles MD [address] [facility] [place], [place] [address] PCP - [facility] [place] [facility] 12/15/23 Zenaida Nix NP [address] [place] [address] Nurse Practitioner Family Medicine 05/16/23 Zenaida Nix NP [address] [place] [address] Nurse Practitioner Family Medicine 01/19/24 Dog Handler Relationship Specialty Start Date End Date Jean Pierre Ochoa MD [address] [place] [address] PCP - General Family Medicine 01/19/24 Zenaida Nix NP [address] [place] [address] Nurse Practitioner Family Medicine 05/16/23 Zenaida Nix NP [address] [place] [address] Nurse Practitioner Family Medicine 01/19/24 Dog Handler Relationship Specialty Start Date End Date Mary Torres MD [address] [address] Referring Ent - Otolaryngology 05/25/24 Idalia Patrick MD [address] [place], [place] [id number] Ent - Otolaryngology 07/19/24 Dog Handler Relationship Specialty Start Date End Date Mary Torres MD [address] [address] Referring Ent - Otolaryngology 05/25/24 Idalia Patrick MD [address] [place] [address] Ent - Otolaryngology 07/19/24 Dog Handler Relationship Specialty Start Date End Date Mary Torres MD [address] [address] Referring Ent - Otolaryngology 05/25/24 Idalia Patrick MD [address] [place] [id number] Ent - Otolaryngology 07/19/24 Dog Handler Relationship Specialty Start Date End Date Zenaida Nix, COMMERCIAL INTERIOR DESIGNER [address] [place] [address] PCP - General Family Medicine 07/23/24 Mary Torres MD [address] [address] Referring Ent - Otolaryngology 05/25/24 Idalia Patrick MD [address] [place] [address] Ent - Otolaryngology 07/19/24 Dog Handler Relationship Specialty Start Date End Date Zenaida Nix COMMERCIAL INTERIOR DESIGNER [address] [place] [address] PCP - General Family Medicine 07/23/24 Mary Torres MD [address] [place] [address] Referring Ent - Otolaryngology 05/25/24 [place] [address] [place], [place] [id number] Ent - Otolaryngology 07/19/24 Dog Handler Relationship Specialty Start Date End Date Zenaida Nix COMMERCIAL INTERIOR DESIGNER [address] [place] [address] PCP - General Family Medicine 07/23/24 Mary Torres MD [address] [place] [address] Referring Ent - Otolaryngology 05/25/24 Idalia Patrick MD [address] [place] [address] Ent - Otolaryngology 07/19/24 Dog Handler Relationship Specialty Start Date End Date Zenaida Nix CNP [address] [place] [address] PCP - General Family Medicine 07/23/24 Mary Torres MD [address] [place] [address] [place] [address] Referring Ent - Otolaryngology 05/25/24 Idalia Patrick MD [address] [place] [address] Ent - Otolaryngology 07/19/24 Dog Handler Relationship Specialty Start Date End Date Jean Pierre Ochoa MD [address] [place] [address] PCP - General Family Medicine 01/19/24 Martha Robles MD [address] [place] [address] PCP - N[facility]av [facility] 12/15/23 Zenaida Nix, NAYE [address] [place] [address] Nurse Practitioner Family Medicine 05/16/23 Zenaida Nix NP [address] [place] [address] Nurse Practitioner Family Medicine 01/19/24 Dog Handler Relationship Specialty Start Date End Date Jean Pierre Ochoa MD [address] [place] [address] PCP - General Family Medicine 01/19/24 Martha Robles MD [address] [place] [address] PCP - [facility] 12/15/23 Zenaida Nix NP [address] [place] [address] Nurse Practitioner Family Medicine 05/16/23 Zenaida Nix NP [address] [place] [address] Nurse Practitioner Family Medicine 01/19/24 Dog Handler Relationship Specialty Start Date End Date Zeniada Nix, COMMERCIAL INTERIOR DESIGNER [address] [place] [address] PCP - General Family Medicine 07/23/24 Mary Torres MD [address] [facility] [address] [place] [address] Referring Ent - Otolaryngology 05/25/24 Idalia Patrick MD [address] [place] [address] Ent - Otolaryngology 07/19/24 Dog Handler Relationship Specialty Start Date End Date Zenaida Nix COMMERCIAL INTERIOR DESIGNER [address] [place] [address] PCP - General Family Medicine 07/23/24 Mary Torres MD [address] [place], [place] [address] Referring Ent - Otolaryngology 05/25/24 Idalia Patrick MD [address] [place], [place] [address] Ent - Otolaryngology 07/19/24 Dog Handler Relationship Specialty Start Date End Date Zenaida Nix, COMMERCIAL INTERIOR DESIGNER [address] [place] [address] PCP - General Family Medicine 07/23/24 Mary Torres MD [address] [place] [address] Referring Ent - Otolaryngology 05/25/24 Idalia Patrick MD [address] [place] [id number] Ent - Otolaryngology 07/19/24 Dog Handler Relationship Specialty Start Date End Date Zenaida Nix, COMMERCIAL INTERIOR DESIGNER [address] [place] [address] PCP - General Family Medicine 07/23/24 Mary Torres MD [address] [place] [address] Referring Ent - Otolaryngology 05/25/24 Idalia Patrick MD [address] [place] [address] Ent - Otolaryngology 07/19/24 Dog Handler Relationship Specialty Start Date End Date Jean Pierre Ochoa MD [address] [place] [address] PCP - General Family Medicine 01/19/24 Martha Robles MD [address] [facility] [place] [address] PCP - [facility] 12/15/23 Zenaida Nix, NAYE [address] [place] [address] Nurse Practitioner Family Medicine 05/16/23 Zenaida Nix NP [address] [place] [address] Nurse Practitioner Family Medicine 01/19/24 Leigha Pires, RN [address] [facility] [place] [address] Registered Nurse Family Medicine 08/18/24 Dog Handler Relationship Specialty Start Date End Date Jean Pierre Ochoa MD [address] [place] [address] PCP - General Family Medicine 01/19/24 Martha Robles MD [address] [facility] [place] [address] PCP - [facility] [place] [facility] 12/15/23 Zenaida Nix NP [address] [place] [address] Nurse Practitioner Family Medicine 05/16/23 Zenaida Nix NP [address] [place] [address] Nurse Practitioner Family Medicine 01/19/24 Leigha Pirse, RN [address] [place] [address] Registered Nurse Family Medicine 08/18/24 Dog Handler Relationship Specialty Start Date End Date Jean Pierre Ochoa MD [address] [place] [address] PCP - General Family Medicine 01/19/24 Zenaida Nix NP [address] [place] [address] Nurse Practitioner Family Medicine 05/16/23 Zenaida Nix NP [address] [place] [address] Nurse Practitioner Family Medicine 01/19/24 Dog Handler Relationship Specialty Start Date End Date Jean Pierre Ochoa MD [address] [place] [address] PCP - General Family Medicine 01/19/24 Zenaida Nix NP [address] [place] [address] Nurse Practitioner Family Medicine 05/16/23 Zenaida Nix NP [address] [place] [address] Nurse Practitioner Family Medicine 01/19/24 Dog Handler Relationship Specialty Start Date End Date Jean Pierre Ochoa MD [address] [place] [address] PCP - General Family Medicine 01/19/24 Zenaida Nix NP [address] [place] [address] Nurse Practitioner Family Medicine 05/16/23 Zenaida Nix NP [address] [place] [address] Nurse Practitioner Family Medicine 01/19/24 Dog Handler Relationship Specialty Start Date End Date Jean Pierre Ochoa MD [address] [place] [address] PCP - General Family Medicine 01/19/24 Martha Robles MD [address] [place] [address] PCP - [facility]av [facility] 12/15/23 Zenaida Nix NP [address] [place] [address] Nurse Practitioner Family Medicine 05/16/23 Zenaida Nix NP [address] [place] [address] Nurse Practitioner Family Medicine 01/19/24 Leigha Pires, RN [address] [place] [address] Registered Nurse Family Medicine 08/18/24 Dog Handler Relationship Specialty Start Date End Date Jean Pierre Ochoa MD [address] [place] [address] PCP - General Family Medicine 01/19/24 Martha Robles MD [address] [facility] [place] [address] PCP - [facility] 12/15/23 Zenaida Nix NP [address] [place] [address] Nurse Practitioner Family Medicine 05/16/23 Zenaida Nix NP [address] [place] [address] Nurse Practitioner Family Medicine 01/19/24 Leigha Pires RN [address] [place] [address] Registered Nurse Family Medicine 08/18/24 Dog Handler Relationship Specialty Start Date End Date Jean Pierre Ochoa MD [address] [place] [address] PCP - General Family Medicine 01/19/24 Martha Robles MD [address] [facility] [place] [address] PCP - [facility] [place] [facility] 12/15/23 Zenaida Nix NP [address] [place] [address] Nurse Practitioner Family Medicine 05/16/23 Zenaida Nix NP [address] [place] [address] Nurse Practitioner Family Medicine 01/19/24 Leigha Pires RN [address] [place] [address] Registered Nurse Family Medicine 08/18/24 Dog Handler Relationship Specialty Start Date End Date Jean Pierre Ochoa MD [address] [place] [address] PCP - General Family Medicine 01/19/24 Martha Robles MD [address] [place] [address] PCP - [facility] 12/15/23 Zenaida Nix NP [address] [place] [address] Nurse Practitioner Family Medicine 05/16/23 Zenaida Nix NP [address] [place] [address] Nurse Practitioner Family Medicine 01/19/24 Leigha Pires, RN [address] [place] [address] Registered Nurse Family Medicine 08/18/24 Dog Handler Relationship Specialty Start Date End Date Jean Pierre Ochoa MD [address] [place] [address] PCP - General Family Medicine 01/19/24 Martha Robles MD [address] [place] [address] PCP - [facility] 12/15/23 Zenaida Nix NP [address] [place] [address] Nurse Practitioner Family Medicine 05/16/23 Zenaida Nix NP [address] [place] [address] Nurse Practitioner Family Medicine 01/19/24 Leigha Pires, SALEEM [address] [facility] [place] [address] Registered Nurse Family [facility] 08/18/24 Dog Handler Relationship Specialty Start Date End Date Jean Pierre Ochoa MD [address] [place] [address] PCP - General Family Medicine 01/19/24 [place] [address] [place] [address] PCP - [facility] 12/15/23 Zenaida Nix NP [address] [place] [address] Nurse Practitioner Family Medicine 05/16/23 Zenaida Nix NP [address] [place] [address] Nurse Practitioner Family Medicine 01/19/24 Leigha Pires RN [address] [facility] [place] [address] Registered Nurse Family [facility] 08/18/24 Dog Handler Relationship Specialty Start Date End Date Zenaida Nix CNP [address] [place] [address] PCP - General Family Medicine 07/23/24 Mary Torres MD [address] [place] [address] Referring Ent - Otolaryngology 05/25/24 Idalia Patrick MD [address] [place] [id number] Ent - Otolaryngology 07/19/24 Dog Handler Relationship Specialty Start Date End Date Jean Pierre Ochoa MD [address] [place] [address] PCP - General Family Medicine 01/19/24 Martha Robles MD [address] [place] [address] PCP - [facility] [place] [employer] 12/15/23 Zenaida Nix NP [address] [place] [address] Nurse Practitioner Family Medicine 05/16/23 Zenaida Nix NP [address] [place] [address] Nurse Practitioner Family Medicine 01/19/24 Leigha Pires, SALEEM [address] [place] [address] Registered Nurse Family Medicine 08/18/24 Dog Handler Relationship Specialty Start Date End Date Jean Pierre Ochoa MD [address] [place] [address] PCP - General Family Medicine 01/19/24 Martha Robles MD [address] [place] [address] PCP - [facility] [place] [employer] 12/15/23 Zenaida Nix NP [address] [place] [address] Nurse Practitioner Family Medicine 05/16/23 Zenaida Nix NP [address] [place] [address] Nurse Practitioner Family Medicine 01/19/24 Leigha Pires RN [address] [facility] [place] [address] Registered Nurse [facility] 08/18/24 Dog Handler Relationship Specialty Start Date End Date Jean Pierre Ochoa MD [address] [place] [address] PCP - General Family Medicine 01/19/24 Martha Robles MD [address] [place] [address] PCP - [facility] [place] [facility] 12/15/23 Zenaida Nix NP [address] [place] [address] Nurse Practitioner Family Medicine 05/16/23 Zenaida Nix NP [address] [place] [address] Nurse Practitioner Family Medicine 01/19/24 Leigha Pires RN [address] [place] [address] Registered Nurse [facility] 08/18/24 Dog Handler Relationship Specialty Start Date End Date Jean Pierre Ochoa MD [address] [place] [address] PCP - General Family Medicine 01/19/24 Martha Robles MD [address] [place] [address] PCP - [facility] 12/15/23 Zenaida Nix, NAYE [address] [place] [address] Nurse Practitioner Family Medicine 05/16/23 Zenaida Nix NP [address] [place] [address] Nurse Practitioner Family Medicine 01/19/24 Leigha Pires, SALEEM [address] [place] [address] Registered Nurse Family Medicine 08/18/24 Dog Handler Relationship Specialty Start Date End Date Jean Pierre Ochoa MD [address] [place] [address] PCP - General Family Medicine 01/19/24 Martha Robels MD [address] [place] [address] PCP - [facility] 12/15/23 Zenaida Nix NP [address] [place] [address] Nurse Practitioner Family Medicine 05/16/23 Zenaida Nix NP [address] [place] [address] Nurse Practitioner Family Medicine 01/19/24 Leigha Pires RN [address] [place] [address] Registered Nurse Family Medicine 08/18/24 Dog Handler Relationship Specialty Start Date End Date Jean Pierre Ochoa MD [address] [place] [address] PCP - General Family Medicine 01/19/24 Martha Robles MD [address] [place] [address] PCP - [facility] [place] PROJECT CONSULTANT 12/15/23 Zenaida Nix NP [address] [place] [address] Nurse Practitioner Family Medicine 05/16/23 Zenaida Nix NP [address] [place] [address] Nurse Practitioner Family Medicine 01/19/24 Leigha Pires RN [address] [place] [facility] [address] Registered Nurse Family Medicine 08/18/24 Dog Handler Relationship Specialty Start Date End Date Jean Pierre Ochoa MD [address] [place] [address] PCP - General Family Medicine 01/19/24 Martha Robles MD [address] [facility] [place] [address] PCP - [facility] [place] PROJECT CONSULTANT 12/15/23 Zenaida Nix NP [address] [place] [address] Nurse Practitioner Family Medicine 05/16/23 Zenaida Nix, NAYE [address] [place] [address] Nurse Practitioner Family Medicine 01/19/24 Leigha Pires, RN [address] [place] [address] Registered Nurse Family Medicine 08/18/24 Dog Handler Relationship Specialty Start Date End Date Zenaida Nix COMMERCIAL INTERIOR DESIGNER [address] [place] [address] PCP - General Family Medicine 07/23/24 Mayr Torres MD [address] [place] [address] Referring Ent - Otolaryngology 05/25/24 Idalia Patrick MD [address] [place], [place] [id number] Ent - Otolaryngology 07/19/24 Dog Handler Relationship Specialty Start Date End Date Jean Pierre Ochoa MD [address] [place] [address] PCP - General Family Medicine 01/19/24 Martha Robles MD [address] [place] [address] PCP - [facility] 12/15/23 Zenaida Nix, NAYE [address] [place] [address] Nurse Practitioner Family Medicine 05/16/23 Zenaida Nix NP [address] [place] [address] Nurse Practitioner Family Medicine 01/19/24 Leigha Pires RN [address] [facility] [place] [place] [address] Registered Nurse Family Medicine 08/18/24 Dog Handler Relationship Specialty Start Date End Date Jean Pierre Ochoa MD [address] [place] [address] PCP - General Family Medicine 01/19/24 Martha Robles MD [address] [facility] [place] [address] PCP - [facility] 12/15/23 Zenaida Nix NP [address] [place] [address] Nurse Practitioner Family Medicine 05/16/23 Zenaida Nix NP [address] [place] [address] Nurse Practitioner Family Medicine 01/19/24 Leigha Pires RN [address] [place] [facility] [address] Registered Nurse Family Medicine 08/18/24 Dog Handler Relationship Specialty Start Date End Date Jean Pierre Ochoa MD [address] [place] [address] PCP - General Family Medicine 01/19/24 Martha Robles MD [address] [place] [facility] [address] PCP - [facility] 12/15/23 Zenaida Nix NP [address] [place] [address] Nurse Practitioner Family Medicine 05/16/23 Zenaida Nix NP [address] [place] [address] Nurse Practitioner Family Medicine 01/19/24 Leigha Pires RN [address] [place] [address] Registered Nurse [facility] 08/18/24 Dog Handler Relationship Specialty Start Date End Date Jean Pierre Ochoa MD [address] [place] [address] PCP - General Family Medicine 01/19/24 Martha Robles MD [address] [place] [address] PCP - [facility] 12/15/23 Zenaida Nix NP [address] [place] [address] Nurse Practitioner Family Medicine 05/16/23 Zenaida Nix NP [address] [place] [address] Nurse Practitioner Family Medicine 01/19/24 Leigha Pires RN [address] [place] [address] Registered Nurse Family [facility] 08/18/24 Dog Handler Relationship Specialty Start Date End Date Jean Pierre Ochoa MD [address] [place] [address] PCP - General Family Medicine 01/19/24 Martha Robles MD [address] [place] [address] PCP - [facility] 12/15/23 Zenaida Nix, NAYE [address] [place] [address] Nurse Practitioner Family Medicine 05/16/23 Zenaida Nix NP [address] [place] [address] Nurse Practitioner Family Medicine 01/19/24 Leigha Pires, SALEEM [address] [place] [address] Registered Nurse Family Medicine 08/18/24 Dog Handler Relationship Specialty Start Date End Date Jean Pierre Ochoa MD [address] [place] [address] PCP - General Family Medicine 01/19/24 Martha Robles MD [address] [place] [address] PCP - [facility] 12/15/23 Zenaida Nix NP [address] [place] [address] Nurse Practitioner Family Medicine 05/16/23 Zenaida Nix NP [address] [place] [address] Nurse Practitioner Family Medicine 01/19/24 Leigha Pires, RN [address] [place] [facility] [address] Registered Nurse Family Medicine 08/18/24 Dog Handler Relationship Specialty Start Date End Date Jean Pierre Ochoa MD [address] [place] [address] PCP - General Family Medicine 01/19/24 Martha Robles MD [address] [place] [place] [address] PCP - [facility] 12/15/23 Zenaida Nix NP [address] [place] [address] Nurse Practitioner Family Medicine 05/16/23 Zenaida Nix NP [address] [place] [address] Nurse Practitioner Family Medicine 01/19/24 Leigha Pires, RN [address] [facility] [place] [address] Registered Nurse Family Medicine 08/18/24 Dog Handler Relationship Specialty Start Date End Date Jean Pierre Ochoa MD [address] [place] [address] PCP - General Family Medicine 01/19/24 Martha Robles MD [address] [place] [address] PCP - [facility] [place] [facility] 12/15/23 Zenaida Nix, NAYE [address] [place] [address] Nurse Practitioner Family Medicine 05/16/23 Zenaida Nix NP [address] [place] [address] Nurse Practitioner Family Medicine 01/19/24 Leigha Pires RN [address] [place] [address] Registered Nurse Family [facility] 08/18/24 Dog Handler Relationship Specialty Start Date End Date Jean Pierre Ochoa MD [address] [place] [address] PCP - General Family Medicine 01/19/24 Martha Robles MD [address] [facility] [place] [address] PCP - [facility] [place] [facility] 12/15/23 Zenaida Nix NP [address] [place] [address] Nurse Practitioner Family Medicine 05/16/23 Zenaida Nix NP [address] [place] [address] Nurse Practitioner Family Medicine 01/19/24 Leigha Pires RN [address] [place] [address] Registered Nurse Family [facility] 08/18/24 Dog Handler Relationship Specialty Start Date End Date Jean Pierre Ochoa MD [address] [place] [address] PCP - General Family Medicine 01/19/24 Martha Robles MD [address] [place] [address] PCP - [facility] 12/15/23 Zenaida Nix, NAYE [address] [place] [address] Nurse Practitioner Family Medicine 05/16/23 Zenaida Nix NP [address] [place] [address] Nurse Practitioner Family [facility] 01/19/24 Leigha Pires RN [address] [facility] [place] [address] Registered Nurse Family Medicine 08/18/24 Dog Handler Relationship Specialty Start Date End Date Jean Pierre Ochoa MD [address] [place] [address] PCP - General Family Medicine 01/19/24 Martha Robles MD [address] [place] [address] PCP - [facility] 12/15/23 Zenaida Nix NP [address] [place] [address] Nurse Practitioner Family Medicine 05/16/23 Zenaida Nix NP [address] [place] [address] Nurse Practitioner Family Medicine 01/19/24 Leigha Pires, SALEEM [address] [place] [address] Registered Nurse Family Medicine 08/18/24 Dog Handler Relationship Specialty Start Date End Date Jean Pierre Ochoa MD [address] [place] [address] PCP - General Family Medicine 01/19/24 Martha Robles MD [address] [place] [address] PCP - [facility] [place] PROJECT CONSULTANT 12/15/23 Zenaida Nix NP [address] [place] [address] Nurse Practitioner Family Medicine 05/16/23 Zenaida Nix, SUPERVISOR GLYCERIN [address] [place] [address] Nurse Practitioner Family Medicine 01/19/24 Dog Handler Relationship Specialty Start Date End Date Jean Pierre Ochoa MD [address] [place] [address] PCP - General Family Medicine 01/19/24 Martha Robles MD [address] [place] [address] PCP - [facility] [place] PROJECT CONSULTANT 12/15/23 Zenaida Nix NP [address] [place] [address] Nurse Practitioner Family Medicine 05/16/23 Zenaida Nix, NAYE [address] [place] [address] Nurse Practitioner Family Medicine 01/19/24 Dog Handler Relationship Specialty Start Date End Date Jean Pierre Ochoa MD [address] [place] [address] PCP - General Family Medicine 01/19/24 Martha Robles MD [address] [place] [address] PCP - [facility] 12/15/23 Zenaida Nix NP [address] [place] [address] Nurse Practitioner Family Medicine 05/16/23 Zenaida Nix NP [address] [place] [address] Nurse Practitioner Family Medicine 01/19/24 Dog Handler Relationship Specialty Start Date End Date Jean Pierre Ochoa MD [address] [place] [address] PCP - General Family Medicine 01/19/24 Martha Robles MD [address] [place] [address] PCP - [facility] 12/15/23 Zenaida Nix NP [address] [place] [address] Nurse Practitioner Family Medicine 05/16/23 Zenaida Nix NP [address] [place] [address] Nurse Practitioner Family Medicine 01/19/24 Dog Handler Relationship Specialty Start Date End Date InocenciaZenaida riggins DERIK Rosas [address] [place] [address] PCP - General Family Medicine 07/23/24 Mary Torres MD [address] [place] [address] Referring Ent - Otolaryngology 05/25/24 Idalia Patrick MD [address] [place] [address] Ent - Otolaryngology 07/19/24 Source Comments (unrecognize d section and content) In the event this informatio n is protected by the Federal Confidentiality of Alcohol and Drug Abuse Patient Records regulations: The Federal rules restrict any use of the information to criminally investigate or prosecute any alcohol or drug abuse patient.[facility] Hospital[facility] the event this information is protected by the Federal Confidentiality of Alcohol and Drug Abuse Patient Records regulations: The Federal rules restrict any use of the information to criminally investigate or prosecute any alcohol or drug abuse patient.[facility] HospitalIn the event this information is protected by the Federal Confidentiality of Alcohol and Drug Abuse Patient Records regulations: The Federal rules restrict any use of the information to criminally investigate or prosecute any alcohol or drug abuse patient.[facility] Hospital[facility] the event this information is protected by the Federal Confidentiality of Alcohol and Drug Abuse Patient Records regulations: The Federal rules restrict any use of the information to criminally investigate or prosecute any alcohol or drug abuse patient.[facility] HospitalIn the event this information is protected by the Federal Confidentiality of Alcohol and Drug Abuse Patient Records regulations: The Federal rules restrict any use of the information to criminally investigate or prosecute any alcohol or drug abuse patient.[facility] HospitalIn the event this information is protected by the Federal Confidentiality of Alcohol and Drug Abuse Patient Records regulations: The Federal rules restrict any use of the information to criminally investigate or prosecute any alcohol or drug abuse patient.[facility] HospitalIn the event this information is protected by the Federal Confidentiality of Alcohol and Drug Abuse Patient Records regulations: The Federal rules restrict any use of the information to criminally investigate or prosecute any alcohol or drug abuse patient.[facility] HospitalIn the event this information is protected by the Federal Confidentiality of Alcohol and Drug Abuse Patient Records regulations: The Federal rules restrict any use of the information to criminally investigate or prosecute any alcohol or drug abuse patient.[facility] HospitalIn the event this information is protected by the Federal Confidentiality of Alcohol and Drug Abuse Patient Records regulations: The Federal rules restrict any use of the information to criminally investigate or prosecute any alcohol or drug abuse patient.[facility] Hospital[facility] the event this information is protected by the Federal Confidentiality of Alcohol and Drug Abuse Patient Records regulations: The Federal rules restrict any use of the information to criminally investigate or prosecute any alcohol or drug abuse patient.[facility] Hospital[facility] the event this information is protected by the Federal Confidentiality of Alcohol and Drug Abuse Patient Records regulations: The Federal rules restrict any use of the information to criminally investigate or prosecute any alcohol or drug abuse patient.[facility] HospitalIn the event this information is protected by the Federal Confidentiality of Alcohol and Drug Abuse Patient Records regulations: The Federal rules restrict any use of the information to criminally investigate or prosecute any alcohol or drug abuse patient.[facility] HospitalIn the event this information is protected by the Federal Confidentiality of Alcohol and Drug Abuse Patient Records regulations: The Federal rules restrict any use of the information to criminally investigate or prosecute any alcohol or drug abuse patient.[facility] HospitalIn the event this information is protected by the Federal Confidentiality of Alcohol and Drug Abuse Patient Records regulations: The Federal rules restrict any use of the information to criminally investigate or prosecute any alcohol or drug abuse patient.[facility] HospitalIn the event this information is protected by the Federal Confidentiality of Alcohol and Drug Abuse Patient Records regulations: The Federal rules restrict any use of the information to criminally investigate or prosecute any alcohol or drug abuse patient.[facility] HospitalIn the event this information is protected by the Federal Confidentiality of Alcohol and Drug Abuse Patient Records regulations: The Federal rules restrict any use of the information to criminally investigate or prosecute any alcohol or drug abuse patient.[facility] HospitalIn the event this information is protected by the Federal Confidentiality of Alcohol and Drug Abuse Patient Records regulations: The Federal rules restrict any use of the information to criminally investigate or prosecute any alcohol or drug abuse patient.[facility] HospitalIn the event this information is protected by the Federal Confidentiality of Alcohol and Drug Abuse Patient Records regulations: The Federal rules restrict any use of the information to criminally investigate or prosecute any alcohol or drug abuse patient.[facility] HospitalIn the event this information is protected by the Federal Confidentiality of Alcohol and Drug Abuse Patient Records regulations: The Federal rules restrict any use of the information to criminally investigate or prosecute any alcohol or drug abuse patient.[facility] HospitalIn the event this information is protected by the Federal Confidentiality of Alcohol and Drug Abuse Patient Records regulations: The Federal rules restrict any use of the information to criminally investigate or prosecute any alcohol or drug abuse patient.[facility] HospitalIn the event this information is protected by the Federal Confidentiality of Alcohol and Drug Abuse Patient Records regulations: The Federal rules restrict any use of the information to criminally investigate or prosecute any alcohol or drug abuse patient.[facility] Reason for Visit (unrecogniz ed section and content) Reason Comments Patient Update Reason Comments Hearing Loss Specialty Diagnoses / Procedures Referred By Contac t Referred To Contact Diagnoses Other specified hearing loss, unspecified ear Procedures HEARING TEST/AUDIOGRAM COMPRE AUDIOMETRY THRESHOLD EVAL SP Idalia Moe MD [address] [place] [address] [facility] [address] [place] [address] Referral ID Status Reason Start Date Expiration Date V isits Requested Visits Authorized [id number] Closed Auto-Generate d Referral 06/03/2024 06/04/2025 1 1 Reason Comments New Patient Tumor in right ear,c onsult about surgery Reason Comments Hearing Loss Patient has question s. Reason Comments New Patient Evaluation New Patient Specialty Diagnoses / Procedures Referred By Sarah t Referred To Contact Diagnoses Schwannoma Vestibular schwannoma (HCC) Procedures REFER TO [facility] - PREOPERATIVE OPTIMIZATION OFFICE/OUTPATIENT NEW HIGH MDM 60 MINUTES Yovanny Soria MD [address] [place] [address] Referral ID Status Reason Start Date Expiration Date V isits Requested Visits Authorized [id number] Closed PCP Requested Referral 07/22/2024 07/22/2025 [address] Specialty Diagnoses / Procedures Referred By Sarah t Referred To Contact CT IMAGING Diagnoses Schwannoma Vestibular schwannoma (HCC) Procedures CT TEMP BONES WO IVCON CT ORBIT SELLA/POST FOSSA/EAR W/O CONTRAST MATRL Yovanny Soria MD [address] [place] [address] Ct [facility] [place] [address] Referral ID Status Reason Start Date Expiration Date V isits Requested Visits Authorized [id number] Closed Auto-Generate d Referral 07/22/2024 08/21/2025 1 1 Reason Comments urgent postop Reason Comments Post-Op Visit Reason Onset Date Comments Refill Request 08/23/2024 Reason Comments Hearing Loss Follow up MRI Reason Comments Post Op Reason Comments Hypertension Reason Comments Established Patient Follow up with audio Reason Comments Hearing Loss Reason Onset Date Comments ear 11/17/2024 FOR RECORDS PERTAINING TO PATIENTS WHO ARE OR HAVE BEEN ENROLLED IN A CHEMICAL DEPENDENCY/SUBSTANCEABUSE PROGRAM, SOME INFORMATION MAY BE OMITTED. This clinical summary was aggregated from multiple sources. Caution should be exercised in using it in the provision of clinical care. This summary normalizes information from multiple sources, and as a consequence, information in this document may materially change the coding, format and clinical context of patient data. In addition, data may be omitted in some cases. CLINICAL DECISIONS SHOULD BE BASED ON THE PRIMARY CLINICAL RECORDS. [facility]. provides no warranty or guarantee of the accuracy or completeness of information in this document.
[2024-11-30] MEDS: HYDRALAZINE HCL 20 MG/ML VIAL 10 MG IVP (18:37)
[2024-11-30] MEDS: HEPARIN SODIUM (PORCINE) 5,000 UNIT/ML VIAL 5000 UNIT SUBQ (20:58)
[2024-11-30] MEDS: CARVEDILOL 25 MG TABLET PO (20:58)
[2024-11-30] MEDS: ACETAMINOPHEN 500 MG TABLET 1000 MG PO (21:03)
[2024-12-01] VITALS (9 sets, daily range): BP systolic 126–168; BP diastolic 78–91; PULSE 76–83; TEMP 36.5–36.7; O2SAT 94–95
[2024-12-01 06:03] LABS: Basophils Percent Auto 0.2 % (0.2-2.0); Eosinophils Absolute Auto 0.1 10^3/uL (0.0-0.7); Eosinophils Percent Auto 1.6 % (0.9-7.0); Hematocrit 46.2 % (42.0-54.0); Hemoglobin 16.4 g/dL (14.0-18.0); Immature Granulocytes Abs Auto 0.01 10^3/uL (0.00-0.03); Immature Granulocytes Pct Auto 0.2 % (0.0-0.5); Lymphocytes Percent Auto 23.5 % (20.5-60.0); Mean Corpuscular HGB Conc 35.5 g/dL (29.9-35.2); Mean Corpuscular Hemoglobin 30.8 pg (25.9-34.0); Mean Corpuscular Volume 86.8 fL (80.0-94.0); Mean Platelet Volume 10.1 fL (9.5-13.5); Monocytes Absolute Auto 0.3 10^3/uL (0.3-0.8); Monocytes Percent Auto 7.4 % (1.7-12.0); Neutrophils Absolute Auto 2.9 10^3/uL (1.4-6.5); Neutrophils Percent Auto 67.1 % (43.0-75.0); Platelet Count 223 10^3/uL (150-450); Red Blood Count 5.32 10^6/uL (4.70-6.10); Red Cell Distribution Width 11.9 % (11.0-15.0); White Blood Count 4.3 10^3/uL (4.0-11.0)
[2024-12-01 06:23] LABS: Estimated Average Glucose 91 mg/dL; Glycohemoglobin A1C 4.8 % (4.5-6.2)
[2024-12-01 06:36] LABS: Alanine Aminotransferase 41 U/L (16-63); Albumin Globulin Ratio 1.6; Alkaline Phosphatase 74 U/L (46-116); Anion Gap 15.1; Aspartate Amino Transferase 25 U/L (15-37); BUN Creatinine Ratio 15.4; Bilirubin Total 1.1 mg/dL (0.2-1.0); Calcium 9.2 mg/dL (8.5-10.1); Carbon Dioxide 25.6 mmol/L (21.0-32.0); Chloride 107 mmol/L (98-107); Cholesterol 221 mg/dL (<=200); Estimated GFR (African America >60 (>=60 mL/min/1.73m^2); Estimated GFR (Non-African Ame >60 (>=60 mL/min/1.73m^2); Globulin 2.5 g/dL; Glucose 93 mg/dL (74-106); HDL Cholesterol 44 mg/dL (40-60); Potassium 3.7 mmol/L (3.5-5.1); Sodium 144 mmol/L (136-145); Thyroid Stimulating Hormone 2.198 uIU/mL (0.358-3.740); Total Protein 6.5 g/dL (6.4-8.2); Triglycerides 150 mg/dL (<=150)
[2024-12-01] MEDS: ACETAMINOPHEN 500 MG TABLET 1000 MG PO (07:04)
[2024-12-01] MEDS: CARVEDILOL 25 MG TABLET PO (08:44)
[2024-12-01] MEDS: HEPARIN SODIUM (PORCINE) 5,000 UNIT/ML VIAL 5000 UNIT SUBQ (08:44)
--- NOTE | 2024-12-01 08:57 | PM.HP ---
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 He had a headache after having some vision blurriness, and weakness in the arms at different times. Patient has history of dysarthria, and feels he is at his mental baseline and his speech is at his baseline at this time. Patient has no prior history of TIA's or Strokes. A stroke alert was called in the ER yesterday, he had STAT CTA of the head and neck which showed no acute strokes. He had no neurological deficits noted on admission. His blood pressure, however was significantly elevated 190's/ 100's. Patient was given labetolol IV and admitted for further plan of care. It appears that patient has not had any blood pressure medications filled since April of 2024, but he says 1 month. He is very frustrated with doctors and has been under alot of stress lately. I spent quit a bit of time with patient today. I was able to see the MRI from [facility] dated 11/26/24 that shows stable post operative changes, no recurrent masses and some distortion of the right 7th and 8th nerves that is similar to prior study. I was able to review this with him. He is still having some pain in the right occipital area at times. He has a follow up with [facility] in January 27, 2025. I discussed Labs are otherwise stable with exception to elevated cholesterol. Patient was placed on Telemetry and had no overnight events. Neuro checks all normal. BP this morning is 168/91. I started Coreg 25mg BID last night. Patient is amendable to taking Coreg and Atorvastatin as explained to him both help prevent strokes. He will have ECHO today and follow up with his pcp for results and for BP check. He seems satisfied with his care and that i answered all his questions. I discussed with him that the pain he may be having on the right side of his head/neck seems like subocciptal neuralgia and he should discuss this with his doctor at the [facility]. He will be discharged today in stable condition. Opioid HPI Opioid Management Most Recent Pain and Opioid Data: Last Pain Scale 0 12/01/24 11:22 12/01/24 Last Pain Assessment 12/01/24 11:22 Last MAR Pain Assessment 12/01/24 08:23 Last ORT Total Score 0 11/30/24 17:59 11/30/24 Last ORT Risk Category Low Risk 11/30/24 17:59 11/30/24 Ur Phencyclidine Scrn Negative (NEGATIVE) 11/30/24 14:50 11/30/24 Review of Systems ROS Narrative ROS: a complete review of systems were reviewed with patient and are positive as below or listed in History of Chief Complaint. General: no fever, chills, night sweats Head:headache, no trauma, visual changes, nausea or vomiting Skin: no reported rashes, itching or sores Eyes: no blurriness of vision Ears: no reported hearing loss, vertigo, earache, or tinnitus Throat: no sore throat, hoarseness, swelling of neck, or tongue pain Heart: no chest pain Lungs: no shortness of breath or cough GI: no diarrhea or vomiting/nausea Urinary: no urinary urgency, frequency or pain Neuro: no numbness or tingling HEM: no bleeding issues or bruising ENDO: no thyroid problems Psych: no anxiety or depression, stress PFSH PFSH Medical History (Updated 12/01/24 @ 09:09 by Melinda Estrella DO) Speech impairment ?R47.9 - Unspecified speech disturbances (ICD-10) Arthritis ?M19.90 - Unspecified osteoarthritis, unspecified site (ICD-10) Benign brain tumor ?D33.2 - Benign neoplasm of brain, unspecified (ICD-10) Hypertension ?I10 - Essential (primary) hypertension (ICD-10) Surgical History History of brain surgery ?Z98.890 - Other specified postprocedural states (ICD-10) H/O lumbosacral spine surgery ?Z98.890 - Other specified postprocedural states (ICD-10) Family History Father Family history of cancer Grandfather Family history of hypertension Grandmother Family history of hypertension Uncle Family history of hypertension Social History Within the past year, how often did you have a drink containing alcohol: never Within the past year, how often did you have six or more drinks on one occasion: never Score interpretation: A score less than 4 is consistent with normal alcohol consumption. Smoking status: Never smoker Second hand tobacco smoke exposure: No Non-prescribed substance use: denies use Previous occupational history: Disability from Back Injury Known occupational exposures/hazards: No Highest level of school completed/degree received: high school graduate Do you want help with school or training: No Are you now , , , , never or living with a partner: never In a typical week, how many times do you talk on the telephone with family, friends, or neighbors: 3 or more times per week How often do you get together with friends or relatives: 3 or more times per week How often do you attend yazdanism or yazdanism services: never Do you belong to any clubs or organizations such as yazdanism groups unions, [employer] or athletic groups, or school groups: no Total score: 1 Score interpretation: A score of less than or equal to 1 indicates the most socially isolated. Little interest or pleasure in doing things: not at all Feeling down, depressed, or hopeless: not at all Feel stressed/tense/nervous/anxious/difficulty sleeping: not at all Life stressors: recent of family or friend Life stressor details: stressed from little brothers in 1999 Due to disability, difficulty making decisions: No Do you think of yourself as: straight/heterosexual Gender Identity: male Meds Home Medications and Allergies Home Medications ?Medication ?Instructions ?Recorded ?Confirmed ?Type acetaminophen 650 mg 650 mg PO Q12H PRN pain 02/21/23 11/30/24 History tablet,extended release (Tylenol Arthritis Pain) amlodipine 10 mg tablet 10 mg PO DAILY 11/30/24 11/30/24 History losartan 100 mg tablet 100 mg PO DAILY 11/30/24 11/30/24 History Allergies Allergy/AdvReac Type Severity Reaction Status Date / Time No Known Drug Allergies Allergy Verified 03/27/23 05:45 Exam Narrative Exam Narrative: General: Patient is alert, and oriented to person, place and time with normal affect, proper hygiene Skin: no visible rashes, or ulcers Head: atraumatic, acephalic, nice healing scar behind the right ear Eyes: PERRLA, no nystagmus present, conjunctiva clear, no scleral icterus Ears: normal Tympanic Membrane, normal gross auditory acuity Nose: symmetric, no discharge, no maxillary or frontal sinus tenderness Mouth/Throat: no erythema, exudate, or tonsillar enlargement, normal dentition Neck: no masses palpated, normal thyroid, no JVD or audible carotid bruits Heart: Normal rate and rhythm, no murmurs/rubs/gallops Lungs: no audible wheezes, crackles and normal breath sounds all lung mason Abdomen: Normal audible bowel sounds, no distension, No palpable masses, no organomegaly, no rebound/guarding/ or rigidity Musculoskeletal: no swelling bilateral lower extremities Neuro: CN II-X grossly intact, normal sensation upper and lower extremities Constitutional Vital Signs, click to edit/add: Last Vital Signs Temp 98.0 F 12/01/24 08:15 Pulse 82 12/01/24 08:15 Resp 16 12/01/24 08:15 BP 168/91 H 12/01/24 08:15 Pulse Ox 95 12/01/24 08:15 O2 Del Method Room Air 12/01/24 08:15 Results Labs Labs: Short CBC 11/30/24 12/01/24 Range/Units 13:55 05:38 WBC 4.1 4.3 (4.0-11.0) 10^3/uL Hgb 17.0 16.4 (14.0-18.0) g/dL Hct 48.0 46.2 (42.0-54.0) % Plt Count 230 223 (150-450) 10^3/uL BMP 11/30/24 12/01/24 13:55 05:38 Sodium 143 144 Potassium 3.7 3.7 Chloride 106 107 Carbon Dioxide 28.5 25.6 BUN 11.0 14.0 Creatinine 1.00 0.91 Glucose 124 H 93 Calcium 9.1 9.2 Liver Function 11/30/24 12/01/24 Range/Units 13:55 05:38 Total Bilirubin 0.7 1.1 H (0.2-1.0) mg/dL AST 24 25 (15-37) U/L ALT 44 41 (16-63) U/L Alkaline Phosphatase 80 74 (46-116) U/L Albumin 4.1 4.0 (3.4-5.0) g/dL Urine 11/30/24 Range/Units 14:50 Urine Color Lt. yellow (YELLOW) Urine Clarity Clear (CLEAR) Urine pH 6.0 (5.0-9.0) Ur Specific [place] 1.010 (1.005-1.025) Urine Protein Negative (NEG/TRACE) mg/dL Urine Glucose (UA) Negative (NEGATIVE) mg/dL Assessment and Plan Assessment and Plan (1) Hypertensive urgency: Assessment and Plan: patient was given labetolol in the ER, I have started Coreg 25mg BID. Patient's headache has resolved this morning, Was going to check ECHO. CTA negative. I do not feel an MRI is warranted at this time. Patient has had no neurological deficits. He will be discharged today with close monitoring of his blood pressure and close follow up with PCP. Echo completed and results pending at the time of discharge. (2) Speech impairment: Assessment and Plan: baseline Qualifiers: Speech disturbance type: dysarthria Qualified Code(s): R47.1 - Dysarthria and anarthria (3) Benign brain tumor: Assessment and Plan: recent removal at [facility]; was vestibular Schwannoma see HPI for details on MRI brain 11/26/24 Qualifiers: Benign neoplasm of brain location: unspecified brain region Qualified Code(s): D33.2 - Benign neoplasm of brain, unspecified (4) Hypertension: Assessment and Plan: non-compliance with medication, discussed the importance of taking medications Qualifiers: Hypertension type: primary hypertension Qualified Code(s): I10 - Essential (primary) hypertension (5) Hyperlipidemia: Assessment and Plan: cholesterol panel was 221/44/147/150, would recommend low dose lipitor 20mg daily along with dietary changes. Qualifiers: Hyperlipidemia type: mixed hyperlipidemia Qualified Code(s): E78.2 - Mixed hyperlipidemia Plan patient is a full code continue Lovenox for DVT prophylaxis patient in observation, hopeful discharge home later today.
--- NOTE | 2024-12-01 11:00 | CM.NOTE ---
Rounds made with Dr. Estrella, discussed with pt findings and admission diagnosis. Dr. Estrella talked with pt in depth new medications and reasons for taking the medications. Pt verbalizes understanding. Pt also questions MRI that was done in [place] and has not received any results. Results found on Clinisync and Dr. Estrella discussed results. Pt will discharge to home today and f/u with PCP. Pt does have appt scheduled to see Physician in [place] on January 27 for benign brain tumor. t
--- NOTE | 2024-12-01 12:38 | PM.DS1 ---
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 location: unspecified brain region Qualified Code(s): D33.2 - Benign neoplasm of brain, unspecified (4) Hypertension: Qualifiers: Hypertension type: primary hypertension Qualified Code(s): I10 - Essential (primary) hypertension (5) Hyperlipidemia: Qualifiers: Hyperlipidemia type: mixed hyperlipidemia Qualified Code(s): E78.2 - Mixed hyperlipidemia DS: Summary Hospital Course Hospital Course: Please see H&P dated 12/01/24 Status at Discharge Functional status at discharge: independent ambulation Overall status at discharge: patient is back to baseline Time Spent with Patient Time attestation: Total time spent providing and/or coordinating discharge services: Time spent: greater than 30 minutes Exam Narrative Exam Narrative: no changes at discharge from admission H&P dated 12/01/24 Constitutional Vital Signs, click to edit/add: Last Vital Signs Temp 97.8 F 12/01/24 11:59 Pulse 77 12/01/24 12:00 Resp 18 12/01/24 11:59 BP 150/85 H 12/01/24 11:59 Pulse Ox 95 12/01/24 11:59 O2 Del Method Room Air 12/01/24 11:59 DS: Data Data Completed and Pending Labs on day of discharge: Labs from last 24 hours 12/01/24 11/30/24 11/30/24 05:38 14:50 13:55 WBC 4.3 4.1 RBC 5.32 5.47 Hgb 16.4 17.0 Hct 46.2 48.0 MCV 86.8 87.8 MCH 30.8 31.1 MCHC 35.5 H 35.4 H RDW 11.9 11.8 Plt Count 223 230 MPV 10.1 10.3 Neut % (Auto) 67.1 67.8 Lymph % (Auto) 23.5 23.4 Esmeralda % (Auto) 7.4 6.9 Eos % (Auto) 1.6 1.2 Baso % (Auto) 0.2 0.5 Neut # (Auto) 2.9 2.8 Lymph # (Auto) 1.0 L 1.0 L Esmeralda # (Auto) 0.3 0.3 Eos # (Auto) 0.1 0.1 Baso # (Auto) 0.0 0.0 Abs Immat Gran (auto) 0.01 0.01 Imm/Tot Granulo (auto) 0.2 0.2 ESR 1 PT 10.9 INR 1.03 Sodium 144 143 Potassium 3.7 3.7 Chloride 107 106 Carbon Dioxide 25.6 28.5 Anion Gap 15.1 12.2 BUN 14.0 11.0 Creatinine 0.91 1.00 Est GFR ( Amer) >60 >60 Est GFR (Non-Af Amer) >60 >60 BUN/Creatinine Ratio 15.4 11.0 Glucose 93 124 H Estimat Average Glucose 91 Hemoglobin A1c 4.8 Lactate 1.2 Calcium 9.2 9.1 Magnesium 1.9 Total Bilirubin 1.1 H 0.7 AST 25 24 ALT 41 44 Alkaline Phosphatase 74 80 Troponin I High Sens 4.6 C-Reactive Protein <0.50 NT-Pro-B Natriuret Pep 30.0 Total Protein 6.5 7.0 Albumin 4.0 4.1 Globulin 2.5 2.9 Albumin/Globulin Ratio 1.6 1.4 Triglycerides 150 Cholesterol 221 H LDL Cholesterol, Calc 147.0 VLDL Cholesterol 30.0 HDL Cholesterol 44 Cholesterol/HDL Ratio 5.0 TSH 2.198 1.708 Urine Color Lt. yellow Urine Clarity Clear Urine pH 6.0 Ur Specific [place] 1.010 Urine Protein Negative Urine Glucose (UA) Negative Urine Ketones Negative Urine Occult Blood Negative Urine Nitrite Negative Urine Bilirubin Negative Urine Urobilinogen 0.2 Ur Leukocyte Esterase Negative Urine RBC None seen Urine WBC None seen Ur Squamous Epith Cells Rare Urine Crystals None seen Urine Bacteria None seen Urine Casts None seen Urine Mucus None seen Ur Culture Indicated? No Urine Opiates Screen Negative Ur Buprenorphine Scrn Negative Ur Oxycodone Screen Negative Urine Methadone Screen Negative Ur Barbiturates Screen Negative U Tricyclic Antidepress Negative Ur Phencyclidine Scrn Negative Ur Amphetamines Screen Negative U Methamphetamines Scrn Negative U Benzodiazepines Scrn Negative Urine Cocaine Screen Negative U Cannabinoids Screen Negative Discharge Plan Discharge Disposition: Home, Self-Care Condition: Good Discharge Medications: New carvedilol 25 mg Tablet 25 mg PO BID 30 Days Qty: 60 0RF atorvastatin [Lipitor] 20 mg tablet 20 mg PO DAILY Qty: 30 0RF aspirin 81 mg capsule 81 mg PO DAILY Qty: 30 0RF Continued acetaminophen [Tylenol Arthritis Pain] 650 mg tablet extended release 650 mg PO Q12H PRN (Reason: pain) Discontinued amlodipine 10 mg tablet 10 mg PO DAILY Patient Comments: last filled 05/08 for 90 days losartan 100 mg tablet 100 mg PO DAILY Patient Comments: last filled 05/08 for 90 days Activity: increase activity as tolerated Diet: advance to your usual diet Print Language: [place] Forms: Portal Instructions Follow Up Appointments: Please keep appointment with [facility] as scheduled in January Please make appointment with PCP for 1 week for BP check and to review Echo results.
--- NOTE | 2024-12-01 17:07 | CA_ITS ---
Patient Name: MAYRA BLACK MR#: [id number] : 1970 Exam Date: 12/01/2024 Ordering Doctor: RYDER MOORE . ECHOCARDIOGRAM REPORT PROCEDURE: CA ECHO DOPPLER COMPLETE INDICATIONS: TIA symptoms, Elevated blood pressure COMPARISON: None. DESCRIPTION: COMPLETE ECHOCARDIOGRAM Real-time transthoracic echocardiography with 2D, M-mode, spectral and color flow Doppler performed. QUALITY: Technical quality was good. LEFT VENTRICLE: Normal chamber size. Mild left ventricular hypertrophy LV EF: Global left ventricular systolic function is normal; visually estimated ejection fraction is 60 to 65%. No obvious wall motion abnormalities. DIASTOLIC: Diastolic function could not be assessed. ATRIAL SEPTUM: Inadequately visualized. LEFT ATRIUM: Normal chamber size. RIGHT ATRIUM: Normal chamber size. RIGHT VENTRICLE: Normal chamber size. Normal right ventricular systolic function. TRICUSPID VALVE: Normal mobility and thickness. No stenosis with no regurgitation. Unable to assess right ventricular systolic pressure due to lack of measurable tricuspid regurgitation. MITRAL VALVE: Normal mobility and thickness. No evidence of mitral valve stenosis. There is no mitral annular calcification. No mitral regurgitation. AORTIC VALVE: Normal trileaflet appearance. Thickened aortic valve. Normal leaflet mobility. No evidence of aortic valve stenosis. No aortic regurgitation. AORTIC ROOT: Normal diameter and appearance. PULMONIC VALVE: Normal thickness and mobility. No stenosis. No regurgitation. PERICARDIUM: No evidence of pericardial effusion. IVC: Not well visualized. CONCLUSION: 1. Global left ventricular systolic function is normal; visually estimated ejection fraction is 60 to 65% 2. Normal right ventricular size and systolic function 3. Mild left ventricular hypertrophy 4. The left atrium is normal in size 5. No significant valvular abnormalities Adult Echocardiography Procedure Report Left Ventricle LVEDD (3.7 - 5.6 cm): 3.14 cm LVESD (2.2 - 4.0 cm): 2.24 cm LVIVS thickness (0.6 - 1.2 cm): 1.28 cm LVPW thickness (0.5 - 1.0 cm): 1.15 cm e': 0.09 m/s E - e': 6.96 LVOT Max Gradient: 4.08 mm[Hg] LVOT Area (cm2): 1.01 m/s Peak Velocity (LVOT): 1.01 m/s Mean Velocity (LVOT): 0.73 m/s LVOT Diameter 2.30 cm Left Atrium LA Volume Index (2D A2C): 28.32 ml/m2 Left Atrium Systolic Dimension: 2.92 cm Mitral Valve MV E to A Ratio: 0.72 Mitral Valve A-Wave Peak Velocity: 0.86 m/s Mitral Valve E-Wave Peak Velocity: 0.62 m/s Right Ventricle Aorta AO Root Diam: 3.51 cm Aortic Valve AoV Area (Peak Brad): 3.53 cm2, 3.53 cm2 AoV Area (VTI): 3.51 cm2, 3.51 cm2 Peak Velocity(Antegrade Flow): 1.19 m/s Peak Gradient(Antegrade Flow): 5.65 mm[Hg] Mean Velocity(Antegrade Flow): 0.84 m/s Mean Gradient(Antegrade Flow): 3.25 mm[Hg] Velocity Time Integral: 23.03 cm Tricuspid Valve Pulmonic Valve Mean Gradient: 1.22 mm[Hg] Mean Velocity: 0.52 m/s Peak Velocity: 0.74 m/s, 0.74 m/s Peak Gradient: 2.21 mm[Hg], 2.21 mm[Hg] Right Atrium Right Atrium Systolic Pressure: 38.41 ml, 38.41 ml Dictated by: Evens Galvin M.D. on 12/01/2024 at 14:35 Approved by: Evens Galvin M.D. on 12/01/2024 at 14:38
--- NOTE | 2024-12-02 13:52 | CM.DCFOLLOWU ---
Person spoke with: patient How are you feeling?well How is your pain?none Did you understand your discharge instructions?yes Do you have any questions about your discharge instructions?no Were you given any prescriptions at discharge? yes Were you able to get your prescriptions filled?yes Do you understand how to take your medications as ordered?yes Do you have any questions about your follow up appointment and do you plan to keep your follow up appointment? no questions, follow ups reviewed Is there anything else that you would like to discuss? no Questions/Comments/Concerns/Other: none
== END 2024-12-01 13:48 | disposition home or self-care (01) ==
LOC: ER 16:13 → MS 17:30
PROVIDERS: Physician Assistant; Admitting Provider Family Medicine; Emergency Provider Emergency Medicine; PCP Nurse Practitioner; Visit Provider Family Medicine
DX: I16.0 Hypertensive urgency (principal); T46.5X6A Underdosing of other antihypertensive drugs, initial encounter; Z91.128 Patient's intentional underdosing of medication regimen for other reason; R47.1 Dysarthria and anarthria; I10 Essential (primary) hypertension; E78.2 Mixed hyperlipidemia; Z86.011 Personal history of benign neoplasm of the brain; Z98.890 Other specified postprocedural states
CPT/HCPCS: 36415; 70450; 70496; 70498; 80053; 80061; 80307; 81001; 83036; 83605; 83735; 83880; 84443; 84484; 85025; 85610; 85652; 86140; 93005; 93306; 96372; 96374; 96375; 96376; 99285; G0378; J0360; J1644; J1920; Q9967